=== PATIENT | female | born 1980 | race Caucasian/White ===

== ENCOUNTER 2024-07-22 14:04 | Inpatient (IN) | payer MEDICARE, MEDICAID, SELFPAY ==
[2024-07-22] VITALS (12 sets, daily range): BP systolic 84–108; BP diastolic 39–67; PULSE 48–85; RESP 10–16; TEMP 36.7; O2SAT 98–100; BMI 39.5
--- NOTE | ~2024-07-22 | XR_ITS ---
EXAMINATION: Right knee and right ankle. CLINICAL INDICATION: Fall. COMPARISON: None. Right knee 2 views and right ankle 3 views. FINDINGS: Right knee: There is loss of tricompartment joint space with moderate periarticular spurring superior to patella. There is no loose bodies. There is mild suprapatellar joint effusion. No visible fracture or dislocation. The soft tissues are normal. Right ankle: The ankle mortise and the subtalar joints are normal. There is bimalleolar of soft tissue swelling. No visible acute fracture, dislocation or subluxation seen. A small calcaneal heel enthesophyte is seen. XR/XR ankle RT 2V IMPRESSION: No acute fracture or dislocation right ankle. Bimalleolar soft tissue swelling. Small calcaneal heel spur. Degenerative arthritic changes right knee without acute fracture or dislocation. Moderate osteophytosis superior to patella Electronically signed by: Baldo Espinosa MD 07/25/2024 09:29 PM EST
--- NOTE | ~2024-07-22 | XR_ITS ---
EXAMINATION: Right knee and right ankle. CLINICAL INDICATION: Fall. COMPARISON: None. Right knee 2 views and right ankle 3 views. FINDINGS: Right knee: There is loss of tricompartment joint space with moderate periarticular spurring superior to patella. There is no loose bodies. There is mild suprapatellar joint effusion. No visible fracture or dislocation. The soft tissues are normal. Right ankle: The ankle mortise and the subtalar joints are normal. There is bimalleolar of soft tissue swelling. No visible acute fracture, dislocation or subluxation seen. A small calcaneal heel enthesophyte is seen. XR/XR knee RT 2V IMPRESSION: No acute fracture or dislocation right ankle. Bimalleolar soft tissue swelling. Small calcaneal heel spur. Degenerative arthritic changes right knee without acute fracture or dislocation. Moderate osteophytosis superior to patella Electronically signed by: Baldo Espinosa MD 07/25/2024 09:29 PM EST
--- NOTE | ~2024-07-22 | XR_ITS ---
EXAMINATION: XR ABDOMEN KUB CLINICAL INDICATION: alternating constipation/diarrhea COMPARISON: None available. TECHNIQUE: AP view of the abdomen performed on 3 images. FINDINGS: The bowel gas pattern is normal with no evidence of ileus or obstruction. No unusual soft tissue calcifications are noted. Diffuse vertebral spondylosis seen in the visualized thoracolumbar spine.. XR/XR KUB IMPRESSION: Unremarkable examination. Electronically signed by: Miriam Bauer MD 08/07/2024 07:32 AM [facility]
--- NOTE | 2024-07-22 14:24 | PC.NURSE ---
Pts allergies taken from face sheet from shelter, unknown reactions, pt not answering questions at this time.
--- NOTE | 2024-07-22 14:30 | PC.NURSE ---
Pt presents to ED via EMS from senior living, per EMS senior living called due to pt nodding off and complaining of right flank pain for past 2 days. Per staff pt has UTI and they are worried she may have kidney infection. Pt is alert and oriented initially when arrived, then sleeps, only arousable to pain. SPO2 remains >94% on RA, NSR on mental health tech.
--- NOTE | 2024-07-22 15:11 | ED.ABDPAIN ---
HPI - Abdominal Pain General Chief Complaint: Abdominal Pain Stated Complaint: from long term r flank pain x2days per ems Time Seen by Provider: 07/22/24 15:11 Source: patient and EMS Mode of arrival: EMS Limitations: no limitations History of Present Illness ED Provider: CLAUDIA HUSSEIN PA-C HPI narrative: 43 year old female presents to the ED today via EMS from sober home for evaluation of lethargy. Staff reports patient has been nodding off all morning and is concerned she may have taken an ilicit substance. They also report she was diagnosed with a urinary tract infection a few days ago however they are unsure if she has been taking her prescribed anitbiotic. She has been reporting continued right flank pain. On my initial evaluation, patient is sleeping in exam room. She is arousable to painful stimuli however immediately goes back to sleep. Unable to answer questions. Related Data Home Medications ?Medication ?Instructions ?Recorded ?Confirmed baclofen 20 mg tablet 20 mg PO TID 07/23/24 07/23/24 clonazepam 1 mg tablet 1 mg PO BID Anxiety 07/23/24 07/23/24 clonazepam 2 mg tablet 2 mg PO DAILY PRN Anxiety 07/23/24 07/23/24 clonidine HCl 0.2 mg tablet 0.2 mg PO TID 07/23/24 07/23/24 dicyclomine 20 mg tablet 20 mg PO TID 07/23/24 07/23/24 docusate sodium 100 mg capsule 100 mg PO BID 07/23/24 07/23/24 fluticasone propionate 50 1 spray intranasal DAILY 07/23/24 07/23/24 mcg/actuation nasal spray,suspension gabapentin 100 mg capsule 100 mg PO TID 07/23/24 07/23/24 gabapentin 300 mg capsule 300 mg PO TID 07/23/24 07/23/24 ibuprofen 800 mg tablet 800 mg PO Q6H PRN Moderate Pain 07/23/24 07/23/24 (Scale Score 5-6) loratadine 10 mg tablet 10 mg PO DAILY 07/23/24 07/23/24 methadone 110 mg PO DAILY 07/23/24 07/23/24 oxybutynin chloride 10 mg 10 mg PO DAILY 07/23/24 07/23/24 tablet,extended release 24 hr pregabalin 300 mg capsule 300 mg PO BID 07/23/24 07/23/24 pregabalin 75 mg capsule 75 mg PO TID 07/23/24 07/23/24 sennosides 8.6 mg tablet (senna) 8.6 mg PO BID 07/23/24 07/23/24 topiramate 200 mg tablet 200 mg PO BID 07/23/24 07/23/24 topiramate 50 mg tablet 50 mg PO BID 07/23/24 07/23/24 valacyclovir 1 gram tablet 1,000 mg PO DAILY 07/23/24 07/23/24 Allergies Allergy/AdvReac Type Severity Reaction Status Date / Time benztropine Allergy Unknown Verified 07/22/24 14:23 Bleach (Sodium Hypochlorite) Allergy Unknown Verified 07/22/24 14:23 chlorpromazine Allergy Unknown Verified 07/22/24 14:23 divalproex sodium Allergy Unknown Verified 07/22/24 14:23 egg Allergy Unknown Verified 07/22/24 14:23 olanzapine Allergy Unknown Verified 07/22/24 14:23 quetiapine Allergy Unknown Verified 07/22/24 14:23 Sulfa (Sulfonamide Allergy Unknown Verified 07/22/24 14:23 Antibiotics) [Sulfonamides] ziprasidone Allergy Unknown Verified 07/22/24 14:23 haloperidol [From Haldol] AdvReac Unknown Verified 07/22/24 14:23 lactose AdvReac Unknown Verified 07/22/24 14:23 naloxone AdvReac Unknown Verified 07/22/24 14:23 [facility] Social History Social History Advance Directives: No Advance Directives Information Provided: No Physical Exam ED Vital Signs: Vital Signs - 24 hr 07/22/24 16:14 07/22/24 16:51 07/22/24 17:31 Temperature Pulse Rate 66 66 60 Respiratory Rate 10 L 16 14 Blood Pressure 97/55 L 86/43 L 92/48 L Pulse Oximetry 98 99 Oxygen Delivery Method Room Air Room Air 07/22/24 18:12 07/22/24 18:46 07/22/24 18:53 Temperature Pulse Rate 58 55 57 Respiratory Rate 14 13 12 Blood Pressure 88/50 L 84/39 L 89/48 L Pulse Oximetry 98 99 99 Oxygen Delivery Method Room Air Room Air 07/22/24 19:02 07/22/24 20:23 07/22/24 22:00 Temperature Pulse Rate 54 48 L Respiratory Rate 10 L 10 L Blood Pressure 95/54 L 97/59 L 103/60 Pulse Oximetry 98 99 Oxygen Delivery Method Room Air Room Air 07/23/24 00:48 07/23/24 02:14 Temperature 97.2 F 97.6 F Pulse Rate 66 68 Respiratory Rate 12 12 Blood Pressure 138/82 120/72 Pulse Oximetry 100 99 Oxygen Delivery Method Room Air Room Air BMI result Body Mass Index 39.5 Hypotensive, vitals otherwise wnl General: appears intoxicated, nodding off, intermittently agreeable to answering questions, discheveled, poor hygeine Skin: Warm, dry, intact. no open wounds/ lesions Head: Normocephalic, atraumatic. EENT: Hearing is intact b/l. Conjunctiva clear. pin point pupils. EOM intact. Moist mucous membranes.? Neck: Supple without LAD Cardiac: Chest wall symmetric. RRR Lungs: Normal respiratory effort without accessory muscle use. CTA bilaterally Abdomen: Soft, non-tender, non-distended. No rebound tenderness or guarding. Positive BS x4. no cvat. Back: No midline spinous or paraspinal tenderness. No step off deformity. Ext: Upper and lower extremities atraumatic, without tenderness, deformity, swelling or erythema. Full ROM throughout. Neuro: arousable to painful stimuli. Sensation intact to light touch. Course Course Course Narrative: 1651 -- RN able to obatin labs. patient attempted to provide urine sample however fell asleep while doing so. concern for UTI - straight cath attempted however patient became very aggitated and upset, stating that she would like to leave. while I was talking to patient at bedside, she became hypotensive to 97/55. patient was placed in reverse Trendelenburg and BP recycled to 80's/50s. Dr. banks's at bedside. patient agreeable to IVF for hypotension. afebrile. I have suspicion hypotension is secondary to polysubstance abuse. I do not have concern for sepsis at this time. > CBC without leukocytosis or left shift. Normocytic anemia. No priors to compare to. H&H above transfusion threshold. Chemistry without acute electrolyte abnormality requiring intervention. UA/UDS pending. 1810 -- UDS positive for methadone, amphetemines, and benzos. ethanol undetectable. 2027 -- Patient has been sleeping for a majority of her stay. she is unwilling to answer questions and I cannot get a clear history from her although she denies any drug use. urine shows polysubstance abuse. blood pressure has been improving with IVF, will continue to monitor. plan for re-evaluation when patient is more awake. 2050 -- patient stable at the end of my shift. BP improving. sign out given to Juan WILLIS pending re-evaluation and disposition. Physician observation initiated. Reevaluation(s) Reevaluation #1: Patient received in sign-out at change of shift pending re-evaluation. She is now awake, alert and oriented. She initially told nursing staff that she requested discharge. When I went to evaluate her she states that she does not want to go back to her facility and that she would like to speak to the care team. She is depressed but not suicidal. She reports that she recently got out of a psychiatric hospital. The patient denies any illicit substance abuse or overdose Time: 00:32 Reevaluation #2: Patient is seen by the care team. She will be made a dual bed search for depression and substance abuse. She will be brought to the [place]. Time: 02:06 Reevaluation #3: Physician observation continued. VS stable, no acute events overnight, dual dx bedsearch MELIZA 07/23/24 Additional Reevaluation(s): observation care revealed that the patient does meet psychiatric necessity for hospitalization. final disposition discussed with the patient. The patient completed observation care at 242pm. admitted inpatient Medical Decision Making Medical Decision Making [facility] Narrative: 43 year old female presents to the ED today via EMS from sober home for evaluation of lethargy. Hypotensive, vitals otherwise wnl. Differential diagnosis includes polysubstance abuse, depression, etoh intoxication, anemia, electrolyte abnormality Differential Diagnosis Differential Diagnoses: The differential diagnosis associated with the presentation includes as above. Admission/Observation Not indicated. Lab Data [facility] Lab Attestation statement: I reviewed the patient's lab results. as above. 07/22/24 15:47 07/22/24 15:47 Labs: Lab Results 07/22/24 07/22/24 Range/Units 15:47 17:11 WBC 6.0 (4.8-10.8) X10*3/uL RBC 4.16 L (4.20-5.50) X10*6/uL Hgb 10.6 L (12.0-16.0) g/dl Hct 33.2 L (37.0-47.0) % MCV 79.8 L (80.0-98.0) fL MCH 25.5 L (27.0-33.0) pg MCHC 31.9 (31.0-35.0) g/dl RDW 18.4 H (11.0-16.0) % Plt Count 191 (160-400) X10*3/uL MPV 11.2 (9.4-12.3) fL Immature Gran % (Auto) 0.2 (0.0-0.4) % Neut % (Auto) 46.4 (45-73) % Lymph % (Auto) 42.4 H (20-40) % [place] % (Auto) 9.5 (2-11) % Eos % (Auto) 1.2 (0-4) % Baso % (Auto) 0.3 (0-2) % Lymph # (Auto) 2.6 (1.2-4.9) X10*3/uL [place] # (Auto) 0.6 (0.1-1.2) X10*3/uL Eos # (Auto) 0.1 (0.0-0.4) X10*3/uL Baso # (Auto) 0.0 (0.0-0.2) X10*3/uL Abs Immat Gran (auto) 0.01 (0.00-0.03) X10*3/uL Absolute Neuts (auto) 2.8 (2.0-8.3) x10*3/uL Absolute Nucleated RBC 0.000 (0.0-0.012) X10*3/uL Nucleated RBC % (auto) 0.0 (0.0-0.2) /100WBC Sodium 141 (135-145) mmol/L Potassium 3.3 (3.3-5.1) mmol/L Chloride 110 H (96-108) mmol/L Carbon Dioxide 23 (22-29) mmol/L Anion Gap 11 L (12-20) BUN 26 H (9-16) mg/dL Creatinine 0.99 (0.5-1.4) mg/dL Estim Creat Clear Calc 88.0 Estimated GFR > 60 Random Glucose 94 (60-115) mg/dL Calcium 9.1 (8.4-10.2) mg/dL Magnesium 2.1 (1.6-2.6) mg/dL Total Bilirubin 0.3 (0.0-1.0) mg/dL AST 53 H (5-31) U/L ALT 33 H (0-31) U/L Alkaline Phosphatase 95 (39-117) U/L Total Protein 7.9 (6.5-8.0) g/dL Albumin 3.6 (3.5-5.0) g/dL Lipase 7 L (8-78) U/L Urine Color Dark Yellow Urine Appearance Turbid Urine pH 5.5 (5.0-9.0) Ur Specific [place] 1.025 (1.005-1.025) Urine Protein Trace (Neg-Trace) mg/dL Urine Glucose (UA) Negative (Negative) mg/dL Urine Ketones Negative (Negative) mg/dL Urine Blood Negative (Negative) Urine Nitrite Negative (Negative) Ur Leukocyte Esterase Small (1+) H (Negative) Urine RBC 0-2 (0-2) /HPF Urine WBC 6-10 (0-5) /HPF Ur Squamous Epith Cells 6-10 (0-2) /HPF Other Crystals Present Urine Bacteria 1+ (None Seen) Hyaline Casts 6-10 (0-2) /LPF Urine Test NEGATIVE (NEGATIVE) Urine Opiates Screen Not Detected (Not Detect) Ur Buprenorphine Scrn Not Detected (Not Detect) ng/mL Ur Oxycodone Screen Not Detected (Not Detect) ng/mL Urine Methadone Screen Positive H (Not Detect) ng/mL Urine Fentanyl Screen Not Detected (Not Detect) Ur Barbiturates Screen Not Detected (Not Detect) Ur Phencyclidine Scrn Not Detected (Not Detect) Ur Amphetamines Screen POSITIVE H (Not Detect) U Benzodiazepines Scrn POSITIVE H (Not Detect) Urine Cocaine Screen Not Detected (Not Detect) U Marijuana (THC) Screen Not Detected (Not Detect) Ethyl Alcohol < 10 mg/dL Independent Interpretation I performed an independent interpretation of an: EKG Independent Historian Clinical information obtained from an independent historian. History obtained from or confirmed by: EMS Social Determinants Patient?s care significantly limited by Social Determinants of Health including: Other Social Determinant of Health Medications Administered Generic Name Dose Route Start Last Admin Trade Name Freq PRN Reason Stop Dose Admin Hydroxyzine HCl 25 mg 07/23/24 11:09 07/23/24 14:06 Hydroxyzine Hcl 25 Mg Tablet PO 25 mg Q6H PRN Administration Anxiety Methadone HCl 110 mg 07/23/24 09:30 07/23/24 11:47 Methadone Hcl 20 Mg/2 Ml Oral.Conc PO 110 mg DAILY EFREM Administration Discontinued Medications Generic Name Dose Route Start Last Admin Trade Name Freq PRN Reason Stop Dose Admin Sodium Chloride 1,000 mls @ 999 mls/hr 07/22/24 17:00 07/22/24 18:47 Ns IV 07/22/24 18:00 Infused .Q1H1M EFREM Infusion Sodium Chloride 1,000 mls @ 999 mls/hr 07/22/24 17:00 07/22/24 18:48 Ns IV 07/22/24 18:00 Infused .Q1H1M EFREM Infusion Sodium Chloride 1,000 mls @ 999 mls/hr 07/22/24 18:45 07/22/24 20:04 Ns IV 07/22/24 19:45 Infused .Q1H1M EFREM Infusion Critical Care Time Critical Care Time Critical Care Time: No Discharge Plan Discharge Clinical Impression: Polysubstance abuse, Hypotension, Depression Patient Disposition: Still a Patient
[2024-07-22 15:50] LABS: MANUAL DIFF FLAG NO
[2024-07-22 15:52] LABS: Basophils Percent Auto 0.3 % (0-2); Eosinophils Absolute Auto 0.1 X10*3/uL (0.0-0.4); Eosinophils Percent Auto 1.2 % (0-4); Hematocrit 33.2 % (37.0-47.0); Hemoglobin 10.6 g/dl (12.0-16.0); Imm Gran Abs Auto 0.01 X10*3/uL (0.00-0.03); Imm Gran Pct Auto 0.2 % (0.0-0.4); Lymphocytes Absolute Auto 2.6 X10*3/uL (1.2-4.9); Lymphocytes Percent Auto 42.4 % (20-40); Mean Corpuscular HGB Conc 31.9 g/dl (31.0-35.0); Mean Corpuscular Hemoglobin 25.5 pg (27.0-33.0); Mean Corpuscular Volume 79.8 fL (80.0-98.0); Mean Platelet Volume 11.2 fL (9.4-12.3); Monocytes Absolute Auto 0.6 X10*3/uL (0.1-1.2); Monocytes Percent Auto 9.5 % (2-11); Neutrophils Absolute Auto 2.8 x10*3/uL (2.0-8.3); Neutrophils Percent Auto 46.4 % (45-73); Platelet Count 191 X10*3/uL (160-400); Red Blood Count 4.16 X10*6/uL (4.20-5.50); Red Cell Distribution Width 18.4 % (11.0-16.0)
[2024-07-22 16:18] LABS: Alanine Aminotransferase 33 U/L (0-31); Albumin Level 3.6 g/dL (3.5-5.0); Alkaline Phosphatase 95 U/L (39-117); Anion Gap 11 (12-20); Aspartate Amino Transferase 53 U/L (5-31); Bilirubin Total 0.3 mg/dL (0.0-1.0); Blood Urea Nitrogen 26 mg/dL (9-16); Calcium 9.1 mg/dL (8.4-10.2); Carbon Dioxide 23 mmol/L (22-29); Chloride 110 mmol/L (96-108); Estimated Glomerular Filt Rate > 60; Glucose Random 94 mg/dL (60-115); Lipase 7 U/L (8-78); Magnesium 2.1 mg/dL (1.6-2.6); Potassium 3.3 mmol/L (3.3-5.1); Sodium 141 mmol/L (135-145); Total Protein 7.9 g/dL (6.5-8.0)
--- NOTE | 2024-07-22 16:48 | ECG_ITS ---
Test Reason : hypotensive Blood Pressure : / mmHG Vent. Rate : 058 BPM Atrial Rate : 058 BPM P-R Int : 176 ms QRS Dur : 104 ms QT Int : 512 ms P-R-T Axes : -06 -17 -05 degrees QTc Int : 502 ms Sinus bradycardia Minimal voltage criteria for LVH, may be normal variant ( R in aVL ) Cannot rule out Anterior infarct , age undetermined Prolonged QT Abnormal ECG No previous ECGs available Referred By: Sandy Ayon Electronically Signed By:MERRY MOLINA MD
[2024-07-22] MEDS: 0.9 % Sodium Chloride 1,000 ML 999 ML IV ×3 (16:52→18:51)
[2024-07-22 17:18] LABS: Appearance Urine Turbid; Color Urine Dark Yellow; Glucose Urine UA Negative (Negative); Leukocyte Esterase Urine Small (1+) (Negative); Nitrite Urine Negative (Negative); PH 5.5 (5.0-9.0); Specific Gravity - Urine 1.025 (1.005-1.025); UMIC TRIGGER UACC YES; Urine Blood Negative (Negative); Urine Ketones Negative (Negative); Urine Protein Trace mg/dL (Neg-Trace)
[2024-07-22 17:21] LABS: Ethanol < 10 mg/dL
--- NOTE | 2024-07-22 17:32 | PC.NURSE ---
Pt able to sit on commode with assistance and urinate. Security came and checked pts belongings, placed in closet. Pt now sleeping again, NSR on montior. BP remains soft, fluids infusing,
[2024-07-22 17:42] LABS: UPreg QC Valid YES; Urine Pregnancy NEGATIVE (NEGATIVE)
[2024-07-22 17:48] LABS: Bacteria Urine 1+ (None Seen); Other Crystals Urine Present; UACC Culture Trigger YES
[2024-07-22 17:49] LABS: RBC Urine 0-2 /HPF (0-2)
[2024-07-22 17:51] LABS: Amphetamine Screen Urine POSITIVE (Not Detect); Barbiturates, Urine Not Detected (Not Detect); Benzodiazepines Screen Urine POSITIVE (Not Detect); Buprenorphine Scr Not Detected (Not Detect); Cannabinoid Screen Urine Not Detected (Not Detect); Cocaine Screen Urine Not Detected (Not Detect); Fentanyl, urine Not Detected (Not Detect); Methadone Screen, Urine Positive (Not Detect); Opiate Screen Urine Not Detected (Not Detect); Oxycodone Screen Urine Not Detected (Not Detect); Phencyclidine Screen Urine Not Detected (Not Detect)
--- NOTE | 2024-07-22 17:55 | PC.NURSE ---
Belongings in closet next to room 7, shelf 4 by security
--- NOTE | 2024-07-22 18:47 | PC.NURSE ---
Pt continues to sleep, only aroused to pain. BPs remain low, provider aware and NS infusing.
--- NOTE | 2024-07-22 19:29 | PC.NURSE ---
Pt continues to sleep, only aroused to pain. BPs remain low, provider aware and NS infusing.
--- NOTE | 2024-07-22 20:50 | PC.NURSE ---
Pt remains asleep on stretcher. Arousable to painful stimuli and beginning to respond to some voice.
[2024-07-23] VITALS (7 sets, daily range): BP systolic 118–149; BP diastolic 72–88; PULSE 65–78; RESP 12–18; TEMP 36.2–36.6; O2SAT 99–100
--- NOTE | 2024-07-23 | ECG_ITS ---
Test Reason : MED CLEARANCE Blood Pressure : / mmHG Vent. Rate : 059 BPM Atrial Rate : 059 BPM P-R Int : 162 ms QRS Dur : 096 ms QT Int : 428 ms P-R-T Axes : 019 -10 005 degrees QTc Int : 423 ms Sinus bradycardia with Premature atrial complexes Cannot rule out Anterior infarct (cited on or before 22-JUL-2024) Abnormal ECG When compared with ECG of 22-JUL-2024 17:44, Premature atrial complexes are now Present QT has shortened Referred By: Khadra Lund Electronically Signed By:MERRY MOLINA MD
--- NOTE | 2024-07-23 00:58 | PC.NURSE ---
Pt ambulated to and from restroom with standby assist from RN. Once back on stretcher pt requesting food and drink which was provided. Pt changed into proper hospital attire as pt to be seen by CARE team for respite.
--- NOTE | 2024-07-23 06:38 | HE.PHANOTE ---
RE METHADONE [facility] [phone]. Dosed with 110 mg last dose was 07/22/24 @6948
--- NOTE | 2024-07-23 10:44 | PC.NURSE ---
Pt grants permission for video editing internship [employer] (witnessed by this RN) to remove her medications from her personal belongings for the purpose of med verificaiton.
[2024-07-23] MEDS: methADONE HCl 20 MG/2 ML ORAL.CONC 110 MG PO (11:47)
[2024-07-23] MEDS: hydrOXYzine HCL 25 MG TABLET PO (14:06)
--- NOTE | 2024-07-23 14:08 | PC.NURSE ---
Pt has been resting quietly for most of the morning. Pt meets with Tashi for a short time. Med rec completed via medication bubble packs in Pts belongings. All orders reviewed with Pt for accuracy and entered as such. Pharmacy with heavy involvement to ensure Rx are current prior to verifying the orders. Pt made aware that this process has been on going and that medications will be entered once all verifications are completed. Pt requests medication for anxiety. Pt advised she has a current order for Atarax if she would like. While Pt reports Atarax does not help with her anxiety but proceeds to take it. Pt then asks why no one will give her Ativan. It was explained to Pt she was offered the Atarax since she had an order for it and that no staff are withholding Ativan from her. Pt then states she doesn't understand why she can't go back to the program she came from; Pt advised that Care Team will meet with her to discuss and answer her questions re: her plan of care.
--- NOTE | 2024-07-23 14:33 | PHA.MEDREC ---
Pharmacy Consult ? Medication Reconciliation Pharmacy reviewed med rec done by nursing. Patient has all her medications on hand with her and confirmed medications with that and list provided by [facility] for [facility]. List from [facility] had no directions on the paper and I utilized the Rx bottles and I utilized claims to help confirm medications.
--- NOTE | 2024-07-23 14:35 | PC.NURSE ---
Pts medications continues to be unverified at this time. Colace and Senokot not available in Pod pyxis. Will request from main ED pyxis.
--- NOTE | 2024-07-23 14:41 | PHA.MEDREC ---
Pharmacy Consult ? Medication Reconciliation Pharmacy reviewed med rec done by nursing. Patient has all her medications on hand with her and confirmed medications with that and list provided by [facility] for [facility]. List from [facility] had no directions on the paper and I utilized meds patient has on hand and noticed a lot of medications filled from [facility] not filled since April of this year mostly for 30 day supplies. Calling [facility] they have not filled for this patient since April of this year for 30 day supplies and nothing more then that, patient seems to not be compliant with taking these medications from [facility].
--- NOTE | 2024-07-23 15:06 | PC.NURSE ---
GERARDO Jack from inpatient MH comes to retrieve Pt from ED BH pod. RN to RN given over the phone earlier in shift and brief review of Pts day completed in person. All of Pts belongings from [facility] transported up with Pt. GERARDO Jack given custody of all of Pts medication bubble packs (2 bags) retrieved from Pt belongings. Care of Pt, Pts medications, and Pts belongings relinquished to GERARDO Jack. Pt has left the unit at this time.
[2024-07-23] MEDS: Pregabalin 150 MG CAPSULE 300 MG PO ×2 (16:04→21:47)
[2024-07-23] MEDS: cloNIDine HCL 0.2 MG TABLET PO ×2 (16:05→21:47)
[2024-07-23] MEDS: Dicyclomine HCl 10 MG CAPSULE 20 MG PO (16:05)
[2024-07-23] MEDS: Topiramate 100 MG TABLET 200 MG PO ×2 (16:05→21:48)
[2024-07-23] MEDS: Baclofen 20 MG TABLET PO ×2 (16:05→21:48)
[2024-07-23] MEDS: clonazePAM 1 MG TABLET PO ×3 (16:10→21:48)
[2024-07-23] MEDS: Loratadine 10 MG TABLET PO (16:58)
[2024-07-23] MEDS: oxyBUTYnin chloride ER 5 MG TAB.ER.24 10 MG PO (16:58)
--- NOTE | 2024-07-23 19:10 | PC.ADMIT ---
Arline is a 43 year old female was admitted to from [facility] ED at 15:00. Arline arrived after a short stay at [facility] in which staff called an ambulance due to concerns that she may have taken an illicit substance and lethargy. Skin and safety check was performed with no remarkable findings. Arline does have black hair dye on her arms and around her fingernails which initially may look like bruising or dirt. Arline was cooperative with the admission process though had quite a bit of anxiety over confusion regarding the large amount of medications that she arrived with, some from previous hospital stays. [facility] pharmacy and POD reconciled medications to the best of their agilities and orders were entered. Arline endorses passive SI with no plan while here an is able to contract for safety and request help if needed. She also reports as high depression and anxiety. Arline was brought to the unit with a wheelchair full of belongings and reportedly many belongings left at [facility] in the dryer. She did call from POD to request delivery of her other belongings. Belongings are temporarily in the OT room in a wheelchair marked as not inventoried. Arline signed a CV and was put on 15 minute checks for safety.
--- NOTE | 2024-07-23 20:05 | PC.NURSE ---
Arline has a neuro [facility] provider/prescriber for which she has signed a release; Liz Celis [facility] in [facility] [phone] ext [phone].
[2024-07-23] MEDS: Docusate Sodium 100 MG CAPSULE PO (21:47)
[2024-07-23] MEDS: Gabapentin 400 MG CAPSULE PO (21:47)
[2024-07-23] MEDS: Acetaminophen 325 MG TABLET 650 MG PO (21:52)
[2024-07-24 07:48] VITALS: BP 105/62; PULSE 58; RESP 18; TEMP 36.4; O2SAT 96
[2024-07-24] MEDS: methADONE HCl 20 MG/2 ML ORAL.CONC 110 MG PO (08:11)
[2024-07-24] MEDS: Gabapentin 400 MG CAPSULE PO (08:12)
[2024-07-24] MEDS: Pregabalin 150 MG CAPSULE 300 MG PO ×2 (08:12→21:16)
[2024-07-24] MEDS: clonazePAM 1 MG TABLET 2 MG PO ×2 (08:12→12:24)
[2024-07-24] MEDS: Docusate Sodium 100 MG CAPSULE PO (08:13)
[2024-07-24] MEDS: oxyBUTYnin chloride ER 5 MG TAB.ER.24 10 MG PO (08:13)
[2024-07-24] MEDS: valACYclovir HCL 1,000 MG TABLET 1000 MG PO (08:13)
[2024-07-24] MEDS: Sennosides 8.6 MG TABLET 17.2 MG PO (08:13)
[2024-07-24] MEDS: cloNIDine HCL 0.2 MG TABLET PO ×3 (08:13→21:16)
[2024-07-24] MEDS: Dicyclomine HCl 10 MG CAPSULE 20 MG PO (08:13)
[2024-07-24] MEDS: Amphetamine Mixed Salts 20 MG TABLET 30 MG PO ×2 (08:14→12:26)
[2024-07-24] MEDS: Loratadine 10 MG TABLET PO (08:14)
[2024-07-24] MEDS: Topiramate 100 MG TABLET 200 MG PO ×2 (08:14→21:15)
[2024-07-24] MEDS: Baclofen 20 MG TABLET PO ×3 (08:14→21:16)
[2024-07-24] MEDS: Fluticasone Propionate Nasal 16 GM SPRAY 1 SPRAY NOSTRIL-B (08:31)
--- NOTE | 2024-07-24 11:23 | HO.PSYADMNOT ---
HPI Date of Service: 07/24/24 Chief Complaint: Depression Sources of Information: patient interviewed, chart reviewed and crisis/core team assessment reviewed HPI Subjective Notes: Conditional Voluntary Narrative: 43 yo female originally from [place], [place]. Currently homeless. Patient was brought from [facility] due to appearing under the influence and suspicion she may have OD'd. Patient was in the ED and after CARE team evaluation patient was admitted to inpatient psychiatry. Patient has been in and out of substance use disorder treatment programs for the past 2 years or so since the break up with her boyfriend. She reports multiple inpatient psychiatric hospitalizations. She says she was transferred to [facility] from [facility] as a step down. She says once she got into the [facility], she saw a woman who she has known before and who was saying she was a Lucifarian . That person knew patient's exBF who was Luciferian and accused the patient of the same. She says she was mocked, bullied and people acted negatively towards her and were unprofessional and she doesn't want to return there. She is hoping through her stay here she is able to find another place that would be a better fit. She endorses feeling depressed, anxious, irritable, angry, sad. She is tearful in the interview describing her situation. She reports chronic pain. Patient denies active SI but admits SI prior to admission. Denies AVH. Past Psychiatric History: Multiple psychiatric hospitalizations. 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 Psychiatric treatment in childhood/adolescence. Medical Evaluation Reviewed: Yes [facility] Family History: Reports bipolar and schizophrenia in her grandmother Sister substance use Social History: Originally from [facility]. Raised by grandmother. Substance History: Polysubstance dependence Trauma History: Reported. Details not discussed. Diagnostics Vital Signs (24Hr): Vital Signs - 24 hr 07/23/24 14:24 07/23/24 15:00 07/23/24 16:05 Temperature 97.7 F 97.8 F Pulse Rate 67 78 Respiratory Rate 14 18 Blood Pressure 122/76 149/88 H 149/88 H Pulse Oximetry 100 100 Oxygen Delivery Method Room Air Room Air 07/23/24 20:00 07/23/24 21:47 07/24/24 07:48 Temperature 97.5 F 97.6 F Pulse Rate 65 58 Respiratory Rate 18 Blood Pressure 121/73 118/74 105/62 Pulse Oximetry 99 96 Oxygen Delivery Method Room Air Room Air BMI result Body Mass Index 39.5 Labs 07/22/24 15:47 07/22/24 15:47 Labs: Laboratory Results - last 48 hr 07/22/24 07/22/24 15:47 17:11 WBC 6.0 RBC 4.16 L Hgb 10.6 L Hct 33.2 L MCV 79.8 L MCH 25.5 L MCHC 31.9 RDW 18.4 H Plt Count 191 MPV 11.2 Immature Gran % (Auto) 0.2 Neut % (Auto) 46.4 Lymph % (Auto) 42.4 H [place] % (Auto) 9.5 Eos % (Auto) 1.2 Baso % (Auto) 0.3 Lymph # (Auto) 2.6 [place] # (Auto) 0.6 Eos # (Auto) 0.1 Baso # (Auto) 0.0 Abs Immat Gran (auto) 0.01 Absolute Neuts (auto) 2.8 Absolute Nucleated RBC 0.000 Nucleated RBC % (auto) 0.0 Sodium 141 Potassium 3.3 Chloride 110 H Carbon Dioxide 23 Anion Gap 11 L BUN 26 H Creatinine 0.99 Estim Creat Clear Calc 88.0 Estimated GFR > 60 Random Glucose 94 Calcium 9.1 Magnesium 2.1 Total Bilirubin 0.3 AST 53 H ALT 33 H Alkaline Phosphatase 95 Total Protein 7.9 Albumin 3.6 Lipase 7 L Urine Color Dark Yellow Urine Appearance Turbid Urine pH 5.5 Ur Specific [place] 1.025 Urine Protein Trace Urine Glucose (UA) Negative Urine Ketones Negative Urine Blood Negative Urine Nitrite Negative Ur Leukocyte Esterase Small (1+) H Urine RBC 0-2 Urine WBC 6-10 Ur Squamous Epith Cells 6-10 Other Crystals Present Urine Bacteria 1+ Hyaline Casts 6-10 Urine Test NEGATIVE Urine Opiates Screen Not Detected Ur Buprenorphine Scrn Not Detected Ur Oxycodone Screen Not Detected Urine Methadone Screen Positive H Urine Fentanyl Screen Not Detected Ur Barbiturates Screen Not Detected Ur Phencyclidine Scrn Not Detected Ur Amphetamines Screen POSITIVE H U Benzodiazepines Scrn POSITIVE H Urine Cocaine Screen Not Detected U Marijuana (THC) Screen Not Detected Ethyl Alcohol < 10 Meds/Allergies Meds Home Medications ?Medication ?Instructions ?Recorded ?Confirmed ?Type baclofen 20 mg tablet 20 mg PO TID 07/23/24 07/23/24 History clonazepam 1 mg tablet 1 mg PO BID Anxiety 07/23/24 07/23/24 History clonazepam 2 mg tablet 2 mg PO DAILY PRN Anxiety 07/23/24 07/23/24 History clonidine HCl 0.2 mg tablet 0.2 mg PO TID 07/23/24 07/23/24 History dicyclomine 20 mg tablet 20 mg PO TID 07/23/24 07/23/24 History docusate sodium 100 mg capsule 100 mg PO BID 07/23/24 07/23/24 History fluticasone propionate 50 1 spray intranasal DAILY 07/23/24 07/23/24 History mcg/actuation nasal spray,suspension gabapentin 100 mg capsule 100 mg PO TID 07/23/24 07/23/24 History gabapentin 300 mg capsule 300 mg PO TID 07/23/24 07/23/24 History ibuprofen 800 mg tablet 800 mg PO Q6H PRN Moderate Pain 07/23/24 07/23/24 History (Scale Score 5-6) loratadine 10 mg tablet 10 mg PO DAILY 07/23/24 07/23/24 History methadone 110 mg PO DAILY 07/23/24 07/23/24 History oxybutynin chloride 10 mg 10 mg PO DAILY 07/23/24 07/23/24 History tablet,extended release 24 hr pregabalin 300 mg capsule 300 mg PO BID 07/23/24 07/23/24 History pregabalin 75 mg capsule 75 mg PO TID 07/23/24 07/23/24 History sennosides 8.6 mg tablet (senna) 8.6 mg PO BID 07/23/24 07/23/24 History topiramate 200 mg tablet 200 mg PO BID 07/23/24 07/23/24 History topiramate 50 mg tablet 50 mg PO BID 07/23/24 07/23/24 History valacyclovir 1 gram tablet 1,000 mg PO DAILY 07/23/24 07/23/24 History Allergies Allergies Allergy/AdvReac Type Severity Reaction Status Date / Time benztropine Allergy Unknown Verified 07/22/24 14:23 Bleach (Sodium Hypochlorite) Allergy Unknown Verified 07/22/24 14:23 chlorpromazine Allergy Unknown Verified 07/22/24 14:23 divalproex sodium Allergy Unknown Verified 07/22/24 14:23 olanzapine Allergy Unknown Verified 07/22/24 14:23 quetiapine Allergy Unknown Verified 07/22/24 14:23 Sulfa (Sulfonamide Allergy Unknown Verified 07/22/24 14:23 Antibiotics) [Sulfonamides] ziprasidone Allergy Unknown Verified 07/22/24 14:23 haloperidol [From Haldol] AdvReac Unknown Verified 07/22/24 14:23 naloxone AdvReac Unknown Verified 07/22/24 14:23 Mental Status Exam Mental Status Exam Narrative: General appearance: casually appropriate dress. Overweight. Poor hygiene. Appears somewhat sedated. ? Eye contact: Wandering. ?? Manner/behavior: cooperative. Speech:? slurring Language: No receptive or expressive language impairment? Mood: Depressed. Affect: Tearful. Labile. Thought process/associations: Linear with no flight of ideas or loose associations.?? Thought content:?No delusions or paranoia.?Focused on her program being not a good fit for her.? Hallucinations: No auditory, visual or other hallucinations Suicidality/self-destructive behavior: Denies inpatient ? Homicidally/violence: none.? Reliability: fair.? ? Judgment: poor.? ? Insight: poor Cognition: Alert and oriented to time, place and person. ? Impulse control and emotional regulation: poor. Intelligence estimate: average.? Assessment & Plan Assessment & Plan (1) Depression: Status: Acute Code(s): F32.A - Depression, unspecified (2) Polysubstance abuse: Status: Acute Code(s): F19.10 - Other psychoactive substance abuse, uncomplicated Plan - Admit to inpatient psychiatry - CV - Collateral information from family and providers. - Milieu treatment and group therapy. - Medications: Continue same. - Social work evaluation. - Disposition planning. Patient educated on: medication risk/benefits Reason for continued inpatient stay Substantial Risk for: inability to function and rapid decompensation Statement Statement: I have reviewed the history and physical and performed a pertinent examination on my patient. No changes have occurred unless specified. If the History and Physical was not performed prior to admission, the Hospitalist's service will be consulted for completing the admission physical. Time Spent With Patient Time: Total time managing care of this patient today ____ minutes.
[2024-07-24 15:55] VITALS: BP 141/77
[2024-07-24] MEDS: clonazePAM 1 MG TABLET PO ×2 (16:01→21:19)
[2024-07-24] MEDS: Nicotine Polacrilex 2 MG GUM 4 MG BUCCAL ×2 (16:13→21:23)
--- NOTE | 2024-07-24 19:25 | PC.NURSE ---
Pt had an angry outburst this evening resulting in screaming and yelling at the smelter charger for not allowing her to have additional clothing from her belongings. Pt requested shorts that were very short and inappropriate for the unit. She started to do some head banging but then was able to be redirected and stopped. She had a small red area on her forehead as a result. Pt refused offered prn hydroxyzine and went on to discuss the various losses and painful events in her life. She stated that she would just ask for a bullet to her head. She informed that talking to staff and yelling at them was not appropriate and that she will need to maintain behavioral control while here. She was able to listen and eventually calmed down after talking with TW. Will continue to monitor and redirect as needed.
[2024-07-24 20:00] VITALS: RESP 16
[2024-07-24] MEDS: Ibuprofen 800 MG TABLET PO (21:16)
[2024-07-24] MEDS: hydrOXYzine HCL 25 MG TABLET PO (21:16)
[2024-07-25] MEDS: methADONE HCl 20 MG/2 ML ORAL.CONC 110 MG PO (07:47)
[2024-07-25 08:00] VITALS: BP 134/76; PULSE 60; RESP 18; TEMP 36.2; O2SAT 100
[2024-07-25] MEDS: Amphetamine Mixed Salts 20 MG TABLET 30 MG PO (08:09)
[2024-07-25] MEDS: Sennosides 8.6 MG TABLET 17.2 MG PO (08:09)
[2024-07-25] MEDS: Docusate Sodium 100 MG CAPSULE PO ×2 (08:10→21:42)
[2024-07-25] MEDS: cloNIDine HCL 0.2 MG TABLET PO ×3 (08:10→21:41)
[2024-07-25] MEDS: clonazePAM 1 MG TABLET 2 MG PO ×2 (08:10→15:14)
[2024-07-25] MEDS: Loratadine 10 MG TABLET PO (08:11)
[2024-07-25] MEDS: oxyBUTYnin chloride ER 5 MG TAB.ER.24 10 MG PO (08:11)
[2024-07-25] MEDS: valACYclovir HCL 1,000 MG TABLET 1000 MG PO (08:12)
[2024-07-25] MEDS: Topiramate 100 MG TABLET 200 MG PO ×2 (08:12→21:42)
[2024-07-25] MEDS: Baclofen 20 MG TABLET PO ×2 (08:12→15:00)
[2024-07-25] MEDS: Pregabalin 150 MG CAPSULE 300 MG PO ×2 (08:12→21:42)
[2024-07-25] MEDS: Ibuprofen 800 MG TABLET PO (08:13)
[2024-07-25] MEDS: Nicotine Polacrilex 2 MG GUM 4 MG BUCCAL (08:13)
--- NOTE | 2024-07-25 11:06 | P.PNPSI_ITS ---
Subjective Subjective Date of Service: 07/25/24 Reason For Visit: Depression Interim History: Patient had a fall earlier today. Patient reports she had a fall a month and a half ago and since her ankle and knee have been weak and give way. Today, her ankle twisted and she fell and fell on her knee. She says she hit her head as well. No LOC. She is asking for ultram. Patient has been excessively sedated. She says she has been on the same medications for years and this is new. She says she has been on Klonopin for 20 years (PDMP shows dose of up to 6 mg daily). Lyrica for 3 years. Ditropan was supposed to be taken at night she says. Mental Status Exam Mental Status Exam Narrative: General appearance: casually appropriate dress. Overweight. Poor hygiene. Appears somewhat sedated. ? Eye contact: Wandering. ?? Manner/behavior: cooperative. Speech:? slurring Language: No receptive or expressive language impairment? Mood: Depressed. Affect: Tearful. Labile. Thought process/associations: Linear with no flight of ideas or loose associations.?? Thought content:?No delusions or paranoia.?Focused on her program being not a good fit for her.? Hallucinations: No auditory, visual or other hallucinations Suicidality/self-destructive behavior: Denies inpatient ? Homicidally/violence: none.? Reliability: fair.? ? Judgment: poor.? ? Insight: poor Cognition: Alert and oriented to time, place and person. ? Impulse control and emotional regulation: poor. Intelligence estimate: average.? Diagnostics Vital Signs (24Hr): Vital Signs - 24 hr 07/24/24 15:55 07/24/24 20:00 07/25/24 08:00 Temperature 97.2 F Pulse Rate 60 Respiratory Rate 16 18 Blood Pressure 141/77 H 134/76 Pulse Oximetry 100 Oxygen Delivery Method Room Air BMI result Body Mass Index 39.5 Labs 07/22/24 15:47 07/22/24 15:47 Medications Medications Current Medications Acetaminophen (Acetaminophen 325 Mg Tablet) 650 mg PO Q6H PRN PRN Reason: Headache/Pain Mild Scale (1-3) Last Admin: 07/23/24 21:52 Dose: 650 mg Al Hydroxide/Mg Hydroxide (Magnesium Hydrox/Alum Hydrox 30 Ml Oral.Susp) 30 ml PO Q6H PRN PRN Reason: Heartburn/Nausea Amphetamine/Dextroamphetamine (Amphetamine Mixed Salts 20 Mg Tablet) 30 mg PO 0900,1300 [facility] Last Admin: 07/25/24 08:09 Dose: 30 mg Baclofen (Baclofen 20 Mg Tablet) 20 mg PO TID [facility] Last Admin: 07/25/24 08:12 Dose: 20 mg Clonazepam (Clonazepam 1 Mg Tablet) 2 mg PO 0900,1200 [facility] Last Admin: 07/25/24 08:10 Dose: 2 mg Clonazepam (Clonazepam 1 Mg Tablet) 1 mg PO 1700 [facility] Last Admin: 07/24/24 16:01 Dose: 1 mg Clonazepam (Clonazepam 1 Mg Tablet) 1 mg PO BEDTIME [facility] Last Admin: 07/24/24 21:19 Dose: 1 mg Clonidine HCl (Clonidine Hcl 0.2 Mg Tablet) 0.2 mg PO TID [facility]; Protocol Last Admin: 07/25/24 08:10 Dose: 0.2 mg Dicyclomine HCl (Dicyclomine Hcl 10 Mg Capsule) 20 mg PO TID PRN PRN Reason: abdominal pain Docusate Sodium (Docusate Sodium 100 Mg Capsule) 100 mg PO BID [facility] Last Admin: 07/25/24 08:10 Dose: 100 mg Fluticasone Propionate (Fluticasone Propionate Nasal 16 Gm Hamer) 1 spray NOSTRIL-B DAILY [facility] Last Admin: 07/25/24 09:43 Dose: Not Given Hydroxyzine HCl (Hydroxyzine Hcl 25 Mg Tablet) 25 mg PO Q6H PRN PRN Reason: Anxiety Last Admin: 07/24/24 21:16 Dose: 25 mg Ibuprofen (Ibuprofen 800 Mg Tablet) 800 mg PO Q8H PRN PRN Reason: Pain, Moderate(Pain Scale 4-6) Last Admin: 07/25/24 08:13 Dose: 800 mg Loratadine (Loratadine 10 Mg Tablet) 10 mg PO DAILY [facility] Last Admin: 07/25/24 08:11 Dose: 10 mg Magnesium Hydroxide (Milk Of Magnesia 30 Ml Oral.Susp) 30 ml PO DAILY PRN PRN Reason: Constipation Methadone HCl (Methadone Hcl 20 Mg/2 Ml Oral.Conc) 110 mg PO DAILY [facility] Last Admin: 07/25/24 07:47 Dose: 110 mg Nicotine (Nicotine 21 Mg Patch.Td24) 21 mg TRANSDERMA DAILY PRN PRN Reason: nicotine cravings Nicotine Polacrilex (Nicotine Polacrilex 2 Mg Gum) 4 mg BUCCAL Q2H PRN PRN Reason: Nicotine Cravings Last Admin: 07/25/24 08:13 Dose: 4 mg Oxybutynin Chloride (Oxybutynin Chloride Er 5 Mg Tab.Er.24) 10 mg PO DAILY [facility] Last Admin: 07/25/24 08:11 Dose: 10 mg Pregabalin (Pregabalin 150 Mg Capsule) 300 mg PO BID [facility] Last Admin: 07/25/24 08:12 Dose: 300 mg Senna (Sennosides 8.6 Mg Tablet) 17.2 mg PO DAILY [facility] Last Admin: 07/25/24 08:09 Dose: 17.2 mg Topiramate (Topiramate 100 Mg Tablet) 200 mg PO BID [facility] Last Admin: 07/25/24 08:12 Dose: 200 mg Trazodone HCl (Trazodone Hcl 50 Mg Tablet) 50 mg PO BEDTIME MRX1 PRN PRN Reason: Insomnia Valacyclovir HCl (Valacyclovir Hcl 1,000 Mg Tablet) 1,000 mg PO DAILY [facility] Last Admin: 07/25/24 08:12 Dose: 1,000 mg Allergies Allergies Allergy/AdvReac Type Severity Reaction Status Date / Time benztropine Allergy Unknown Verified 07/22/24 14:23 Bleach (Sodium Hypochlorite) Allergy Unknown Verified 07/22/24 14:23 chlorpromazine Allergy Unknown Verified 07/22/24 14:23 divalproex sodium Allergy Unknown Verified 07/22/24 14:23 olanzapine Allergy Unknown Verified 07/22/24 14:23 quetiapine Allergy Unknown Verified 07/22/24 14:23 Sulfa (Sulfonamide Allergy Unknown Verified 07/22/24 14:23 Antibiotics) [Sulfonamides] ziprasidone Allergy Unknown Verified 07/22/24 14:23 haloperidol [From Haldol] AdvReac Unknown Verified 07/22/24 14:23 naloxone AdvReac Unknown Verified 07/22/24 14:23 Assessment & Plan Assessment & Plan (1) Depression: Status: Acute Code(s): F32.A - Depression, unspecified (2) Polysubstance abuse: Status: Acute Code(s): F19.10 - Other psychoactive substance abuse, uncomplicated Plan - Admit to inpatient psychiatry - CV - Collateral information from family and providers. - Milieu treatment and group therapy. - Medications: Continue same. - Social work evaluation. - Disposition planning. 07/25: Check ankle and knee XR. Switch Ditropan to HS. Reason for continued inpatient stay Substantial Risk for: inability to function and rapid decompensation Time Spent With Patient Time: Total time managing care of this patient today ____ minutes.
--- NOTE | 2024-07-25 12:58 | PC.NURSE ---
Upon TW's return from lunch, was notified by electrical discharge machine operator that pt had an unwitnessed fall in her room. accreditation manager with pt and found her kneeling on right knee with left knee up. She assisted her back to the chair. Per patient report, she was walking to the door to get her lunch tray when her right ankle rolled, gave out . She proceeded to break her fall and landed on her knees and reports hitting the front of her forehead on the front door. Pt reported pain to her right ankle and swelling noted to right ankle and and right knee. Pt able to slightly wriggle toes but reporting pain. She is alert and oriented x3 but has been sedated since this morning. Dr Miller informed of fall and right ankle xray ordered and afternoon dose of clonazepam being held. Pt VSS, no acute mental status changes noted. VS temp 97.8, pulse 81, 138/93, oxygen saturation on RA 95%, rr 16. Pt already a fall risk as she has a hx of seizures. Encouraged pt to avoid wearing her open toes sandals as they are not supportive of feet and more likely to roll ankle again. Pt reports that her body has been through alot, and years of her dancing has impacted her knees and ankles and she deals with chronic pain. Only new orders thus far is right ankle xray, Will continue to monitor.
[2024-07-25 15:00] VITALS: BP 138/93
[2024-07-25 15:29] VITALS: BP 121/90; PULSE 73
[2024-07-25 16:09] LABS: Appearance Urine Clear; Color Urine Yellow; Glucose Urine UA Negative (Negative); Leukocyte Esterase Urine Negative (Negative); Nitrite Urine Negative (Negative); Specific Gravity - Urine 1.015 (1.005-1.025); Urine Blood Negative (Negative); Urine Ketones Negative (Negative); Urine Protein Negative (Neg-Trace)
[2024-07-25 16:14] LABS: Bacteria Urine Trace (None Seen); Hyaline Casts Urine 0-2 /LPF (0-2); RBC Urine 0-2 /HPF (0-2); WBC Urine 0-5 /HPF (0-5)
[2024-07-25 20:00] VITALS: BP 110/86; PULSE 63; RESP 14; TEMP 36.4; O2SAT 98
[2024-07-25] MEDS: clonazePAM 1 MG TABLET PO (21:42)
[2024-07-26] MEDS: Baclofen 20 MG TABLET PO ×4 (00:56→21:52)
[2024-07-26] MEDS: methADONE HCl 20 MG/2 ML ORAL.CONC 110 MG PO (07:59)
[2024-07-26 08:00] VITALS: BP 146/82; PULSE 56; RESP 18; TEMP 36.2; O2SAT 97
[2024-07-26] MEDS: Pregabalin 150 MG CAPSULE 300 MG PO ×2 (09:15→21:43)
[2024-07-26] MEDS: Loratadine 10 MG TABLET PO (09:15)
[2024-07-26] MEDS: Topiramate 100 MG TABLET 200 MG PO ×2 (09:15→21:39)
[2024-07-26 09:16] VITALS: BP 146/82
[2024-07-26] MEDS: clonazePAM 1 MG TABLET 2 MG PO ×2 (09:16→13:19)
[2024-07-26] MEDS: cloNIDine HCL 0.2 MG TABLET PO ×3 (09:16→21:41)
[2024-07-26] MEDS: Amphetamine Mixed Salts 20 MG TABLET 30 MG PO ×2 (09:16→13:21)
[2024-07-26] MEDS: Docusate Sodium 100 MG CAPSULE PO ×2 (09:16→21:43)
[2024-07-26] MEDS: Sennosides 8.6 MG TABLET 17.2 MG PO (09:16)
[2024-07-26] MEDS: Ibuprofen 800 MG TABLET PO (13:18)
--- NOTE | 2024-07-26 16:47 | P.PNPSI_ITS ---
Subjective Subjective Date of Service: 07/26/24 Reason For Visit: Depression Subjective Notes: Conditional Voluntary Healthcare Proxy: No Guardianship: No Medical Problems Affecting Mental Status: No Interim History: Pt discussed her transition from [facility] to [facility]. Several issues with peers, their accusations, and resulting consequences, pt feeling as if she was not wanted there and was being set up on several occasions.Talks of being bullied at the program. Discussed her feelings of low self esteem as well. Several physical concerns identified, pt will need OP referral to PCP upon discharge-OA/RA pain, hoping to begin medication for weight loss, irregular menses, anemia. Reports increase in depressive sx, sadness, anxiety. Review of medications. Team believes pt to be oversedated with falling. Pt denies this, reports pain is the rationale for falls- will continue to monitor. Medication Compliance: Yes Side effects from medications: Yes (?sedation) Attending Groups: Intermittent Review of Systems Medical Review of Systems: unchanged Review of Systems Review of Systems reports RA/OA pain Mental Status Exam Mental Status Exam Patient Appearance: Appropriate Patient Orientation: Person, Place, Time and Situation Level of Consciousness: Alert Patient Behavior: Talkative, Cooperative, Good Eye Contact and Crying Mood Description: Withdrawn, Depressed, Anxious and Apprehensive Affect Description: Flat Patient Cognition Impaired: No Ability to Follow Directions: Good Speech Pattern: Spontaneous Speech Memory Description: Intact Hallucinations: None Perceptual Disturbances: Depersonalization and Derealization Thought Process: Distracted and Rumination Thought Content: positive for Circumstantial Depressive Symptoms: Increased Anxiety, Difficulty Sleeping, Feelings of Worthlessness, Hopelessness, Unhappiness, Increased Fatigue, Loss of Energy and Difficulty Concentrating Judgement: Fair Diagnostics Vital Signs (24Hr): Vital Signs - 24 hr 07/25/24 20:00 07/26/24 08:00 07/26/24 09:16 Temperature 97.6 F 97.1 F Pulse Rate 63 56 Respiratory Rate 14 18 Blood Pressure 110/86 146/82 H 146/82 H Pulse Oximetry 98 97 Oxygen Delivery Method Room Air Room Air BMI result Body Mass Index 39.5 Labs 07/22/24 15:47 07/22/24 15:47 Labs: Laboratory Results - last 48 hr 07/25/24 Unknown Urine Color Yellow Urine Appearance Clear Urine pH 6.0 Ur Specific [place] 1.015 Urine Protein Negative Urine Glucose (UA) Negative Urine Ketones Negative Urine Blood Negative Urine Nitrite Negative Ur Leukocyte Esterase Negative Urine RBC 0-2 Urine WBC 0-5 Ur Squamous Epith Cells 3-5 Urine Bacteria Trace Hyaline Casts 0-2 Imaging Radiology Impressions: ITS Impressions Ankle X-Ray 07/25/24 14:10 IMPRESSION: No acute fracture or dislocation right ankle. Bimalleolar soft tissue swelling. Small calcaneal heel spur. Degenerative arthritic changes right knee without acute fracture or dislocation. Moderate osteophytosis superior to patella Electronically signed by: Baldo Espinosa MD 07/25/2024 09:29 PM EST RP Knee X-Ray 07/25/24 14:10 IMPRESSION: No acute fracture or dislocation right ankle. Bimalleolar soft tissue swelling. Small calcaneal heel spur. Degenerative arthritic changes right knee without acute fracture or dislocation. Moderate osteophytosis superior to patella Electronically signed by: Baldo Espinosa MD 07/25/2024 09:29 PM EST RP Medications Medications Current Medications Acetaminophen (Acetaminophen 325 Mg Tablet) 650 mg PO Q6H PRN PRN Reason: Headache/Pain Mild Scale (1-3) Last Admin: 07/23/24 21:52 Dose: 650 mg Al Hydroxide/Mg Hydroxide (Magnesium Hydrox/Alum Hydrox 30 Ml Oral.Susp) 30 ml PO Q6H PRN PRN Reason: Heartburn/Nausea Amphetamine/Dextroamphetamine (Amphetamine Mixed Salts 20 Mg Tablet) 30 mg PO 0900,1300 [facility] Last Admin: 07/26/24 13:21 Dose: 30 mg Baclofen (Baclofen 20 Mg Tablet) 20 mg PO 0900,1700,2100 [facility] Clonazepam (Clonazepam 1 Mg Tablet) 2 mg PO 0900,1200 [facility] Last Admin: 07/26/24 13:19 Dose: 2 mg Clonazepam (Clonazepam 1 Mg Tablet) 1 mg PO 1700 [facility] Last Admin: 07/25/24 18:00 Dose: Not Given Clonazepam (Clonazepam 1 Mg Tablet) 1 mg PO BEDTIME [facility] Last Admin: 07/25/24 21:42 Dose: 1 mg Clonidine HCl (Clonidine Hcl 0.2 Mg Tablet) 0.2 mg PO TID [facility]; Protocol Last Admin: 07/26/24 09:16 Dose: 0.2 mg Dicyclomine HCl (Dicyclomine Hcl 10 Mg Capsule) 20 mg PO TID PRN PRN Reason: abdominal pain Docusate Sodium (Docusate Sodium 100 Mg Capsule) 100 mg PO BID [facility] Last Admin: 07/26/24 09:16 Dose: 100 mg Ferrous Sulfate (Ferrous Sulfate 324 Mg Tablet.Dr) 324 mg PO DAILY [facility] Fluticasone Propionate (Fluticasone Propionate Nasal 16 Gm [place]) 1 spray NOSTRIL-B DAILY [facility] Last Admin: 07/26/24 09:21 Dose: Not Given Hydroxyzine HCl (Hydroxyzine Hcl 25 Mg Tablet) 25 mg PO Q6H PRN PRN Reason: Anxiety Last Admin: 07/24/24 21:16 Dose: 25 mg Ibuprofen (Ibuprofen 800 Mg Tablet) 800 mg PO Q8H PRN PRN Reason: Pain, Moderate(Pain Scale 4-6) Last Admin: 07/26/24 13:18 Dose: 800 mg Loratadine (Loratadine 10 Mg Tablet) 10 mg PO DAILY [facility] Last Admin: 07/26/24 09:15 Dose: 10 mg Magnesium Hydroxide (Milk Of Magnesia 30 Ml Oral.Susp) 30 ml PO DAILY PRN PRN Reason: Constipation Methadone HCl (Methadone Hcl 20 Mg/2 Ml Oral.Conc) 110 mg PO DAILY [facility] Last Admin: 07/26/24 07:59 Dose: 110 mg Multivitamins/Vitamin C (Multivitamin Tablet) 1 tab PO DAILY [facility] Nicotine (Nicotine 21 Mg Patch.Td24) 21 mg TRANSDERMA DAILY PRN PRN Reason: nicotine cravings Nicotine Polacrilex (Nicotine Polacrilex 2 Mg Gum) 4 mg BUCCAL Q2H PRN PRN Reason: Nicotine Cravings Last Admin: 07/25/24 08:13 Dose: 4 mg Oxybutynin Chloride (Oxybutynin Chloride Er 5 Mg Tab.Er.24) 10 mg PO BEDTIME [facility] Pregabalin (Pregabalin 150 Mg Capsule) 300 mg PO BID [facility] Last Admin: 07/26/24 09:15 Dose: 300 mg Senna (Sennosides 8.6 Mg Tablet) 17.2 mg PO DAILY [facility] Last Admin: 07/26/24 09:16 Dose: 17.2 mg Sumatriptan Succinate (Sumatriptan Succinate 25 Mg Tablet) 25 mg PO DAILY PRN PRN Reason: Migraine Headache Topiramate (Topiramate 100 Mg Tablet) 200 mg PO BID [facility] Last Admin: 07/26/24 09:15 Dose: 200 mg Trazodone HCl (Trazodone Hcl 50 Mg Tablet) 50 mg PO BEDTIME MRX1 PRN PRN Reason: Insomnia Valacyclovir HCl (Valacyclovir Hcl 1,000 Mg Tablet) 1,000 mg PO DAILY [facility] Last Admin: 07/26/24 09:20 Dose: Not Given Allergies Allergies Allergy/AdvReac Type Severity Reaction Status Date / Time benztropine Allergy Unknown Verified 07/22/24 14:23 Bleach (Sodium Hypochlorite) Allergy Unknown Verified 07/22/24 14:23 chlorpromazine Allergy Unknown Verified 07/22/24 14:23 divalproex sodium Allergy Unknown Verified 07/22/24 14:23 olanzapine Allergy Unknown Verified 07/22/24 14:23 quetiapine Allergy Unknown Verified 07/22/24 14:23 Sulfa (Sulfonamide Allergy Unknown Verified 07/22/24 14:23 Antibiotics) [Sulfonamides] ziprasidone Allergy Unknown Verified 07/22/24 14:23 haloperidol [From Haldol] AdvReac Unknown Verified 07/22/24 14:23 naloxone AdvReac Unknown Verified 07/22/24 14:23 Assessment & Plan Assessment & Plan (1) Depression: Status: Acute Code(s): F32.A - Depression, unspecified (2) Polysubstance abuse: Status: Acute Code(s): F19.10 - Other psychoactive substance abuse, uncomplicated Plan - Admit to inpatient psychiatry - CV - Collateral information from family and providers. - Milieu treatment and group therapy. - Medications: Continue same. - Social work evaluation. - Disposition planning. 07/25: Check ankle and knee XR. Switch Ditropan to HS. 07/26: Continue regime, monitor for sedation Discharge planning Reason for continued inpatient stay Substantial Risk for: rapid decompensation and med/psych decompensation Time Spent With Patient Time: Total time managing care of this patient today ____ minutes.
[2024-07-26 16:55] VITALS: BP 138/89; RESP 18
[2024-07-26] MEDS: clonazePAM 1 MG TABLET PO ×2 (17:01→21:42)
[2024-07-26 20:00] VITALS: BP 117/80; PULSE 91; TEMP 36.3; O2SAT 97
[2024-07-26] MEDS: oxyBUTYnin chloride ER 5 MG TAB.ER.24 10 MG PO (21:40)
[2024-07-26 21:41] VITALS: BP 117/80
[2024-07-26] MEDS: hydrOXYzine HCL 25 MG TABLET PO (21:52)
[2024-07-27 08:00] VITALS: BP 140/71; PULSE 61; RESP 16; TEMP 36.3; O2SAT 98
[2024-07-27] MEDS: methADONE HCl 20 MG/2 ML ORAL.CONC 110 MG PO (08:06)
[2024-07-27] MEDS: Pregabalin 150 MG CAPSULE 300 MG PO ×2 (08:24→21:07)
[2024-07-27] MEDS: Amphetamine Mixed Salts 20 MG TABLET 30 MG PO ×2 (08:25→14:25)
[2024-07-27] MEDS: Topiramate 100 MG TABLET 200 MG PO ×2 (08:26→21:06)
[2024-07-27] MEDS: Sennosides 8.6 MG TABLET 17.2 MG PO (08:27)
[2024-07-27 08:28] VITALS: BP 140/71
[2024-07-27] MEDS: cloNIDine HCL 0.2 MG TABLET PO ×3 (08:28→21:07)
[2024-07-27] MEDS: Loratadine 10 MG TABLET PO (08:28)
[2024-07-27] MEDS: Ferrous Sulfate 324 MG TABLET.DR PO (08:28)
[2024-07-27] MEDS: Multivitamin TABLET 1 TAB PO (08:29)
[2024-07-27] MEDS: clonazePAM 1 MG TABLET 2 MG PO ×2 (08:30→14:24)
[2024-07-27] MEDS: Docusate Sodium 100 MG CAPSULE PO ×2 (08:41→21:07)
[2024-07-27] MEDS: Baclofen 20 MG TABLET PO ×3 (09:15→22:46)
[2024-07-27 09:28] LABS: Estimated Average Glucose 105 mg/dL; Hemoglobin A1c % 5.3 % (<6.0); Total Hemoglobin (HGBA1C) 3287.0233 umol/L
[2024-07-27 09:43] LABS: Cholesterol 168 mg/dL (<200); HDL Cholesterol 37 mg/dL (>40); LDL Cholesterol Calculated 105 mg/dL (<100); Magnesium 2.1 mg/dL (1.6-2.6); Triglycerides 134 mg/dL (<150)
[2024-07-27 10:02] LABS: Free T4 (Free Thyroxine) 1.16 ng/dL (0.71-1.85); Thyroid Stimulating Hormone 3.55 uIU/mL (0.32-4.0)
[2024-07-27 10:13] LABS: Folate 10.9 ng/mL (> or = 4.0); Vitamin B12 531 pg/mL (200-900)
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
[2024-07-27 14:26] VITALS: BP 140/61
[2024-07-27] MEDS: Ibuprofen 800 MG TABLET PO (14:33)
[2024-07-27] MEDS: Nicotine Polacrilex 2 MG GUM 4 MG BUCCAL (14:34)
[2024-07-27] MEDS: clonazePAM 1 MG TABLET PO ×2 (18:04→21:07)
[2024-07-27 20:00] VITALS: BP 128/79; PULSE 118; TEMP 36.8; O2SAT 96
[2024-07-27] MEDS: Nystatin Powder 15 GM BOTTLE 1 APPL TOPICAL (21:05)
[2024-07-27] MEDS: oxyBUTYnin chloride ER 5 MG TAB.ER.24 10 MG PO (21:06)
[2024-07-27 21:07] VITALS: BP 128/74
--- NOTE | 2024-07-28 01:10 | PC.NURSE ---
At approximately 2100, this technical proposal writer assessed and medicated this patient. The patient was noted at that time to appear drowsy, with her eyelids closing many times during assessment. Patient stated she had pain in her legs, that is arthritis. When this technical proposal writer enquired about the character of the pain, the patient then stated when I'm walking, it shoots up to my lower back. This technical proposal writer asked is it only when you are walking? the patient said Yes. This technical proposal writer asked is it just when you put weight on that leg or...? The patient then stated her pain was ten out of ten all the time. This technical proposal writer asked at that point How does it shoot up your leg if it's there all the time? Does it ache all the time, but then have shooting pain when you're walking? Does it get more painful when there's weight on it? The patient seemed confused by this question and was not able to elaborate. This technical proposal writer offered PRN medications, but the patient stated No, I'm just going to go to bed.
[2024-07-28 07:45] VITALS: BP 144/90; PULSE 58; TEMP 36.1; O2SAT 97
[2024-07-28] MEDS: methADONE HCl 20 MG/2 ML ORAL.CONC 110 MG PO (07:48)
[2024-07-28] MEDS: Amphetamine Mixed Salts 20 MG TABLET 30 MG PO ×2 (08:08→12:19)
[2024-07-28] MEDS: Ibuprofen 800 MG TABLET PO (08:08)
[2024-07-28] MEDS: Sennosides 8.6 MG TABLET 17.2 MG PO (08:09)
[2024-07-28] MEDS: Pregabalin 150 MG CAPSULE 300 MG PO ×2 (08:09→20:44)
[2024-07-28] MEDS: Topiramate 100 MG TABLET 200 MG PO ×2 (08:09→20:45)
[2024-07-28] MEDS: Docusate Sodium 100 MG CAPSULE PO ×2 (08:09→20:46)
[2024-07-28] MEDS: cloNIDine HCL 0.2 MG TABLET PO ×3 (08:09→20:46)
[2024-07-28] MEDS: Multivitamin TABLET 1 TAB PO (08:09)
[2024-07-28] MEDS: Ferrous Sulfate 324 MG TABLET.DR PO (08:09)
[2024-07-28] MEDS: Loratadine 10 MG TABLET PO (08:10)
[2024-07-28] MEDS: clonazePAM 1 MG TABLET 2 MG PO (08:27)
[2024-07-28] MEDS: Nystatin Powder 15 GM BOTTLE 1 APPL TOPICAL ×2 (10:23→20:47)
[2024-07-28] MEDS: Baclofen 20 MG TABLET PO ×3 (10:23→20:54)
[2024-07-28] MEDS: clonazePAM 1 MG TABLET PO ×3 (11:32→20:46)
[2024-07-28 15:17] VITALS: BP 142/58
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
[2024-07-28 20:00] VITALS: BP 136/91; PULSE 85; TEMP 36.4; O2SAT 99
[2024-07-28 20:46] VITALS: BP 136/91
[2024-07-28] MEDS: oxyBUTYnin chloride ER 5 MG TAB.ER.24 10 MG PO (20:46)
[2024-07-28] MEDS: Mineral Oil/Petrolatum,White 106 GM Tube 1 APPL TOPICAL (20:47)
[2024-07-28] MEDS: Nicotine Polacrilex 2 MG GUM 4 MG BUCCAL (21:01)
[2024-07-29 08:00] VITALS: BP 132/65; PULSE 71; RESP 16; TEMP 36.3; O2SAT 96
[2024-07-29] MEDS: methADONE HCl 20 MG/2 ML ORAL.CONC 110 MG PO (08:04)
[2024-07-29] MEDS: Sennosides 8.6 MG TABLET 17.2 MG PO (10:03)
[2024-07-29] MEDS: Amphetamine Mixed Salts 20 MG TABLET 30 MG PO ×2 (10:03→12:34)
[2024-07-29] MEDS: Ibuprofen 800 MG TABLET PO ×2 (10:04→17:11)
[2024-07-29] MEDS: Topiramate 100 MG TABLET 200 MG PO ×2 (10:04→21:30)
[2024-07-29] MEDS: Docusate Sodium 100 MG CAPSULE PO ×2 (10:05→21:31)
[2024-07-29] MEDS: Ferrous Sulfate 324 MG TABLET.DR PO (10:05)
[2024-07-29] MEDS: Baclofen 20 MG TABLET PO ×3 (10:05→21:31)
[2024-07-29] MEDS: Loratadine 10 MG TABLET PO (10:05)
[2024-07-29] MEDS: clonazePAM 1 MG TABLET 2 MG PO (10:05)
[2024-07-29] MEDS: cloNIDine HCL 0.2 MG TABLET PO ×3 (10:05→21:30)
[2024-07-29] MEDS: Multivitamin TABLET 1 TAB PO (10:06)
[2024-07-29] MEDS: Pregabalin 150 MG CAPSULE 300 MG PO ×2 (10:06→21:29)
[2024-07-29] MEDS: clonazePAM 1 MG TABLET PO ×3 (12:33→21:31)
[2024-07-29] MEDS: Mineral Oil/Petrolatum,White 106 GM Tube 1 APPL TOPICAL (12:35)
[2024-07-29] MEDS: Fluticasone Propionate Nasal 16 GM SPRAY 1 SPRAY NOSTRIL-B (12:35)
[2024-07-29] MEDS: Nystatin Powder 15 GM BOTTLE 1 APPL TOPICAL (12:35)
[2024-07-29 14:29] VITALS: BP 136/61
[2024-07-29] MEDS: Acetaminophen 325 MG TABLET 650 MG PO (14:32)
[2024-07-29] MEDS: Nicotine Polacrilex 2 MG GUM 4 MG BUCCAL ×2 (14:36→17:07)
--- NOTE | 2024-07-29 18:28 | P.PNPSI_ITS ---
Subjective Subjective Date of Service: 07/29/24 Reason For Visit: Depression Subjective Notes: Conditional Voluntary Healthcare Proxy: No Guardianship: No Medical Problems Affecting Mental Status: No Interim History: Met with pt and Rubina Amos LCSW. Discussed discharge planning Pt resistant to hearing options. CSS/TSS are not options as pt has had a period of sobriety which exceeds these programs requirements. [facility] residential search was reviewed. Pt does not want a residential. She has expectations combined with misinformation which education was provided, however was not accepting of this. She exhibited paranoia and this was discussed with her in terms of treatment with medications, discussion of therapeutic interventions which she rejected as well. Discussion of acute medical needs vs ongoing medical needs in terms of criteria to meet admission requirements for medically based programs. She expressed anger, irritability and resistance to any intervention that was not specific to her expectations. Team continues to report sedation. Will assess Klonopin dosing on 07/30 for tapering. Medication Compliance: Yes Side effects from medications: No Attending Groups: Intermittent Review of Systems Acute medical concerns: No Medical Review of Systems: unchanged Review of Systems Review of Systems Reports difficulty walking, then reports no difficulty walking. Ambulating on the unit without falls. Mental Status Exam Mental Status Exam Patient Appearance: Appropriate Patient Orientation: Person, Place, Time and Situation Level of Consciousness: Awake, Drowsy, Sedated and Lethargic Patient Behavior: Talkative, Suspicious, Resistive to Care, Distractible, Confused and Good Eye Contact Mood Description: Depressed, Hostile and Angry Affect Description: Flat Patient Cognition Impaired: No Ability to Follow Directions: Fair Speech Pattern: Spontaneous Speech Memory Description: Intact Hallucinations: None Delusions: Paranoid Ideation and Present Perceptual Disturbances: Depersonalization and Derealization Thought Process: Rumination Thought Content: positive for Circumstantial Depressive Symptoms: Increased Anxiety, Increased Irritability, Feelings of Worthlessness, Hopelessness, Unhappiness, Thoughts of /Suicide and Difficulty Concentrating Abnormal Motor Activity Signs and Symptoms: Agitation Judgement: Fair Diagnostics Vital Signs (24Hr): Vital Signs - 24 hr 07/28/24 20:00 07/28/24 20:46 07/29/24 08:00 Temperature 97.5 F 97.3 F Pulse Rate 85 71 Respiratory Rate 16 Blood Pressure 136/91 H 136/91 H 132/65 Pulse Oximetry 99 96 Oxygen Delivery Method Room Air 07/29/24 14:29 Temperature Pulse Rate Respiratory Rate Blood Pressure 136/61 Pulse Oximetry Oxygen Delivery Method BMI result Body Mass Index 39.5 Labs 07/22/24 15:47 07/22/24 15:47 Imaging Radiology Impressions: ITS Impressions Ankle X-Ray 07/25/24 14:10 IMPRESSION: No acute fracture or dislocation right ankle. Bimalleolar soft tissue swelling. Small calcaneal heel spur. Degenerative arthritic changes right knee without acute fracture or dislocation. Moderate osteophytosis superior to patella Electronically signed by: Baldo Espinosa MD 07/25/2024 09:29 PM EST RP Knee X-Ray 07/25/24 14:10 IMPRESSION: No acute fracture or dislocation right ankle. Bimalleolar soft tissue swelling. Small calcaneal heel spur. Degenerative arthritic changes right knee without acute fracture or dislocation. Moderate osteophytosis superior to patella Electronically signed by: Baldo Espinosa MD 07/25/2024 09:29 PM EST RP Medications Medications Current Medications Acetaminophen (Acetaminophen 325 Mg Tablet) 650 mg PO Q6H PRN PRN Reason: Headache/Pain Mild Scale (1-3) Last Admin: 07/29/24 14:32 Dose: 650 mg Al Hydroxide/Mg Hydroxide (Magnesium Hydrox/Alum Hydrox 30 Ml Oral.Susp) 30 ml PO Q6H PRN PRN Reason: Heartburn/Nausea Amphetamine/Dextroamphetamine (Amphetamine Mixed Salts 20 Mg Tablet) 30 mg PO 0900,1300 [facility] Last Admin: 07/29/24 12:34 Dose: 30 mg Baclofen (Baclofen 20 Mg Tablet) 20 mg PO TID@0900,1700,2100 [facility] Last Admin: 07/29/24 17:02 Dose: 20 mg Clonazepam (Clonazepam 1 Mg Tablet) 1 mg PO 1700 [facility] Last Admin: 07/29/24 17:03 Dose: 1 mg Clonazepam (Clonazepam 1 Mg Tablet) 1 mg PO BEDTIME [facility] Last Admin: 07/28/24 20:46 Dose: 1 mg Clonazepam (Clonazepam 1 Mg Tablet) 2 mg PO 0900 [facility] Last Admin: 07/29/24 10:05 Dose: 2 mg Clonazepam (Clonazepam 1 Mg Tablet) 1 mg PO 1200 [facility] Last Admin: 07/29/24 12:33 Dose: 1 mg Clonidine HCl (Clonidine Hcl 0.2 Mg Tablet) 0.2 mg PO TID [facility]; Protocol Last Admin: 07/29/24 14:29 Dose: 0.2 mg Dicyclomine HCl (Dicyclomine Hcl 10 Mg Capsule) 20 mg PO TID PRN PRN Reason: abdominal pain Docusate Sodium (Docusate Sodium 100 Mg Capsule) 100 mg PO BID [facility] Last Admin: 07/29/24 10:05 Dose: 100 mg Ferrous Sulfate (Ferrous Sulfate 324 Mg Tablet.Dr) 324 mg PO DAILY [facility] Last Admin: 07/29/24 10:05 Dose: 324 mg Fluticasone Propionate (Fluticasone Propionate Nasal 16 Gm [place]) 1 spray NOSTRIL-B DAILY [facility] Last Admin: 07/29/24 12:35 Dose: 1 spray Hydroxyzine HCl (Hydroxyzine Hcl 25 Mg Tablet) 25 mg PO Q6H PRN PRN Reason: Anxiety Last Admin: 07/26/24 21:52 Dose: 25 mg Ibuprofen (Ibuprofen 800 Mg Tablet) 800 mg PO Q8H PRN PRN Reason: Pain, Moderate(Pain Scale 4-6) Last Admin: 07/29/24 17:11 Dose: 800 mg Loratadine (Loratadine 10 Mg Tablet) 10 mg PO DAILY [facility] Last Admin: 07/29/24 10:05 Dose: 10 mg Magnesium Hydroxide (Milk Of Magnesia 30 Ml Oral.Susp) 30 ml PO DAILY PRN PRN Reason: Constipation Methadone HCl (Methadone Hcl 20 Mg/2 Ml Oral.Conc) 110 mg PO DAILY [facility] Last Admin: 07/29/24 08:04 Dose: 110 mg Multi-Ingred Cream/Lotion/Oil/Oint (Mineral Oil/Petrolatum,White 106 Gm Tube) 1 appl TOPICAL BID [facility]; Protocol Last Admin: 07/29/24 12:35 Dose: 1 appl Multivitamins/Vitamin C (Multivitamin Tablet) 1 tab PO DAILY [facility] Last Admin: 07/29/24 10:06 Dose: 1 tab Nicotine (Nicotine 21 Mg Patch.Td24) 21 mg TRANSDERMA DAILY PRN PRN Reason: nicotine cravings Nicotine Polacrilex (Nicotine Polacrilex 2 Mg Gum) 4 mg BUCCAL Q2H PRN PRN Reason: Nicotine Cravings Last Admin: 07/29/24 17:07 Dose: 4 mg Nystatin (Nystatin Powder 15 Gm Bottle) 1 appl TOPICAL BID [facility]; Protocol Last Admin: 07/29/24 12:35 Dose: 1 appl Oxybutynin Chloride (Oxybutynin Chloride Er 5 Mg Tab.Er.24) 10 mg PO BEDTIME [facility] Last Admin: 07/28/24 20:46 Dose: 10 mg Pregabalin (Pregabalin 150 Mg Capsule) 300 mg PO BID [facility] Last Admin: 07/29/24 10:06 Dose: 300 mg Risperidone (Risperidone 1 Mg Tablet) 1 mg PO BID [facility] Senna (Sennosides 8.6 Mg Tablet) 17.2 mg PO DAILY [facility] Last Admin: 07/29/24 10:03 Dose: 17.2 mg Sumatriptan Succinate (Sumatriptan Succinate 25 Mg Tablet) 25 mg PO DAILY PRN PRN Reason: Migraine Headache Topiramate (Topiramate 100 Mg Tablet) 200 mg PO BID [facility] Last Admin: 07/29/24 10:04 Dose: 200 mg Trazodone HCl (Trazodone Hcl 50 Mg Tablet) 50 mg PO BEDTIME MRX1 PRN PRN Reason: Insomnia Valacyclovir HCl (Valacyclovir Hcl 1,000 Mg Tablet) 1,000 mg PO DAILY [facility] Last Admin: 07/29/24 10:08 Dose: Not Given Allergies Allergies Allergy/AdvReac Type Severity Reaction Status Date / Time benztropine Allergy Unknown Verified 07/22/24 14:23 Bleach (Sodium Hypochlorite) Allergy Unknown Verified 07/22/24 14:23 chlorpromazine Allergy Unknown Verified 07/22/24 14:23 divalproex sodium Allergy Unknown Verified 07/22/24 14:23 olanzapine Allergy Unknown Verified 07/22/24 14:23 quetiapine Allergy Unknown Verified 07/22/24 14:23 Sulfa (Sulfonamide Allergy Unknown Verified 07/22/24 14:23 Antibiotics) [Sulfonamides] ziprasidone Allergy Unknown Verified 07/22/24 14:23 haloperidol [From Haldol] AdvReac Unknown Verified 07/22/24 14:23 naloxone AdvReac Unknown Verified 07/22/24 14:23 Assessment & Plan Assessment & Plan (1) Depression: Status: Acute Code(s): F32.A - Depression, unspecified (2) Polysubstance abuse: Status: Acute Code(s): F19.10 - Other psychoactive substance abuse, uncomplicated Plan - Admit to inpatient psychiatry - CV - Collateral information from family and providers. - Milieu treatment and group therapy. - Medications: Continue same. - Social work evaluation. - Disposition planning. 07/25: Check ankle and knee XR. Switch Ditropan to HS. 07/26: Continue regime, monitor for sedation Discharge planning 07/28: Continue current regime. 07/29: Aftercare planning. Education. Risperdal 1 mg bid. Reason for continued inpatient stay Substantial Risk for: rapid decompensation Time Spent With Patient Time: Total time managing care of this patient today ____ minutes.
[2024-07-29 20:00] VITALS: BP 119/74; PULSE 79; O2SAT 96
[2024-07-29] MEDS: oxyBUTYnin chloride ER 5 MG TAB.ER.24 10 MG PO (21:29)
[2024-07-29 21:30] VITALS: BP 119/74
[2024-07-30 08:00] VITALS: BP 132/71; PULSE 60; RESP 16; TEMP 36.4; O2SAT 97
[2024-07-30] MEDS: methADONE HCl 20 MG/2 ML ORAL.CONC 110 MG PO (08:10)
[2024-07-30] MEDS: Fluticasone Propionate Nasal 16 GM SPRAY 1 SPRAY NOSTRIL-B (09:04)
[2024-07-30] MEDS: Pregabalin 150 MG CAPSULE 300 MG PO ×2 (09:04→20:53)
[2024-07-30] MEDS: Amphetamine Mixed Salts 20 MG TABLET 30 MG PO ×2 (09:05→13:18)
[2024-07-30] MEDS: Docusate Sodium 100 MG CAPSULE PO ×2 (09:05→20:53)
[2024-07-30] MEDS: risperiDONE 1 MG TABLET PO (09:05)
[2024-07-30] MEDS: Loratadine 10 MG TABLET PO (09:05)
[2024-07-30] MEDS: Sennosides 8.6 MG TABLET 17.2 MG PO (09:05)
[2024-07-30] MEDS: Baclofen 20 MG TABLET PO ×3 (09:05→20:50)
[2024-07-30 09:06] VITALS: BP 132/71
[2024-07-30] MEDS: cloNIDine HCL 0.2 MG TABLET PO ×3 (09:06→20:50)
[2024-07-30] MEDS: Topiramate 100 MG TABLET 200 MG PO ×2 (09:06→20:52)
[2024-07-30] MEDS: clonazePAM 1 MG TABLET 2 MG PO (09:06)
[2024-07-30] MEDS: Multivitamin TABLET 1 TAB PO (09:06)
[2024-07-30] MEDS: Ferrous Sulfate 324 MG TABLET.DR PO (09:06)
--- NOTE | 2024-07-30 09:48 | P.PNPSI_ITS ---
Subjective Subjective Date of Service: 07/30/24 Reason For Visit: Depression Subjective Notes: Conditional Voluntary Healthcare Proxy: No Guardianship: No Medical Problems Affecting Mental Status: No Interim History: Met with pt, Rubina Amos LCSW, Regla Sullivan RN to review aftercare planning, medications. Pt asking for applications to [facility]. [facility] options and [facility] options were discussed. Pt believes she is eligible for CSS,TSS because she is on scheduled Methadone. These programs tell us no as she has not used in 60days they are not an options. Pt is opposed to a group home. During our meeting there is some evidence of sedation. Team report in team meeting pt is too sedate. Paranoia is still evident. Pt refused treatment of this sx and denies it as a sx. Valtrex discontinued per pt request. Risperdal discontinued per pt request. Team reports she did take one dose of this this a.m. but states she did not know she was taking it. Klonopin decreased by 1 mg. Medication Compliance: Yes Side effects from medications: Yes (sedation) Attending Groups: Intermittent Review of Systems Reports difficulty with ambulation Medical Review of Systems: unchanged Review of Systems Review of Systems difficulty ambulating, pain Mental Status Exam Mental Status Exam Patient Appearance: Fatigued and Appropriate Patient Orientation: Person, Place, Time and Situation Level of Consciousness: Awake, Drowsy, Sedated and Lethargic Patient Behavior: Talkative, Suspicious, Resistive to Care, Distractible, Confused and Good Eye Contact Mood Description: Depressed, Hostile and Angry Affect Description: Flat Patient Cognition Impaired: No Ability to Follow Directions: Fair Speech Pattern: Spontaneous Speech Memory Description: Intact Hallucinations: None Delusions: Paranoid Ideation and Present Perceptual Disturbances: Depersonalization and Derealization Thought Process: Rumination Thought Content: positive for Circumstantial Depressive Symptoms: Increased Anxiety, Increased Irritability, Feelings of Worthlessness, Hopelessness, Unhappiness, Thoughts of /Suicide and Difficulty Concentrating Abnormal Motor Activity Signs and Symptoms: Agitation Judgement: Fair Diagnostics Vital Signs (24Hr): Vital Signs - 24 hr 07/29/24 14:29 07/29/24 20:00 07/29/24 21:30 Temperature Pulse Rate 79 Respiratory Rate Blood Pressure 136/61 119/74 119/74 Pulse Oximetry 96 Oxygen Delivery Method Room Air 07/30/24 08:00 07/30/24 09:06 Temperature 97.6 F Pulse Rate 60 Respiratory Rate 16 Blood Pressure 132/71 132/71 Pulse Oximetry 97 Oxygen Delivery Method Room Air BMI result Body Mass Index 39.5 Labs 07/22/24 15:47 07/22/24 15:47 Imaging Radiology Impressions: ITS Impressions Ankle X-Ray 07/25/24 14:10 IMPRESSION: No acute fracture or dislocation right ankle. Bimalleolar soft tissue swelling. Small calcaneal heel spur. Degenerative arthritic changes right knee without acute fracture or dislocation. Moderate osteophytosis superior to patella Electronically signed by: Baldo Espinosa MD 07/25/2024 09:29 PM EST RP Knee X-Ray 07/25/24 14:10 IMPRESSION: No acute fracture or dislocation right ankle. Bimalleolar soft tissue swelling. Small calcaneal heel spur. Degenerative arthritic changes right knee without acute fracture or dislocation. Moderate osteophytosis superior to patella Electronically signed by: Baldo Espinosa MD 07/25/2024 09:29 PM EST RP Medications Medications Current Medications Acetaminophen (Acetaminophen 325 Mg Tablet) 650 mg PO Q6H PRN PRN Reason: Headache/Pain Mild Scale (1-3) Last Admin: 07/29/24 14:32 Dose: 650 mg Al Hydroxide/Mg Hydroxide (Magnesium Hydrox/Alum Hydrox 30 Ml Oral.Susp) 30 ml PO Q6H PRN PRN Reason: Heartburn/Nausea Amphetamine/Dextroamphetamine (Amphetamine Mixed Salts 20 Mg Tablet) 30 mg PO 0900,1300 [facility] Last Admin: 07/30/24 09:05 Dose: 30 mg Baclofen (Baclofen 20 Mg Tablet) 20 mg PO TID@0900,1700,2100 [facility] Last Admin: 07/30/24 09:05 Dose: 20 mg Clonazepam (Clonazepam 1 Mg Tablet) 1 mg PO 1700 [facility] Last Admin: 07/29/24 17:03 Dose: 1 mg Clonazepam (Clonazepam 1 Mg Tablet) 1 mg PO BEDTIME [facility] Last Admin: 07/29/24 21:31 Dose: 1 mg Clonazepam (Clonazepam 1 Mg Tablet) 2 mg PO 0900 [facility] Last Admin: 07/30/24 09:06 Dose: 2 mg Clonidine HCl (Clonidine Hcl 0.2 Mg Tablet) 0.2 mg PO TID [facility]; Protocol Last Admin: 07/30/24 09:06 Dose: 0.2 mg Dicyclomine HCl (Dicyclomine Hcl 10 Mg Capsule) 20 mg PO TID PRN PRN Reason: abdominal pain Docusate Sodium (Docusate Sodium 100 Mg Capsule) 100 mg PO BID [facility] Last Admin: 07/30/24 09:05 Dose: 100 mg Ferrous Sulfate (Ferrous Sulfate 324 Mg Tablet.Dr) 324 mg PO DAILY [facility] Last Admin: 07/30/24 09:06 Dose: 324 mg Fluticasone Propionate (Fluticasone Propionate Nasal 16 Gm [place]) 1 spray NOSTRIL-B DAILY [facility] Last Admin: 07/30/24 09:04 Dose: 1 spray Hydroxyzine HCl (Hydroxyzine Hcl 25 Mg Tablet) 25 mg PO Q6H PRN PRN Reason: Anxiety Last Admin: 07/26/24 21:52 Dose: 25 mg Ibuprofen (Ibuprofen 800 Mg Tablet) 800 mg PO Q8H PRN PRN Reason: Pain, Moderate(Pain Scale 4-6) Last Admin: 07/29/24 17:11 Dose: 800 mg Loratadine (Loratadine 10 Mg Tablet) 10 mg PO DAILY [facility] Last Admin: 07/30/24 09:05 Dose: 10 mg Magnesium Hydroxide (Milk Of Magnesia 30 Ml Oral.Susp) 30 ml PO DAILY PRN PRN Reason: Constipation Methadone HCl (Methadone Hcl 20 Mg/2 Ml Oral.Conc) 110 mg PO DAILY [facility] Last Admin: 07/30/24 08:10 Dose: 110 mg Multi-Ingred Cream/Lotion/Oil/Oint (Mineral Oil/Petrolatum,White 106 Gm Tube) 1 appl TOPICAL BID [facility]; Protocol Last Admin: 07/29/24 21:33 Dose: Not Given Multivitamins/Vitamin C (Multivitamin Tablet) 1 tab PO DAILY [facility] Last Admin: 07/30/24 09:06 Dose: 1 tab Nicotine (Nicotine 21 Mg Patch.Td24) 21 mg TRANSDERMA DAILY PRN PRN Reason: nicotine cravings Nicotine Polacrilex (Nicotine Polacrilex 2 Mg Gum) 4 mg BUCCAL Q2H PRN PRN Reason: Nicotine Cravings Last Admin: 07/29/24 17:07 Dose: 4 mg Nystatin (Nystatin Powder 15 Gm Bottle) 1 appl TOPICAL BID [facility]; Protocol Last Admin: 07/29/24 21:33 Dose: Not Given Oxybutynin Chloride (Oxybutynin Chloride Er 5 Mg Tab.Er.24) 10 mg PO BEDTIME [facility] Last Admin: 07/29/24 21:29 Dose: 10 mg Pregabalin (Pregabalin 150 Mg Capsule) 300 mg PO BID [facility] Last Admin: 07/30/24 09:04 Dose: 300 mg Senna (Sennosides 8.6 Mg Tablet) 17.2 mg PO DAILY [facility] Last Admin: 07/30/24 09:05 Dose: 17.2 mg Sumatriptan Succinate (Sumatriptan Succinate 25 Mg Tablet) 25 mg PO DAILY PRN PRN Reason: Migraine Headache Topiramate (Topiramate 100 Mg Tablet) 200 mg PO BID [facility] Last Admin: 07/30/24 09:06 Dose: 200 mg Trazodone HCl (Trazodone Hcl 50 Mg Tablet) 50 mg PO BEDTIME MRX1 PRN PRN Reason: Insomnia Allergies Allergies Allergy/AdvReac Type Severity Reaction Status Date / Time benztropine Allergy Unknown Verified 07/22/24 14:23 Bleach (Sodium Hypochlorite) Allergy Unknown Verified 07/22/24 14:23 chlorpromazine Allergy Unknown Verified 07/22/24 14:23 divalproex sodium Allergy Unknown Verified 07/22/24 14:23 olanzapine Allergy Unknown Verified 07/22/24 14:23 quetiapine Allergy Unknown Verified 07/22/24 14:23 Sulfa (Sulfonamide Allergy Unknown Verified 07/22/24 14:23 Antibiotics) [Sulfonamides] ziprasidone Allergy Unknown Verified 07/22/24 14:23 haloperidol [From Haldol] AdvReac Unknown Verified 07/22/24 14:23 naloxone AdvReac Unknown Verified 07/22/24 14:23 Assessment & Plan Assessment & Plan (1) Depression: Status: Acute Code(s): F32.A - Depression, unspecified (2) Polysubstance abuse: Status: Acute Code(s): F19.10 - Other psychoactive substance abuse, uncomplicated Plan - Admit to inpatient psychiatry - CV - Collateral information from family and providers. - Milieu treatment and group therapy. - Medications: Continue same. - Social work evaluation. - Disposition planning. 07/25: Check ankle and knee XR. Switch Ditropan to HS. 07/26: Continue regime, monitor for sedation Discharge planning 07/28: Continue current regime. 07/30: Decrease Klonopin by 1mg due to sedation Discontinue Risperdal, pt refusing this medication Discontinue Valtrex, pt request Hospitalist consult, hip pain, ambulation difficulties. Reason for continued inpatient stay Substantial Risk for: rapid decompensation Time Spent With Patient Time: Total time managing care of this patient today ____ minutes.
--- NOTE | 2024-07-30 14:16 | P.EN_ITS ---
Event Note Date of Service: 07/30/24 Event Note: Patient is a 43-year-old female on adult Psychiatry consulted for hip pain and difficulty with ambulation. When patient was seen she reports bilateral knee pain that is radiating up the hamstrings to her hips. This has been chronic in nature and going on for at ast 5 years, worsening over the past 2 months. She describes a recent fall about 1 month ago where she fell down the stairs face forward and had imaging done at [facility] which she reports was normal. She has had imaging with us as well of the right knee and right ankle both of which showed osteoarthritis but no acute fracture. She has difficulty with ambulation especially with planting and turning due to her hip pain. She reports a long history of exotic dancing. PE: const: A+Ox3, NAD, antalgic gait extremities: valgus stance, crepitus bilateral knees, small bruise on L knee, strength 4/5 bilaterally A/P: bilateral knee pain secondary to weight and osteoarthritis - reviewed imaging from here and [facility], no further imaging needed at this time - PT eval done and they did not recommend inpt PT at this time, but suggested 2 wheel walker and outpt PT - recommend rest, ice, ibuprofen 800mg Q8H PRN for pain and walker as above if pt is ammenable - no further w/u needed at this time for her lower extremity pain. if pain persists consider re-evaluation with PT Thank you for allowing me to participate in the pt's care. Signing off for now. Please contact the medical team if any questions or concerns. Time Spent With Patient Time: Total time managing care of this patient today 25 minutes.
[2024-07-30 14:17] VITALS: BP 132/74
[2024-07-30] MEDS: clonazePAM 1 MG TABLET PO ×2 (14:17→17:20)
[2024-07-30 20:00] VITALS: BP 118/57; PULSE 90; RESP 16; TEMP 36.4; O2SAT 100
[2024-07-30 20:50] VITALS: BP 118/57
[2024-07-30] MEDS: Nicotine Polacrilex 2 MG GUM 4 MG BUCCAL (20:53)
[2024-07-30] MEDS: oxyBUTYnin chloride ER 5 MG TAB.ER.24 10 MG PO (21:08)
[2024-07-30] MEDS: hydrOXYzine HCL 25 MG TABLET PO (21:09)
[2024-07-31] MEDS: methADONE HCl 20 MG/2 ML ORAL.CONC 110 MG PO (07:37)
--- NOTE | 2024-07-31 09:04 | P.PNPSI_ITS ---
Subjective Subjective Date of Service: 07/31/24 Reason For Visit: Depression Subjective Notes: Conditional Voluntary Healthcare Proxy: No Guardianship: No Medical Problems Affecting Mental Status: No Interim History: Patient was seen and discussed in rounds today. Records and plans were reviewed. She continues to be depressed and somewhat anxious with periods of irritability. There Klonopin is being decreased and she is having some trouble sleeping. She is still on 3 mg she is a decrease from 5 mg. No SI. No changes were made today Review of Systems Review of Systems Sleep Yes all other systems are reviewed and are negative Mental Status Exam Mental Status Exam Narrative: In today's visit she is alert, oriented pleasant. Normal speech. Moderate eye contact. Affect is appropriate and constricted. Thought processes are intact. No SI. Some paranoid ideations reported. Judgment is intact. Diagnostics Vital Signs (24Hr): Vital Signs - 24 hr 07/30/24 09:06 07/30/24 14:17 07/30/24 20:00 Temperature 97.6 F Pulse Rate 90 Respiratory Rate 16 Blood Pressure 132/71 132/74 118/57 L Pulse Oximetry 100 Oxygen Delivery Method Room Air 07/30/24 20:50 Temperature Pulse Rate Respiratory Rate Blood Pressure 118/57 L Pulse Oximetry Oxygen Delivery Method BMI result Body Mass Index 39.5 Labs 07/22/24 15:47 07/22/24 15:47 Imaging Radiology Impressions: ITS Impressions Ankle X-Ray 07/25/24 14:10 IMPRESSION: No acute fracture or dislocation right ankle. Bimalleolar soft tissue swelling. Small calcaneal heel spur. Degenerative arthritic changes right knee without acute fracture or dislocation. Moderate osteophytosis superior to patella Electronically signed by: Baldo Espinosa MD 07/25/2024 09:29 PM EST RP Knee X-Ray 07/25/24 14:10 IMPRESSION: No acute fracture or dislocation right ankle. Bimalleolar soft tissue swelling. Small calcaneal heel spur. Degenerative arthritic changes right knee without acute fracture or dislocation. Moderate osteophytosis superior to patella Electronically signed by: Baldo Espinosa MD 07/25/2024 09:29 PM EST RP Medications Medications Current Medications Acetaminophen (Acetaminophen 325 Mg Tablet) 650 mg PO Q6H PRN PRN Reason: Headache/Pain Mild Scale (1-3) Last Admin: 07/29/24 14:32 Dose: 650 mg Al Hydroxide/Mg Hydroxide (Magnesium Hydrox/Alum Hydrox 30 Ml Oral.Susp) 30 ml PO Q6H PRN PRN Reason: Heartburn/Nausea Amphetamine/Dextroamphetamine (Amphetamine Mixed Salts 20 Mg Tablet) 30 mg PO 0900,1300 [facility] Last Admin: 07/30/24 13:18 Dose: 30 mg Baclofen (Baclofen 20 Mg Tablet) 20 mg PO TID@0900,1700,2100 [facility] Last Admin: 07/30/24 20:50 Dose: 20 mg Clonazepam (Clonazepam 1 Mg Tablet) 2 mg PO 0900 [facility] Last Admin: 07/30/24 09:06 Dose: 2 mg Clonazepam (Clonazepam 1 Mg Tablet) 1 mg PO 1200,1700 [facility] Last Admin: 07/30/24 17:20 Dose: 1 mg Clonidine HCl (Clonidine Hcl 0.2 Mg Tablet) 0.2 mg PO TID [facility]; Protocol Last Admin: 07/30/24 20:50 Dose: 0.2 mg Dicyclomine HCl (Dicyclomine Hcl 10 Mg Capsule) 20 mg PO TID PRN PRN Reason: abdominal pain Docusate Sodium (Docusate Sodium 100 Mg Capsule) 100 mg PO BID [facility] Last Admin: 07/30/24 20:53 Dose: 100 mg Ferrous Sulfate (Ferrous Sulfate 324 Mg Tablet.Dr) 324 mg PO DAILY [facility] Last Admin: 07/30/24 09:06 Dose: 324 mg Fluticasone Propionate (Fluticasone Propionate Nasal 16 Gm [place]) 1 spray NOSTRIL-B DAILY [facility] Last Admin: 07/30/24 09:04 Dose: 1 spray Hydroxyzine HCl (Hydroxyzine Hcl 25 Mg Tablet) 25 mg PO Q6H PRN PRN Reason: Anxiety Last Admin: 07/30/24 21:09 Dose: 25 mg Ibuprofen (Ibuprofen 800 Mg Tablet) 800 mg PO Q8H PRN PRN Reason: Pain, Moderate(Pain Scale 4-6) Last Admin: 07/29/24 17:11 Dose: 800 mg Loratadine (Loratadine 10 Mg Tablet) 10 mg PO DAILY [facility] Last Admin: 07/30/24 09:05 Dose: 10 mg Magnesium Hydroxide (Milk Of Magnesia 30 Ml Oral.Susp) 30 ml PO DAILY PRN PRN Reason: Constipation Methadone HCl (Methadone Hcl 20 Mg/2 Ml Oral.Conc) 110 mg PO DAILY [facility] Last Admin: 07/31/24 07:37 Dose: 110 mg Multi-Ingred Cream/Lotion/Oil/Oint (Mineral Oil/Petrolatum,White 106 Gm Tube) 1 appl TOPICAL BID [facility]; Protocol Last Admin: 07/30/24 23:00 Dose: Not Given Multivitamins/Vitamin C (Multivitamin Tablet) 1 tab PO DAILY [facility] Last Admin: 07/30/24 09:06 Dose: 1 tab Nicotine (Nicotine 21 Mg Patch.Td24) 21 mg TRANSDERMA DAILY PRN PRN Reason: nicotine cravings Nicotine Polacrilex (Nicotine Polacrilex 2 Mg Gum) 4 mg BUCCAL Q2H PRN PRN Reason: Nicotine Cravings Last Admin: 07/30/24 20:53 Dose: 4 mg Nystatin (Nystatin Powder 15 Gm Bottle) 1 appl TOPICAL BID [facility]; Protocol Last Admin: 07/30/24 23:00 Dose: Not Given Oxybutynin Chloride (Oxybutynin Chloride Er 5 Mg Tab.Er.24) 10 mg PO BEDTIME [facility] Last Admin: 07/30/24 21:08 Dose: 10 mg Pregabalin (Pregabalin 150 Mg Capsule) 300 mg PO BID [facility] Last Admin: 07/30/24 20:53 Dose: 300 mg Senna (Sennosides 8.6 Mg Tablet) 17.2 mg PO DAILY [facility] Last Admin: 07/30/24 09:05 Dose: 17.2 mg Sumatriptan Succinate (Sumatriptan Succinate 25 Mg Tablet) 25 mg PO DAILY PRN PRN Reason: Migraine Headache Topiramate (Topiramate 100 Mg Tablet) 200 mg PO BID [facility] Last Admin: 07/30/24 20:52 Dose: 200 mg Trazodone HCl (Trazodone Hcl 50 Mg Tablet) 50 mg PO BEDTIME MRX1 PRN PRN Reason: Insomnia Allergies Allergies Allergy/AdvReac Type Severity Reaction Status Date / Time benztropine Allergy Unknown Verified 07/22/24 14:23 Bleach (Sodium Hypochlorite) Allergy Unknown Verified 07/22/24 14:23 chlorpromazine Allergy Unknown Verified 07/22/24 14:23 divalproex sodium Allergy Unknown Verified 07/22/24 14:23 olanzapine Allergy Unknown Verified 07/22/24 14:23 quetiapine Allergy Unknown Verified 07/22/24 14:23 Sulfa (Sulfonamide Allergy Unknown Verified 07/22/24 14:23 Antibiotics) [Sulfonamides] ziprasidone Allergy Unknown Verified 07/22/24 14:23 haloperidol [From Haldol] AdvReac Unknown Verified 07/22/24 14:23 naloxone AdvReac Unknown Verified 07/22/24 14:23 Assessment & Plan Assessment & Plan (1) Depression: Status: Acute Code(s): F32.A - Depression, unspecified (2) Polysubstance abuse: Status: Acute Code(s): F19.10 - Other psychoactive substance abuse, uncomplicated Plan - Admit to inpatient psychiatry - CV - Collateral information from family and providers. - Milieu treatment and group therapy. - Medications: Continue same. - Social work evaluation. - Disposition planning. 07/25: Check ankle and knee XR. Switch Ditropan to HS. 07/26: Continue regime, monitor for sedation Discharge planning 07/28: Continue current regime. 07/30: Decrease Klonopin by 1mg due to sedation Discontinue Risperdal, pt refusing this medication Discontinue Valtrex, pt request Hospitalist consult, hip pain, ambulation difficulties. 07/31: Continue current regimen and plans. Continue plans for stabilization and decrease of Klonopin maybe even discontinuation. Patient educated on: medication risk/benefits Reason for continued inpatient stay Substantial Risk for: med/psych decompensation Time Spent With Patient Time: Total time managing care of this patient today ____ minutes.
[2024-07-31] MEDS: Amphetamine Mixed Salts 20 MG TABLET 30 MG PO ×2 (09:18→13:01)
[2024-07-31] MEDS: Ibuprofen 800 MG TABLET PO ×2 (09:19→21:01)
[2024-07-31] MEDS: Docusate Sodium 100 MG CAPSULE PO ×2 (09:19→21:01)
[2024-07-31] MEDS: Loratadine 10 MG TABLET PO (09:19)
[2024-07-31] MEDS: Pregabalin 150 MG CAPSULE 300 MG PO ×2 (09:19→20:56)
[2024-07-31] MEDS: Topiramate 100 MG TABLET 200 MG PO ×2 (09:19→21:01)
[2024-07-31] MEDS: Dicyclomine HCl 10 MG CAPSULE 20 MG PO (09:19)
[2024-07-31] MEDS: Sennosides 8.6 MG TABLET 17.2 MG PO (09:19)
[2024-07-31] MEDS: Ferrous Sulfate 324 MG TABLET.DR PO (09:20)
[2024-07-31] MEDS: Baclofen 20 MG TABLET PO ×3 (09:20→21:02)
[2024-07-31] MEDS: Multivitamin TABLET 1 TAB PO (09:20)
[2024-07-31] MEDS: clonazePAM 1 MG TABLET 2 MG PO (09:29)
[2024-07-31 09:30] VITALS: BP 128/81; PULSE 88; TEMP 36.8; O2SAT 96
[2024-07-31] MEDS: Acetaminophen 325 MG TABLET 650 MG PO (09:30)
[2024-07-31] MEDS: cloNIDine HCL 0.2 MG TABLET PO ×2 (09:30→20:57)
[2024-07-31] MEDS: clonazePAM 1 MG TABLET PO ×2 (13:02→16:16)
[2024-07-31 20:00] VITALS: BP 120/84; PULSE 86; RESP 16; TEMP 36.4; O2SAT 95
[2024-07-31 20:57] VITALS: BP 138/94
[2024-07-31] MEDS: oxyBUTYnin chloride ER 5 MG TAB.ER.24 10 MG PO (20:57)
[2024-07-31] MEDS: Nicotine Polacrilex 2 MG GUM 4 MG BUCCAL (21:02)
[2024-08-01] MEDS: methADONE HCl 20 MG/2 ML ORAL.CONC 110 MG PO (07:34)
[2024-08-01 08:08] VITALS: BP 110/68; PULSE 82; TEMP 36.8
[2024-08-01] MEDS: cloNIDine HCL 0.2 MG TABLET PO ×3 (08:44→21:24)
[2024-08-01] MEDS: clonazePAM 1 MG TABLET 2 MG PO (08:45)
[2024-08-01] MEDS: Amphetamine Mixed Salts 20 MG TABLET 30 MG PO ×2 (08:45→12:35)
[2024-08-01] MEDS: Multivitamin TABLET 1 TAB PO (08:45)
[2024-08-01] MEDS: Topiramate 100 MG TABLET 200 MG PO ×2 (08:45→21:25)
[2024-08-01] MEDS: Ferrous Sulfate 324 MG TABLET.DR PO (08:45)
[2024-08-01] MEDS: Docusate Sodium 100 MG CAPSULE PO (08:46)
[2024-08-01] MEDS: Sennosides 8.6 MG TABLET 17.2 MG PO (08:46)
[2024-08-01] MEDS: Baclofen 20 MG TABLET PO ×3 (08:46→21:26)
[2024-08-01] MEDS: Ibuprofen 800 MG TABLET PO ×2 (08:46→21:56)
[2024-08-01] MEDS: Loratadine 10 MG TABLET PO (08:46)
[2024-08-01] MEDS: Pregabalin 150 MG CAPSULE 300 MG PO ×2 (08:46→21:24)
[2024-08-01] MEDS: Nystatin Powder 15 GM BOTTLE 1 APPL TOPICAL (09:11)
[2024-08-01] MEDS: Fluticasone Propionate Nasal 16 GM SPRAY 1 SPRAY NOSTRIL-B (09:11)
--- NOTE | 2024-08-01 09:24 | P.PNPSI_ITS ---
Subjective Subjective Date of Service: 08/01/24 Reason For Visit: Depression Subjective Notes: Conditional Voluntary Healthcare Proxy: No Guardianship: No Medical Problems Affecting Mental Status: No Interim History: Patient was seen and discussed in rounds today. Records and plans were reviewed. She has been stable and had some questions about her Klonopin which we discussed and is going to discuss further with her provider tomorrow. She has been pleasant and appropriate. Endorses depression and anxiety. She has some passive SI mostly at nights. She has been having some diarrhea for which I will prescribe some loperamide. Sleeping adequately. No other changes were made today Review of Systems Review of Systems Diarrhea Yes all other systems are reviewed and are negative Mental Status Exam Mental Status Exam Narrative: In today's visit she is alert, oriented pleasant. Normal speech. Moderate eye contact. Affect is appropriate and constricted. Thought processes are intact. No SI. She is able to move all limbs. No abnormalities of gait Some paranoid ideations reported. Judgment is intact. Diagnostics Vital Signs (24Hr): Vital Signs - 24 hr 07/31/24 09:30 07/31/24 09:30 07/31/24 20:00 Temperature 98.2 F 97.5 F Pulse Rate 88 86 Respiratory Rate 16 Blood Pressure 128/81 128/81 120/84 Pulse Oximetry 96 95 Oxygen Delivery Method Room Air Room Air 07/31/24 20:57 08/01/24 08:08 Temperature 98.2 F Pulse Rate 82 Respiratory Rate Blood Pressure 138/94 H 110/68 Pulse Oximetry Oxygen Delivery Method Room Air BMI result Body Mass Index 39.5 Labs 07/22/24 15:47 07/22/24 15:47 Imaging Radiology Impressions: ITS Impressions Ankle X-Ray 07/25/24 14:10 IMPRESSION: No acute fracture or dislocation right ankle. Bimalleolar soft tissue swelling. Small calcaneal heel spur. Degenerative arthritic changes right knee without acute fracture or dislocation. Moderate osteophytosis superior to patella Electronically signed by: Baldo Espinosa MD 07/25/2024 09:29 PM EST Knee X-Ray 07/25/24 14:10 IMPRESSION: No acute fracture or dislocation right ankle. Bimalleolar soft tissue swelling. Small calcaneal heel spur. Degenerative arthritic changes right knee without acute fracture or dislocation. Moderate osteophytosis superior to patella Electronically signed by: Baldo Espinosa MD 07/25/2024 09:29 PM [facility] Medications Medications Current Medications Acetaminophen (Acetaminophen 325 Mg Tablet) 650 mg PO Q6H PRN PRN Reason: Headache/Pain Mild Scale (1-3) Last Admin: 07/31/24 09:30 Dose: 650 mg Al Hydroxide/Mg Hydroxide (Magnesium Hydrox/Alum Hydrox 30 Ml Oral.Susp) 30 ml PO Q6H PRN PRN Reason: Heartburn/Nausea Amphetamine/Dextroamphetamine (Amphetamine Mixed Salts 20 Mg Tablet) 30 mg PO 0900,1300 [facility] Last Admin: 08/01/24 08:45 Dose: 30 mg Baclofen (Baclofen 20 Mg Tablet) 20 mg PO TID@0900,1700,2100 [facility] Last Admin: 08/01/24 08:46 Dose: 20 mg Clonazepam (Clonazepam 1 Mg Tablet) 2 mg PO 0900 [facility] Last Admin: 08/01/24 08:45 Dose: 2 mg Clonazepam (Clonazepam 1 Mg Tablet) 1 mg PO 1200,1700 [facility] Last Admin: 07/31/24 16:16 Dose: 1 mg Clonidine HCl (Clonidine Hcl 0.2 Mg Tablet) 0.2 mg PO TID [facility]; Protocol Last Admin: 08/01/24 08:44 Dose: 0.2 mg Dicyclomine HCl (Dicyclomine Hcl 10 Mg Capsule) 20 mg PO TID PRN PRN Reason: abdominal pain Last Admin: 07/31/24 09:19 Dose: 20 mg Docusate Sodium (Docusate Sodium 100 Mg Capsule) 100 mg PO BID [facility] Last Admin: 08/01/24 08:46 Dose: 100 mg Ferrous Sulfate (Ferrous Sulfate 324 Mg Tablet.Dr) 324 mg PO DAILY [facility] Last Admin: 08/01/24 08:45 Dose: 324 mg Fluticasone Propionate (Fluticasone Propionate Nasal 16 Gm [place]) 1 spray NOSTRIL-B DAILY [facility] Last Admin: 08/01/24 09:11 Dose: 1 spray Hydroxyzine HCl (Hydroxyzine Hcl 25 Mg Tablet) 25 mg PO Q6H PRN PRN Reason: Anxiety Last Admin: 07/30/24 21:09 Dose: 25 mg Ibuprofen (Ibuprofen 800 Mg Tablet) 800 mg PO Q8H PRN PRN Reason: Pain, Moderate(Pain Scale 4-6) Last Admin: 08/01/24 08:46 Dose: 800 mg Loratadine (Loratadine 10 Mg Tablet) 10 mg PO DAILY [facility] Last Admin: 08/01/24 08:46 Dose: 10 mg Magnesium Hydroxide (Milk Of Magnesia 30 Ml Oral.Susp) 30 ml PO DAILY PRN PRN Reason: Constipation Methadone HCl (Methadone Hcl 20 Mg/2 Ml Oral.Conc) 110 mg PO DAILY [facility] Last Admin: 08/01/24 07:34 Dose: 110 mg Multi-Ingred Cream/Lotion/Oil/Oint (Mineral Oil/Petrolatum,White 106 Gm Tube) 1 appl TOPICAL BID [facility]; Protocol Last Admin: 08/01/24 08:46 Dose: Not Given Multivitamins/Vitamin C (Multivitamin Tablet) 1 tab PO DAILY [facility] Last Admin: 08/01/24 08:45 Dose: 1 tab Nicotine (Nicotine 21 Mg Patch.Td24) 21 mg TRANSDERMA DAILY PRN PRN Reason: nicotine cravings Nicotine Polacrilex (Nicotine Polacrilex 2 Mg Gum) 4 mg BUCCAL Q2H PRN PRN Reason: Nicotine Cravings Last Admin: 07/31/24 21:02 Dose: 4 mg Nystatin (Nystatin Powder 15 Gm Bottle) 1 appl TOPICAL BID [facility]; Protocol Last Admin: 08/01/24 09:11 Dose: 1 appl Oxybutynin Chloride (Oxybutynin Chloride Er 5 Mg Tab.Er.24) 10 mg PO BEDTIME [facility] Last Admin: 07/31/24 20:57 Dose: 10 mg Pregabalin (Pregabalin 150 Mg Capsule) 300 mg PO BID [facility] Last Admin: 08/01/24 08:46 Dose: 300 mg Senna (Sennosides 8.6 Mg Tablet) 17.2 mg PO DAILY [facility] Last Admin: 08/01/24 08:46 Dose: 17.2 mg Sumatriptan Succinate (Sumatriptan Succinate 25 Mg Tablet) 25 mg PO DAILY PRN PRN Reason: Migraine Headache Topiramate (Topiramate 100 Mg Tablet) 200 mg PO BID [facility] Last Admin: 08/01/24 08:45 Dose: 200 mg Trazodone HCl (Trazodone Hcl 50 Mg Tablet) 50 mg PO BEDTIME MRX1 PRN PRN Reason: Insomnia Allergies Allergies Allergy/AdvReac Type Severity Reaction Status Date / Time benztropine Allergy Unknown Verified 07/22/24 14:23 Bleach (Sodium Hypochlorite) Allergy Unknown Verified 07/22/24 14:23 chlorpromazine Allergy Unknown Verified 07/22/24 14:23 divalproex sodium Allergy Unknown Verified 07/22/24 14:23 olanzapine Allergy Unknown Verified 07/22/24 14:23 quetiapine Allergy Unknown Verified 07/22/24 14:23 Sulfa (Sulfonamide Allergy Unknown Verified 07/22/24 14:23 Antibiotics) [Sulfonamides] ziprasidone Allergy Unknown Verified 07/22/24 14:23 haloperidol [From Haldol] AdvReac Unknown Verified 07/22/24 14:23 naloxone AdvReac Unknown Verified 07/22/24 14:23 Assessment & Plan Assessment & Plan (1) Depression: Status: Acute Code(s): F32.A - Depression, unspecified (2) Polysubstance abuse: Status: Acute Code(s): F19.10 - Other psychoactive substance abuse, uncomplicated Plan - Admit to inpatient psychiatry - CV - Collateral information from family and providers. - Milieu treatment and group therapy. - Medications: Continue same. - Social work evaluation. - Disposition planning. 07/25: Check ankle and knee XR. Switch Ditropan to HS. 07/26: Continue regime, monitor for sedation Discharge planning 07/28: Continue current regime. 07/30: Decrease Klonopin by 1mg due to sedation Discontinue Risperdal, pt refusing this medication Discontinue Valtrex, pt request Hospitalist consult, hip pain, ambulation difficulties. 07/31: Continue current regimen and plans. Continue plans for stabilization and decrease of Klonopin maybe even discontinuation. 08/01: Continue current regimen and plans for stabilization and medication management. Added loperamide Patient educated on: medication risk/benefits Reason for continued inpatient stay Substantial Risk for: med/psych decompensation Time Spent With Patient Time: Total time managing care of this patient today ____ minutes.
[2024-08-01] MEDS: clonazePAM 1 MG TABLET PO ×2 (12:07→17:29)
[2024-08-01] MEDS: Dicyclomine HCl 10 MG CAPSULE 20 MG PO (12:07)
[2024-08-01 15:04] VITALS: BP 138/65
[2024-08-01 20:00] VITALS: BP 139/104; PULSE 97; TEMP 36.4; O2SAT 99
[2024-08-01 21:24] VITALS: BP 139/104
[2024-08-01] MEDS: oxyBUTYnin chloride ER 5 MG TAB.ER.24 10 MG PO (21:25)
[2024-08-01] MEDS: hydrOXYzine HCL 25 MG TABLET PO (21:57)
--- NOTE | 2024-08-02 03:16 | PC.NURSE ---
Patient states she is having stomach cramps in tandem with diarrhea. This racebook writer offered PRN Immodium, but patient appeared to be asleep when this racebook writer returned, and did not respond to her name being spoken.
[2024-08-02 08:00] VITALS: BP 130/77; PULSE 70; RESP 18; TEMP 36.4; O2SAT 97
[2024-08-02] MEDS: methADONE HCl 20 MG/2 ML ORAL.CONC 110 MG PO (08:02)
[2024-08-02] MEDS: Topiramate 100 MG TABLET 200 MG PO ×2 (08:36→21:24)
[2024-08-02] MEDS: cloNIDine HCL 0.2 MG TABLET PO ×3 (08:36→21:24)
[2024-08-02] MEDS: Multivitamin TABLET 1 TAB PO (08:37)
[2024-08-02] MEDS: Ferrous Sulfate 324 MG TABLET.DR PO (08:37)
[2024-08-02] MEDS: Dicyclomine HCl 10 MG CAPSULE 20 MG PO (08:37)
[2024-08-02] MEDS: Loperamide HCl 2 MG CAPSULE PO ×2 (08:37→17:17)
[2024-08-02] MEDS: Baclofen 20 MG TABLET PO ×3 (08:38→21:24)
[2024-08-02] MEDS: Amphetamine Mixed Salts 20 MG TABLET 30 MG PO ×2 (08:38→12:43)
[2024-08-02] MEDS: Pregabalin 150 MG CAPSULE 300 MG PO ×2 (08:38→21:24)
[2024-08-02] MEDS: Ibuprofen 800 MG TABLET PO ×2 (08:38→17:17)
[2024-08-02] MEDS: Loratadine 10 MG TABLET PO (08:38)
[2024-08-02] MEDS: clonazePAM 1 MG TABLET 2 MG PO (08:47)
[2024-08-02] MEDS: Fluticasone Propionate Nasal 16 GM SPRAY 1 SPRAY NOSTRIL-B (09:27)
[2024-08-02] MEDS: Acetaminophen 325 MG TABLET 650 MG PO ×2 (12:42→21:30)
[2024-08-02] MEDS: clonazePAM 1 MG TABLET PO ×2 (12:43→17:17)
[2024-08-02 14:52] VITALS: BP 127/96
--- NOTE | 2024-08-02 16:11 | P.PNPSI_ITS ---
Subjective Subjective Date of Service: 08/02/24 Reason For Visit: Depression Subjective Notes: Conditional Voluntary Healthcare Proxy: No Guardianship: No Medical Problems Affecting Mental Status: No Interim History: Pt reports feeling ill with diarrhea, URI sx, sore throat. She reports this is from Klonopin being tapered from 6 mg daily to 4 mg daily. Discussed testing-negative COVID/RSV/Flu. Throat culture negative. Chem Panel and CBC completed. Pt agreed to applications for programs to be filed. Continues to present with sedation, however, decreased. Concerned about not having a place to live. Facilities she has asked that we apply to have indicated she is not an appropriate candidate for their programs. Team continues with applications. Medication Compliance: Yes Side effects from medications: No Attending Groups: Intermittent Review of Systems Acute medical concerns: No Review of Systems Review of Systems GI/URI sx Mental Status Exam Mental Status Exam Patient Appearance: Fatigued and Appropriate Patient Orientation: Person, Place, Time and Situation Level of Consciousness: Awake and Sedated Patient Behavior: Talkative, Suspicious, Distractible and Good Eye Contact Mood Description: Depressed and Angry Affect Description: Flat Patient Cognition Impaired: No Ability to Follow Directions: Fair Speech Pattern: Spontaneous Speech Memory Description: Intact and Episodic Impaired Hallucinations: None Delusions: Paranoid Ideation Perceptual Disturbances: Depersonalization and Derealization Thought Process: Rumination Thought Content: positive for Circumstantial Depressive Symptoms: Increased Anxiety, Increased Irritability, Feelings of Worthlessness, Hopelessness, Unhappiness and Difficulty Concentrating Judgement: Good Diagnostics Vital Signs (24Hr): Vital Signs - 24 hr 08/01/24 20:00 08/01/24 21:24 08/02/24 08:00 Temperature 97.6 F 97.6 F Pulse Rate 97 70 Respiratory Rate 18 Blood Pressure 139/104 H 139/104 H 130/77 Pulse Oximetry 99 97 Oxygen Delivery Method Room Air Room Air 08/02/24 14:52 Temperature Pulse Rate Respiratory Rate Blood Pressure 127/96 H Pulse Oximetry Oxygen Delivery Method BMI result Body Mass Index 39.5 Labs 08/02/24 16:27 08/02/24 16:27 Imaging Radiology Impressions: ITS Impressions Ankle X-Ray 07/25/24 14:10 IMPRESSION: No acute fracture or dislocation right ankle. Bimalleolar soft tissue swelling. Small calcaneal heel spur. Degenerative arthritic changes right knee without acute fracture or dislocation. Moderate osteophytosis superior to patella Electronically signed by: Baldo Espinosa MD 07/25/2024 09:29 PM EST RP Knee X-Ray 07/25/24 14:10 IMPRESSION: No acute fracture or dislocation right ankle. Bimalleolar soft tissue swelling. Small calcaneal heel spur. Degenerative arthritic changes right knee without acute fracture or dislocation. Moderate osteophytosis superior to patella Electronically signed by: Baldo Espinosa MD 07/25/2024 09:29 PM EST RP Medications Medications Current Medications Acetaminophen (Acetaminophen 325 Mg Tablet) 650 mg PO Q6H PRN PRN Reason: Headache/Pain Mild Scale (1-3) Last Admin: 08/02/24 12:42 Dose: 650 mg Al Hydroxide/Mg Hydroxide (Magnesium Hydrox/Alum Hydrox 30 Ml Oral.Susp) 30 ml PO Q6H PRN PRN Reason: Heartburn/Nausea Amphetamine/Dextroamphetamine (Amphetamine Mixed Salts 20 Mg Tablet) 30 mg PO 0900,1300 [facility] Last Admin: 08/02/24 12:43 Dose: 30 mg Baclofen (Baclofen 20 Mg Tablet) 20 mg PO TID@0900,1700,2100 [facility] Last Admin: 08/02/24 08:38 Dose: 20 mg Clonazepam (Clonazepam 1 Mg Tablet) 1 mg PO 1200,1700 [facility] Last Admin: 08/02/24 12:43 Dose: 1 mg Clonazepam (Clonazepam 1 Mg Tablet) 2 mg PO 0900 [facility] Clonidine HCl (Clonidine Hcl 0.2 Mg Tablet) 0.2 mg PO TID [facility]; Protocol Last Admin: 08/02/24 14:52 Dose: 0.2 mg Dicyclomine HCl (Dicyclomine Hcl 10 Mg Capsule) 20 mg PO TID PRN PRN Reason: abdominal pain Last Admin: 08/02/24 08:37 Dose: 20 mg Docusate Sodium (Docusate Sodium 100 Mg Capsule) 100 mg PO BID [facility] Last Admin: 08/02/24 08:49 Dose: Not Given Ferrous Sulfate (Ferrous Sulfate 324 Mg Tablet.Dr) 324 mg PO DAILY [facility] Last Admin: 08/02/24 08:37 Dose: 324 mg Fluticasone Propionate (Fluticasone Propionate Nasal 16 Gm [place]) 1 spray NOSTRIL-B DAILY [facility] Last Admin: 08/02/24 09:27 Dose: 1 spray Hydroxyzine HCl (Hydroxyzine Hcl 25 Mg Tablet) 25 mg PO Q6H PRN PRN Reason: Anxiety Last Admin: 08/01/24 21:57 Dose: 25 mg Ibuprofen (Ibuprofen 800 Mg Tablet) 800 mg PO Q8H PRN PRN Reason: Pain, Moderate(Pain Scale 4-6) Last Admin: 08/02/24 08:38 Dose: 800 mg Loperamide HCl (Loperamide Hcl 2 Mg Capsule) 2 mg PO Q4H PRN PRN Reason: Diarrhea Last Admin: 08/02/24 08:37 Dose: 2 mg Loratadine (Loratadine 10 Mg Tablet) 10 mg PO DAILY [facility] Last Admin: 08/02/24 08:38 Dose: 10 mg Magnesium Hydroxide (Milk Of Magnesia 30 Ml Oral.Susp) 30 ml PO DAILY PRN PRN Reason: Constipation Methadone HCl (Methadone Hcl 20 Mg/2 Ml Oral.Conc) 110 mg PO DAILY [facility] Last Admin: 08/02/24 08:02 Dose: 110 mg Multi-Ingred Cream/Lotion/Oil/Oint (Mineral Oil/Petrolatum,White 106 Gm Tube) 1 appl TOPICAL BID [facility]; Protocol Last Admin: 08/02/24 08:49 Dose: Not Given Multivitamins/Vitamin C (Multivitamin Tablet) 1 tab PO DAILY [facility] Last Admin: 08/02/24 08:37 Dose: 1 tab Nicotine (Nicotine 21 Mg Patch.Td24) 21 mg TRANSDERMA DAILY PRN PRN Reason: nicotine cravings Nicotine Polacrilex (Nicotine Polacrilex 2 Mg Gum) 4 mg BUCCAL Q2H PRN PRN Reason: Nicotine Cravings Last Admin: 07/31/24 21:02 Dose: 4 mg Nystatin (Nystatin Powder 15 Gm Bottle) 1 appl TOPICAL BID [facility]; Protocol Last Admin: 08/02/24 08:49 Dose: Not Given Oxybutynin Chloride (Oxybutynin Chloride Er 5 Mg Tab.Er.24) 10 mg PO BEDTIME [facility] Last Admin: 08/01/24 21:25 Dose: 10 mg Pregabalin (Pregabalin 150 Mg Capsule) 300 mg PO BID [facility] Last Admin: 08/02/24 08:38 Dose: 300 mg Senna (Sennosides 8.6 Mg Tablet) 17.2 mg PO DAILY [facility] Last Admin: 08/02/24 08:49 Dose: Not Given Sumatriptan Succinate (Sumatriptan Succinate 25 Mg Tablet) 25 mg PO DAILY PRN PRN Reason: Migraine Headache Topiramate (Topiramate 100 Mg Tablet) 200 mg PO BID [facility] Last Admin: 08/02/24 08:36 Dose: 200 mg Trazodone HCl (Trazodone Hcl 50 Mg Tablet) 50 mg PO BEDTIME MRX1 PRN PRN Reason: Insomnia Allergies Allergies Allergy/AdvReac Type Severity Reaction Status Date / Time benztropine Allergy Unknown Verified 07/22/24 14:23 Bleach (Sodium Hypochlorite) Allergy Unknown Verified 07/22/24 14:23 chlorpromazine Allergy Unknown Verified 07/22/24 14:23 divalproex sodium Allergy Unknown Verified 07/22/24 14:23 olanzapine Allergy Unknown Verified 07/22/24 14:23 quetiapine Allergy Unknown Verified 07/22/24 14:23 Sulfa (Sulfonamide Allergy Unknown Verified 07/22/24 14:23 Antibiotics) [Sulfonamides] ziprasidone Allergy Unknown Verified 07/22/24 14:23 haloperidol [From Haldol] AdvReac Unknown Verified 07/22/24 14:23 naloxone AdvReac Unknown Verified 07/22/24 14:23 Assessment & Plan Assessment & Plan (1) Depression: Status: Acute Code(s): F32.A - Depression, unspecified (2) Polysubstance abuse: Status: Acute Code(s): F19.10 - Other psychoactive substance abuse, uncomplicated Plan - Admit to inpatient psychiatry - CV - Collateral information from family and providers. - Milieu treatment and group therapy. - Medications: Continue same. - Social work evaluation. - Disposition planning. 07/25: Check ankle and knee XR. Switch Ditropan to HS. 07/26: Continue regime, monitor for sedation Discharge planning 07/28: Continue current regime. 07/30: Decrease Klonopin by 1mg due to sedation Discontinue Risperdal, pt refusing this medication Discontinue Valtrex, pt request Hospitalist consult, hip pain, ambulation difficulties. 07/31: Continue current regimen and plans. Continue plans for stabilization and decrease of Klonopin maybe even discontinuation. 08/01: Continue current regimen and plans for stabilization and medication management. Added loperamide 08/02: Continue current plan of care. Patient educated on: therapeutic strategies and medical condition Reason for continued inpatient stay Substantial Risk for: rapid decompensation Time Spent With Patient Time: Total time managing care of this patient today ____ minutes.
[2024-08-02 16:37] LABS: MANUAL DIFF FLAG NO
[2024-08-02 16:39] LABS: Hemoglobin 12.6 g/dl (12.0-16.0); Imm Gran Abs Auto 0.01 X10*3/uL (0.00-0.03); Imm Gran Pct Auto 0.2 % (0.0-0.4); SCAN SMEAR FLAG 1
[2024-08-02 16:41] LABS: Basophils Percent Auto 0.2 % (0-2); Eosinophils Absolute Auto 0.1 X10*3/uL (0.0-0.4); Eosinophils Percent Auto 1.8 % (0-4); Hematocrit 38.8 % (37.0-47.0); Lymphocytes Absolute Auto 1.7 X10*3/uL (1.2-4.9); Lymphocytes Percent Auto 30.4 % (20-40); Mean Corpuscular HGB Conc 32.5 g/dl (31.0-35.0); Mean Corpuscular Hemoglobin 26.4 pg (27.0-33.0); Mean Corpuscular Volume 81.3 fL (80.0-98.0); Mean Platelet Volume 10.1 fL (9.4-12.3); Monocytes Absolute Auto 0.4 X10*3/uL (0.1-1.2); Neutrophils Absolute Auto 3.3 x10*3/uL (2.0-8.3); Neutrophils Percent Auto 60.4 % (45-73); Platelet Count 157 X10*3/uL (160-400); Red Blood Count 4.77 X10*6/uL (4.20-5.50); Red Cell Distribution Width 18.1 % (11.0-16.0); White Blood Count 5.4 X10*3/uL (4.8-10.8)
[2024-08-02 16:49] LABS: PLT ABN DIST 1
[2024-08-02 16:54] LABS: Alanine Aminotransferase 38 U/L (0-31); Albumin Level 3.9 g/dL (3.5-5.0); Alkaline Phosphatase 132 U/L (39-117); Anion Gap 11 (12-20); Aspartate Amino Transferase 39 U/L (5-31); Bilirubin Total 0.1 mg/dL (0.0-1.0); Blood Urea Nitrogen 14 mg/dL (9-16); Calcium 9.2 mg/dL (8.4-10.2); Carbon Dioxide 21 mmol/L (22-29); Chloride 113 mmol/L (96-108); Creatinine Clr Calc Pharmacy 86.2; Estimated Glomerular Filt Rate > 60; Glucose Random 104 mg/dL (60-115); Potassium 3.8 mmol/L (3.3-5.1); Sodium 141 mmol/L (135-145); Total Protein 8.4 g/dL (6.5-8.0)
[2024-08-02 18:56] LABS: Influenza A PCR NEGATIVE (Negative); Influenza B PCR NEGATIVE (Negative); Resp Syncy Virus RNA Qual PCR NEGATIVE (Negative); SARS COV2 PCR INHOUSE NEGATIVE (Negative)
[2024-08-02 20:15] VITALS: BP 127/81; PULSE 101; RESP 14; TEMP 36.3; O2SAT 97
[2024-08-02] MEDS: oxyBUTYnin chloride ER 5 MG TAB.ER.24 10 MG PO (21:21)
[2024-08-02] MEDS: Docusate Sodium 100 MG CAPSULE PO (21:24)
[2024-08-02] MEDS: hydrOXYzine HCL 25 MG TABLET PO (21:30)
[2024-08-03 08:00] VITALS: BP 122/79; PULSE 75; RESP 16; TEMP 36.4; O2SAT 96
[2024-08-03] MEDS: methADONE HCl 20 MG/2 ML ORAL.CONC 110 MG PO (08:00)
--- NOTE | 2024-08-03 08:49 | P.PNPSI_ITS ---
Subjective Subjective Date of Service: 08/03/24 Reason For Visit: Depression Subjective Notes: Conditional Voluntary Healthcare Proxy: No Guardianship: No Medical Problems Affecting Mental Status: No Interim History: Received a message from team at 10:27am. that pt was not feeling well and would not be meeting with team today. We attempted to check in, however, pt reported she was using the bathroom and was not available. Discharge planning continues. Applications are in place for housing post discharge with no word yet of acceptance. Tells team she believes that a return to her home area in the [facility] is too far. She plans to remain in this area. Medication Compliance: Yes Side effects from medications: Yes (reports klonopin withdrawal) Attending Groups: No Review of Systems Reports GI and URI sx. Diagnostics are negative at this time. Review of Systems Review of Systems GI/URI sx. Mental Status Exam Mental Status Exam Patient Appearance: Fatigued and Appropriate Patient Orientation: Person, Place, Time and Situation Level of Consciousness: Awake and Sedated Patient Behavior: Talkative, Suspicious, Distractible and Good Eye Contact Mood Description: Depressed and Angry Affect Description: Flat Patient Cognition Impaired: No Ability to Follow Directions: Fair Speech Pattern: Spontaneous Speech Memory Description: Intact and Episodic Impaired Hallucinations: None Delusions: Paranoid Ideation Perceptual Disturbances: Depersonalization and Derealization Thought Process: Rumination Thought Content: positive for Circumstantial Depressive Symptoms: Increased Anxiety, Increased Irritability, Feelings of Worthlessness, Hopelessness, Unhappiness and Difficulty Concentrating Judgement: Good Diagnostics Vital Signs (24Hr): Vital Signs - 24 hr 08/02/24 14:52 08/02/24 20:15 Temperature 97.3 F Pulse Rate 101 H Respiratory Rate 14 Blood Pressure 127/96 H 127/81 Pulse Oximetry 97 Oxygen Delivery Method Room Air BMI result Body Mass Index 39.5 Labs 08/02/24 16:27 08/02/24 16:27 Labs: Laboratory Results - last 48 hr 08/02/24 08/02/24 16:27 17:30 WBC 5.4 RBC 4.77 Hgb 12.6 Hct 38.8 MCV 81.3 MCH 26.4 L MCHC 32.5 RDW 18.1 H Plt Count 157 L MPV 10.1 Immature Gran % (Auto) 0.2 Neut % (Auto) 60.4 Lymph % (Auto) 30.4 [place] % (Auto) 7.0 Eos % (Auto) 1.8 Baso % (Auto) 0.2 Lymph # (Auto) 1.7 [place] # (Auto) 0.4 Eos # (Auto) 0.1 Baso # (Auto) 0.0 Abs Immat Gran (auto) 0.01 Absolute Neuts (auto) 3.3 Absolute Nucleated RBC 0.000 Nucleated RBC % (auto) 0.0 Sodium 141 Potassium 3.8 Chloride 113 H Carbon Dioxide 21 L Anion Gap 11 L BUN 14 Creatinine 1.01 Estim Creat Clear Calc 86.2 Estimated GFR > 60 Random Glucose 104 Calcium 9.2 Total Bilirubin 0.1 AST 39 H ALT 38 H Alkaline Phosphatase 132 H Total Protein 8.4 H Albumin 3.9 Influenza Type A (PCR) NEGATIVE Influenza Type B (PCR) NEGATIVE RSV RNA Qual (PCR) NEGATIVE SARS-CoV-2 RNA (RT-PCR) NEGATIVE Imaging Radiology Impressions: ITS Impressions Ankle X-Ray 07/25/24 14:10 IMPRESSION: No acute fracture or dislocation right ankle. Bimalleolar soft tissue swelling. Small calcaneal heel spur. Degenerative arthritic changes right knee without acute fracture or dislocation. Moderate osteophytosis superior to patella Electronically signed by: Baldo Espinosa MD 07/25/2024 09:29 PM EST RP Knee X-Ray 07/25/24 14:10 IMPRESSION: No acute fracture or dislocation right ankle. Bimalleolar soft tissue swelling. Small calcaneal heel spur. Degenerative arthritic changes right knee without acute fracture or dislocation. Moderate osteophytosis superior to patella Electronically signed by: Baldo Espinosa MD 07/25/2024 09:29 PM EST RP Medications Medications Current Medications Acetaminophen (Acetaminophen 325 Mg Tablet) 650 mg PO Q6H PRN PRN Reason: Headache/Pain Mild Scale (1-3) Last Admin: 08/02/24 21:30 Dose: 650 mg Al Hydroxide/Mg Hydroxide (Magnesium Hydrox/Alum Hydrox 30 Ml Oral.Susp) 30 ml PO Q6H PRN PRN Reason: Heartburn/Nausea Amphetamine/Dextroamphetamine (Amphetamine Mixed Salts 20 Mg Tablet) 30 mg PO 0900,1300 [facility] Last Admin: 08/02/24 12:43 Dose: 30 mg Baclofen (Baclofen 20 Mg Tablet) 20 mg PO TID@0900,1700,2100 [facility] Last Admin: 08/02/24 21:24 Dose: 20 mg Clonazepam (Clonazepam 1 Mg Tablet) 1 mg PO 1200,1700 [facility] Last Admin: 08/02/24 17:17 Dose: 1 mg Clonazepam (Clonazepam 1 Mg Tablet) 2 mg PO 0900 [facility] Clonidine HCl (Clonidine Hcl 0.2 Mg Tablet) 0.2 mg PO TID [facility]; Protocol Last Admin: 08/02/24 21:24 Dose: 0.2 mg Dicyclomine HCl (Dicyclomine Hcl 10 Mg Capsule) 20 mg PO TID PRN PRN Reason: abdominal pain Last Admin: 08/02/24 08:37 Dose: 20 mg Docusate Sodium (Docusate Sodium 100 Mg Capsule) 100 mg PO BID [facility] Last Admin: 08/02/24 21:24 Dose: 100 mg Ferrous Sulfate (Ferrous Sulfate 324 Mg Tablet.Dr) 324 mg PO DAILY [facility] Last Admin: 08/02/24 08:37 Dose: 324 mg Fluticasone Propionate (Fluticasone Propionate Nasal 16 Gm [place]) 1 spray NOSTRIL-B DAILY [facility] Last Admin: 08/02/24 09:27 Dose: 1 spray Hydroxyzine HCl (Hydroxyzine Hcl 25 Mg Tablet) 25 mg PO Q6H PRN PRN Reason: Anxiety Last Admin: 08/02/24 21:30 Dose: 25 mg Ibuprofen (Ibuprofen 800 Mg Tablet) 800 mg PO Q8H PRN PRN Reason: Pain, Moderate(Pain Scale 4-6) Last Admin: 08/02/24 17:17 Dose: 800 mg Loperamide HCl (Loperamide Hcl 2 Mg Capsule) 2 mg PO Q4H PRN PRN Reason: Diarrhea Last Admin: 08/02/24 17:17 Dose: 2 mg Loratadine (Loratadine 10 Mg Tablet) 10 mg PO DAILY [facility] Last Admin: 08/02/24 08:38 Dose: 10 mg Magnesium Hydroxide (Milk Of Magnesia 30 Ml Oral.Susp) 30 ml PO DAILY PRN PRN Reason: Constipation Methadone HCl (Methadone Hcl 20 Mg/2 Ml Oral.Conc) 110 mg PO DAILY [facility] Last Admin: 08/03/24 08:00 Dose: 110 mg Multi-Ingred Cream/Lotion/Oil/Oint (Mineral Oil/Petrolatum,White 106 Gm Tube) 1 appl TOPICAL BID [facility]; Protocol Last Admin: 08/02/24 22:10 Dose: Not Given Multivitamins/Vitamin C (Multivitamin Tablet) 1 tab PO DAILY [facility] Last Admin: 08/02/24 08:37 Dose: 1 tab Nicotine (Nicotine 21 Mg Patch.Td24) 21 mg TRANSDERMA DAILY PRN PRN Reason: nicotine cravings Nicotine Polacrilex (Nicotine Polacrilex 2 Mg Gum) 4 mg BUCCAL Q2H PRN PRN Reason: Nicotine Cravings Last Admin: 07/31/24 21:02 Dose: 4 mg Nystatin (Nystatin Powder 15 Gm Bottle) 1 appl TOPICAL BID [facility]; Protocol Last Admin: 08/02/24 22:10 Dose: Not Given Oxybutynin Chloride (Oxybutynin Chloride Er 5 Mg Tab.Er.24) 10 mg PO BEDTIME [facility] Last Admin: 08/02/24 21:21 Dose: 10 mg Pregabalin (Pregabalin 150 Mg Capsule) 300 mg PO BID [facility] Last Admin: 08/02/24 21:24 Dose: 300 mg Senna (Sennosides 8.6 Mg Tablet) 17.2 mg PO DAILY [facility] Last Admin: 08/02/24 08:49 Dose: Not Given Sumatriptan Succinate (Sumatriptan Succinate 25 Mg Tablet) 25 mg PO DAILY PRN PRN Reason: Migraine Headache Topiramate (Topiramate 100 Mg Tablet) 200 mg PO BID [facility] Last Admin: 08/02/24 21:24 Dose: 200 mg Trazodone HCl (Trazodone Hcl 50 Mg Tablet) 50 mg PO BEDTIME MRX1 PRN PRN Reason: Insomnia Allergies Allergies Allergy/AdvReac Type Severity Reaction Status Date / Time benztropine Allergy Unknown Verified 07/22/24 14:23 Bleach (Sodium Hypochlorite) Allergy Unknown Verified 07/22/24 14:23 chlorpromazine Allergy Unknown Verified 07/22/24 14:23 divalproex sodium Allergy Unknown Verified 07/22/24 14:23 olanzapine Allergy Unknown Verified 07/22/24 14:23 quetiapine Allergy Unknown Verified 07/22/24 14:23 Sulfa (Sulfonamide Allergy Unknown Verified 07/22/24 14:23 Antibiotics) [Sulfonamides] ziprasidone Allergy Unknown Verified 07/22/24 14:23 haloperidol [From Haldol] AdvReac Unknown Verified 07/22/24 14:23 naloxone AdvReac Unknown Verified 07/22/24 14:23 Assessment & Plan Assessment & Plan (1) Depression: Status: Acute Code(s): F32.A - Depression, unspecified (2) Polysubstance abuse: Status: Acute Code(s): F19.10 - Other psychoactive substance abuse, uncomplicated Plan - Admit to inpatient psychiatry - CV - Collateral information from family and providers. - Milieu treatment and group therapy. - Medications: Continue same. - Social work evaluation. - Disposition planning. 07/25: Check ankle and knee XR. Switch Ditropan to HS. 07/26: Continue regime, monitor for sedation Discharge planning 07/28: Continue current regime. 07/30: Decrease Klonopin by 1mg due to sedation Discontinue Risperdal, pt refusing this medication Discontinue Valtrex, pt request Hospitalist consult, hip pain, ambulation difficulties. 07/31: Continue current regimen and plans. Continue plans for stabilization and decrease of Klonopin maybe even discontinuation. 08/01: Continue current regimen and plans for stabilization and medication management. Added loperamide 08/03: Continue current regime, discharge planning. Reason for continued inpatient stay Substantial Risk for: rapid decompensation Time Spent With Patient Time: Total time managing care of this patient today ____ minutes.
[2024-08-03] MEDS: Docusate Sodium 100 MG CAPSULE PO (10:12)
[2024-08-03] MEDS: Ferrous Sulfate 324 MG TABLET.DR PO (10:12)
[2024-08-03] MEDS: Sennosides 8.6 MG TABLET 17.2 MG PO (10:12)
[2024-08-03] MEDS: clonazePAM 1 MG TABLET 2 MG PO (10:12)
[2024-08-03 10:13] VITALS: BP 122/69
[2024-08-03] MEDS: Amphetamine Mixed Salts 20 MG TABLET 30 MG PO ×2 (10:13→12:31)
[2024-08-03] MEDS: Loratadine 10 MG TABLET PO (10:13)
[2024-08-03] MEDS: Pregabalin 150 MG CAPSULE 300 MG PO ×2 (10:13→20:32)
[2024-08-03] MEDS: cloNIDine HCL 0.2 MG TABLET PO ×3 (10:13→20:31)
[2024-08-03] MEDS: Baclofen 20 MG TABLET PO ×3 (10:14→20:31)
[2024-08-03] MEDS: Topiramate 100 MG TABLET 200 MG PO ×2 (10:14→20:32)
[2024-08-03] MEDS: Multivitamin TABLET 1 TAB PO (10:14)
[2024-08-03] MEDS: Fluticasone Propionate Nasal 16 GM SPRAY 1 SPRAY NOSTRIL-B (10:15)
[2024-08-03] MEDS: Dicyclomine HCl 10 MG CAPSULE 20 MG PO ×2 (10:19→15:27)
[2024-08-03] MEDS: Ibuprofen 800 MG TABLET PO ×2 (10:23→20:30)
[2024-08-03] MEDS: Nicotine Polacrilex 2 MG GUM 4 MG BUCCAL ×3 (10:24→20:35)
[2024-08-03] MEDS: Acetaminophen 325 MG TABLET 650 MG PO (12:32)
[2024-08-03] MEDS: clonazePAM 1 MG TABLET PO ×2 (12:32→16:07)
[2024-08-03] MEDS: hydrOXYzine HCL 25 MG TABLET PO ×2 (12:32→21:05)
[2024-08-03 15:27] VITALS: BP 132/84
[2024-08-03 20:00] VITALS: RESP 14
[2024-08-03] MEDS: oxyBUTYnin chloride ER 5 MG TAB.ER.24 10 MG PO (20:31)
[2024-08-04] MEDS: methADONE HCl 20 MG/2 ML ORAL.CONC 110 MG PO (07:48)
[2024-08-04 08:00] VITALS: BP 106/69; PULSE 94; RESP 16; TEMP 36.2; O2SAT 97
[2024-08-04] MEDS: Fluticasone Propionate Nasal 16 GM SPRAY 1 SPRAY NOSTRIL-B (08:54)
[2024-08-04] MEDS: Nicotine Polacrilex 2 MG GUM 4 MG BUCCAL (08:56)
[2024-08-04] MEDS: clonazePAM 1 MG TABLET 2 MG PO (08:56)
[2024-08-04] MEDS: Topiramate 100 MG TABLET 200 MG PO ×2 (08:56→20:26)
[2024-08-04] MEDS: Amphetamine Mixed Salts 20 MG TABLET 30 MG PO ×2 (08:56→13:00)
[2024-08-04 08:57] VITALS: BP 106/69
[2024-08-04] MEDS: cloNIDine HCL 0.2 MG TABLET PO ×3 (08:57→20:26)
[2024-08-04] MEDS: Pregabalin 150 MG CAPSULE 300 MG PO ×2 (08:57→20:25)
[2024-08-04] MEDS: hydrOXYzine HCL 25 MG TABLET PO ×3 (08:57→20:25)
[2024-08-04] MEDS: Loperamide HCl 2 MG CAPSULE PO ×2 (08:57→12:59)
[2024-08-04] MEDS: Dicyclomine HCl 10 MG CAPSULE 20 MG PO ×2 (08:57→14:43)
[2024-08-04] MEDS: Ibuprofen 800 MG TABLET PO ×2 (08:58→16:15)
[2024-08-04] MEDS: Ferrous Sulfate 324 MG TABLET.DR PO (08:58)
[2024-08-04] MEDS: Loratadine 10 MG TABLET PO (08:58)
[2024-08-04] MEDS: Multivitamin TABLET 1 TAB PO (08:58)
[2024-08-04] MEDS: Baclofen 20 MG TABLET PO ×3 (08:58→20:26)
--- NOTE | 2024-08-04 09:44 | P.PNPSI_ITS ---
Subjective Subjective Date of Service: 08/04/24 Reason For Visit: Depression Subjective Notes: Conditional Voluntary Healthcare Proxy: No Guardianship: No Medical Problems Affecting Mental Status: No Interim History: Pt reports ongoing medical issues, loose stools, URI sx. She tells staff she is angry with team for not finding her a program she wants and will discharge, drink, do drugs and suicide if we do not place her in the facility of her choice. Several reviews of programs and criteria for admission have been completed with her however she will not accept their admission criteria, just what she wants. She will not discuss her behaviors as barriers to moving forward with success. She is not open to any feedback at this time. Medication Compliance: Yes Side effects from medications: No Attending Groups: No Review of Systems Acute medical concerns: No Mental Status Exam Mental Status Exam Patient Appearance: Fatigued Patient Orientation: Person, Place, Time and Situation Level of Consciousness: Awake Patient Behavior: Talkative, Suspicious, Distractible and Good Eye Contact Mood Description: Depressed and Angry Affect Description: Angry and Flat Patient Cognition Impaired: No Ability to Follow Directions: Fair Speech Pattern: Spontaneous Speech Memory Description: Intact and Episodic Impaired Hallucinations: None Perceptual Disturbances: Depersonalization and Derealization Thought Process: Rumination Thought Content: positive for Circumstantial Depressive Symptoms: Increased Anxiety, Increased Irritability, Hopelessness, Unhappiness and Thoughts of /Suicide (threats if she is not given what she wants) Judgement: Good Diagnostics Vital Signs (24Hr): Vital Signs - 24 hr 08/03/24 10:13 08/03/24 15:27 08/03/24 20:00 Respiratory Rate 14 Blood Pressure 122/69 132/84 08/04/24 08:57 Respiratory Rate Blood Pressure 106/69 BMI result Body Mass Index 39.5 Labs 08/02/24 16:27 08/02/24 16:27 Labs: Laboratory Results - last 48 hr 08/02/24 08/02/24 16:27 17:30 WBC 5.4 RBC 4.77 Hgb 12.6 Hct 38.8 MCV 81.3 MCH 26.4 L MCHC 32.5 RDW 18.1 H Plt Count 157 L MPV 10.1 Immature Gran % (Auto) 0.2 Neut % (Auto) 60.4 Lymph % (Auto) 30.4 [place] % (Auto) 7.0 Eos % (Auto) 1.8 Baso % (Auto) 0.2 Lymph # (Auto) 1.7 [place] # (Auto) 0.4 Eos # (Auto) 0.1 Baso # (Auto) 0.0 Abs Immat Gran (auto) 0.01 Absolute Neuts (auto) 3.3 Absolute Nucleated RBC 0.000 Nucleated RBC % (auto) 0.0 Sodium 141 Potassium 3.8 Chloride 113 H Carbon Dioxide 21 L Anion Gap 11 L BUN 14 Creatinine 1.01 Estim Creat Clear Calc 86.2 Estimated GFR > 60 Random Glucose 104 Calcium 9.2 Total Bilirubin 0.1 AST 39 H ALT 38 H Alkaline Phosphatase 132 H Total Protein 8.4 H Albumin 3.9 Influenza Type A (PCR) NEGATIVE Influenza Type B (PCR) NEGATIVE RSV RNA Qual (PCR) NEGATIVE SARS-CoV-2 RNA (RT-PCR) NEGATIVE Imaging Radiology Impressions: ITS Impressions Ankle X-Ray 07/25/24 14:10 IMPRESSION: No acute fracture or dislocation right ankle. Bimalleolar soft tissue swelling. Small calcaneal heel spur. Degenerative arthritic changes right knee without acute fracture or dislocation. Moderate osteophytosis superior to patella Electronically signed by: Baldo Espinosa MD 07/25/2024 09:29 PM EST RP Knee X-Ray 07/25/24 14:10 IMPRESSION: No acute fracture or dislocation right ankle. Bimalleolar soft tissue swelling. Small calcaneal heel spur. Degenerative arthritic changes right knee without acute fracture or dislocation. Moderate osteophytosis superior to patella Electronically signed by: Baldo Espinosa MD 07/25/2024 09:29 PM EST RP Medications Medications Current Medications Acetaminophen (Acetaminophen 325 Mg Tablet) 650 mg PO Q6H PRN PRN Reason: Headache/Pain Mild Scale (1-3) Last Admin: 08/03/24 12:32 Dose: 650 mg Al Hydroxide/Mg Hydroxide (Magnesium Hydrox/Alum Hydrox 30 Ml Oral.Susp) 30 ml PO Q6H PRN PRN Reason: Heartburn/Nausea Amphetamine/Dextroamphetamine (Amphetamine Mixed Salts 20 Mg Tablet) 30 mg PO 0900,1300 [facility] Last Admin: 08/04/24 08:56 Dose: 30 mg Baclofen (Baclofen 20 Mg Tablet) 20 mg PO TID@0900,1700,2100 [facility] Last Admin: 08/04/24 08:58 Dose: 20 mg Clonazepam (Clonazepam 1 Mg Tablet) 1 mg PO 1200,1700 [facility] Last Admin: 08/03/24 16:07 Dose: 1 mg Clonazepam (Clonazepam 1 Mg Tablet) 2 mg PO 0900 [facility] Last Admin: 08/04/24 08:56 Dose: 2 mg Clonidine HCl (Clonidine Hcl 0.2 Mg Tablet) 0.2 mg PO TID [facility]; Protocol Last Admin: 08/04/24 08:57 Dose: 0.2 mg Dicyclomine HCl (Dicyclomine Hcl 10 Mg Capsule) 20 mg PO TID PRN PRN Reason: abdominal pain Last Admin: 08/04/24 08:57 Dose: 20 mg Docusate Sodium (Docusate Sodium 100 Mg Capsule) 100 mg PO BID [facility] Last Admin: 08/04/24 01:37 Dose: Not Given Ferrous Sulfate (Ferrous Sulfate 324 Mg Tablet.Dr) 324 mg PO DAILY [facility] Last Admin: 08/04/24 08:58 Dose: 324 mg Fluticasone Propionate (Fluticasone Propionate Nasal 16 Gm [place]) 1 spray NOSTRIL-B DAILY [facility] Last Admin: 08/04/24 08:54 Dose: 1 spray Hydroxyzine HCl (Hydroxyzine Hcl 25 Mg Tablet) 25 mg PO Q6H PRN PRN Reason: Anxiety Last Admin: 08/04/24 08:57 Dose: 25 mg Ibuprofen (Ibuprofen 800 Mg Tablet) 800 mg PO Q8H PRN PRN Reason: Pain, Moderate(Pain Scale 4-6) Last Admin: 08/04/24 08:58 Dose: 800 mg Loperamide HCl (Loperamide Hcl 2 Mg Capsule) 2 mg PO Q4H PRN PRN Reason: Diarrhea Last Admin: 08/04/24 08:57 Dose: 2 mg Loratadine (Loratadine 10 Mg Tablet) 10 mg PO DAILY [facility] Last Admin: 08/04/24 08:58 Dose: 10 mg Magnesium Hydroxide (Milk Of Magnesia 30 Ml Oral.Susp) 30 ml PO DAILY PRN PRN Reason: Constipation Methadone HCl (Methadone Hcl 20 Mg/2 Ml Oral.Conc) 110 mg PO DAILY [facility] Last Admin: 08/04/24 07:48 Dose: 110 mg Multi-Ingred Cream/Lotion/Oil/Oint (Mineral Oil/Petrolatum,White 106 Gm Tube) 1 appl TOPICAL BID [facility]; Protocol Last Admin: 08/04/24 01:35 Dose: Not Given Multivitamins/Vitamin C (Multivitamin Tablet) 1 tab PO DAILY [facility] Last Admin: 08/04/24 08:58 Dose: 1 tab Nicotine (Nicotine 21 Mg Patch.Td24) 21 mg TRANSDERMA DAILY PRN PRN Reason: nicotine cravings Nicotine Polacrilex (Nicotine Polacrilex 2 Mg Gum) 4 mg BUCCAL Q2H PRN PRN Reason: Nicotine Cravings Last Admin: 08/04/24 08:56 Dose: 4 mg Nystatin (Nystatin Powder 15 Gm Bottle) 1 appl TOPICAL BID [facility]; Protocol Last Admin: 08/04/24 01:35 Dose: Not Given Oxybutynin Chloride (Oxybutynin Chloride Er 5 Mg Tab.Er.24) 10 mg PO BEDTIME [facility] Last Admin: 08/03/24 20:31 Dose: 10 mg Pregabalin (Pregabalin 150 Mg Capsule) 300 mg PO BID [facility] Last Admin: 08/04/24 08:57 Dose: 300 mg Senna (Sennosides 8.6 Mg Tablet) 17.2 mg PO DAILY [facility] Last Admin: 08/03/24 10:12 Dose: 17.2 mg Sumatriptan Succinate (Sumatriptan Succinate 25 Mg Tablet) 25 mg PO DAILY PRN PRN Reason: Migraine Headache Topiramate (Topiramate 100 Mg Tablet) 200 mg PO BID [facility] Last Admin: 08/04/24 08:56 Dose: 200 mg Trazodone HCl (Trazodone Hcl 50 Mg Tablet) 50 mg PO BEDTIME MRX1 PRN PRN Reason: Insomnia Allergies Allergies Allergy/AdvReac Type Severity Reaction Status Date / Time benztropine Allergy Unknown Verified 07/22/24 14:23 Bleach (Sodium Hypochlorite) Allergy Unknown Verified 07/22/24 14:23 chlorpromazine Allergy Unknown Verified 07/22/24 14:23 divalproex sodium Allergy Unknown Verified 07/22/24 14:23 olanzapine Allergy Unknown Verified 07/22/24 14:23 quetiapine Allergy Unknown Verified 07/22/24 14:23 Sulfa (Sulfonamide Allergy Unknown Verified 07/22/24 14:23 Antibiotics) [Sulfonamides] ziprasidone Allergy Unknown Verified 07/22/24 14:23 haloperidol [From Haldol] AdvReac Unknown Verified 07/22/24 14:23 naloxone AdvReac Unknown Verified 07/22/24 14:23 Assessment & Plan Assessment & Plan (1) Depression: Status: Acute Code(s): F32.A - Depression, unspecified (2) Polysubstance abuse: Status: Acute Code(s): F19.10 - Other psychoactive substance abuse, uncomplicated Plan - Admit to inpatient psychiatry - CV - Collateral information from family and providers. - Milieu treatment and group therapy. - Medications: Continue same. - Social work evaluation. - Disposition planning. 07/25: Check ankle and knee XR. Switch Ditropan to HS. 07/26: Continue regime, monitor for sedation Discharge planning 07/28: Continue current regime. 07/30: Decrease Klonopin by 1mg due to sedation Discontinue Risperdal, pt refusing this medication Discontinue Valtrex, pt request Hospitalist consult, hip pain, ambulation difficulties. 07/31: Continue current regimen and plans. Continue plans for stabilization and decrease of Klonopin maybe even discontinuation. 08/01: Continue current regimen and plans for stabilization and medication management. Added loperamide 08/03: Continue current regime, discharge planning. 08/04: Stool culture Reason for continued inpatient stay Substantial Risk for: med/psych decompensation Time Spent With Patient Time: Total time managing care of this patient today ____ minutes.
[2024-08-04] MEDS: Acetaminophen 325 MG TABLET 650 MG PO ×2 (12:59→20:25)
[2024-08-04] MEDS: clonazePAM 1 MG TABLET PO ×2 (12:59→16:15)
[2024-08-04 14:43] VITALS: BP 126/80
[2024-08-04 20:00] VITALS: BP 120/67; PULSE 77; TEMP 36.3; O2SAT 100
[2024-08-04] MEDS: oxyBUTYnin chloride ER 5 MG TAB.ER.24 10 MG PO (20:24)
[2024-08-04] MEDS: Docusate Sodium 100 MG CAPSULE PO (20:25)
[2024-08-04 20:26] VITALS: BP 120/67
[2024-08-04] MEDS: Nystatin Powder 15 GM BOTTLE 1 APPL TOPICAL (20:26)
[2024-08-04] MEDS: Mineral Oil/Petrolatum,White 106 GM Tube 1 APPL TOPICAL (20:26)
[2024-08-05] MEDS: methADONE HCl 20 MG/2 ML ORAL.CONC 110 MG PO (07:40)
[2024-08-05 10:27] VITALS: BP 121/71; PULSE 71; RESP 16; TEMP 36.7; O2SAT 98
[2024-08-05 10:38] VITALS: BP 121/71
[2024-08-05] MEDS: Multivitamin TABLET 1 TAB PO (10:38)
[2024-08-05] MEDS: Baclofen 20 MG TABLET PO ×3 (10:38→20:51)
[2024-08-05] MEDS: cloNIDine HCL 0.2 MG TABLET PO ×3 (10:38→20:52)
[2024-08-05] MEDS: Pregabalin 150 MG CAPSULE 300 MG PO ×2 (10:38→20:49)
[2024-08-05] MEDS: Amphetamine Mixed Salts 20 MG TABLET 30 MG PO ×2 (10:39→14:02)
[2024-08-05] MEDS: Loratadine 10 MG TABLET PO (10:39)
[2024-08-05] MEDS: Topiramate 100 MG TABLET 200 MG PO ×2 (10:39→20:54)
[2024-08-05] MEDS: Docusate Sodium 100 MG CAPSULE PO ×2 (10:39→20:54)
[2024-08-05] MEDS: Ferrous Sulfate 324 MG TABLET.DR PO (10:39)
[2024-08-05] MEDS: Sennosides 8.6 MG TABLET 17.2 MG PO (10:39)
--- NOTE | 2024-08-05 10:49 | HO.PSYCHPN ---
Subjective Subjective Date of Service: 08/05/24 Reason For Visit: Depression Subjective Notes: Conditional Voluntary Healthcare Proxy: No Guardianship: No Medical Problems Affecting Mental Status: No Interim History: Stool culture negative URI sx- cough, wet, non productive Diarrhea, sore throat Reports lip swelling 2 mornings ago Continues to report SI as she is not being given housing, or programs of her choice, staff splitting. Medication Compliance: Yes Side effects from medications: No Attending Groups: No Review of Systems Acute medical concerns: No Medical Review of Systems: unchanged Review of Systems Review of Systems diarrhea, URI sx. Mental Status Exam Mental Status Exam Patient Appearance: Fatigued Patient Orientation: Person, Place, Time and Situation Level of Consciousness: Awake Patient Behavior: Talkative, Suspicious, Distractible and Good Eye Contact Mood Description: Depressed and Angry Affect Description: Angry and Flat Patient Cognition Impaired: No Ability to Follow Directions: Fair Speech Pattern: Spontaneous Speech Memory Description: Intact and Episodic Impaired Hallucinations: None Perceptual Disturbances: Depersonalization and Derealization Thought Process: Rumination Thought Content: positive for Circumstantial Depressive Symptoms: Increased Anxiety, Increased Irritability, Hopelessness, Unhappiness and Thoughts of /Suicide (threats if she is not given what she wants) Judgement: Good Diagnostics Vital Signs (24Hr): Vital Signs - 24 hr 08/04/24 14:43 08/04/24 20:00 08/04/24 20:26 Temperature 97.4 F Pulse Rate 77 Blood Pressure 126/80 120/67 120/67 Pulse Oximetry 100 Oxygen Delivery Method Room Air 08/05/24 10:38 Temperature Pulse Rate Blood Pressure 121/71 Pulse Oximetry Oxygen Delivery Method BMI result Body Mass Index 39.5 Labs 08/02/24 16:27 08/02/24 16:27 Imaging Radiology Impressions: ITS Impressions Ankle X-Ray 07/25/24 14:10 IMPRESSION: No acute fracture or dislocation right ankle. Bimalleolar soft tissue swelling. Small calcaneal heel spur. Degenerative arthritic changes right knee without acute fracture or dislocation. Moderate osteophytosis superior to patella Electronically signed by: Baldo Espinosa MD 07/25/2024 09:29 PM [facility] Knee X-Ray 07/25/24 14:10 IMPRESSION: No acute fracture or dislocation right ankle. Bimalleolar soft tissue swelling. Small calcaneal heel spur. Degenerative arthritic changes right knee without acute fracture or dislocation. Moderate osteophytosis superior to patella Electronically signed by: Baldo Espinosa MD 07/25/2024 09:29 PM [facility] Medications Medications Current Medications Acetaminophen (Acetaminophen 325 Mg Tablet) 650 mg PO Q6H PRN PRN Reason: Headache/Pain Mild Scale (1-3) Last Admin: 08/04/24 20:25 Dose: 650 mg Al Hydroxide/Mg Hydroxide (Magnesium Hydrox/Alum Hydrox 30 Ml Oral.Susp) 30 ml PO Q6H PRN PRN Reason: Heartburn/Nausea Amphetamine/Dextroamphetamine (Amphetamine Mixed Salts 20 Mg Tablet) 30 mg PO 0900,1300 [facility] Last Admin: 08/05/24 10:39 Dose: 30 mg Baclofen (Baclofen 20 Mg Tablet) 20 mg PO TID@0900,1700,2100 [facility] Last Admin: 08/05/24 10:38 Dose: 20 mg Clonazepam (Clonazepam 1 Mg Tablet) 1 mg PO 1200,1700 [facility] Last Admin: 08/04/24 16:15 Dose: 1 mg Clonazepam (Clonazepam 1 Mg Tablet) 2 mg PO 0900 [facility] Last Admin: 08/04/24 08:56 Dose: 2 mg Clonidine HCl (Clonidine Hcl 0.2 Mg Tablet) 0.2 mg PO TID [facility]; Protocol Last Admin: 08/05/24 10:38 Dose: 0.2 mg Dicyclomine HCl (Dicyclomine Hcl 10 Mg Capsule) 20 mg PO TID PRN PRN Reason: abdominal pain Last Admin: 08/04/24 14:43 Dose: 20 mg Docusate Sodium (Docusate Sodium 100 Mg Capsule) 100 mg PO BID [facility] Last Admin: 08/05/24 10:39 Dose: 100 mg Ferrous Sulfate (Ferrous Sulfate 324 Mg Tablet.Dr) 324 mg PO DAILY [facility] Last Admin: 08/05/24 10:39 Dose: 324 mg Fluticasone Propionate (Fluticasone Propionate Nasal 16 Gm [place]) 1 spray NOSTRIL-B DAILY [facility] Last Admin: 08/04/24 08:54 Dose: 1 spray Hydroxyzine HCl (Hydroxyzine Hcl 25 Mg Tablet) 25 mg PO Q6H PRN PRN Reason: Anxiety Last Admin: 08/04/24 20:25 Dose: 25 mg Ibuprofen (Ibuprofen 800 Mg Tablet) 800 mg PO Q8H PRN PRN Reason: Pain, Moderate(Pain Scale 4-6) Last Admin: 08/04/24 16:15 Dose: 800 mg Loperamide HCl (Loperamide Hcl 2 Mg Capsule) 2 mg PO Q4H PRN PRN Reason: Diarrhea Last Admin: 08/04/24 12:59 Dose: 2 mg Loratadine (Loratadine 10 Mg Tablet) 10 mg PO DAILY [facility] Last Admin: 08/05/24 10:39 Dose: 10 mg Magnesium Hydroxide (Milk Of Magnesia 30 Ml Oral.Susp) 30 ml PO DAILY PRN PRN Reason: Constipation Methadone HCl (Methadone Hcl 20 Mg/2 Ml Oral.Conc) 110 mg PO DAILY [facility] Last Admin: 08/05/24 07:40 Dose: 110 mg Multi-Ingred Cream/Lotion/Oil/Oint (Mineral Oil/Petrolatum,White 106 Gm Tube) 1 appl TOPICAL BID [facility]; Protocol Last Admin: 08/05/24 10:40 Dose: Not Given Multivitamins/Vitamin C (Multivitamin Tablet) 1 tab PO DAILY [facility] Last Admin: 08/05/24 10:38 Dose: 1 tab Nicotine (Nicotine 21 Mg Patch.Td24) 21 mg TRANSDERMA DAILY PRN PRN Reason: nicotine cravings Nicotine Polacrilex (Nicotine Polacrilex 2 Mg Gum) 4 mg BUCCAL Q2H PRN PRN Reason: Nicotine Cravings Last Admin: 08/04/24 08:56 Dose: 4 mg Nystatin (Nystatin Powder 15 Gm Bottle) 1 appl TOPICAL BID [facility]; Protocol Last Admin: 08/05/24 10:40 Dose: Not Given Oxybutynin Chloride (Oxybutynin Chloride Er 5 Mg Tab.Er.24) 10 mg PO BEDTIME [facility] Last Admin: 08/04/24 20:24 Dose: 10 mg Pregabalin (Pregabalin 150 Mg Capsule) 300 mg PO BID [facility] Last Admin: 08/05/24 10:38 Dose: 300 mg Senna (Sennosides 8.6 Mg Tablet) 17.2 mg PO DAILY [facility] Last Admin: 08/05/24 10:39 Dose: 17.2 mg Sumatriptan Succinate (Sumatriptan Succinate 25 Mg Tablet) 25 mg PO DAILY PRN PRN Reason: Migraine Headache Topiramate (Topiramate 100 Mg Tablet) 200 mg PO BID [facility] Last Admin: 08/05/24 10:39 Dose: 200 mg Trazodone HCl (Trazodone Hcl 50 Mg Tablet) 50 mg PO BEDTIME MRX1 PRN PRN Reason: Insomnia Allergies Allergies Allergy/AdvReac Type Severity Reaction Status Date / Time benztropine Allergy Unknown Verified 07/22/24 14:23 Bleach (Sodium Hypochlorite) Allergy Unknown Verified 07/22/24 14:23 chlorpromazine Allergy Unknown Verified 07/22/24 14:23 divalproex sodium Allergy Unknown Verified 07/22/24 14:23 olanzapine Allergy Unknown Verified 07/22/24 14:23 quetiapine Allergy Unknown Verified 07/22/24 14:23 Sulfa (Sulfonamide Allergy Unknown Verified 07/22/24 14:23 Antibiotics) [Sulfonamides] ziprasidone Allergy Unknown Verified 07/22/24 14:23 haloperidol [From Haldol] AdvReac Unknown Verified 07/22/24 14:23 naloxone AdvReac Unknown Verified 07/22/24 14:23 Assessment & Plan Assessment & Plan (1) Depression: Status: Acute Code(s): F32.A - Depression, unspecified (2) Polysubstance abuse: Status: Acute Code(s): F19.10 - Other psychoactive substance abuse, uncomplicated Plan - Admit to inpatient psychiatry - CV - Collateral information from family and providers. - Milieu treatment and group therapy. - Medications: Continue same. - Social work evaluation. - Disposition planning. 07/25: Check ankle and knee XR. Switch Ditropan to HS. 07/26: Continue regime, monitor for sedation Discharge planning 07/28: Continue current regime. 07/30: Decrease Klonopin by 1mg due to sedation Discontinue Risperdal, pt refusing this medication Discontinue Valtrex, pt request Hospitalist consult, hip pain, ambulation difficulties. 07/31: Continue current regimen and plans. Continue plans for stabilization and decrease of Klonopin maybe even discontinuation. 08/01: Continue current regimen and plans for stabilization and medication management. Added loperamide 08/03: Continue current regime, discharge planning. 08/05: Throat jules and cough medicine ordered. Diagnostics are negative at this time. Continue to monitor Reason for continued inpatient stay Substantial Risk for: med/psych decompensation Time Spent With Patient Time: Total time managing care of this patient today ____ minutes.
[2024-08-05] MEDS: clonazePAM 1 MG TABLET 2 MG PO (11:09)
[2024-08-05] MEDS: Fluticasone Propionate Nasal 16 GM SPRAY 1 SPRAY NOSTRIL-B (11:10)
[2024-08-05 12:45] LABS: Adenovirus F 40/41 Not Detected (Not Detect.); Astrovirus Not Detected (Not Detect.); Campylobacter Not Detected (Not Detect.); Cryptosporidium Not Detected (Not Detect.); Cyclospora cayetanensis Not Detected (Not Detect.); E. coli EAEC Not Detected (Not Detect.); E. coli EPEC Not Detected (Not Detect.); E. coli ETEC Not Detected (Not Detect.); E. coli STEC Not Detected (Not Detect.); Entamoeba histolytica Not Detected (Not Detect.); Giardia lamblia Not Detected (Not Detect.); Norovirus GI/GII Not Detected (Not Detect.); Plesiomonas shigelloides Not Detected (Not Detect.); Rotavirus A Not Detected (Not Detect.); Salmonella Not Detected (Not Detect.); Sapovirus Not Detected (Not Detect.); Shigella sp./EIEC Not Detected (Not Detect.); Vibrio Not Detected (Not Detect.); Vibrio Cholerae Not Detected (Not Detect.); Yersinia enterocolitica Not Detected (Not Detect.)
[2024-08-05] MEDS: clonazePAM 1 MG TABLET PO ×2 (14:02→18:26)
[2024-08-05] MEDS: Throat Lozenge, Medicated LOZENGE 1 LOZENGE MUCOUS MEM (14:02)
[2024-08-05] MEDS: guaiFENesin 100 MG/5 ML 5 ML LIQUID PO (14:02)
[2024-08-05 15:04] VITALS: BP 127/72
[2024-08-05 20:00] VITALS: BP 137/80; PULSE 106; TEMP 36.7; O2SAT 95
[2024-08-05 20:52] VITALS: BP 137/80
[2024-08-05] MEDS: oxyBUTYnin chloride ER 5 MG TAB.ER.24 10 MG PO (21:11)
[2024-08-05] MEDS: Nicotine Polacrilex 2 MG GUM 4 MG BUCCAL (21:13)
[2024-08-05] MEDS: Ibuprofen 800 MG TABLET PO (21:13)
[2024-08-05] MEDS: hydrOXYzine HCL 25 MG TABLET PO (21:24)
[2024-08-06] MEDS: methADONE HCl 20 MG/2 ML ORAL.CONC 110 MG PO (07:49)
[2024-08-06 08:00] VITALS: BP 164/97; PULSE 76; RESP 18; TEMP 36.2; O2SAT 98
[2024-08-06] MEDS: Loperamide HCl 2 MG CAPSULE PO (08:51)
[2024-08-06] MEDS: Ferrous Sulfate 324 MG TABLET.DR PO (08:51)
[2024-08-06] MEDS: Pregabalin 150 MG CAPSULE 300 MG PO ×2 (08:51→20:21)
[2024-08-06] MEDS: Topiramate 100 MG TABLET 200 MG PO ×2 (08:51→20:21)
[2024-08-06] MEDS: Loratadine 10 MG TABLET PO (08:51)
[2024-08-06] MEDS: Ibuprofen 800 MG TABLET PO ×2 (08:51→20:27)
[2024-08-06] MEDS: Baclofen 20 MG TABLET PO ×3 (08:51→20:22)
[2024-08-06] MEDS: cloNIDine HCL 0.2 MG TABLET PO ×3 (08:52→20:22)
[2024-08-06] MEDS: Multivitamin TABLET 1 TAB PO (08:52)
[2024-08-06] MEDS: Dicyclomine HCl 10 MG CAPSULE 20 MG PO (08:52)
[2024-08-06] MEDS: Amphetamine Mixed Salts 20 MG TABLET 30 MG PO (08:52)
[2024-08-06] MEDS: guaiFENesin 100 MG/5 ML 5 ML LIQUID PO (09:02)
[2024-08-06] MEDS: Fluticasone Propionate Nasal 16 GM SPRAY 1 SPRAY NOSTRIL-B (09:03)
[2024-08-06] MEDS: clonazePAM 1 MG TABLET 2 MG PO (09:25)
--- NOTE | 2024-08-06 12:48 | P.PNPSI_ITS ---
Subjective Subjective Date of Service: 08/06/24 Reason For Visit: Depression Subjective Notes: Conditional Voluntary Healthcare Proxy: No Guardianship: No Medical Problems Affecting Mental Status: No Interim History: If you send me to a prison I will use and kill myself. Pt remains stuck in misunderstanding of what programs she will qualify for upon discharge. She refuses to participate in a plan of care, refuses medicine changes, refuses milieu groups and engages in splitting symptoms with team and peers. Klonopin has been decreased from 6 mg daily to 4 mg daily. Pt declines further tapering. She is improved with this decrease She reports several physical symptoms which are at times contradictive of each other. Thus far, diagnostics are negative. Stool cultures are negative. She reports diarrhea and constipation. KUB was completed this afternoon, results are pending. GI consult may be required. She expresses anger that the hospital will not schedule THR, colonoscopy, dental and podiatry while she is admitted. When explanations are given, she is dismissive of rationale stating this is not true. She believes that she is CSS eligible although programs indicate not as she has been sober for >30D. She had asked for [place] referrals, then refused, asked for local referrals, and refuses. She states she cannot be sent to a prison, be expected to go to [facility] daily, manage her belongings and do all of this without assistance. We have discussed discharge for 08/10. She has been given the number of [facility] to call and discuss potential admission to their womens program. Team continues to work on applications for [facility](respite) locally. Capsaicin cream was ordered for reports of knee/leg pain this afternoon. Medication Compliance: Yes Side effects from medications: No Attending Groups: No Review of Systems Acute medical concerns: No Medical Review of Systems: unchanged Review of Systems Review of Systems URI sx Alternating constipation/diarrhea- KUB pending chronic musculoskeletal pain Mental Status Exam Mental Status Exam Patient Appearance: Fatigued Patient Orientation: Person, Place, Time and Situation Level of Consciousness: Awake Patient Behavior: Talkative, Suspicious, Distractible and Good Eye Contact Mood Description: Depressed and Angry Affect Description: Angry and Flat Patient Cognition Impaired: No Ability to Follow Directions: Fair Speech Pattern: Spontaneous Speech Memory Description: Intact and Episodic Impaired Hallucinations: None Perceptual Disturbances: Depersonalization and Derealization Thought Process: Rumination Thought Content: positive for Circumstantial and positive for Suicidal Ideation (if discharged to a program she does not agree with) Depressive Symptoms: Increased Anxiety, Increased Irritability, Hopelessness, Unhappiness and Thoughts of /Suicide (if discharged to a program she does not agree with) Judgement: Good Diagnostics Vital Signs (24Hr): Vital Signs - 24 hr 08/05/24 15:04 08/05/24 20:00 08/05/24 20:52 Temperature 98.0 F Pulse Rate 106 H Respiratory Rate Blood Pressure 127/72 137/80 137/80 Pulse Oximetry 95 Oxygen Delivery Method Room Air 08/06/24 08:00 Temperature 97.2 F Pulse Rate 76 Respiratory Rate 18 Blood Pressure 164/97 H Pulse Oximetry 98 Oxygen Delivery Method Room Air BMI result Body Mass Index 39.5 Labs 08/02/24 16:27 08/02/24 16:27 Labs: Laboratory Results - last 48 hr 08/04/24 20:15 Stl C. cayetanensis PCR Not Detected Stool Rotavirus A PCR Not Detected Stl Adenov F 40/41 PCR Not Detected Stool Astrovirus (PCR) Not Detected Stool Campylobacter PCR Not Detected Stool Cryptosporidium PCR Not Detected Stl Sh Tox Pr E STEC PCR Not Detected Stool E coli O157 PCR Not applicable Stl Enterotoxigenic E PCR Not Detected Stool EPEC (PCR) Not Detected Stool EAEC (PCR) Not Detected Stl E. histolytica PCR Not Detected Stool Giardia Lamblia PCR Not Detected Stl P. shigelloides PCR Not Detected Stool Salmonella PCR Not Detected Stool Sapovirus (PCR) Not Detected Stl Shigella/EIEC PCR Not Detected St Y.enterocolitica PCR Not Detected Stool Vibrio (PCR) Not Detected Stl Vibrio cholerae PCR Not Detected Stl Norovirus GI/GII PCR Not Detected Imaging Radiology Impressions: ITS Impressions Ankle X-Ray 07/25/24 14:10 IMPRESSION: No acute fracture or dislocation right ankle. Bimalleolar soft tissue swelling. Small calcaneal heel spur. Degenerative arthritic changes right knee without acute fracture or dislocation. Moderate osteophytosis superior to patella Electronically signed by: Baldo Espinosa MD 07/25/2024 09:29 PM [facility] Knee X-Ray 07/25/24 14:10 IMPRESSION: No acute fracture or dislocation right ankle. Bimalleolar soft tissue swelling. Small calcaneal heel spur. Degenerative arthritic changes right knee without acute fracture or dislocation. Moderate osteophytosis superior to patella Electronically signed by: Baldo Espinosa MD 07/25/2024 09:29 PM [facility] Medications Medications Current Medications Acetaminophen (Acetaminophen 325 Mg Tablet) 650 mg PO Q6H PRN PRN Reason: Headache/Pain Mild Scale (1-3) Last Admin: 08/04/24 20:25 Dose: 650 mg Al Hydroxide/Mg Hydroxide (Magnesium Hydrox/Alum Hydrox 30 Ml Oral.Susp) 30 ml PO Q6H PRN PRN Reason: Heartburn/Nausea Amphetamine/Dextroamphetamine (Amphetamine Mixed Salts 20 Mg Tablet) 30 mg PO 0900,1300 [facility] Last Admin: 08/06/24 08:52 Dose: 30 mg Baclofen (Baclofen 20 Mg Tablet) 20 mg PO TID@0900,1700,2100 [facility] Last Admin: 08/06/24 08:51 Dose: 20 mg Benzocaine (Throat Lozenge, Medicated Lozenge) 1 lozenge MUCOUS MEM Q2H PRN PRN Reason: Sore Throat Last Admin: 08/05/24 14:02 Dose: 1 lozenge Clonazepam (Clonazepam 1 Mg Tablet) 1 mg PO 1200,1700 [facility] Last Admin: 08/05/24 18:26 Dose: 1 mg Clonazepam (Clonazepam 1 Mg Tablet) 2 mg PO 0900 [facility] Last Admin: 08/06/24 09:25 Dose: 2 mg Clonidine HCl (Clonidine Hcl 0.2 Mg Tablet) 0.2 mg PO TID [facility]; Protocol Last Admin: 08/06/24 08:52 Dose: 0.2 mg Dicyclomine HCl (Dicyclomine Hcl 10 Mg Capsule) 20 mg PO TID PRN PRN Reason: abdominal pain Last Admin: 08/06/24 08:52 Dose: 20 mg Docusate Sodium (Docusate Sodium 100 Mg Capsule) 100 mg PO BID [facility] Last Admin: 08/06/24 09:45 Dose: Not Given Ferrous Sulfate (Ferrous Sulfate 324 Mg Tablet.) 324 mg PO DAILY [facility] Last Admin: 08/06/24 08:51 Dose: 324 mg Fluticasone Propionate (Fluticasone Propionate Nasal 16 Gm [place]) 1 spray NOSTRIL-B DAILY [facility] Last Admin: 08/06/24 09:03 Dose: 1 spray Guaifenesin (Guaifenesin 100 Mg/5 Ml 5 Ml Liquid) 5 ml PO Q6H PRN PRN Reason: Cough Last Admin: 08/06/24 09:02 Dose: 5 ml Hydroxyzine HCl (Hydroxyzine Hcl 25 Mg Tablet) 25 mg PO Q6H PRN PRN Reason: Anxiety Last Admin: 08/05/24 21:24 Dose: 25 mg Ibuprofen (Ibuprofen 800 Mg Tablet) 800 mg PO Q8H PRN PRN Reason: Pain, Moderate(Pain Scale 4-6) Last Admin: 08/06/24 08:51 Dose: 800 mg Loperamide HCl (Loperamide Hcl 2 Mg Capsule) 2 mg PO Q4H PRN PRN Reason: Diarrhea Last Admin: 08/06/24 08:51 Dose: 2 mg Loratadine (Loratadine 10 Mg Tablet) 10 mg PO DAILY [facility] Last Admin: 08/06/24 08:51 Dose: 10 mg Magnesium Hydroxide (Milk Of Magnesia 30 Ml Oral.Susp) 30 ml PO DAILY PRN PRN Reason: Constipation Methadone HCl (Methadone Hcl 20 Mg/2 Ml Oral.Conc) 110 mg PO DAILY [facility] Last Admin: 08/06/24 07:49 Dose: 110 mg Multi-Ingred Cream/Lotion/Oil/Oint (Mineral Oil/Petrolatum,White 106 Gm Tube) 1 appl TOPICAL BID [facility]; Protocol Last Admin: 08/06/24 08:52 Dose: Not Given Multivitamins/Vitamin C (Multivitamin Tablet) 1 tab PO DAILY [facility] Last Admin: 08/06/24 08:52 Dose: 1 tab Nicotine (Nicotine 21 Mg Patch.Td24) 21 mg TRANSDERMA DAILY PRN PRN Reason: nicotine cravings Nicotine Polacrilex (Nicotine Polacrilex 2 Mg Gum) 4 mg BUCCAL Q2H PRN PRN Reason: Nicotine Cravings Last Admin: 08/05/24 21:13 Dose: 4 mg Nystatin (Nystatin Powder 15 Gm Bottle) 1 appl TOPICAL BID [facility]; Protocol Last Admin: 08/06/24 09:45 Dose: Not Given Oxybutynin Chloride (Oxybutynin Chloride Er 5 Mg Tab.Er.24) 10 mg PO BEDTIME [facility] Last Admin: 08/05/24 21:11 Dose: 10 mg Pregabalin (Pregabalin 150 Mg Capsule) 300 mg PO BID [facility] Last Admin: 08/06/24 08:51 Dose: 300 mg Sumatriptan Succinate (Sumatriptan Succinate 25 Mg Tablet) 25 mg PO DAILY PRN PRN Reason: Migraine Headache Topiramate (Topiramate 100 Mg Tablet) 200 mg PO BID [facility] Last Admin: 08/06/24 08:51 Dose: 200 mg Trazodone HCl (Trazodone Hcl 50 Mg Tablet) 50 mg PO BEDTIME MRX1 PRN PRN Reason: Insomnia Allergies Allergies Allergy/AdvReac Type Severity Reaction Status Date / Time benztropine Allergy Unknown Verified 07/22/24 14:23 Bleach (Sodium Hypochlorite) Allergy Unknown Verified 07/22/24 14:23 chlorpromazine Allergy Unknown Verified 07/22/24 14:23 divalproex sodium Allergy Unknown Verified 07/22/24 14:23 olanzapine Allergy Unknown Verified 07/22/24 14:23 quetiapine Allergy Unknown Verified 07/22/24 14:23 Sulfa (Sulfonamide Allergy Unknown Verified 07/22/24 14:23 Antibiotics) [Sulfonamides] ziprasidone Allergy Unknown Verified 07/22/24 14:23 haloperidol [From Haldol] AdvReac Unknown Verified 07/22/24 14:23 naloxone AdvReac Unknown Verified 07/22/24 14:23 Assessment & Plan Assessment & Plan (1) Depression: Status: Acute Code(s): F32.A - Depression, unspecified (2) Polysubstance abuse: Status: Acute Code(s): F19.10 - Other psychoactive substance abuse, uncomplicated Plan - Admit to inpatient psychiatry - CV - Collateral information from family and providers. - Milieu treatment and group therapy. - Medications: Continue same. - Social work evaluation. - Disposition planning. 07/25: Check ankle and knee XR. Switch Ditropan to HS. 07/26: Continue regime, monitor for sedation Discharge planning 07/28: Continue current regime. 07/30: Decrease Klonopin by 1mg due to sedation Discontinue Risperdal, pt refusing this medication Discontinue Valtrex, pt request Hospitalist consult, hip pain, ambulation difficulties. 07/31: Continue current regimen and plans. Continue plans for stabilization and decrease of Klonopin maybe even discontinuation. 08/01: Continue current regimen and plans for stabilization and medication management. Added loperamide 08/03: Continue current regime, discharge planning. 08/05: Throat jules and cough medicine ordered. Diagnostics are negative at this time. Continue to monitor 08/06: KUB pending Capsaicin prn Pt encouraged to call [facility] to discuss a potential bed. Active SI if sent to a program she does not agree with or a prison. Reason for continued inpatient stay Substantial Risk for: harm to self and rapid decompensation Time Spent With Patient Time: Total time managing care of this patient today ____ minutes.
[2024-08-06] MEDS: clonazePAM 1 MG TABLET PO ×2 (13:54→17:21)
[2024-08-06 14:00] VITALS: BP 131/82
[2024-08-06 20:00] VITALS: BP 126/76; PULSE 79; RESP 15; TEMP 36.6; O2SAT 95
[2024-08-06 20:22] VITALS: BP 126/76
[2024-08-06] MEDS: oxyBUTYnin chloride ER 5 MG TAB.ER.24 10 MG PO (20:22)
[2024-08-06] MEDS: Docusate Sodium 100 MG CAPSULE PO (20:22)
[2024-08-06] MEDS: hydrOXYzine HCL 25 MG TABLET PO (20:27)
[2024-08-06] MEDS: Nicotine Polacrilex 2 MG GUM 4 MG BUCCAL (20:29)
[2024-08-07] MEDS: methADONE HCl 20 MG/2 ML ORAL.CONC 110 MG PO (07:57)
[2024-08-07 08:56] VITALS: BP 125/66; PULSE 68; RESP 16; TEMP 36.4; O2SAT 94
[2024-08-07] MEDS: Ferrous Sulfate 324 MG TABLET.DR PO (09:56)
[2024-08-07] MEDS: Pregabalin 150 MG CAPSULE 300 MG PO ×2 (09:56→21:54)
[2024-08-07] MEDS: Baclofen 20 MG TABLET PO ×3 (09:56→21:53)
[2024-08-07] MEDS: Docusate Sodium 100 MG CAPSULE PO ×2 (09:56→21:48)
[2024-08-07] MEDS: Loratadine 10 MG TABLET PO (09:56)
[2024-08-07] MEDS: Amphetamine Mixed Salts 20 MG TABLET 30 MG PO ×2 (09:56→13:31)
[2024-08-07 09:57] VITALS: BP 122/68
[2024-08-07] MEDS: Topiramate 100 MG TABLET 200 MG PO ×2 (09:57→21:49)
[2024-08-07] MEDS: Multivitamin TABLET 1 TAB PO (09:57)
[2024-08-07] MEDS: cloNIDine HCL 0.2 MG TABLET PO ×3 (09:57→21:53)
[2024-08-07] MEDS: clonazePAM 1 MG TABLET 2 MG PO (09:59)
--- NOTE | 2024-08-07 10:38 | HO.PSYCHPN ---
Subjective Subjective Date of Service: 08/07/24 Reason For Visit: Depression Subjective Notes: Conditional Voluntary Healthcare Proxy: No Guardianship: No Medical Problems Affecting Mental Status: No Interim History: 43 yo female who keeps nodding off seems somewhat slurred- wanting more pain medication- on lyrica 300mg bid- feels it is unfair she will be dced despite si- though this appears chronic and not changing with inpatient and medications- patient takes no accountability responsibility for managing sys- and does not appear interested saying she was done with interview when I pointed her in that direction not feeling well this past week with what sounds like gastritis that has been worked up =- pt unhappy about ongoing diarrhea- first she is up this week she says Medication Compliance: Yes Side effects from medications: Yes (too much benzodiazepines in this providers opinion pt appears over medicate) Attending Groups: Intermittent Review of Systems Acute medical concerns: Yes she co ongoing chronic pain I suspect it is much like si and not something medication alone can help Medical Review of Systems: unchanged Mental Status Exam Mental Status Exam Patient Appearance: Well Grooomed and Bizarre (lots of make up and wearing tshirt that says suicideboys on it- not appropriate for psychiatric unit ) Patient Orientation: Person, Place, Time and Situation Level of Consciousness: Awake and Drowsy Patient Behavior: Dependent, Anxious and Poor Eye Contact Mood Description: Apprehensive Affect Description: Blunted Patient Cognition Impaired: No Ability to Follow Directions: Fair Speech Pattern: Slurred (mildly) Thought Process: Intact, Goal Oriented and Slowed Thinking Thought Content: positive for Preoccupation (on si and pain) Depressive Symptoms: Increased Anxiety, Thoughts of /Suicide and Difficulty Concentrating Judgement: Fair Diagnostics Vital Signs (24Hr): Vital Signs - 24 hr 08/06/24 14:00 08/06/24 20:00 08/06/24 20:22 Temperature 97.8 F Pulse Rate 79 Respiratory Rate 15 Blood Pressure 131/82 126/76 126/76 Pulse Oximetry 95 Oxygen Delivery Method 08/07/24 08:56 08/07/24 09:57 Temperature 97.5 F Pulse Rate 68 Respiratory Rate 16 Blood Pressure 125/66 122/68 Pulse Oximetry 94 Oxygen Delivery Method Room Air BMI result Body Mass Index 39.5 Labs 08/02/24 16:27 08/02/24 16:27 Labs: Laboratory Results - last 48 hr 08/04/24 20:15 Stl C. cayetanensis PCR Not Detected Stool Rotavirus A PCR Not Detected Stl Adenov F 40/41 PCR Not Detected Stool Astrovirus (PCR) Not Detected Stool Campylobacter PCR Not Detected Stool Cryptosporidium PCR Not Detected Stl Sh Tox Pr E STEC PCR Not Detected Stool E coli O157 PCR Not applicable Stl Enterotoxigenic E PCR Not Detected Stool EPEC (PCR) Not Detected Stool EAEC (PCR) Not Detected Stl E. histolytica PCR Not Detected Stool Giardia Lamblia PCR Not Detected Stl P. shigelloides PCR Not Detected Stool Salmonella PCR Not Detected Stool Sapovirus (PCR) Not Detected Stl Shigella/EIEC PCR Not Detected St Y.enterocolitica PCR Not Detected Stool Vibrio (PCR) Not Detected Stl Vibrio cholerae PCR Not Detected Stl Norovirus GI/GII PCR Not Detected Imaging Radiology Impressions: ITS Impressions Ankle X-Ray 07/25/24 14:10 IMPRESSION: No acute fracture or dislocation right ankle. Bimalleolar soft tissue swelling. Small calcaneal heel spur. Degenerative arthritic changes right knee without acute fracture or dislocation. Moderate osteophytosis superior to patella Electronically signed by: Baldo Espinosa MD 07/25/2024 09:29 PM EST RP Knee X-Ray 07/25/24 14:10 IMPRESSION: No acute fracture or dislocation right ankle. Bimalleolar soft tissue swelling. Small calcaneal heel spur. Degenerative arthritic changes right knee without acute fracture or dislocation. Moderate osteophytosis superior to patella Electronically signed by: Baldo Espinosa MD 07/25/2024 09:29 PM EST RP KUB X-Ray 08/06/24 14:45 IMPRESSION: Unremarkable examination. Electronically signed by: Miriam Bauer MD 08/07/2024 07:32 AM EST RP Medications Medications Current Medications Acetaminophen (Acetaminophen 325 Mg Tablet) 650 mg PO Q6H PRN PRN Reason: Headache/Pain Mild Scale (1-3) Last Admin: 08/04/24 20:25 Dose: 650 mg Al Hydroxide/Mg Hydroxide (Magnesium Hydrox/Alum Hydrox 30 Ml Oral.Susp) 30 ml PO Q6H PRN PRN Reason: Heartburn/Nausea Amphetamine/Dextroamphetamine (Amphetamine Mixed Salts 20 Mg Tablet) 30 mg PO 0900,1300 [facility] Last Admin: 08/07/24 09:56 Dose: 30 mg Baclofen (Baclofen 20 Mg Tablet) 20 mg PO TID@0900,1700,2100 [facility] Last Admin: 08/07/24 09:56 Dose: 20 mg Benzocaine (Throat Lozenge, Medicated Lozenge) 1 lozenge MUCOUS MEM Q2H PRN PRN Reason: Sore Throat Last Admin: 08/05/24 14:02 Dose: 1 lozenge Capsaicin (Capsaicin 0.025% Cream 60 Gm Tube) 1 appl TOPICAL QID PRN; Protocol PRN Reason: muscle pain Clonazepam (Clonazepam 1 Mg Tablet) 1 mg PO 1200,1700 [facility] Last Admin: 08/06/24 17:21 Dose: 1 mg Clonazepam (Clonazepam 1 Mg Tablet) 2 mg PO 0900 [facility] Last Admin: 08/07/24 09:59 Dose: 2 mg Clonidine HCl (Clonidine Hcl 0.2 Mg Tablet) 0.2 mg PO TID [facility]; Protocol Last Admin: 08/07/24 09:57 Dose: 0.2 mg Dicyclomine HCl (Dicyclomine Hcl 10 Mg Capsule) 20 mg PO TID PRN PRN Reason: abdominal pain Last Admin: 08/06/24 08:52 Dose: 20 mg Docusate Sodium (Docusate Sodium 100 Mg Capsule) 100 mg PO BID [facility] Last Admin: 08/07/24 09:56 Dose: 100 mg Ferrous Sulfate (Ferrous Sulfate 324 Mg Tablet.Dr) 324 mg PO DAILY [facility] Last Admin: 08/07/24 09:56 Dose: 324 mg Fluticasone Propionate (Fluticasone Propionate Nasal 16 Gm [place]) 1 spray NOSTRIL-B DAILY [facility] Last Admin: 08/07/24 10:03 Dose: Not Given Guaifenesin (Guaifenesin 100 Mg/5 Ml 5 Ml Liquid) 5 ml PO Q6H PRN PRN Reason: Cough Last Admin: 08/06/24 09:02 Dose: 5 ml Hydroxyzine HCl (Hydroxyzine Hcl 25 Mg Tablet) 25 mg PO Q6H PRN PRN Reason: Anxiety Last Admin: 08/06/24 20:27 Dose: 25 mg Ibuprofen (Ibuprofen 800 Mg Tablet) 800 mg PO Q8H PRN PRN Reason: Pain, Moderate(Pain Scale 4-6) Last Admin: 08/06/24 20:27 Dose: 800 mg Loperamide HCl (Loperamide Hcl 2 Mg Capsule) 2 mg PO Q4H PRN PRN Reason: Diarrhea Last Admin: 08/06/24 08:51 Dose: 2 mg Loratadine (Loratadine 10 Mg Tablet) 10 mg PO DAILY [facility] Last Admin: 08/07/24 09:56 Dose: 10 mg Magnesium Hydroxide (Milk Of Magnesia 30 Ml Oral.Susp) 30 ml PO DAILY PRN PRN Reason: Constipation Methadone HCl (Methadone Hcl 20 Mg/2 Ml Oral.Conc) 110 mg PO DAILY [facility] Last Admin: 08/07/24 07:57 Dose: 110 mg Multi-Ingred Cream/Lotion/Oil/Oint (Mineral Oil/Petrolatum,White 106 Gm Tube) 1 appl TOPICAL BID [facility]; Protocol Last Admin: 08/07/24 10:03 Dose: Not Given Multivitamins/Vitamin C (Multivitamin Tablet) 1 tab PO DAILY [facility] Last Admin: 08/07/24 09:57 Dose: 1 tab Nicotine (Nicotine 21 Mg Patch.Td24) 21 mg TRANSDERMA DAILY PRN PRN Reason: nicotine cravings Nicotine Polacrilex (Nicotine Polacrilex 2 Mg Gum) 4 mg BUCCAL Q2H PRN PRN Reason: Nicotine Cravings Last Admin: 08/06/24 20:29 Dose: 4 mg Nystatin (Nystatin Powder 15 Gm Bottle) 1 appl TOPICAL BID [facility]; Protocol Last Admin: 08/07/24 10:03 Dose: Not Given Oxybutynin Chloride (Oxybutynin Chloride Er 5 Mg Tab.Er.24) 10 mg PO BEDTIME [facility] Last Admin: 08/06/24 20:22 Dose: 10 mg Pregabalin (Pregabalin 150 Mg Capsule) 300 mg PO BID [facility] Last Admin: 08/07/24 09:56 Dose: 300 mg Sumatriptan Succinate (Sumatriptan Succinate 25 Mg Tablet) 25 mg PO DAILY PRN PRN Reason: Migraine Headache Topiramate (Topiramate 100 Mg Tablet) 200 mg PO BID [facility] Last Admin: 08/07/24 09:57 Dose: 200 mg Trazodone HCl (Trazodone Hcl 50 Mg Tablet) 50 mg PO BEDTIME MRX1 PRN PRN Reason: Insomnia Allergies Allergies Allergy/AdvReac Type Severity Reaction Status Date / Time benztropine Allergy Unknown Verified 07/22/24 14:23 Bleach (Sodium Hypochlorite) Allergy Unknown Verified 07/22/24 14:23 chlorpromazine Allergy Unknown Verified 07/22/24 14:23 divalproex sodium Allergy Unknown Verified 07/22/24 14:23 olanzapine Allergy Unknown Verified 07/22/24 14:23 quetiapine Allergy Unknown Verified 07/22/24 14:23 Sulfa (Sulfonamide Allergy Unknown Verified 07/22/24 14:23 Antibiotics) [Sulfonamides] ziprasidone Allergy Unknown Verified 07/22/24 14:23 haloperidol [From Haldol] AdvReac Unknown Verified 07/22/24 14:23 naloxone AdvReac Unknown Verified 07/22/24 14:23 Assessment & Plan Assessment & Plan (1) Depression: Status: Acute Code(s): F32.A - Depression, unspecified (2) Polysubstance abuse: Status: Acute Code(s): F19.10 - Other psychoactive substance abuse, uncomplicated Plan - Admit to inpatient psychiatry - CV - Collateral information from family and providers. - Milieu treatment and group therapy. - Medications: Continue same. - Social work evaluation. - Disposition planning. 07/25: Check ankle and knee XR. Switch Ditropan to HS. 07/26: Continue regime, monitor for sedation Discharge planning 07/28: Continue current regime. 07/30: Decrease Klonopin by 1mg due to sedation Discontinue Risperdal, pt refusing this medication Discontinue Valtrex, pt request Hospitalist consult, hip pain, ambulation difficulties. 07/31: Continue current regimen and plans. Continue plans for stabilization and decrease of Klonopin maybe even discontinuation. 08/01: Continue current regimen and plans for stabilization and medication management. Added loperamide 08/03: Continue current regime, discharge planning. 08/05: Throat jules and cough medicine ordered. Diagnostics are negative at this time. Continue to monitor 08/06: KUB pending Capsaicin prn Pt encouraged to call [facility] to discuss a potential bed. Active SI if sent to a program she does not agree with or a skilled nursing. 08/07- continues preoccupied with diarrhea, pain and si- the latter being chronic - not willing to engage in any self soothing/care strategies expecting medication to change things for her- despite multiple trials- Patient educated on: therapeutic strategies and medical condition Informed Consent: does not understand Reason for continued inpatient stay Substantial Risk for: harm to self and rapid decompensation Time Spent With Patient Time: Total time managing care of this patient today ____ minutes.
[2024-08-07] MEDS: clonazePAM 1 MG TABLET PO ×2 (13:31→16:39)
[2024-08-07] MEDS: guaiFENesin 100 MG/5 ML 5 ML LIQUID PO (13:40)
[2024-08-07] MEDS: Capsaicin 0.025% Cream 60 GM TUBE 1 APPL TOPICAL (13:42)
[2024-08-07] MEDS: Nicotine Polacrilex 2 MG GUM 4 MG BUCCAL (13:43)
[2024-08-07 14:49] VITALS: BP 135/72
[2024-08-07] MEDS: Diclofenac Sodium Delayed Rel 50 MG TABLET.DR PO (16:34)
[2024-08-07] MEDS: hydrOXYzine HCL 25 MG TABLET PO ×2 (16:35→22:31)
[2024-08-07 21:35] VITALS: BP 140/88; PULSE 61; TEMP 16.1
[2024-08-07 21:53] VITALS: BP 140/88
[2024-08-08] MEDS: methADONE HCl 20 MG/2 ML ORAL.CONC 110 MG PO (07:49)
[2024-08-08] MEDS: Pregabalin 150 MG CAPSULE 300 MG PO ×2 (07:55→20:18)
[2024-08-08] MEDS: Docusate Sodium 100 MG CAPSULE PO ×2 (07:55→20:17)
[2024-08-08] MEDS: Nicotine Polacrilex 2 MG GUM 4 MG BUCCAL ×3 (07:55→15:06)
[2024-08-08] MEDS: Amphetamine Mixed Salts 20 MG TABLET 30 MG PO ×2 (07:55→12:37)
[2024-08-08 07:56] VITALS: BP 136/68; PULSE 97; TEMP 36.3; O2SAT 98
[2024-08-08] MEDS: Topiramate 100 MG TABLET 200 MG PO ×2 (07:56→20:16)
[2024-08-08] MEDS: Ferrous Sulfate 324 MG TABLET.DR PO (07:56)
[2024-08-08] MEDS: Loratadine 10 MG TABLET PO (07:56)
[2024-08-08] MEDS: Baclofen 20 MG TABLET PO ×3 (07:56→20:18)
[2024-08-08] MEDS: Multivitamin TABLET 1 TAB PO (07:56)
[2024-08-08 07:57] VITALS: BP 136/68
[2024-08-08] MEDS: cloNIDine HCL 0.2 MG TABLET PO ×3 (07:57→20:17)
[2024-08-08] MEDS: Diclofenac Sodium Delayed Rel 50 MG TABLET.DR PO ×2 (08:04→17:10)
[2024-08-08] MEDS: Fluticasone Propionate Nasal 16 GM SPRAY 1 SPRAY NOSTRIL-B (08:40)
[2024-08-08] MEDS: guaiFENesin 100 MG/5 ML 5 ML LIQUID PO ×2 (08:40→17:09)
[2024-08-08] MEDS: clonazePAM 1 MG TABLET 2 MG PO (08:41)
[2024-08-08] MEDS: clonazePAM 1 MG TABLET PO ×2 (12:37→17:10)
--- NOTE | 2024-08-08 12:47 | P.PNPSI_ITS ---
Subjective Subjective Date of Service: 08/08/24 Reason For Visit: Depression Subjective Notes: Conditional Voluntary Healthcare Proxy: No Guardianship: No Medical Problems Affecting Mental Status: No Interim History: 43 yo with continued somatic focus asking for ultram, and tylenol 3- told patient I had put her on diclofenac and that I was not prescribing stronger medication for chronic pain . Pt continues to be angry re care and looking for answers in medication- without using other strategies. She continues with chronic si- no plan - says she is not being discharged home as she has no home- came out here for program rehab that sent her here for si- Pt avoiding mileu on unit because if she is chewing gum- people think she is slurring her speech and over medicated, and if tired falling asleep - same. Medication Compliance: Yes Side effects from medications: Yes (pt says not - but was over sedated and slurring speech) Attending Groups: No Review of Systems Acute medical concerns: Yes diarrhea/gi- but pt has ibs , work up so far not revealing- Medical Review of Systems: unchanged Review of Systems: ongoing intermittent diarrhea- a bit better in last 2 days ongoing body pain- back pain Mental Status Exam Mental Status Exam Patient Appearance: Well Grooomed and Appropriate Patient Orientation: Person, Place, Time and Situation Level of Consciousness: Awake Patient Behavior: Guarded, Resistive to Care and Good Eye Contact Behavior Comments: not falling asleep today, is chewing gum- but speech doesn't sound slurred Mood Description: Angry Affect Description: Appropriate Patient Cognition Impaired: No Ability to Follow Directions: Fair Speech Pattern: Clear Hallucinations: None Delusions: Not Present Thought Process: Intact and Goal Oriented Thought Content: positive for Preoccupation (with pain and gi issues,chronic si ) and positive for Suicidal Ideation (no plan) Depressive Symptoms: Back Pain Judgement: Fair Diagnostics Vital Signs (24Hr): Vital Signs - 24 hr 08/07/24 14:49 08/07/24 21:35 08/07/24 21:53 Temperature 61 F L Pulse Rate 61 Blood Pressure 135/72 140/88 H 140/88 H Pulse Oximetry Oxygen Delivery Method 08/08/24 07:56 08/08/24 07:57 Temperature 97.3 F Pulse Rate 97 Blood Pressure 136/68 136/68 Pulse Oximetry 98 Oxygen Delivery Method Room Air BMI result Body Mass Index 39.5 Labs 08/02/24 16:27 08/02/24 16:27 Imaging Radiology Impressions: ITS Impressions Ankle X-Ray 07/25/24 14:10 IMPRESSION: No acute fracture or dislocation right ankle. Bimalleolar soft tissue swelling. Small calcaneal heel spur. Degenerative arthritic changes right knee without acute fracture or dislocation. Moderate osteophytosis superior to patella Electronically signed by: Baldo Espinosa MD 07/25/2024 09:29 PM EST RP Knee X-Ray 07/25/24 14:10 IMPRESSION: No acute fracture or dislocation right ankle. Bimalleolar soft tissue swelling. Small calcaneal heel spur. Degenerative arthritic changes right knee without acute fracture or dislocation. Moderate osteophytosis superior to patella Electronically signed by: Baldo Espinosa MD 07/25/2024 09:29 PM EST RP KUB X-Ray 08/06/24 14:45 IMPRESSION: Unremarkable examination. Electronically signed by: Miriam Bauer MD 08/07/2024 07:32 AM EST RP Medications Medications Current Medications Acetaminophen (Acetaminophen 325 Mg Tablet) 1,000 mg PO Q8H PRN PRN Reason: moderate pain Al Hydroxide/Mg Hydroxide (Magnesium Hydrox/Alum Hydrox 30 Ml Oral.Susp) 30 ml PO Q6H PRN PRN Reason: Heartburn/Nausea Amphetamine/Dextroamphetamine (Amphetamine Mixed Salts 20 Mg Tablet) 30 mg PO 0900,1300 [facility] Last Admin: 08/08/24 12:37 Dose: 30 mg Baclofen (Baclofen 20 Mg Tablet) 20 mg PO TID@0900,1700,2100 [facility] Last Admin: 08/08/24 07:56 Dose: 20 mg Benzocaine (Throat Lozenge, Medicated Lozenge) 1 lozenge MUCOUS MEM Q2H PRN PRN Reason: Sore Throat Last Admin: 08/05/24 14:02 Dose: 1 lozenge Capsaicin (Capsaicin 0.025% Cream 60 Gm Tube) 1 appl TOPICAL QID PRN; Protocol PRN Reason: muscle pain Last Admin: 08/07/24 13:42 Dose: 1 appl Clonazepam (Clonazepam 1 Mg Tablet) 1 mg PO 1200,1700 [facility] Last Admin: 08/08/24 12:37 Dose: 1 mg Clonazepam (Clonazepam 1 Mg Tablet) 2 mg PO 0900 [facility] Last Admin: 08/08/24 08:41 Dose: 2 mg Clonidine HCl (Clonidine Hcl 0.2 Mg Tablet) 0.2 mg PO TID [facility]; Protocol Last Admin: 08/08/24 07:57 Dose: 0.2 mg Diclofenac Sodium (Diclofenac Sodium Delayed Rel 50 Mg Tablet.) 50 mg PO BIDWM [facility] Last Admin: 08/08/24 08:04 Dose: 50 mg Dicyclomine HCl (Dicyclomine Hcl 10 Mg Capsule) 20 mg PO TID PRN PRN Reason: abdominal pain Last Admin: 08/06/24 08:52 Dose: 20 mg Docusate Sodium (Docusate Sodium 100 Mg Capsule) 100 mg PO BID [facility] Last Admin: 08/08/24 07:55 Dose: 100 mg Ferrous Sulfate (Ferrous Sulfate 324 Mg Tablet.) 324 mg PO DAILY [facility] Last Admin: 08/08/24 07:56 Dose: 324 mg Fluticasone Propionate (Fluticasone Propionate Nasal 16 Gm [place]) 1 spray NOSTRIL-B DAILY [facility] Last Admin: 08/08/24 08:40 Dose: 1 spray Guaifenesin (Guaifenesin 100 Mg/5 Ml 5 Ml Liquid) 5 ml PO Q6H PRN PRN Reason: Cough Last Admin: 08/08/24 08:40 Dose: 5 ml Hydroxyzine HCl (Hydroxyzine Hcl 25 Mg Tablet) 25 mg PO Q6H PRN PRN Reason: Anxiety Last Admin: 08/07/24 22:31 Dose: 25 mg Loperamide HCl (Loperamide Hcl 2 Mg Capsule) 2 mg PO Q4H PRN PRN Reason: Diarrhea Last Admin: 08/06/24 08:51 Dose: 2 mg Loratadine (Loratadine 10 Mg Tablet) 10 mg PO DAILY [facility] Last Admin: 08/08/24 07:56 Dose: 10 mg Magnesium Hydroxide (Milk Of Magnesia 30 Ml Oral.Susp) 30 ml PO DAILY PRN PRN Reason: Constipation Methadone HCl (Methadone Hcl 20 Mg/2 Ml Oral.Conc) 110 mg PO DAILY [facility] Last Admin: 08/08/24 07:49 Dose: 110 mg Multi-Ingred Cream/Lotion/Oil/Oint (Mineral Oil/Petrolatum,White 106 Gm Tube) 1 appl TOPICAL BID [facility]; Protocol Last Admin: 08/08/24 10:40 Dose: Not Given Multivitamins/Vitamin C (Multivitamin Tablet) 1 tab PO DAILY [facility] Last Admin: 08/08/24 07:56 Dose: 1 tab Nicotine (Nicotine 21 Mg Patch.Td24) 21 mg TRANSDERMA DAILY PRN PRN Reason: nicotine cravings Nicotine Polacrilex (Nicotine Polacrilex 2 Mg Gum) 4 mg BUCCAL Q2H PRN PRN Reason: Nicotine Cravings Last Admin: 08/08/24 09:56 Dose: 4 mg Nystatin (Nystatin Powder 15 Gm Bottle) 1 appl TOPICAL BID [facility]; Protocol Last Admin: 08/08/24 10:41 Dose: Not Given Oxybutynin Chloride (Oxybutynin Chloride Er 5 Mg Tab.Er.24) 10 mg PO BEDTIME [facility] Last Admin: 08/07/24 21:53 Dose: Not Given Pregabalin (Pregabalin 150 Mg Capsule) 300 mg PO BID [facility] Last Admin: 08/08/24 07:55 Dose: 300 mg Sumatriptan Succinate (Sumatriptan Succinate 25 Mg Tablet) 25 mg PO DAILY PRN PRN Reason: Migraine Headache Topiramate (Topiramate 100 Mg Tablet) 200 mg PO BID [facility] Last Admin: 08/08/24 07:56 Dose: 200 mg Trazodone HCl (Trazodone Hcl 50 Mg Tablet) 50 mg PO BEDTIME MRX1 PRN PRN Reason: Insomnia Allergies Allergies Allergy/AdvReac Type Severity Reaction Status Date / Time benztropine Allergy Unknown Verified 07/22/24 14:23 Bleach (Sodium Hypochlorite) Allergy Unknown Verified 07/22/24 14:23 chlorpromazine Allergy Unknown Verified 07/22/24 14:23 divalproex sodium Allergy Unknown Verified 07/22/24 14:23 olanzapine Allergy Unknown Verified 07/22/24 14:23 quetiapine Allergy Unknown Verified 07/22/24 14:23 Sulfa (Sulfonamide Allergy Unknown Verified 07/22/24 14:23 Antibiotics) [Sulfonamides] ziprasidone Allergy Unknown Verified 07/22/24 14:23 haloperidol [From Haldol] AdvReac Unknown Verified 07/22/24 14:23 naloxone AdvReac Unknown Verified 07/22/24 14:23 Assessment & Plan Assessment & Plan (1) Depression: Status: Acute Code(s): F32.A - Depression, unspecified (2) Polysubstance abuse: Status: Acute Code(s): F19.10 - Other psychoactive substance abuse, uncomplicated Plan - Admit to inpatient psychiatry - CV - Collateral information from family and providers. - Milieu treatment and group therapy. - Medications: Continue same. - Social work evaluation. - Disposition planning. 07/25: Check ankle and knee XR. Switch Ditropan to HS. 07/26: Continue regime, monitor for sedation Discharge planning 07/28: Continue current regime. 07/30: Decrease Klonopin by 1mg due to sedation Discontinue Risperdal, pt refusing this medication Discontinue Valtrex, pt request Hospitalist consult, hip pain, ambulation difficulties. 07/31: Continue current regimen and plans. Continue plans for stabilization and decrease of Klonopin maybe even discontinuation. 08/01: Continue current regimen and plans for stabilization and medication management. Added loperamide 08/03: Continue current regime, discharge planning. 08/05: Throat jules and cough medicine ordered. Diagnostics are negative at this time. Continue to monitor 08/06: KUB pending Capsaicin prn Pt encouraged to call [facility] to discuss a potential bed. Active SI if sent to a program she does not agree with or a assisted. 08/07- continues preoccupied with diarrhea, pain and si- the latter being chronic - not willing to engage in any self soothing/care strategies expecting medication to change things for her- despite multiple trials- Reason for continued inpatient stay Substantial Risk for: rapid decompensation Time Spent With Patient Time: Total time managing care of this patient today ____ minutes.
[2024-08-08 15:00] VITALS: BP 137/66
[2024-08-08] MEDS: hydrOXYzine HCL 25 MG TABLET PO ×2 (15:01→20:18)
[2024-08-08 19:56] VITALS: BP 126/72; PULSE 70; RESP 15; TEMP 36.7; O2SAT 96
[2024-08-08] MEDS: SUMAtriptan succinate 25 MG TABLET PO (20:17)
[2024-08-08] MEDS: oxyBUTYnin chloride ER 5 MG TAB.ER.24 10 MG PO (20:17)
[2024-08-09] MEDS: Amphetamine Mixed Salts 20 MG TABLET 30 MG PO ×2 (07:46→13:43)
[2024-08-09] MEDS: methADONE HCl 20 MG/2 ML ORAL.CONC 110 MG PO (07:46)
[2024-08-09 08:00] VITALS: BP 106/55; PULSE 67; TEMP 36.6; O2SAT 96
[2024-08-09] MEDS: clonazePAM 1 MG TABLET 2 MG PO (08:03)
[2024-08-09] MEDS: Diclofenac Sodium Delayed Rel 50 MG TABLET.DR PO ×2 (08:04→16:08)
[2024-08-09] MEDS: Ferrous Sulfate 324 MG TABLET.DR PO (08:05)
[2024-08-09] MEDS: Multivitamin TABLET 1 TAB PO (08:05)
[2024-08-09] MEDS: Pregabalin 150 MG CAPSULE 300 MG PO ×2 (08:05→20:23)
[2024-08-09 08:06] VITALS: BP 106/55
[2024-08-09] MEDS: Docusate Sodium 100 MG CAPSULE PO ×2 (08:06→20:27)
[2024-08-09] MEDS: Baclofen 20 MG TABLET PO ×3 (08:06→20:26)
[2024-08-09] MEDS: Topiramate 100 MG TABLET 200 MG PO ×2 (08:06→20:26)
[2024-08-09] MEDS: cloNIDine HCL 0.2 MG TABLET PO ×3 (08:06→20:28)
[2024-08-09] MEDS: Loratadine 10 MG TABLET PO (08:06)
[2024-08-09] MEDS: Fluticasone Propionate Nasal 16 GM SPRAY 1 SPRAY NOSTRIL-B (08:07)
[2024-08-09] MEDS: Dicyclomine HCl 10 MG CAPSULE 20 MG PO (08:30)
[2024-08-09] MEDS: clonazePAM 1 MG TABLET PO ×2 (13:43→16:08)
[2024-08-09 13:56] VITALS: BP 121/64
[2024-08-09] MEDS: Nicotine Polacrilex 2 MG GUM 4 MG BUCCAL ×2 (14:01→17:47)
--- NOTE | 2024-08-09 15:43 | HO.PSYCHPN ---
Subjective Subjective Date of Service: 08/09/24 Reason For Visit: Depression Subjective Notes: Conditional Voluntary Healthcare Proxy: No Guardianship: No Medical Problems Affecting Mental Status: No Interim History: Continues to report to team sx 06/24. Housing is an issue. Pt is clearer and participatory today. Asks for increase in Klonopin, declined, discussed making dose changes. Asks for 1.75 mg a.m, 1 mg 12 pm 0.25mg 5pm, 1 mg HS which was changed. Pt has been making calls to connections for housing-[facility] [place] and [facility]. Team is working hard on [facility] referrals with [facility], [facility]. [place] is a 4-6 week waiting period. Pt continues to tell team she will kill herself if not dischaged to a program. Discussed with pt-we are working with this Medication Compliance: Yes Side effects from medications: Yes (less sedative effect) Attending Groups: Yes Review of Systems Acute medical concerns: No Medical Review of Systems: unchanged Review of Systems Review of Systems reports some retention of fluid which we will monitor. Mental Status Exam Mental Status Exam Narrative: Alert, oriented. Speech is clear. No sedation noted. Affect and mood are constricted. No sx of psychosis. Denies SI,HI,AH, VH. Clarifies that she is not suicidal and wanting to work with team to find placement. Diagnostics Vital Signs (24Hr): Vital Signs - 24 hr 08/08/24 19:56 08/09/24 08:00 08/09/24 08:06 Temperature 98.1 F 98 F Pulse Rate 70 67 Respiratory Rate 15 Blood Pressure 126/72 106/55 L 106/55 L Pulse Oximetry 96 96 Oxygen Delivery Method Room Air 08/09/24 13:56 Temperature Pulse Rate Respiratory Rate Blood Pressure 121/64 Pulse Oximetry Oxygen Delivery Method BMI result Body Mass Index 39.5 Labs 08/02/24 16:27 08/02/24 16:27 Imaging Radiology Impressions: ITS Impressions Ankle X-Ray 07/25/24 14:10 IMPRESSION: No acute fracture or dislocation right ankle. Bimalleolar soft tissue swelling. Small calcaneal heel spur. Degenerative arthritic changes right knee without acute fracture or dislocation. Moderate osteophytosis superior to patella Electronically signed by: Baldo Espinosa MD 07/25/2024 09:29 PM EST RP Knee X-Ray 07/25/24 14:10 IMPRESSION: No acute fracture or dislocation right ankle. Bimalleolar soft tissue swelling. Small calcaneal heel spur. Degenerative arthritic changes right knee without acute fracture or dislocation. Moderate osteophytosis superior to patella Electronically signed by: Baldo Espinosa MD 07/25/2024 09:29 PM EST RP KUB X-Ray 08/06/24 14:45 IMPRESSION: Unremarkable examination. Electronically signed by: Miriam Bauer MD 08/07/2024 07:32 AM EST RP Medications Medications Current Medications Acetaminophen (Acetaminophen 325 Mg Tablet) 1,000 mg PO Q8H PRN PRN Reason: moderate pain Al Hydroxide/Mg Hydroxide (Magnesium Hydrox/Alum Hydrox 30 Ml Oral.Susp) 30 ml PO Q6H PRN PRN Reason: Heartburn/Nausea Amphetamine/Dextroamphetamine (Amphetamine Mixed Salts 20 Mg Tablet) 30 mg PO 0900,1300 [facility] Last Admin: 08/09/24 13:43 Dose: 30 mg Baclofen (Baclofen 20 Mg Tablet) 20 mg PO TID@0900,1700,2100 [facility] Last Admin: 08/09/24 08:06 Dose: 20 mg Benzocaine (Throat Lozenge, Medicated Lozenge) 1 lozenge MUCOUS MEM Q2H PRN PRN Reason: Sore Throat Last Admin: 08/05/24 14:02 Dose: 1 lozenge Capsaicin (Capsaicin 0.025% Cream 60 Gm Tube) 1 appl TOPICAL QID PRN; Protocol PRN Reason: muscle pain Last Admin: 08/07/24 13:42 Dose: 1 appl Clonazepam (Clonazepam 1 Mg Tablet) 1 mg PO 1200,1700 [facility] Last Admin: 08/09/24 13:43 Dose: 1 mg Clonazepam (Clonazepam 1 Mg Tablet) 1.75 mg PO 0900 [facility] Clonazepam (Clonazepam 0.5 Mg Tablet) 0.25 mg PO 1700 [facility] Clonidine HCl (Clonidine Hcl 0.2 Mg Tablet) 0.2 mg PO TID [facility]; Protocol Last Admin: 08/09/24 13:56 Dose: 0.2 mg Diclofenac Sodium (Diclofenac Sodium Delayed Rel 50 Mg Tablet.Dr) 50 mg PO BIDWM [facility] Last Admin: 08/09/24 08:04 Dose: 50 mg Dicyclomine HCl (Dicyclomine Hcl 10 Mg Capsule) 20 mg PO TID PRN PRN Reason: abdominal pain Last Admin: 08/09/24 08:30 Dose: 20 mg Docusate Sodium (Docusate Sodium 100 Mg Capsule) 100 mg PO BID [facility] Last Admin: 08/09/24 08:06 Dose: 100 mg Ferrous Sulfate (Ferrous Sulfate 324 Mg Tablet.) 324 mg PO DAILY [facility] Last Admin: 08/09/24 08:05 Dose: 324 mg Fluticasone Propionate (Fluticasone Propionate Nasal 16 Gm [place]) 1 spray NOSTRIL-B DAILY [facility] Last Admin: 08/09/24 08:07 Dose: 1 spray Guaifenesin (Guaifenesin 100 Mg/5 Ml 5 Ml Liquid) 5 ml PO Q6H PRN PRN Reason: Cough Last Admin: 08/08/24 17:09 Dose: 5 ml Hydroxyzine HCl (Hydroxyzine Hcl 25 Mg Tablet) 25 mg PO Q6H PRN PRN Reason: Anxiety Last Admin: 08/08/24 20:18 Dose: 25 mg Loperamide HCl (Loperamide Hcl 2 Mg Capsule) 2 mg PO Q4H PRN PRN Reason: Diarrhea Last Admin: 08/06/24 08:51 Dose: 2 mg Loratadine (Loratadine 10 Mg Tablet) 10 mg PO DAILY [facility] Last Admin: 08/09/24 08:06 Dose: 10 mg Magnesium Hydroxide (Milk Of Magnesia 30 Ml Oral.Susp) 30 ml PO DAILY PRN PRN Reason: Constipation Methadone HCl (Methadone Hcl 20 Mg/2 Ml Oral.Conc) 110 mg PO DAILY [facility] Last Admin: 08/09/24 07:46 Dose: 110 mg Multi-Ingred Cream/Lotion/Oil/Oint (Mineral Oil/Petrolatum,White 106 Gm Tube) 1 appl TOPICAL BID [facility]; Protocol Last Admin: 08/09/24 08:08 Dose: Not Given Multivitamins/Vitamin C (Multivitamin Tablet) 1 tab PO DAILY [facility] Last Admin: 08/09/24 08:05 Dose: 1 tab Nicotine (Nicotine 21 Mg Patch.Td24) 21 mg TRANSDERMA DAILY PRN PRN Reason: nicotine cravings Nicotine Polacrilex (Nicotine Polacrilex 2 Mg Gum) 4 mg BUCCAL Q2H PRN PRN Reason: Nicotine Cravings Last Admin: 08/09/24 14:01 Dose: 4 mg Nystatin (Nystatin Powder 15 Gm Bottle) 1 appl TOPICAL BID [facility]; Protocol Last Admin: 08/09/24 08:08 Dose: Not Given Oxybutynin Chloride (Oxybutynin Chloride Er 5 Mg Tab.Er.24) 10 mg PO BEDTIME [facility] Last Admin: 08/08/24 20:17 Dose: 10 mg Pregabalin (Pregabalin 150 Mg Capsule) 300 mg PO BID [facility] Last Admin: 08/09/24 08:05 Dose: 300 mg Sumatriptan Succinate (Sumatriptan Succinate 25 Mg Tablet) 25 mg PO DAILY PRN PRN Reason: Migraine Headache Last Admin: 08/08/24 20:17 Dose: 25 mg Topiramate (Topiramate 100 Mg Tablet) 200 mg PO BID [facility] Last Admin: 08/09/24 08:06 Dose: 200 mg Trazodone HCl (Trazodone Hcl 50 Mg Tablet) 50 mg PO BEDTIME MRX1 PRN PRN Reason: Insomnia Allergies Allergies Allergy/AdvReac Type Severity Reaction Status Date / Time benztropine Allergy Unknown Verified 07/22/24 14:23 Bleach (Sodium Hypochlorite) Allergy Unknown Verified 07/22/24 14:23 chlorpromazine Allergy Unknown Verified 07/22/24 14:23 divalproex sodium Allergy Unknown Verified 07/22/24 14:23 olanzapine Allergy Unknown Verified 07/22/24 14:23 quetiapine Allergy Unknown Verified 07/22/24 14:23 Sulfa (Sulfonamide Allergy Unknown Verified 07/22/24 14:23 Antibiotics) [Sulfonamides] ziprasidone Allergy Unknown Verified 07/22/24 14:23 haloperidol [From Haldol] AdvReac Unknown Verified 07/22/24 14:23 naloxone AdvReac Unknown Verified 07/22/24 14:23 Assessment & Plan Assessment & Plan (1) Depression: Status: Acute Code(s): F32.A - Depression, unspecified (2) Polysubstance abuse: Status: Acute Code(s): F19.10 - Other psychoactive substance abuse, uncomplicated Plan - Admit to inpatient psychiatry - CV - Collateral information from family and providers. - Milieu treatment and group therapy. - Medications: Continue same. - Social work evaluation. - Disposition planning. 07/25: Check ankle and knee XR. Switch Ditropan to HS. 07/26: Continue regime, monitor for sedation Discharge planning 07/28: Continue current regime. 07/30: Decrease Klonopin by 1mg due to sedation Discontinue Risperdal, pt refusing this medication Discontinue Valtrex, pt request Hospitalist consult, hip pain, ambulation difficulties. 07/31: Continue current regimen and plans. Continue plans for stabilization and decrease of Klonopin maybe even discontinuation. 08/01: Continue current regimen and plans for stabilization and medication management. Added loperamide 08/03: Continue current regime, discharge planning. 08/05: Throat jules and cough medicine ordered. Diagnostics are negative at this time. Continue to monitor 08/06: KUB pending Capsaicin prn Pt encouraged to call [facility] [place] to discuss a potential bed. Active SI if sent to a program she does not agree with or a fpc. 08/07- continues preoccupied with diarrhea, pain and si- the latter being chronic - not willing to engage in any self soothing/care strategies expecting medication to change things for her- despite multiple trials- 08/09- Continue discharge planning. Pt is participating more today in her plan of care. Reason for continued inpatient stay Substantial Risk for: rapid decompensation and med/psych decompensation Time Spent With Patient Time: Total time managing care of this patient today ____ minutes.
[2024-08-09 20:00] VITALS: BP 179/105; PULSE 102; TEMP 36.7; O2SAT 96
[2024-08-09] MEDS: hydrOXYzine HCL 25 MG TABLET PO (20:24)
[2024-08-09] MEDS: clonazePAM 0.5 MG TABLET 0.25 MG PO (20:24)
[2024-08-09 20:28] VITALS: BP 179/105
[2024-08-09] MEDS: Mineral Oil/Petrolatum,White 106 GM Tube 1 APPL TOPICAL (20:35)
[2024-08-09 20:55] VITALS: BP 130/75; PULSE 81; TEMP 36.3
[2024-08-10 08:00] VITALS: BP 115/63; PULSE 68; RESP 15; TEMP 36.5; O2SAT 99
[2024-08-10] MEDS: methADONE HCl 20 MG/2 ML ORAL.CONC 110 MG PO (08:05)
[2024-08-10] MEDS: Fluticasone Propionate Nasal 16 GM SPRAY 1 SPRAY NOSTRIL-B (09:03)
[2024-08-10] MEDS: Diclofenac Sodium Delayed Rel 50 MG TABLET.DR PO (09:03)
[2024-08-10 09:04] VITALS: BP 115/63
[2024-08-10] MEDS: Loratadine 10 MG TABLET PO (09:04)
[2024-08-10] MEDS: Amphetamine Mixed Salts 20 MG TABLET 30 MG PO ×2 (09:04→12:43)
[2024-08-10] MEDS: cloNIDine HCL 0.2 MG TABLET PO ×2 (09:04→20:36)
[2024-08-10] MEDS: Multivitamin TABLET 1 TAB PO (09:04)
[2024-08-10] MEDS: Pregabalin 150 MG CAPSULE 300 MG PO ×2 (09:04→20:37)
[2024-08-10] MEDS: Topiramate 100 MG TABLET 200 MG PO ×2 (09:04→20:36)
[2024-08-10] MEDS: Ferrous Sulfate 324 MG TABLET.DR PO (09:04)
[2024-08-10] MEDS: Docusate Sodium 100 MG CAPSULE PO ×2 (09:05→20:36)
[2024-08-10] MEDS: Baclofen 20 MG TABLET PO ×3 (09:15→20:44)
[2024-08-10] MEDS: Dicyclomine HCl 10 MG CAPSULE 20 MG PO (09:15)
[2024-08-10] MEDS: Magnesium Hydrox/Alum Hydrox 30 ML ORAL.SUSP PO (09:30)
[2024-08-10] MEDS: Acetaminophen 325 MG TABLET 1000 MG PO (09:30)
[2024-08-10] MEDS: Nicotine Polacrilex 2 MG GUM 4 MG BUCCAL ×3 (09:30→20:44)
[2024-08-10] MEDS: clonazePAM 0.5 MG TABLET 1.75 MG PO (09:31)
[2024-08-10] MEDS: clonazePAM 1 MG TABLET PO ×2 (12:43→20:36)
[2024-08-10] MEDS: hydrOXYzine HCL 25 MG TABLET PO ×2 (12:48→20:41)
--- NOTE | 2024-08-10 18:23 | P.PNPSI_ITS ---
Subjective Subjective Date of Service: 08/10/24 Reason For Visit: Depression Subjective Notes: Conditional Voluntary Healthcare Proxy: No Guardianship: No Medical Problems Affecting Mental Status: No Interim History: Pt requests to change Klonopin back to original dosing, 2mg a.m. 1 mg noon and h.s. which was completed. Pt reports she has been accepted for a room with [facility]. She believes for Friday or Friday. We discussed having to pay for a months rent for 2 days so she is thinking Friday for the beginning of the new month. She reports attending groups, participating. She is interacting with team and peers and preparing for discharge. Medication Compliance: Yes Side effects from medications: No Attending Groups: Yes Review of Systems Acute medical concerns: No Medical Review of Systems: unchanged Review of Systems Review of Systems Yes all other systems are reviewed and are negative Mental Status Exam Mental Status Exam Narrative: Alert, oriented. Speech is clear, articulate Affect and mood are euthymic Thought process and content are intact with goal oriented, forward thinking Denies SI/HI/AH/VH High risk fo relapse should we not have a specific plan of care for pt for her discharge. Diagnostics Vital Signs (24Hr): Vital Signs - 24 hr 08/09/24 20:00 08/09/24 20:28 08/09/24 20:55 Temperature 98.0 F 97.3 F Pulse Rate 102 H 81 Respiratory Rate Blood Pressure 179/105 H 179/105 H 130/75 Pulse Oximetry 96 Oxygen Delivery Method Room Air 08/10/24 08:00 08/10/24 09:04 Temperature 97.7 F Pulse Rate 68 Respiratory Rate 15 Blood Pressure 115/63 115/63 Pulse Oximetry 99 Oxygen Delivery Method Room Air BMI result Body Mass Index 39.5 Labs 08/02/24 16:27 08/02/24 16:27 Imaging Radiology Impressions: ITS Impressions Ankle X-Ray 07/25/24 14:10 IMPRESSION: No acute fracture or dislocation right ankle. Bimalleolar soft tissue swelling. Small calcaneal heel spur. Degenerative arthritic changes right knee without acute fracture or dislocation. Moderate osteophytosis superior to patella Electronically signed by: Baldo Espinosa MD 07/25/2024 09:29 PM [facility] Knee X-Ray 07/25/24 14:10 IMPRESSION: No acute fracture or dislocation right ankle. Bimalleolar soft tissue swelling. Small calcaneal heel spur. Degenerative arthritic changes right knee without acute fracture or dislocation. Moderate osteophytosis superior to patella Electronically signed by: Baldo Espinosa MD 07/25/2024 09:29 PM EST RP KUB X-Ray 08/06/24 14:45 IMPRESSION: Unremarkable examination. Electronically signed by: Miriam Bauer MD 08/07/2024 07:32 AM EST RP Medications Medications Current Medications Acetaminophen (Acetaminophen 325 Mg Tablet) 1,000 mg PO Q8H PRN PRN Reason: moderate pain Last Admin: 08/10/24 09:30 Dose: 1,000 mg Al Hydroxide/Mg Hydroxide (Magnesium Hydrox/Alum Hydrox 30 Ml Oral.Susp) 30 ml PO Q6H PRN PRN Reason: Heartburn/Nausea Last Admin: 08/10/24 09:30 Dose: 30 ml Amphetamine/Dextroamphetamine (Amphetamine Mixed Salts 20 Mg Tablet) 30 mg PO 0900,1300 [facility] Last Admin: 08/10/24 12:43 Dose: 30 mg Baclofen (Baclofen 20 Mg Tablet) 20 mg PO TID@0900,1700,2100 [facility] Last Admin: 08/10/24 09:15 Dose: 20 mg Benzocaine (Throat Lozenge, Medicated Lozenge) 1 lozenge MUCOUS MEM Q2H PRN PRN Reason: Sore Throat Last Admin: 08/05/24 14:02 Dose: 1 lozenge Capsaicin (Capsaicin 0.025% Cream 60 Gm Tube) 1 appl TOPICAL QID PRN; Protocol PRN Reason: muscle pain Last Admin: 08/07/24 13:42 Dose: 1 appl Clonazepam (Clonazepam 1 Mg Tablet) 1 mg PO BID@1200,2100 [facility] Last Admin: 08/10/24 12:43 Dose: 1 mg Clonazepam (Clonazepam 1 Mg Tablet) 2 mg PO 0900 [facility] Clonidine HCl (Clonidine Hcl 0.2 Mg Tablet) 0.2 mg PO TID [facility]; Protocol Last Admin: 08/10/24 09:04 Dose: 0.2 mg Diclofenac Sodium (Diclofenac Sodium Delayed Rel 50 Mg Tablet.) 50 mg PO BIDWM [facility] Last Admin: 08/10/24 09:03 Dose: 50 mg Dicyclomine HCl (Dicyclomine Hcl 10 Mg Capsule) 20 mg PO TID PRN PRN Reason: abdominal pain Last Admin: 08/10/24 09:15 Dose: 20 mg Docusate Sodium (Docusate Sodium 100 Mg Capsule) 100 mg PO BID [facility] Last Admin: 08/10/24 09:05 Dose: 100 mg Ferrous Sulfate (Ferrous Sulfate 324 Mg Tablet.Dr) 324 mg PO DAILY [facility] Last Admin: 08/10/24 09:04 Dose: 324 mg Fluticasone Propionate (Fluticasone Propionate Nasal 16 Gm [place]) 1 spray NOSTRIL-B DAILY [facility] Last Admin: 08/10/24 09:03 Dose: 1 spray Guaifenesin (Guaifenesin 100 Mg/5 Ml 5 Ml Liquid) 5 ml PO Q6H PRN PRN Reason: Cough Last Admin: 08/08/24 17:09 Dose: 5 ml Hydroxyzine HCl (Hydroxyzine Hcl 25 Mg Tablet) 25 mg PO Q6H PRN PRN Reason: Anxiety Last Admin: 08/10/24 12:48 Dose: 25 mg Loperamide HCl (Loperamide Hcl 2 Mg Capsule) 2 mg PO Q4H PRN PRN Reason: Diarrhea Last Admin: 08/06/24 08:51 Dose: 2 mg Loratadine (Loratadine 10 Mg Tablet) 10 mg PO DAILY [facility] Last Admin: 08/10/24 09:04 Dose: 10 mg Magnesium Hydroxide (Milk Of Magnesia 30 Ml Oral.Susp) 30 ml PO DAILY PRN PRN Reason: Constipation Methadone HCl (Methadone Hcl 20 Mg/2 Ml Oral.Conc) 110 mg PO DAILY [facility] Last Admin: 08/10/24 08:05 Dose: 110 mg Multi-Ingred Cream/Lotion/Oil/Oint (Mineral Oil/Petrolatum,White 106 Gm Tube) 1 appl TOPICAL BID [facility]; Protocol Last Admin: 08/10/24 09:06 Dose: Not Given Multivitamins/Vitamin C (Multivitamin Tablet) 1 tab PO DAILY [facility] Last Admin: 08/10/24 09:04 Dose: 1 tab Nicotine (Nicotine 21 Mg Patch.Td24) 21 mg TRANSDERMA DAILY PRN PRN Reason: nicotine cravings Nicotine Polacrilex (Nicotine Polacrilex 2 Mg Gum) 4 mg BUCCAL Q2H PRN PRN Reason: Nicotine Cravings Last Admin: 08/10/24 12:48 Dose: 4 mg Nystatin (Nystatin Powder 15 Gm Bottle) 1 appl TOPICAL BID [facility]; Protocol Last Admin: 08/10/24 09:05 Dose: Not Given Oxybutynin Chloride (Oxybutynin Chloride Er 5 Mg Tab.Er.24) 10 mg PO BEDTIME [facility] Last Admin: 08/09/24 22:43 Dose: Not Given Pregabalin (Pregabalin 150 Mg Capsule) 300 mg PO BID [facility] Last Admin: 08/10/24 09:04 Dose: 300 mg Sumatriptan Succinate (Sumatriptan Succinate 25 Mg Tablet) 25 mg PO DAILY PRN PRN Reason: Migraine Headache Last Admin: 08/08/24 20:17 Dose: 25 mg Topiramate (Topiramate 100 Mg Tablet) 200 mg PO BID [facility] Last Admin: 08/10/24 09:04 Dose: 200 mg Trazodone HCl (Trazodone Hcl 50 Mg Tablet) 50 mg PO BEDTIME MRX1 PRN PRN Reason: Insomnia Allergies Allergies Allergy/AdvReac Type Severity Reaction Status Date / Time benztropine Allergy Unknown Verified 07/22/24 14:23 Bleach (Sodium Hypochlorite) Allergy Unknown Verified 07/22/24 14:23 chlorpromazine Allergy Unknown Verified 07/22/24 14:23 divalproex sodium Allergy Unknown Verified 07/22/24 14:23 olanzapine Allergy Unknown Verified 07/22/24 14:23 quetiapine Allergy Unknown Verified 07/22/24 14:23 Sulfa (Sulfonamide Allergy Unknown Verified 07/22/24 14:23 Antibiotics) [Sulfonamides] ziprasidone Allergy Unknown Verified 07/22/24 14:23 haloperidol [From Haldol] AdvReac Unknown Verified 07/22/24 14:23 naloxone AdvReac Unknown Verified 07/22/24 14:23 Assessment & Plan Assessment & Plan (1) Depression: Status: Acute Code(s): F32.A - Depression, unspecified (2) Polysubstance abuse: Status: Acute Code(s): F19.10 - Other psychoactive substance abuse, uncomplicated Plan - Admit to inpatient psychiatry - CV - Collateral information from family and providers. - Milieu treatment and group therapy. - Medications: Continue same. - Social work evaluation. - Disposition planning. 07/25: Check ankle and knee XR. Switch Ditropan to HS. 07/26: Continue regime, monitor for sedation Discharge planning 07/28: Continue current regime. 07/30: Decrease Klonopin by 1mg due to sedation Discontinue Risperdal, pt refusing this medication Discontinue Valtrex, pt request Hospitalist consult, hip pain, ambulation difficulties. 07/31: Continue current regimen and plans. Continue plans for stabilization and decrease of Klonopin maybe even discontinuation. 08/01: Continue current regimen and plans for stabilization and medication management. Added loperamide 08/03: Continue current regime, discharge planning. 08/05: Throat jules and cough medicine ordered. Diagnostics are negative at this time. Continue to monitor 08/06: KUB pending Capsaicin prn Pt encouraged to call [facility] to discuss a potential bed. Active SI if sent to a program she does not agree with or a intermediate. 08/07- continues preoccupied with diarrhea, pain and si- the latter being chronic - not willing to engage in any self soothing/care strategies expecting medication to change things for her- despite multiple trials- 08/10- Probable discharge 08/13 or 08/16 to sober home Return klonopin to 2 mg a.m. 1mg 12pm and HS. Reason for continued inpatient stay Substantial Risk for: rapid decompensation Time Spent With Patient Time: Total time managing care of this patient today ____ minutes.
[2024-08-10 20:00] VITALS: BP 127/80; PULSE 83; TEMP 36.3; O2SAT 99
[2024-08-10 20:36] VITALS: BP 127/80
[2024-08-10] MEDS: oxyBUTYnin chloride ER 5 MG TAB.ER.24 10 MG PO (20:37)
[2024-08-11] MEDS: Acetaminophen 325 MG TABLET 1000 MG PO (01:24)
[2024-08-11 08:00] VITALS: RESP 18
[2024-08-11] MEDS: methADONE HCl 20 MG/2 ML ORAL.CONC 110 MG PO (08:09)
[2024-08-11] MEDS: Baclofen 20 MG TABLET PO ×3 (09:04→20:34)
[2024-08-11] MEDS: Amphetamine Mixed Salts 20 MG TABLET 30 MG PO ×2 (09:04→12:51)
[2024-08-11] MEDS: Diclofenac Sodium Delayed Rel 50 MG TABLET.DR PO ×2 (09:05→17:10)
[2024-08-11] MEDS: Nicotine Polacrilex 2 MG GUM 4 MG BUCCAL ×2 (09:05→20:38)
[2024-08-11] MEDS: Topiramate 100 MG TABLET 200 MG PO ×2 (09:05→20:34)
[2024-08-11] MEDS: clonazePAM 1 MG TABLET 2 MG PO (09:06)
[2024-08-11] MEDS: Pregabalin 150 MG CAPSULE 300 MG PO ×2 (09:06→20:35)
[2024-08-11] MEDS: guaiFENesin 100 MG/5 ML 5 ML LIQUID PO (09:07)
[2024-08-11] MEDS: Docusate Sodium 100 MG CAPSULE PO ×2 (09:07→20:34)
[2024-08-11] MEDS: Fluticasone Propionate Nasal 16 GM SPRAY 1 SPRAY NOSTRIL-B (12:45)
[2024-08-11] MEDS: clonazePAM 1 MG TABLET PO ×2 (12:50→20:34)
[2024-08-11 14:48] VITALS: BP 132/94
[2024-08-11] MEDS: cloNIDine HCL 0.2 MG TABLET PO ×2 (14:48→20:35)
--- NOTE | 2024-08-11 18:14 | P.PNPSI_ITS ---
Subjective Subjective Date of Service: 08/11/24 Reason For Visit: Depression Subjective Notes: Conditional Voluntary Healthcare Proxy: No Guardianship: No Medical Problems Affecting Mental Status: No Interim History: Pt organizing her discharge for 08/13 to [facility] with Moody and Autumn Govea. Reports fluid retention. Pt requests temporary diuretic. Engaged in milieu with peers. Denies SI/HI/AH/VH. Pleased with discharge planning thus far. Medication Compliance: Yes Side effects from medications: No Attending Groups: Intermittent Review of Systems Acute medical concerns: No Mental Status Exam Mental Status Exam Narrative: Alert, oriented. Speech is clear, articulate Affect and mood are euthymic Thought process and content are intact with goal oriented, forward thinking Denies SI/HI/AH/VH High risk to relapse should we not have a specific plan of care for pt for her discharge. Diagnostics Vital Signs (24Hr): Vital Signs - 24 hr 08/10/24 20:00 08/10/24 20:36 08/11/24 08:00 Temperature 97.3 F Pulse Rate 83 Respiratory Rate 18 Blood Pressure 127/80 127/80 Pulse Oximetry 99 Oxygen Delivery Method Room Air 08/11/24 14:48 Temperature Pulse Rate Respiratory Rate Blood Pressure 132/94 H Pulse Oximetry Oxygen Delivery Method BMI result Body Mass Index 39.5 Labs 08/02/24 16:27 08/02/24 16:27 Imaging Radiology Impressions: ITS Impressions Ankle X-Ray 07/25/24 14:10 IMPRESSION: No acute fracture or dislocation right ankle. Bimalleolar soft tissue swelling. Small calcaneal heel spur. Degenerative arthritic changes right knee without acute fracture or dislocation. Moderate osteophytosis superior to patella Electronically signed by: Baldo Espinosa MD 07/25/2024 09:29 PM EST RP Knee X-Ray 07/25/24 14:10 IMPRESSION: No acute fracture or dislocation right ankle. Bimalleolar soft tissue swelling. Small calcaneal heel spur. Degenerative arthritic changes right knee without acute fracture or dislocation. Moderate osteophytosis superior to patella Electronically signed by: Baldo Espinosa MD 07/25/2024 09:29 PM EST RP KUB X-Ray 08/06/24 14:45 IMPRESSION: Unremarkable examination. Electronically signed by: Miriam Bauer MD 08/07/2024 07:32 AM [facility] Medications Medications Current Medications Acetaminophen (Acetaminophen 325 Mg Tablet) 975 mg PO Q8H PRN PRN Reason: moderate pain Al Hydroxide/Mg Hydroxide (Magnesium Hydrox/Alum Hydrox 30 Ml Oral.Susp) 30 ml PO Q6H PRN PRN Reason: Heartburn/Nausea Last Admin: 08/10/24 09:30 Dose: 30 ml Amphetamine/Dextroamphetamine (Amphetamine Mixed Salts 20 Mg Tablet) 30 mg PO 0900,1300 [facility] Last Admin: 08/11/24 12:51 Dose: 30 mg Baclofen (Baclofen 20 Mg Tablet) 20 mg PO TID@0900,1700,2100 [facility] Last Admin: 08/11/24 17:11 Dose: 20 mg Benzocaine (Throat Lozenge, Medicated Lozenge) 1 lozenge MUCOUS MEM Q2H PRN PRN Reason: Sore Throat Last Admin: 08/05/24 14:02 Dose: 1 lozenge Capsaicin (Capsaicin 0.025% Cream 60 Gm Tube) 1 appl TOPICAL QID PRN; Protocol PRN Reason: muscle pain Last Admin: 08/07/24 13:42 Dose: 1 appl Clonazepam (Clonazepam 1 Mg Tablet) 1 mg PO BID@1200,2100 [facility] Last Admin: 08/11/24 12:50 Dose: 1 mg Clonazepam (Clonazepam 1 Mg Tablet) 2 mg PO 0900 [facility] Last Admin: 08/11/24 09:06 Dose: 2 mg Clonidine HCl (Clonidine Hcl 0.2 Mg Tablet) 0.2 mg PO TID [facility]; Protocol Last Admin: 08/11/24 14:48 Dose: 0.2 mg Diclofenac Sodium (Diclofenac Sodium Delayed Rel 50 Mg Tablet.) 50 mg PO BIDWM [facility] Last Admin: 08/11/24 17:10 Dose: 50 mg Dicyclomine HCl (Dicyclomine Hcl 10 Mg Capsule) 20 mg PO TID PRN PRN Reason: abdominal pain Last Admin: 08/10/24 09:15 Dose: 20 mg Docusate Sodium (Docusate Sodium 100 Mg Capsule) 100 mg PO BID [facility] Last Admin: 08/11/24 09:07 Dose: 100 mg Ferrous Sulfate (Ferrous Sulfate 324 Mg Tablet.) 324 mg PO DAILY [facility] Last Admin: 08/11/24 11:28 Dose: Not Given Fluticasone Propionate (Fluticasone Propionate Nasal 16 Gm [place]) 1 spray NOSTRIL-B DAILY [facility] Last Admin: 08/11/24 12:45 Dose: 1 spray Guaifenesin (Guaifenesin 100 Mg/5 Ml 5 Ml Liquid) 5 ml PO Q6H PRN PRN Reason: Cough Last Admin: 08/11/24 09:07 Dose: 5 ml Hydroxyzine HCl (Hydroxyzine Hcl 25 Mg Tablet) 25 mg PO Q6H PRN PRN Reason: Anxiety Last Admin: 08/10/24 20:41 Dose: 25 mg Loperamide HCl (Loperamide Hcl 2 Mg Capsule) 2 mg PO Q4H PRN PRN Reason: Diarrhea Last Admin: 08/06/24 08:51 Dose: 2 mg Loratadine (Loratadine 10 Mg Tablet) 10 mg PO DAILY [facility] Last Admin: 08/11/24 11:28 Dose: Not Given Magnesium Hydroxide (Milk Of Magnesia 30 Ml Oral.Susp) 30 ml PO DAILY PRN PRN Reason: Constipation Methadone HCl (Methadone Hcl 20 Mg/2 Ml Oral.Conc) 110 mg PO DAILY [facility] Last Admin: 08/11/24 08:09 Dose: 110 mg Multi-Ingred Cream/Lotion/Oil/Oint (Mineral Oil/Petrolatum,White 106 Gm Tube) 1 appl TOPICAL BID [facility]; Protocol Last Admin: 08/11/24 11:28 Dose: Not Given Multivitamins/Vitamin C (Multivitamin Tablet) 1 tab PO DAILY [facility] Last Admin: 08/11/24 11:28 Dose: Not Given Nicotine (Nicotine 21 Mg Patch.Td24) 21 mg TRANSDERMA DAILY PRN PRN Reason: nicotine cravings Nicotine Polacrilex (Nicotine Polacrilex 2 Mg Gum) 4 mg BUCCAL Q2H PRN PRN Reason: Nicotine Cravings Last Admin: 08/11/24 09:05 Dose: 4 mg Nystatin (Nystatin Powder 15 Gm Bottle) 1 appl TOPICAL BID [facility]; Protocol Last Admin: 08/11/24 11:29 Dose: Not Given Oxybutynin Chloride (Oxybutynin Chloride Er 5 Mg Tab.Er.24) 10 mg PO BEDTIME [facility] Last Admin: 08/10/24 20:37 Dose: 10 mg Pregabalin (Pregabalin 150 Mg Capsule) 300 mg PO BID [facility] Last Admin: 08/11/24 09:06 Dose: 300 mg Sumatriptan Succinate (Sumatriptan Succinate 25 Mg Tablet) 25 mg PO DAILY PRN PRN Reason: Migraine Headache Last Admin: 08/08/24 20:17 Dose: 25 mg Topiramate (Topiramate 100 Mg Tablet) 200 mg PO BID [facility] Last Admin: 08/11/24 09:05 Dose: 200 mg Trazodone HCl (Trazodone Hcl 50 Mg Tablet) 50 mg PO BEDTIME MRX1 PRN PRN Reason: Insomnia Allergies Allergies Allergy/AdvReac Type Severity Reaction Status Date / Time benztropine Allergy Unknown Verified 07/22/24 14:23 Bleach (Sodium Hypochlorite) Allergy Unknown Verified 07/22/24 14:23 chlorpromazine Allergy Unknown Verified 07/22/24 14:23 divalproex sodium Allergy Unknown Verified 07/22/24 14:23 olanzapine Allergy Unknown Verified 07/22/24 14:23 quetiapine Allergy Unknown Verified 07/22/24 14:23 Sulfa (Sulfonamide Allergy Unknown Verified 07/22/24 14:23 Antibiotics) [Sulfonamides] ziprasidone Allergy Unknown Verified 07/22/24 14:23 haloperidol [From Haldol] AdvReac Unknown Verified 07/22/24 14:23 naloxone AdvReac Unknown Verified 07/22/24 14:23 Assessment & Plan Assessment & Plan (1) Depression: Status: Acute Code(s): F32.A - Depression, unspecified (2) Polysubstance abuse: Status: Acute Code(s): F19.10 - Other psychoactive substance abuse, uncomplicated Plan - Admit to inpatient psychiatry - CV - Collateral information from family and providers. - Milieu treatment and group therapy. - Medications: Continue same. - Social work evaluation. - Disposition planning. 07/25: Check ankle and knee XR. Switch Ditropan to HS. 07/26: Continue regime, monitor for sedation Discharge planning 07/28: Continue current regime. 07/30: Decrease Klonopin by 1mg due to sedation Discontinue Risperdal, pt refusing this medication Discontinue Valtrex, pt request Hospitalist consult, hip pain, ambulation difficulties. 07/31: Continue current regimen and plans. Continue plans for stabilization and decrease of Klonopin maybe even discontinuation. 08/01: Continue current regimen and plans for stabilization and medication management. Added loperamide 08/03: Continue current regime, discharge planning. 08/05: Throat jules and cough medicine ordered. Diagnostics are negative at this time. Continue to monitor 08/06: KUB pending Capsaicin prn Pt encouraged to call [facility] to discuss a potential bed. Active SI if sent to a program she does not agree with or a group home. 08/07- continues preoccupied with diarrhea, pain and si- the latter being chronic - not willing to engage in any self soothing/care strategies expecting medication to change things for her- despite multiple trials- 08/10- Probable discharge 08/13 or 08/16 to sober home Return klonopin to 2 mg a.m. 1mg 12pm and HS. 08/11: CMP, CBC Lasix 20 mg q am Reason for continued inpatient stay Substantial Risk for: rapid decompensation Time Spent With Patient Time: Total time managing care of this patient today ____ minutes.
[2024-08-11 20:00] VITALS: BP 123/87; PULSE 122; RESP 18; TEMP 36.9; O2SAT 98
[2024-08-11 20:33] VITALS: BP 116/69
[2024-08-11] MEDS: oxyBUTYnin chloride ER 5 MG TAB.ER.24 10 MG PO (20:34)
[2024-08-11] MEDS: hydrOXYzine HCL 25 MG TABLET PO (20:38)
[2024-08-11] MEDS: Acetaminophen 325 MG TABLET 975 MG PO (20:38)
[2024-08-12] MEDS: methADONE HCl 20 MG/2 ML ORAL.CONC 110 MG PO (07:45)
[2024-08-12] MEDS: Fluticasone Propionate Nasal 16 GM SPRAY 1 SPRAY NOSTRIL-B (08:49)
[2024-08-12 08:50] VITALS: BP 140/75; PULSE 69; TEMP 36.3; O2SAT 97
[2024-08-12] MEDS: Loratadine 10 MG TABLET PO (08:51)
[2024-08-12] MEDS: Docusate Sodium 100 MG CAPSULE PO ×2 (08:51→20:42)
[2024-08-12] MEDS: Pregabalin 150 MG CAPSULE 300 MG PO ×2 (08:52→20:41)
[2024-08-12] MEDS: Amphetamine Mixed Salts 20 MG TABLET 30 MG PO ×2 (08:52→13:20)
[2024-08-12] MEDS: Diclofenac Sodium Delayed Rel 50 MG TABLET.DR PO ×2 (08:52→17:01)
[2024-08-12] MEDS: clonazePAM 1 MG TABLET 2 MG PO (08:52)
[2024-08-12 08:53] VITALS: BP 140/75
[2024-08-12] MEDS: Baclofen 20 MG TABLET PO ×3 (08:53→20:41)
[2024-08-12] MEDS: Furosemide 20 MG TABLET PO (08:53)
[2024-08-12 08:54] VITALS: BP 140/75
[2024-08-12] MEDS: cloNIDine HCL 0.2 MG TABLET PO ×3 (08:54→20:42)
[2024-08-12] MEDS: Multivitamin TABLET 1 TAB PO (08:54)
[2024-08-12] MEDS: Mineral Oil/Petrolatum,White 106 GM Tube 1 APPL TOPICAL (08:54)
[2024-08-12] MEDS: Topiramate 100 MG TABLET 200 MG PO ×2 (08:54→20:41)
[2024-08-12] MEDS: Ferrous Sulfate 324 MG TABLET.DR PO (08:54)
[2024-08-12] MEDS: Acetaminophen 325 MG TABLET 975 MG PO ×2 (09:06→20:41)
[2024-08-12] MEDS: Nicotine Polacrilex 2 MG GUM 4 MG BUCCAL ×3 (09:07→20:41)
--- NOTE | 2024-08-12 09:54 | P.PNPSI_ITS ---
Subjective Subjective Date of Service: 08/12/24 Reason For Visit: Depression Interim History: Pt remains good behavioral control. Hopeful about her DC plan. She reports her face is breaking out due to using a make up brush that may have caused this. She is going to be DCd to a sober home. Engaged in milieu with peers. Denies SI/HI/AH/VH. Pleased with discharge planning thus far. Review of Systems Review of Systems reports some retention of fluid which we will monitor. Yes all other systems are reviewed and are negative Mental Status Exam Mental Status Exam Narrative: Alert, oriented. Speech is clear, articulate Affect and mood are euthymic Thought process and content are intact with goal oriented, forward thinking Denies SI/HI/AH/VH High risk to relapse should we not have a specific plan of care for pt for her discharge. Patient Appearance: Well Grooomed and Appropriate Patient Orientation: Person, Place, Time and Situation Level of Consciousness: Awake Patient Behavior: Guarded, Resistive to Care and Good Eye Contact Behavior Comments: not falling asleep today, is chewing gum- but speech doesn't sound slurred Mood Description: Angry Affect Description: Appropriate Patient Cognition Impaired: No Ability to Follow Directions: Fair Speech Pattern: Clear Memory Description: Intact and Episodic Impaired Diagnostics Vital Signs (24Hr): Vital Signs - 24 hr 08/11/24 14:48 08/11/24 20:00 08/11/24 20:33 Temperature 98.5 F Pulse Rate 122 H Respiratory Rate 18 Blood Pressure 132/94 H 123/87 116/69 Pulse Oximetry 98 Oxygen Delivery Method Room Air 08/12/24 08:53 08/12/24 08:54 Temperature Pulse Rate Respiratory Rate Blood Pressure 140/75 H 140/75 H Pulse Oximetry Oxygen Delivery Method BMI result Body Mass Index 39.5 Labs 08/02/24 16:27 08/02/24 16:27 Imaging Radiology Impressions: ITS Impressions Ankle X-Ray 07/25/24 14:10 IMPRESSION: No acute fracture or dislocation right ankle. Bimalleolar soft tissue swelling. Small calcaneal heel spur. Degenerative arthritic changes right knee without acute fracture or dislocation. Moderate osteophytosis superior to patella Electronically signed by: Baldo Espinosa MD 07/25/2024 09:29 PM EST Knee X-Ray 07/25/24 14:10 IMPRESSION: No acute fracture or dislocation right ankle. Bimalleolar soft tissue swelling. Small calcaneal heel spur. Degenerative arthritic changes right knee without acute fracture or dislocation. Moderate osteophytosis superior to patella Electronically signed by: Baldo Espinosa MD 07/25/2024 09:29 PM EST RP KUB X-Ray 08/06/24 14:45 IMPRESSION: Unremarkable examination. Electronically signed by: Miriam Bauer MD 08/07/2024 07:32 AM EST RP Medications Medications Current Medications Acetaminophen (Acetaminophen 325 Mg Tablet) 975 mg PO Q8H PRN PRN Reason: moderate pain Last Admin: 08/12/24 09:06 Dose: 975 mg Al Hydroxide/Mg Hydroxide (Magnesium Hydrox/Alum Hydrox 30 Ml Oral.Susp) 30 ml PO Q6H PRN PRN Reason: Heartburn/Nausea Last Admin: 08/10/24 09:30 Dose: 30 ml Amphetamine/Dextroamphetamine (Amphetamine Mixed Salts 20 Mg Tablet) 30 mg PO 0900,1300 [facility] Last Admin: 08/12/24 08:52 Dose: 30 mg Baclofen (Baclofen 20 Mg Tablet) 20 mg PO TID@0900,1700,2100 [facility] Last Admin: 08/12/24 08:53 Dose: 20 mg Benzocaine (Throat Lozenge, Medicated Lozenge) 1 lozenge MUCOUS MEM Q2H PRN PRN Reason: Sore Throat Last Admin: 08/05/24 14:02 Dose: 1 lozenge Capsaicin (Capsaicin 0.025% Cream 60 Gm Tube) 1 appl TOPICAL QID PRN; Protocol PRN Reason: muscle pain Last Admin: 08/07/24 13:42 Dose: 1 appl Clonazepam (Clonazepam 1 Mg Tablet) 1 mg PO BID@1200,2100 [facility] Last Admin: 08/11/24 20:34 Dose: 1 mg Clonazepam (Clonazepam 1 Mg Tablet) 2 mg PO 0900 [facility] Last Admin: 08/12/24 08:52 Dose: 2 mg Clonidine HCl (Clonidine Hcl 0.2 Mg Tablet) 0.2 mg PO TID [facility]; Protocol Last Admin: 08/12/24 08:54 Dose: 0.2 mg Diclofenac Sodium (Diclofenac Sodium Delayed Rel 50 Mg Tablet.Dr) 50 mg PO BIDWM [facility] Last Admin: 08/12/24 08:52 Dose: 50 mg Dicyclomine HCl (Dicyclomine Hcl 10 Mg Capsule) 20 mg PO TID PRN PRN Reason: abdominal pain Last Admin: 08/10/24 09:15 Dose: 20 mg Docusate Sodium (Docusate Sodium 100 Mg Capsule) 100 mg PO BID [facility] Last Admin: 08/12/24 08:51 Dose: 100 mg Ferrous Sulfate (Ferrous Sulfate 324 Mg Tablet.) 324 mg PO DAILY [facility] Last Admin: 08/12/24 08:54 Dose: 324 mg Fluticasone Propionate (Fluticasone Propionate Nasal 16 Gm [place]) 1 spray NOSTRIL-B DAILY [facility] Last Admin: 08/12/24 08:49 Dose: 1 spray Furosemide (Furosemide 20 Mg Tablet) 20 mg PO DAILY [facility]; Protocol Last Admin: 08/12/24 08:53 Dose: 20 mg Guaifenesin (Guaifenesin 100 Mg/5 Ml 5 Ml Liquid) 5 ml PO Q6H PRN PRN Reason: Cough Last Admin: 08/11/24 09:07 Dose: 5 ml Hydroxyzine HCl (Hydroxyzine Hcl 25 Mg Tablet) 25 mg PO Q6H PRN PRN Reason: Anxiety Last Admin: 08/11/24 20:38 Dose: 25 mg Loperamide HCl (Loperamide Hcl 2 Mg Capsule) 2 mg PO Q4H PRN PRN Reason: Diarrhea Last Admin: 08/06/24 08:51 Dose: 2 mg Loratadine (Loratadine 10 Mg Tablet) 10 mg PO DAILY [facility] Last Admin: 08/12/24 08:51 Dose: 10 mg Magnesium Hydroxide (Milk Of Magnesia 30 Ml Oral.Susp) 30 ml PO DAILY PRN PRN Reason: Constipation Methadone HCl (Methadone Hcl 20 Mg/2 Ml Oral.Conc) 110 mg PO DAILY [facility] Last Admin: 08/12/24 07:45 Dose: 110 mg Multi-Ingred Cream/Lotion/Oil/Oint (Mineral Oil/Petrolatum,White 106 Gm Tube) 1 appl TOPICAL BID [facility]; Protocol Last Admin: 08/12/24 08:54 Dose: 1 appl Multivitamins/Vitamin C (Multivitamin Tablet) 1 tab PO DAILY [facility] Last Admin: 08/12/24 08:54 Dose: 1 tab Nicotine (Nicotine 21 Mg Patch.Td24) 21 mg TRANSDERMA DAILY PRN PRN Reason: nicotine cravings Nicotine Polacrilex (Nicotine Polacrilex 2 Mg Gum) 4 mg BUCCAL Q2H PRN PRN Reason: Nicotine Cravings Last Admin: 08/12/24 09:07 Dose: 4 mg Nystatin (Nystatin Powder 15 Gm Bottle) 1 appl TOPICAL BID [facility]; Protocol Last Admin: 08/12/24 08:54 Dose: Not Given Oxybutynin Chloride (Oxybutynin Chloride Er 5 Mg Tab.Er.24) 10 mg PO BEDTIME [facility] Last Admin: 08/11/24 20:34 Dose: 10 mg Pregabalin (Pregabalin 150 Mg Capsule) 300 mg PO BID [facility] Last Admin: 08/12/24 08:52 Dose: 300 mg Sumatriptan Succinate (Sumatriptan Succinate 25 Mg Tablet) 25 mg PO DAILY PRN PRN Reason: Migraine Headache Last Admin: 08/08/24 20:17 Dose: 25 mg Topiramate (Topiramate 100 Mg Tablet) 200 mg PO BID [facility] Last Admin: 08/12/24 08:54 Dose: 200 mg Trazodone HCl (Trazodone Hcl 50 Mg Tablet) 50 mg PO BEDTIME MRX1 PRN PRN Reason: Insomnia Allergies Allergies Allergy/AdvReac Type Severity Reaction Status Date / Time benztropine Allergy Unknown Verified 07/22/24 14:23 Bleach (Sodium Hypochlorite) Allergy Unknown Verified 07/22/24 14:23 chlorpromazine Allergy Unknown Verified 07/22/24 14:23 divalproex sodium Allergy Unknown Verified 07/22/24 14:23 olanzapine Allergy Unknown Verified 07/22/24 14:23 quetiapine Allergy Unknown Verified 07/22/24 14:23 Sulfa (Sulfonamide Allergy Unknown Verified 07/22/24 14:23 Antibiotics) [Sulfonamides] ziprasidone Allergy Unknown Verified 07/22/24 14:23 haloperidol [From Haldol] AdvReac Unknown Verified 07/22/24 14:23 naloxone AdvReac Unknown Verified 07/22/24 14:23 Assessment & Plan Assessment & Plan (1) Depression: Status: Acute Code(s): F32.A - Depression, unspecified (2) Polysubstance abuse: Status: Acute Code(s): F19.10 - Other psychoactive substance abuse, uncomplicated Plan - Admit to inpatient psychiatry - CV - Collateral information from family and providers. - Milieu treatment and group therapy. - Medications: Continue same. - Social work evaluation. - Disposition planning. 07/25: Check ankle and knee XR. Switch Ditropan to HS. 07/26: Continue regime, monitor for sedation Discharge planning 07/28: Continue current regime. 07/30: Decrease Klonopin by 1mg due to sedation Discontinue Risperdal, pt refusing this medication Discontinue Valtrex, pt request Hospitalist consult, hip pain, ambulation difficulties. 07/31: Continue current regimen and plans. Continue plans for stabilization and decrease of Klonopin maybe even discontinuation. 08/01: Continue current regimen and plans for stabilization and medication management. Added loperamide 08/03: Continue current regime, discharge planning. 08/05: Throat jules and cough medicine ordered. Diagnostics are negative at this time. Continue to monitor 08/06: KUB pending Capsaicin prn Pt encouraged to call [facility] to discuss a potential bed. Active SI if sent to a program she does not agree with or a nursing home. 08/07- continues preoccupied with diarrhea, pain and si- the latter being chronic - not willing to engage in any self soothing/care strategies expecting medication to change things for her- despite multiple trials- 08/10- Probable discharge 08/13 or 08/16 to sober home Return klonopin to 2 mg a.m. 1mg 12pm and HS. 08/11: CMP, CBC Lasix 20 mg q am 08/12: No labs resulted. Will reorder for tomorrow. Continue current management and treatment plan. Reason for continued inpatient stay Substantial Risk for: harm to self, inability to function and rapid decompensation Time Spent With Patient Time: Total time managing care of this patient today ____ minutes.
[2024-08-12] MEDS: clonazePAM 1 MG TABLET PO ×2 (11:48→17:08)
--- NOTE | 2024-08-12 12:22 | PC.NURSE ---
This sba underwriter approached pt with her scheduled 1PM Adderall (1.5 tabs), along with another scheduled med, at approx 12:15. Patient took only half an Adderall tablet, handed the other Adderall tablet back to TW and said Here, for you. Linh Ansari. Unsure if patient was joking. TW told patient that I need to either waste the med or administer it to her, as staff cannot take medications from patients. She stated I just want to relax for a while. We agreed that she will take this med closer to 1PM.
[2024-08-12 15:10] VITALS: BP 168/88
[2024-08-12 20:00] VITALS: BP 141/82; PULSE 100; O2SAT 94
[2024-08-12] MEDS: oxyBUTYnin chloride ER 5 MG TAB.ER.24 10 MG PO (20:41)
[2024-08-12 20:42] VITALS: BP 141/82
[2024-08-12] MEDS: hydrOXYzine HCL 25 MG TABLET PO (20:42)
[2024-08-13] MEDS: methADONE HCl 20 MG/2 ML ORAL.CONC 110 MG PO (07:57)
[2024-08-13] MEDS: Pregabalin 150 MG CAPSULE 300 MG PO (08:34)
[2024-08-13 08:35] VITALS: BP 133/83
[2024-08-13] MEDS: clonazePAM 1 MG TABLET 2 MG PO (08:35)
[2024-08-13] MEDS: Furosemide 20 MG TABLET PO (08:35)
[2024-08-13] MEDS: Amphetamine Mixed Salts 20 MG TABLET 30 MG PO ×2 (08:35→12:35)
[2024-08-13] MEDS: Docusate Sodium 100 MG CAPSULE PO (08:35)
[2024-08-13 08:36] VITALS: BP 133/83
[2024-08-13] MEDS: Loratadine 10 MG TABLET PO (08:36)
[2024-08-13] MEDS: cloNIDine HCL 0.2 MG TABLET PO (08:36)
[2024-08-13] MEDS: Topiramate 100 MG TABLET 200 MG PO (08:36)
[2024-08-13] MEDS: Baclofen 20 MG TABLET PO (08:37)
[2024-08-13] MEDS: Diclofenac Sodium Delayed Rel 50 MG TABLET.DR PO (08:37)
[2024-08-13] MEDS: clonazePAM 1 MG TABLET PO (12:35)
--- NOTE | 2024-08-13 15:01 | P.DS_ITS ---
DS: Providers Provider Date of Service: 08/13/24 Date of admission: 07/23/24 11:07 Date of discharge: 08/13/24 Primary care physician: Unknown Physician Admitting clinician: Bolivar Obrien Attending physician on admission: Bolivar Obrien Consults: 07/30/24 13:00 Consult to Hospitalist Routine Comment: Cleared by PT, pt requesting further eval Consulting Provider: [facility] [place] Hospitalists Reason For Exam: Hip pain, difficulty in ambulation Attending physician on discharge: Leon Polk Discharging clinician: Khadra Lund DS: Diagnosis Discharge Diagnosis (1) Depression: Status: Acute (2) Polysubstance abuse: Status: Acute DS: Medications Discharge Medications Home Medications: Home Medications ?Medication ?Instructions ?Recorded ?Confirmed baclofen 20 mg tablet 20 mg PO TID 07/23/24 07/23/24 clonidine HCl 0.2 mg tablet 0.2 mg PO TID 07/23/24 07/23/24 dicyclomine 20 mg tablet 20 mg PO TID 07/23/24 07/23/24 docusate sodium 100 mg capsule 100 mg PO BID 07/23/24 07/23/24 fluticasone propionate 50 1 spray intranasal DAILY 07/23/24 07/23/24 mcg/actuation nasal spray,suspension gabapentin 100 mg capsule 100 mg PO TID 07/23/24 07/23/24 gabapentin 300 mg capsule 300 mg PO TID 07/23/24 07/23/24 loratadine 10 mg tablet 10 mg PO DAILY 07/23/24 07/23/24 methadone 110 mg PO DAILY 07/23/24 07/23/24 oxybutynin chloride 10 mg 10 mg PO DAILY 07/23/24 07/23/24 tablet,extended release 24 hr pregabalin 300 mg capsule 300 mg PO BID 07/23/24 07/23/24 pregabalin 75 mg capsule 75 mg PO TID 07/23/24 07/23/24 sennosides 8.6 mg tablet (senna) 8.6 mg PO BID 07/23/24 07/23/24 topiramate 200 mg tablet 200 mg PO BID 07/23/24 07/23/24 topiramate 50 mg tablet 50 mg PO BID 07/23/24 07/23/24 valacyclovir 1 gram tablet 1,000 mg PO DAILY 07/23/24 07/23/24 Previous Rx's ?Medication ?Instructions ?Recorded acetaminophen 325 mg tablet 975 mg (3 x 325 mg) PO Q8H PRN 08/13/24 moderate pain #60 tabs clonazepam 1 mg tablet 1 mg PO BID@1200,2100 #0 tabs 08/13/24 clonazepam 1 mg tablet 2 mg (2 x 1 mg) PO 0900 #0 tabs 08/13/24 dextroamphetamine-amphetamine 30 30 mg PO BID #60 tabs 08/13/24 mg tablet (Adderall) ferrous sulfate 324 mg (65 mg 324 mg PO DAILY #30 tabs 08/13/24 iron) tablet,delayed release ibuprofen 800 mg tablet 800 mg PO Q6H PRN Moderate Pain 08/13/24 (Scale Score 5-6) #60 tabs multivitamin (Daily-Mamadou tablet) 1 tab PO DAILY #30 tabs 08/13/24 Mental Status Exam Mental Status Exam Narrative: Alert, oriented. Speech is clear, articulate Affect and mood are euthymic Thought process and content are intact with goal oriented, forward thinking Denies SI/HI/AH/VH High risk to relapse should we not have a specific plan of care for pt for her discharge. Patient Appearance: Well Grooomed and Appropriate Patient Orientation: Person, Place, Time and Situation Level of Consciousness: Awake Patient Behavior: Guarded, Resistive to Care and Good Eye Contact Behavior Comments: not falling asleep today, is chewing gum- but speech doesn't sound slurred Mood Description: Angry Affect Description: Appropriate Patient Cognition Impaired: No Ability to Follow Directions: Fair Speech Pattern: Clear Memory Description: Intact and Episodic Impaired Data Data Completed and Pending Completed studies during hospitalization [Text1]: 08/02/24 17:55 Throat Throat Culture - Final No Group A Beta-hemolytic Streptococci isolated. 07/22/24 Unknown Urine clean catch - Clean Catch Midstream Urine Culture - Final Imaging Diagnostic Imaging Impressions Ankle X-Ray 07/25/24 14:10 IMPRESSION: No acute fracture or dislocation right ankle. Bimalleolar soft tissue swelling. Small calcaneal heel spur. Degenerative arthritic changes right knee without acute fracture or dislocation. Moderate osteophytosis superior to patella Electronically signed by: Baldo Espinosa MD 07/25/2024 09:29 PM EST RP Knee X-Ray 07/25/24 14:10 IMPRESSION: No acute fracture or dislocation right ankle. Bimalleolar soft tissue swelling. Small calcaneal heel spur. Degenerative arthritic changes right knee without acute fracture or dislocation. Moderate osteophytosis superior to patella Electronically signed by: Baldo Espinosa MD 07/25/2024 09:29 PM EST RP KUB X-Ray 08/06/24 14:45 IMPRESSION: Unremarkable examination. Electronically signed by: Miriam Bauer MD 08/07/2024 07:32 AM EST RP DS: Summary Hospital Course Hospital Course: Admission to adult psychiatry for exacerbation of PTSD, recurrent major depression, borderline personality disorder. Pt has a diagnosis of opioid use disorder, is on skilled nursing methadone maintenance. She was transferrred from [facility] to [facility] after a long admission and reports being mocked and bullied at the program, so she was sent for admission to [facility] [facility]. Pt reported chronic pain. She presented as overmedicated so some of her doses were decreased, namely Klonopin. She refused treatment for paranoia, mood lability. During her admission, she was noted to be resistant to treatment and had some interpersonal difficulties with team and peers. When discharge planning occurred, she was clear that if sent to a group home she would relapse and suicide, not accept any options except what she wanted for placement. Extensive effort was given by team to help pt with placement. She was encouraged to make calls to her contacts to assess their availability to assist her. She was successful with a sober home she had lived in with good results by history and will discharge to this home and return to her OP prescriber. She asked for minimal prescriptions as she did not want to continue the decreases made in the hospital, although with these decreases she was clearer in her thought process, more functional overall and her mood seemed to improve. Status at Discharge Functional status at discharge: independent ambulation Overall status at discharge: patient is progressing back to baseline Time Spent with Patient Time attestation: Total time managing care of this patient today ____ minutes. Time spent: Less than 30 minutes Discharge Plan Discharge Anticipated Discharge Date/Time: 08/13/24 12:00 Patient Disposition: Xfer Other Discharge Diagnosis: Opiate Use Disorder-Methadone Maintenance Polysubstance Use Disorder Recurrent Major Depression, Severe PTSD Borderline Personality Disorder Referrals: Nitish Sanabria [Other] - 1 Day (They are expecting you for Friday and they do have an ID for you on file. Ask them to set you up with a new PT1. ) Karyna Celis NP [Other] - 1 Week (Pt reported she will follow up on her own regarding securing an appointment. ) Physician,Unknown J [Primary Care Provider] - 1 Week Discharge Medications: New acetaminophen 325 mg Tablet 975 mg PO Q8H PRN (Reason: moderate pain) Qty: 60 1RF clonazepam 1 mg Tablet 2 mg PO 0900 Qty: 0 0RF clonazepam 1 mg Tablet 1 mg PO BID@1200,2100 Qty: 0 0RF ferrous sulfate 324 mg (65 mg iron) Tablet,Delayed Release (Dr/Ec) 324 mg PO DAILY Qty: 30 0RF multivitamin [Daily-Mamadou] Tablet 1 tab PO DAILY Qty: 30 0RF dextroamphetamine-amphetamine [Adderall] 30 mg tablet 30 mg PO BID Qty: 60 0RF Rx Instructions: administer doses at least 4-6 hours apart; Partial Fill upon patient request. Continued methadone 110 mg PO DAILY sennosides [senna] 8.6 mg tablet 8.6 mg PO BID oxybutynin chloride 10 mg tablet extended release 24hr 10 mg PO DAILY Rx Instructions: QHS baclofen 20 mg tablet 20 mg PO TID clonidine HCl 0.2 mg tablet 0.2 mg PO TID dicyclomine 20 mg tablet 20 mg PO TID docusate sodium 100 mg capsule 100 mg PO BID topiramate 200 mg tablet 200 mg PO BID loratadine 10 mg tablet 10 mg PO DAILY pregabalin 300 mg capsule 300 mg PO BID valacyclovir 1 gram tablet 1,000 mg PO DAILY gabapentin 300 mg capsule 300 mg PO TID gabapentin 100 mg capsule 100 mg PO TID fluticasone propionate 50 mcg/actuation spray,suspension 1 spray intranasal DAILY topiramate 50 mg tablet 50 mg PO BID pregabalin 75 mg capsule 75 mg PO TID ibuprofen 800 mg tablet 800 mg PO Q6H PRN (Reason: Moderate Pain (Scale Score 5-6)) Qty: 60 1RF Discontinued clonazepam 2 mg tablet 2 mg PO DAILY PRN (Reason: Anxiety) clonazepam 1 mg tablet 1 mg PO BID Discharge Orders: Discharge Order (Routine); Ordered 08/13/24 Ordered By: Khadra Lund Diet: Advance to usual diet Activity on Discharge: As tolerated Stand Alone Forms: Patient Portal Discharge page, Community Support Print Language: Burkinan Care Plan Goals: Maintain Sobriety Mood and Behavioral Stabilization Health Concerns: Maintain Sobriety Mood and Behavioral Stabilization Plan of Treatment: Attend scheduled appointments Take medications as directed Assessment: Discharge to sober home, [facility]. Pt has lived there before, knows them well as they know her. No SI/HI/AH/VH No sx of acute kwasi or psychosis Discharge Date/Time: 08/13/24 12:45
== END 2024-08-13 12:45 | disposition other institution (70) | DRG 885 ==
LOC: HO.ED 07-23 03:29 → HO.PM5 07-23 14:10
PROVIDERS: Physician Assistant Medical; Psychiatry & Neurology Psychiatry; Admitting Provider Clinical Nurse Specialist Psychiatric/Mental Health, Adult; Emergency Provider Emergency Medicine; Visit Provider Clinical Nurse Specialist Psychiatric/Mental Health, Adult
DX: F33.2 Major depressive disorder, recurrent severe without psychotic features (principal); R45.851 Suicidal ideations; F11.20 Opioid dependence, uncomplicated; Z59.02 Unsheltered homelessness; F17.210 Nicotine dependence, cigarettes, uncomplicated; R19.7 Diarrhea, unspecified; I95.0 Idiopathic hypotension; F19.10 Other psychoactive substance abuse, uncomplicated; F43.10 Post-traumatic stress disorder, unspecified; F60.3 Borderline personality disorder; Z20.822 Contact with and (suspected) exposure to COVID-19; Z79.51 Long term (current) use of inhaled steroids; Z79.899 Other long term (current) drug therapy
CPT/HCPCS: 0241U; 36415; 73560; 73600; 74018; 80053; 80061; 80307; 81001; 81025; 82607; 82746; 83036; 83690; 83735; 84439; 84443; 85025; 87070; 87086; 87507; 93005; 97161; 99285; S9485

== ENCOUNTER → 2024-07-22 16:48 | Outpatient (BNV) | payer MEDICARE, MEDICAID, SELFPAY | PROVIDERS: Emergency Provider Emergency Medicine; Visit Provider Internal Medicine Cardiovascular Disease | DX: R94.31 Abnormal electrocardiogram [ECG] [EKG] (principal) | CPT/HCPCS: 93010 ==

== ENCOUNTER 2024-07-23 11:07 | Outpatient (BNV) | payer MEDICARE, MEDICAID, SELFPAY | END 2024-07-23 11:23 | PROVIDERS: Admitting Provider Clinical Nurse Specialist Psychiatric/Mental Health, Adult; Emergency Provider Emergency Medicine; Visit Provider Internal Medicine Cardiovascular Disease | DX: R94.31 Abnormal electrocardiogram [ECG] [EKG] (principal) | CPT/HCPCS: 93010 ==

== ENCOUNTER → 2024-07-23 11:07 | Outpatient (BNV) | payer MEDICARE, MEDICAID, SELFPAY | PROVIDERS: Admitting Provider Clinical Nurse Specialist Psychiatric/Mental Health, Adult; Emergency Provider Emergency Medicine; Visit Provider Psychiatry & Neurology Psychiatry | DX: F32.2 Major depressive disorder, single episode, severe without psychotic features (principal); F19.10 Other psychoactive substance abuse, uncomplicated | CPT/HCPCS: 90792; 99231; 99232; 99238 ==

== ENCOUNTER 2025-03-31 09:42 | Inpatient (IN) | payer MEDICARE, SELFPAY ==
[2025-03-31] VITALS (32 sets, daily range): BP systolic 98–142; BP diastolic 44–94; PULSE 64–89; RESP 4–34; TEMP 34.8–36.6; O2SAT 86–100; BMI 40.0
--- NOTE | ~2025-03-31 | XR_ITS ---
EXAMINATION: XR KNEE, RIGHT CLINICAL INFORMATION: pain, injury COMPARISON: None available. TECHNIQUE: AP and lateral views of the right knee. FINDINGS: Large tricompartmental marginal osteophytes are present, most pronounced in the superior and lateral patellofemoral joint. Joint spaces are relatively preserved. Small amount joint fluid is present. XR/XR knee RT 2V IMPRESSION: Osteoarthritis with large marginal osteophytes and minimal evidence of joint space narrowing. Borderline joint effusion. Electronically signed by: Ulices Feliz MD 03/31/2025 11:12 AM EDT
--- NOTE | ~2025-03-31 | XR_ITS ---
EXAMINATION: XR ELBOW, LEFT CLINICAL INFORMATION: pain, injury COMPARISON: None available. TECHNIQUE: AP, lateral, and oblique views of the left elbow. FINDINGS: No fracture, dislocation, or suspicious bone lesion. Normal bone mineralization. Normal alignment. Joint spaces are preserved. No significant arthropathy. No evidence of joint effusion. Soft tissues appear normal. XR/XR elbow LT min 3V IMPRESSION: Normal left elbow. Electronically signed by: Aashish Pond MD 03/31/2025 11:06 AM EDT
--- NOTE | ~2025-03-31 | CT_ITS ---
EXAMINATION: CT HEAD WITHOUT CONTRAST CLINICAL INFORMATION: Altered mental status, fall with head strike. COMPARISON: None available. TECHNIQUE: Contiguous axial imaging was performed from the skull base to vertex without intravenous administration of contrast. This CT examination was performed using dose optimization techniques as appropriate, variously including the following: *Automated exposure control *Adjustment of mA and/or kV according to patient size (this includes techniques or standardized protocols for targeted exams where dose is matched to indication/reason for exam; i.e. extremities or head) *Use of iterative reconstruction technique FINDINGS: There is no evidence of intracranial hemorrhage or extra-axial fluid collection. There is no mass effect, or edema. No CT evidence of acute territorial infarct. Ventricles, sulci, and cisterns are normal in size and configuration for patient age. No hydrocephalus. No midline shift. Negative hyperdense MCA sign. Negative insular ribbon sign. No significant white matter abnormalities. Normal pituitary. Globes and orbital contents image normally. No extracranial soft tissue abnormalities. The paranasal sinuses, mastoid air cells, and tympanic cavities are normally aerated. No suspicious bony abnormalities. There are no acute fractures evident. CT/CT head/brain wo IV con IMPRESSION: No acute intracranial abnormality. No fracture evident. Electronically signed by: Aashish Pond MD 03/31/2025 11:40 AM EDT
--- NOTE | ~2025-03-31 | XR_ITS ---
EXAMINATION: XR SHOULDER, LEFT CLINICAL INFORMATION: pain, injury COMPARISON: None available. TECHNIQUE: AP external rotation, Grashey, scapular Y, and axillary views of the left shoulder. FINDINGS: Normal bone mineralization. No fracture, dislocation, or suspicious bone lesion. Normal alignment. The glenohumeral joint is normal. There is a tiny amorphous calcification abutting the superior glenoid approximately 1:00 axis. It is of uncertain significance or etiology. It may represent a labral calcification. The AC joint is normal. There is a type II acromion. No undersurface spurring. The subacromial space is preserved. Remainder of the soft tissue and bony structures appear normal. XR/XR shoulder LT min 2V IMPRESSION: 1. No acute findings of the left shoulder. 2. Tiny amorphous calcification abutting the superior glenoid is likely related to labral calcification. This is of uncertain but doubtful clinical significance. Electronically signed by: Aashish Pond MD 03/31/2025 11:09 AM EDT
--- NOTE | ~2025-03-31 | US_ITS ---
CLINICAL HISTORY: spleonmegaly Exam: 1. US abdomen complete 2. Duplex ultrasound of the main portal vein. Comparison: None provided Findings: Liver measures 16 cm in long axis. Heterogeneous echotexture throughout the liver without discrete mass lesion. Mild dilation of the intrahepatic biliary tree. Common bile duct is dilated to 9 mm. No discrete intraluminal filling defects seen within the common bile duct. Gallbladder is unremarkable without gallbladder wall thickening, pericholecystic fluid, or cholelithiasis. Negative sonographic Holguin's sign. No pancreatic ductal dilatation is seen. Generalized increased echotexture throughout the pancreas without discrete mass lesion. Spleen is unremarkable. Kidneys are of normal echotexture without focal lesion, nephrolithiasis, or hydronephrosis. Aorta and inferior vena cava are patent. No ascites. Duplex evaluation of the main portal vein was performed. This included real-time grayscale, color spectral Doppler analysis, and color Doppler flow imaging. Main portal vein is patent with hepatopetal flow. IMPRESSION: 1. Dilation of both the intrahepatic and extrahepatic biliary tree. Although no discrete intraluminal filling defect is seen within the common bile duct, choledocholithiasis is not excluded. Correlation with the patient's bilirubin level suggested. MRCP suggested for further evaluation. This document has been electronically signed by: Prateek Rutherford MD on 04/02/2025 09:08:30
--- NOTE | ~2025-03-31 | CT_ITS ---
EXAMINATION: CT CHEST WITHOUT IV CONTRAST INDICATION: SOB COMPARISON: There are no prior studies available for comparison. TECHNIQUE: Helical CT scan of the chest was performed without intravenous contrast. Coronal and sagittal reformatted images were generated and reviewed. This CT exam was performed with one or more of the following dose reduction techniques: automated exposure control, adjustment of the mA and/or kV according to patient size, use of iterative reconstruction technique. DLP: 368 mGy-cm CHEST: The examination is limited by patient motion. THYROID: The thyroid is unremarkable. LUNGS: There are nodular groundglass and airspace opacities throughout the left lung and in the right upper lobe which may be infectious in nature. MEDIASTINUM: There is no mediastinal lymphadenopathy. JAN: Evaluation of the hilar regions is limited by lack of intravenous contrast material. CARDIOVASCULATURE: The heart is normal in size. There is no pericardial effusion. The thoracic aorta is normal in caliber. DEGREE OF CORONARY CALCIFICATION: none PLEURA: There is no pleural effusion. No pneumothorax. MAIN AIRWAYS: There is marked wall thickening of the trachea and mainstem bronchi with near obliteration of the airway lumen. AXILLA: There is no axillary lymphadenopathy. BONES AND SOFT TISSUES: There is degenerative disc disease of the spine. No prior x-rays fracture is seen although evaluation is limited by motion artifact. UPPER ABDOMEN: The visualized portions of the liver and adrenal glands have an unremarkable unenhanced appearance. There is splenomegaly. CT/CT chest wo IV con IMPRESSION: 1. Nodular groundglass and airspace opacities throughout the left lung and in the right upper lobe which may be infectious or inflammatory in nature. 2. Marked wall thickening of the trachea and mainstem bronchi with near obliteration of the tracheal and bronchial lumens. Differential diagnostic considerations include infection, Rohit's granulomatosis, amyloidosis and polychondritis. Further evaluation with bronchoscopy should be considered. 3. Splenomegaly. Electronically signed by: Nicholas Birch MD 03/31/2025 11:54 AM EDT
--- NOTE | ~2025-03-31 | XR_ITS ---
EXAMINATION: XR HAND, LEFT CLINICAL INFORMATION: pain, injury COMPARISON: None available. TECHNIQUE: PA, lateral, and oblique views of the left hand. FINDINGS: Osteophytes and joint space irregularity is noted of the first carpal metacarpal joint. Marginal osteophytes and minimal joint space narrowing is noted at the second DIP joint. No other degenerative changes are present. No erosions are present. No fractures are evident. XR/XR hand LT min 3V IMPRESSION: Mild osteoarthritis is present at the second DIP joint and moderate at the first CMC joint. Electronically signed by: Ulices Feliz MD 03/31/2025 11:10 AM EDT
--- NOTE | ~2025-03-31 | US_ITS ---
CLINICAL HISTORY: LLE swollen r o dvt VENOUS DUPLEX ULTRASOUND LEFT LOWER EXTREMITY Comparison: None provided Findings: The visualized deep veins are fully compressible with normal Doppler color flow and spectral tracings. The peroneal vein is not well seen. No popliteal cyst. IMPRESSION: 1. Negative for left lower extremity deep vein thrombosis. This document has been electronically signed by: Nicole Knight DO on 04/02/2025 14:23:20
--- NOTE | ~2025-03-31 | CT_ITS ---
EXAMINATION: CT CERVICAL SPINE WITHOUT CONTRAST CLINICAL INFORMATION: Head trauma, fall, altered mental status COMPARISON: None available. TECHNIQUE: Axial imaging was performed from the base of the skull through T2 without IV contrast. Coronal and sagittal reformatted images were generated from the original axial data set. ALARA: The examination used one or more of the following radiation dose reduction techniques: Automated exposure control, iterative reconstruction, and/or adjustment of mA and/or KV. DLP: 478 mGY*cm FINDINGS: Patchy groundglass and airspace opacities are visible in the left lung apex. There is mild reversal of the normal cervical lordosis. No fractures are identified. There is no prevertebral soft tissue swelling. Multilevel disc space narrowing with endplate changes osteophytes are noted. There are also vertebral facet osteophytes. Degenerative changes are most advanced at C5-6 and C6-7. CT/CT cervical spine wo IV con IMPRESSION: There is mild reversal of cervical lordosis. This can be related to degenerative changes, positioning, muscle spasm, or posterior soft tissue injury. No acute fracture. Suspected left upper lobe pneumonia. Electronically signed by: Ulices Feliz MD 03/31/2025 11:46 AM EDT
--- NOTE | ~2025-03-31 | MR_ITS ---
CLINICAL HISTORY: biliary ductal dilation on us MRCP WITHOUT GADOLINIUM Comparison: US/SR - US ABDOMEN COMPLETE - 04/02/25 08:17 EDT Findings: There is motion artifact. The common bile duct measures 1.1 cm. There is abrupt cutoff distally. No normal distal tapering. The intrahepatic biliary radicles are mildly prominent. The pancreatic duct is normal in course and caliber. The gallbladder is smooth in outline with no intraluminal filling defect. Normal size liver with probable fatty changes. Mild splenomegaly; 14.2 cm. Pancreas, adrenal glands, kidneys and abdominal aorta are unremarkable. No ascites. No bowel obstruction. Osseous structures unremarkable. IMPRESSION: 1. Motion affected study. 2. Dilated common bile duct with abrupt cutoff distally suggesting a small stone or lesion. 3. No evidence for cholelithiasis. This document has been electronically signed by: Nicole Knight DO on 04/03/2025 18:41:06
--- NOTE | 2025-03-31 09:46 | ED_ITS ---
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 TECHNIQUE: AP, lateral, and oblique views of the left elbow. FINDINGS: No fracture, dislocation, or suspicious bone lesion. Normal bone mineralization. Normal alignment. Joint spaces are preserved. No significant arthropathy. No evidence of joint effusion. Soft tissues appear normal. XR/XR elbow LT min 3V IMPRESSION: Normal left elbow. Electronically signed by: Aashish Pond MD 03/31/2025 11:06 AM [employer] Dictated By: Aashish Pond MD Signed By: Electronically signed by Aashish Pond MD 03/31/25 1106 EXAMINATION: XR HAND, LEFT CLINICAL INFORMATION: pain, injury COMPARISON: None available. TECHNIQUE: PA, lateral, and oblique views of the left hand. FINDINGS: Osteophytes and joint space irregularity is noted of the first carpal metacarpal joint. Marginal osteophytes and minimal joint space narrowing is noted at the second DIP joint. No other degenerative changes are present. No erosions are present. No fractures are evident. XR/XR hand LT min 3V IMPRESSION: Mild osteoarthritis is present at the second DIP joint and moderate at the first CMC joint. Electronically signed by: Ulices Feliz MD 03/31/2025 11:10 AM EDT RP Dictated By: Ulices Feliz MD Signed By: Electronically signed by Ulices Feliz MD 03/31/25 1110 Report Number: [id number]: Total DLP = 367.00 mGy-cm EXAMINATION: CT CHEST WITHOUT IV CONTRAST INDICATION: SOB COMPARISON: There are no prior studies available for comparison. TECHNIQUE: Helical CT scan of the chest was performed without intravenous contrast. Coronal and sagittal reformatted images were generated and reviewed. This CT exam was performed with one or more of the following dose reduction techniques: automated exposure control, adjustment of the mA and/or kV according to patient size, use of iterative reconstruction technique. DLP: 368 mGy-cm CHEST: The examination is limited by patient motion. THYROID: The thyroid is unremarkable. LUNGS: There are nodular groundglass and airspace opacities throughout the left lung and in the right upper lobe which may be infectious in nature. MEDIASTINUM: There is no mediastinal lymphadenopathy. JAN: Evaluation of the hilar regions is limited by lack of intravenous contrast material. CARDIOVASCULATURE: The heart is normal in size. There is no pericardial effusion. The thoracic aorta is normal in caliber. DEGREE OF CORONARY CALCIFICATION: none PLEURA: There is no pleural effusion. No pneumothorax. MAIN AIRWAYS: There is marked wall thickening of the trachea and mainstem bronchi with near obliteration of the airway lumen. AXILLA: There is no axillary lymphadenopathy. BONES AND SOFT TISSUES: There is degenerative disc disease of the spine. No prior x-rays fracture is seen although evaluation is limited by motion artifact. UPPER ABDOMEN: The visualized portions of the liver and adrenal glands have an unremarkable unenhanced appearance. There is splenomegaly. CT/CT chest wo IV con IMPRESSION: 1. Nodular groundglass and airspace opacities throughout the left lung and in the right upper lobe which may be infectious or inflammatory in nature. 2. Marked wall thickening of the trachea and mainstem bronchi with near obliteration of the tracheal and bronchial lumens. Differential diagnostic considerations include infection, Rohit's granulomatosis, amyloidosis and polychondritis. Further evaluation with bronchoscopy should be considered. 3. Splenomegaly. Electronically signed by: Nicholas Birch MD 03/31/2025 11:54 AM EDT RP Dictated By: Nicholas Birch MD Signed By: Electronically signed by Nicholas Birch MD 03/31/25 1154 Report Number: [id number]: Total DLP = 976.00 mGy-cm EXAMINATION: CT HEAD WITHOUT CONTRAST CLINICAL INFORMATION: Altered mental status, fall with head strike. COMPARISON: None available. TECHNIQUE: Contiguous axial imaging was performed from the skull base to vertex without intravenous administration of contrast. This CT examination was performed using dose optimization techniques as appropriate, variously including the following: *Automated exposure control *Adjustment of mA and/or kV according to patient size (this includes techniques or standardized protocols for targeted exams where dose is matched to indication/reason for exam; i.e. extremities or head) *Use of iterative reconstruction technique FINDINGS: There is no evidence of intracranial hemorrhage or extra-axial fluid collection. There is no mass effect, or edema. No CT evidence of acute territorial infarct. Ventricles, sulci, and cisterns are normal in size and configuration for patient age. No hydrocephalus. No midline shift. Negative hyperdense MCA sign. Negative insular ribbon sign. No significant white matter abnormalities. Normal pituitary. Globes and orbital contents image normally. No extracranial soft tissue abnormalities. The paranasal sinuses, mastoid air cells, and tympanic cavities are normally aerated. No suspicious bony abnormalities. There are no acute fractures evident. CT/CT head/brain wo IV con IMPRESSION: No acute intracranial abnormality. No fracture evident. Electronically signed by: Aashish Pond MD 03/31/2025 11:40 AM EDT RP Dictated By: Aashish Pond MD Signed By: Electronically signed by Aashish Pond MD 03/31/25 1140 Report Number: [id number]: Total DLP = 478.00 mGy-cm EXAMINATION: CT CERVICAL SPINE WITHOUT CONTRAST CLINICAL INFORMATION: Head trauma, fall, altered mental status COMPARISON: None available. TECHNIQUE: Axial imaging was performed from the base of the skull through T2 without IV contrast. Coronal and sagittal reformatted images were generated from the original axial data set. ALARA: The examination used one or more of the following radiation dose reduction techniques: Automated exposure control, iterative reconstruction, and/or adjustment of mA and/or KV. DLP: 478 mGY*cm FINDINGS: Patchy groundglass and airspace opacities are visible in the left lung apex. There is mild reversal of the normal cervical lordosis. No fractures are identified. There is no prevertebral soft tissue swelling. Multilevel disc space narrowing with endplate changes osteophytes are noted. There are also vertebral facet osteophytes. Degenerative changes are most advanced at C5-6 and C6-7. CT/CT cervical spine wo IV con IMPRESSION: There is mild reversal of cervical lordosis. This can be related to degenerative changes, positioning, muscle spasm, or posterior soft tissue injury. No acute fracture. Suspected left upper lobe pneumonia. Electronically signed by: Ulices Feliz MD 03/31/2025 11:46 AM EDT RP Dictated By: Ulices Feliz MD Signed By: Electronically signed by Ulices Feliz MD 03/31/2025 I independently interpreted this EKG and am in agreement with the below findings: Vent. Rate: 79 BPM Atrial Rate: 79 BPM P-R Int: 212 ms QRS Dur: 98 ms QT Int: 424 ms P-R-T Axes: 27 31 53 degrees QTcB Int: 486 ms Sinus rhythm with 1st degree A-V block Incomplete right bundle branch block Nonspecific T wave abnormality When compared with ECG of 23-Jul-2024 11:23, Premature atrial complexes are no longer Present NH interval has increased Incomplete right bundle branch block is now Present TD/TT: 03/31/25 1221 Radiology Impression Discussion of test interpretation with radiology: I have reviewed the radiologist's reading. Independent Historian Clinical information obtained from an independent historian. History obtained from or confirmed by: EMS (EMS provided additional history and confirmed the history provided by the patient.) External Record Review External record reviewed: Inpatient record ([facility] records) Critical Care Time Critical Care Time Critical Care Time: Yes Total Critical Care Time: 90 Attestation: I spent 56 minutes of Critical Care Time with this patient. This does not include time spent on separately reported billable procedures. outside review of records, repeat labs, NIPPV, repeat ABG, medical consult to ICU, rapid intervention of hypoxic/hypercapnic respiratory failure Discharge Plan Discharge Clinical Impression: Acute respiratory acidosis Hypothermia Qualifiers: Encounter type: initial encounter Qualified Code(s): T68.XXXA - Hypothermia, initial encounter Sepsis Qualifiers: Sepsis type: sepsis due to unspecified organism Sepsis acute organ dysfunction status: unspecified Qualified Code(s): A41.9 - Sepsis, unspecified organism Pneumonia Qualifiers: Pneumonia type: due to unspecified organism Laterality: bilateral Lung location: unspecified part of lung Qualified Code(s): J18.9 - Pneumonia, unspecified organism Patient Disposition: Admitted As Inpatient Interventions: Admission Worksheet (ED) Last Done: 03/31/25 17:18 Discharge Date/Time: 03/31/25 17:20
--- NOTE | 2025-03-31 10:03 | ECG_ITS ---
Test Reason : FALL Blood Pressure : */* mmHG Vent. Rate : 79 BPM Atrial Rate : 79 BPM P-R Int : 212 ms QRS Dur : 98 ms QT Int : 424 ms P-R-T Axes : 27 31 53 degrees QTcB Int : 486 ms Sinus rhythm with 1st degree A-V block Incomplete right bundle branch block Nonspecific T wave abnormality Abnormal ECG When compared with ECG of 23-Jul-2024 11:23, Premature atrial complexes are no longer Present Incomplete right bundle branch block is now Present Referred By: Chacha Pond Electronically Signed By: CHEMO RAMOS
--- OUTSIDE RECORDS SUMMARY | 2025-03-31 10:40 | XMS_ITS | Patient Health Record ---
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
--- OUTSIDE RECORDS SUMMARY | 2025-03-31 10:40 | XMS_ITS | Encounter Summary ---
Author Organization [facility] Address [address] [place] [address] Care Team Providers Care Tar Heat Exchanger Cleaner Name Role Phone Madai Calixto PA-C Primary Care Provider [phone] Reason for Visit * Reason Onset Date Comments Referral 03/17/2023 PT-1 03/17/2023 Encounter Details Date Type Department Care Team (Late st Contact Info) Description 03/17/2023 Telephone [facility] [address] [place] [address] Madai Calixto PA-C [address] [place] [address] Referral; PT-1 Social History Tobacco Use Types Packs/Day Years Used Date Smoking Tobacco: Every Day Cigarettes Smokeless Tobacco: Never Comments Unknown Sex and Gender Information Value Date Recorded Sex Assigned at Female 07/12/2022 3:40 PM EDT Legal Sex Female 3:40 PM EDT Gender Identity Female 07/12/2022 3:40 PM EDT Sexual Orientation Straight 07/12/2022 3: 40 PM EDT documented as of this encounter Miscellaneous Notes * Telephone Encounter - Gali Henriquez - 03/24/2023 8:49 AM EDT Pt called highly upset. Pt called explaining that they were unable to get a ride to their Methadoneappointment due to the PT-1 form being filled out incorrectly. Please call pt back. documented in this encounter Plan of Treatment Not on file documented as of this encounter Visit Diagnoses Not on filedocumented in this encounter Care Teams Tar Heat Exchanger Cleaner Relationship Specialty Start Date End Date Madai Calixto PA-C [address] [place] [address] PCP - General Family Medicine 03/14/23 documented as of this encounter
--- OUTSIDE RECORDS SUMMARY | 2025-03-31 10:40 | XMS_ITS | Patient Health Record ---
Author Organization [facility] Address [address] [address] Care Team Providers Care Cartography Supervisor Name Role Phone Karlie Blanchard Primary Care Provider Unavailabl e Westley Blanchard Unavailable [phone] Migration, Provider Unavailable Unavailable Allergies Allergen (clinical drug ingredient) Drug/Non Drug Allergy documented on EMR Reaction Allergy Type Onset Date Status Sulfamethoxazole Unknown Drug Allergy Active Reason For Referral No Information Medications Medication SIG (Take, Route, Fr equency, Duration) Notes Start Date End Date Status Ibuprofen 600 MG 1 tablet Orally Thre e times a day; Duration: 30 days Active Colace 100 MG 1 capsule as needed Orally Once a day; Duration: 30 day(s) Active clonazePAM 0.5 MG 1 tablet Orally bid prn anxiety; Duration: 30 days Active Problems Problem Type SNOMED Code ICD Code Onset Dates Problem Status W/U Status Risk Notes Problem Information temporarily unavailable Anxiety,Anxiety state, unspecified (300.00) Active confirmed Problem Information temporarily unavailable General Medical Examination/Routin e Physical (V70.0) Active confirmed Problem Information temporarily unavailable Anxiety (F41.9) Active confirmed Problem Information temporarily unavailable Hep C w/o coma, chronic (B18.2) Active confirmed Problem Information temporarily unavailable Constipation, unspecified constipation type (K59.00) Active confirmed Problem Information temporarily unavailable Homeless (Z59.0) Active confirmed Problem Information temporarily unavailable Primary osteoarthritis of both knees (M17.0) Active confirmed Problem Information temporarily unavailable Polysubstance dependence (F19.20) Active confirmed Encounters Encounter Location Date Provider Diagnosis [facility] [address] [place] [phone] 09/11/2024 Provider Migration [facility] [address] [address] 09/12/2024 Provider Migration Plan Of Treatment Pending Test Test Name Order Date BASIC METABOLIC PANEL W/EGFR 06/15/2013 HEPATIC FUNCTION PANEL 06/15/2013 LIPID PANEL WITH REFLEX TO DIRECT LDL CBC (H/H, RBC, INDICES, WBC, PLT) 2012 HEMOGLOBIN A1c 06/15/2013 URINALYSIS, COMPLETE 06/15/2013 MICROALBUMIN, RANDOM URINE (W/CREATININE ) 06/15/2013 Insurance Providers Payer Name Payer Address Payer Phone Subscriber Number Group Number Insured Name Patient Relationship to Insured Coverage Start Date Coverage End Date Medicare - [employer] [address] [place] [phone] [id number] Arline Shetty Self - patient is the insured Medicaid [address] [place] [phone] [id number] Arline Shetty Self - patient is the insured Medical (General) History Medical History History ICD Code Anxiety disorder migraine headaches Knees OA Hep c Polysubstances dependence Surgical History Surgery Date(Month/Year) tubal ligation
--- NOTE | 2025-03-31 11:48 | PC.NURSE ---
pt returned from CT scan with the sitter, pt was noted to be less responsive, cardiac cath technologist applied, pinpoint pupils and intermittent apnea with rr of 4, provider was notified pt was sternal rubbed with some response to painful stimulus, this nurse attempted IV access without success x3 pt difficult stick, provider at bedside- US 18G IV lt upper arm inserted, labs drawn, nasal swab obtained, pt changed from NC to oxymask on 3L as patient is mouth breathing, small dose of narcan given, pt RR has increased to 7 and O2 sat is now 97% on oxymask, however patients BP is currently 85/48 provider notified.
[2025-03-31 11:50] LABS: Hematocrit 34.1 % (37.0-47.0); Hemoglobin 11.0 g/dl (12.0-16.0); Mean Corpuscular HGB Conc 32.3 g/dl (31.0-35.0); Mean Corpuscular Hemoglobin 26.9 pg (27.0-33.0); Mean Corpuscular Volume 83.4 fL (80.0-98.0); NRBC Abs Auto 0.000 X10*3/uL (0.0-0.012); NRBC Pct Auto 0.0 /100WBC (0.0-0.2); Red Blood Count 4.09 X10*6/uL (4.20-5.50); White Blood Count 5.4 X10*3/uL (4.8-10.8)
[2025-03-31 12:05] LABS: Alanine Aminotransferase 41 U/L (0-31); Albumin Level 3.7 g/dL (3.5-5.0); Alkaline Phosphatase 108 U/L (39-117); Anion Gap 10 (12-20); Aspartate Amino Transferase 50 U/L (5-31); Blood Urea Nitrogen 27 mg/dL (9-16); Calcium 9.3 mg/dL (8.4-10.2); Carbon Dioxide 36 mmol/L (22-29); Chloride 106 mmol/L (96-108); Creatinine Clr Calc Pharmacy 87.6; Estimated Glomerular Filt Rate > 60; Potassium 3.6 mmol/L (3.3-5.1); Sodium 148 mmol/L (135-145); Total Protein 7.2 g/dL (6.5-8.0)
[2025-03-31 12:13] LABS: Troponin-I High Sensitivity < 2.7 ng/L (<3.5-17.0)
--- NOTE | 2025-03-31 12:15 | PC.NURSE ---
patient continues to be only responsive to painful stimulus, blood cultures/lactic were added after initial labs, pt has very poor access, additional attempts to draw cultures- 1st set obtained from pt foot- provider is aware, second set obtained from forearm.
[2025-03-31 12:26] LABS: Band Neutrophils Percent 8 % (3-5); Lymphocytes Absolute Manual 0.4 X10*3/uL (1.2-4.9); Lymphocytes Percent Manual 7 % (20-40); Monocytes Absolute Manual 0.3 X10*3/uL (0.1-1.2); Monocytes Percent Manual 5 % (2-11); Neutrophils Absolute Manual 4.8 X10*3/uL (2.0-8.3); Neutrophils Percent Manual 80 % (45-73)
[2025-03-31 12:27] LABS: RBC Morphology NOTED
[2025-03-31 12:28] LABS: Basophilic Stippling 1+ (0-2) /OIF; Polychromasia 1+ (0-2) /OIF; Toxic Granulation PRESENT; Toxic Vacuolation PRESENT
[2025-03-31 12:28] LABS: Resp Syncy Virus RNA Qual PCR NEGATIVE (Negative); SARS COV2 PCR INHOUSE NEGATIVE (Negative)
[2025-03-31 12:30] LABS: Platelet Count 76 X10*3/uL (160-400)
--- NOTE | 2025-03-31 12:32 | PC.NURSE ---
provider notified of pt rectal temp, evelyn carolina
[2025-03-31 13:05] LABS: Venous Blood Gas Refer to POC result
[2025-03-31 13:05] LABS: VBG HCO3 36 mmol/L (22-26); VBG O2 % Saturation 61.0 %
[2025-03-31 13:34] LABS: B Type Natriuretic Peptide 63 pg/mL (<100)
[2025-03-31 13:57] LABS: Appearance Urine Clear; Glucose Urine UA Negative (Negative); PH 6.5 (5.0-9.0); Specific Gravity - Urine 1.010 (1.005-1.025)
[2025-03-31 14:53] LABS: Venous Blood Gas Refer to POC result
[2025-03-31 14:59] LABS: VBG HCO3 33 mmol/L (22-26); VBG O2 % Saturation 98.0 %
--- NOTE | 2025-03-31 15:27 | PM.CCHP ---
History of Present Illness Date of Service: 03/31/25 Chief Complaint: Multiple falls, alteration of mental status, acute hypercapnic 44-year-old lady with underlying history of PTSD, major depression, personality disorder currently hospitalized at [facility] noted to have several falls in the facility including hitting her forehead transferred to evaluation at [facility] Emergency room for recurrent falls and lethargy. On ER evaluation patient with no acute findings on CT head, but further workup noted for acute hypercapnia with likely CO2 narcosis requiring BiPAP support. Patient admitted to the intensive care unit. Her CT chest demonstrated concentric tracheal thickening. Review of Systems Review of Systems: Yes Unobtainable due to mental condition and Unobtainable due to mental status PMFSH Past Medical History Medical History (Updated 03/31/25 @ 15:40 by Luis Antonio Casas MD) Hypotension Social History Social History Household Members: Other Housing: Homeless Do you presently have visiting nurse or other home services: No Patient Tobacco Use Status: Current everyday Tobacco user Cigarette Packs Per Day: 0.5 Cigarettes Per Day: 10.0 Years Smoked: 25 e-Cigarette/Vaping Use: Currently Using Second Hand Smoke Exposure: No Substance Use Type: Crack/Cocaine, Former Substance User, Heroin, IV Drugs, Marijuana and Caffiene Advance Directives: No Advance Directives Information Provided: Yes Do you have a plan to hurt others: No Plan service: No Sexual orientation: Straight/Heterosexual Meds Allergies Allergy/AdvReac Type Severity Reaction Status Date / Time benztropine Allergy Unknown Verified 03/31/25 09:59 Bleach (Sodium Hypochlorite) Allergy Unknown Verified 03/31/25 09:59 chlorpromazine Allergy Unknown Verified 03/31/25 09:59 divalproex sodium Allergy Unknown Verified 03/31/25 09:59 olanzapine Allergy Unknown Verified 03/31/25 09:59 quetiapine Allergy Unknown Verified 03/31/25 09:59 Sulfa (Sulfonamide Allergy Unknown Verified 03/31/25 09:59 Antibiotics) (Sulfonamides) ziprasidone Allergy Unknown Verified 03/31/25 09:59 haloperidol (From Haldol) AdvReac Unknown Verified 03/31/25 09:59 naloxone AdvReac Unknown Verified 03/31/25 09:59 Active Medications: Current Medications Heparin Sodium (Porcine) (Heparin Sodium,Porcine 5,000 Unit/Ml Vial) 5,000 unit SUBCUT Q8H [facility] Methylprednisolone Sodium Succinate (Methylprednisolone Sod Succ 125 Mg/2 Ml Vial) 60 mg IVPUSH Q6H [facility] Home Medications ?Medication ?Instructions ?Recorded ?Confirmed ?Last Taken ?Type baclofen 20 mg tablet 20 mg PO TID 07/23/24 07/23/24 07/22/24 History clonidine HCl 0.2 mg tablet 0.2 mg PO TID 07/23/24 07/23/24 07/22/24 History dicyclomine 20 mg tablet 20 mg PO TID 07/23/24 07/23/24 07/22/24 History docusate sodium 100 mg capsule 100 mg PO BID 07/23/24 07/23/24 07/22/24 History fluticasone propionate 50 1 spray intranasal DAILY 07/23/24 07/23/24 Unknown History mcg/actuation nasal spray,suspension gabapentin 100 mg capsule 100 mg PO TID 07/23/24 07/23/24 Unknown History gabapentin 300 mg capsule 300 mg PO TID 07/23/24 07/23/24 Unknown History loratadine 10 mg tablet 10 mg PO DAILY 07/23/24 07/23/24 07/22/24 History methadone 110 mg PO DAILY 07/23/24 07/23/24 07/22/24 09:15 History oxybutynin chloride 10 mg 10 mg PO DAILY 07/23/24 07/23/24 07/21/24 History tablet,extended release 24 hr pregabalin 300 mg capsule 300 mg PO BID 07/23/24 07/23/24 07/22/24 History pregabalin 75 mg capsule 75 mg PO TID 07/23/24 07/23/24 Unknown History sennosides 8.6 mg tablet (senna) 8.6 mg PO BID 07/23/24 07/23/24 07/22/24 History topiramate 200 mg tablet 200 mg PO BID 07/23/24 07/23/24 07/22/24 History topiramate 50 mg tablet 50 mg PO BID 07/23/24 07/23/24 Unknown History valacyclovir 1 gram tablet 1,000 mg PO DAILY 07/23/24 07/23/24 Unknown History Physical Exam Vital Signs: Vital Signs: Last Vital Signs Temp 96.3 F L 03/31/25 15:19 Pulse 80 03/31/25 15:19 Resp 26 H 03/31/25 15:19 BP 113/66 03/31/25 15:19 Pulse Ox 94 03/31/25 15:19 O2 Del Method BiPAP 03/31/25 15:19 O2 Flow Rate 32 03/31/25 14:20 FiO2 32 03/31/25 14:05 BMI result Body Mass Index 40.0 Const: General: no acute distress and lethargic (Arousable, but falls asleep again) Nutritional Appearance: obese Orientation/consciousness: lethargic (Arousable, but falls asleep again) Eyes: Sclerae: sclerae normal EOM: EOMs intact bilaterally Neck: Neck: Yes no lymphadenopathy, Yes trachea midline and Yes supple Resp: Effort & Inspection: normal respiratory effort and no respiratory distress Auscultation: clear to auscultation bilaterally Cardio: Rate: regular rate Rhythm: regular rhythm Heart sounds: no gallops, no murmurs and no rubs GI: Palpation (GI): Soft to palpation and Other GI palpation findings present ( Nontender) Auscultation: normal bowel sounds Extrem: General: Yes no pedal edema, No clubbing and No cyanosis Results Labs 03/31/25 11:42 03/31/25 11:42 Labs: Laboratory Results - last 24 hr 03/31/25 03/31/25 03/31/25 11:17 11:42 11:48 MCV 83.4 MCH 26.9 L MCHC 32.3 RDW 15.9 Plt Count 76 L D MPV 12.0 Immature Gran % (Auto) Cancelled Neut % (Auto) Cancelled Lymph % (Auto) Cancelled Becker % (Auto) Cancelled Eos % (Auto) Cancelled Baso % (Auto) Cancelled Lymph # (Auto) Cancelled Becker # (Auto) Cancelled Eos # (Auto) Cancelled Baso # (Auto) Cancelled Abs Immat Gran (auto) Cancelled Absolute Neuts (auto) Cancelled Absolute Nucleated RBC 0.000 Nucleated RBC % (auto) 0.0 Neutrophils % (Manual) 80 H Band Neutrophils % 8 H Lymphocytes % (Manual) 7 L Monocytes % (Manual) 5 Abs Neuts (Manual) 4.8 Lymphocytes # (Manual) 0.4 L Monocytes # (Manual) 0.3 Nucleated RBCs 2 H Toxic Granulation PRESENT Toxic Vacuolation PRESENT Platelet Estimate DECREASED Plt Morphology Comment NORMAL RBC Morphology NOTED Polychromasia 1+ (0-2) Basophilic Stippling 1+ (0-2) VBG pH 7.27 L VBG pCO2 78 VBG pO2 43 VBG HCO3 36 H VBG O2 Saturation 61.0 VBG Base Excess 7.0 Anion Gap 10 L Estim Creat Clear Calc 87.6 Estimated GFR > 60 Random Glucose 100 Lactic Acid Calcium 9.3 Total Bilirubin 0.3 AST 50 H ALT 41 H Alkaline Phosphatase 108 B-Natriuretic Peptide 63 Total Protein 7.2 Albumin 3.7 TSH 3.44 Urine Color Urine Appearance Urine pH Ur Specific [place] Urine Protein Urine Glucose (UA) Urine Ketones Urine Blood Urine Nitrite Ur Leukocyte Esterase Influenza Type A (PCR) NEGATIVE Influenza Type B (PCR) NEGATIVE RSV RNA Qual (PCR) NEGATIVE SARS-CoV-2 RNA (RT-PCR) NEGATIVE 03/31/25 03/31/25 03/31/25 12:10 13:48 14:52 MCV MCH MCHC RDW Plt Count MPV Immature Gran % (Auto) Neut % (Auto) Lymph % (Auto) Becker % (Auto) Eos % (Auto) Baso % (Auto) Lymph # (Auto) Becker # (Auto) Eos # (Auto) Baso # (Auto) Abs Immat Gran (auto) Absolute Neuts (auto) Absolute Nucleated RBC Nucleated RBC % (auto) Neutrophils % (Manual) Band Neutrophils % Lymphocytes % (Manual) Monocytes % (Manual) Abs Neuts (Manual) Lymphocytes # (Manual) Monocytes # (Manual) Nucleated RBCs Toxic Granulation Toxic Vacuolation Platelet Estimate Plt Morphology Comment RBC Morphology Polychromasia Basophilic Stippling VBG pH 7.27 L VBG pCO2 71 VBG pO2 105 VBG HCO3 33 H VBG O2 Saturation 98.0 VBG Base Excess 4.9 Anion Gap Estim Creat Clear Calc Estimated GFR Random Glucose Lactic Acid 0.9 Calcium Total Bilirubin AST ALT Alkaline Phosphatase B-Natriuretic Peptide Total Protein Albumin TSH Urine Color Yellow Urine Appearance Clear Urine pH 6.5 Ur Specific [place] 1.010 Urine Protein Negative Urine Glucose (UA) Negative Urine Ketones Negative Urine Blood Negative Urine Nitrite Negative Ur Leukocyte Esterase Negative Influenza Type A (PCR) Influenza Type B (PCR) RSV RNA Qual (PCR) SARS-CoV-2 RNA (RT-PCR) Imaging Radiologist's Impressions: Impressions Knee X-Ray 03/31/25 09:37 IMPRESSION: Osteoarthritis with large marginal osteophytes and minimal evidence of joint space narrowing. Borderline joint effusion. Electronically signed by: Ulices Feliz MD 03/31/2025 11:12 AM EDT RP Shoulder X-Ray 03/31/25 09:42 IMPRESSION: 1. No acute findings of the left shoulder. 2. Tiny amorphous calcification abutting the superior glenoid is likely related to labral calcification. This is of uncertain but doubtful clinical significance. Electronically signed by: Aashish Pond MD 03/31/2025 11:09 AM EDT RP Elbow X-Ray 03/31/25 09:49 IMPRESSION: Normal left elbow. Electronically signed by: Aashish Pond MD 03/31/2025 11:06 AM EDT RP Hand X-Ray 03/31/25 09:58 IMPRESSION: Mild osteoarthritis is present at the second DIP joint and moderate at the first CMC joint. Electronically signed by: Ulices Feliz MD 03/31/2025 11:10 AM EDT RP Chest CT 03/31/25 10:02 IMPRESSION: 1. Nodular groundglass and airspace opacities throughout the left lung and in the right upper lobe which may be infectious or inflammatory in nature. 2. Marked wall thickening of the trachea and mainstem bronchi with near obliteration of the tracheal and bronchial lumens. Differential diagnostic considerations include infection, Rohit's granulomatosis, amyloidosis and polychondritis. Further evaluation with bronchoscopy should be considered. 3. Splenomegaly. Electronically signed by: Nicholas Birch MD 03/31/2025 11:54 AM EDT RP Head CT 03/31/25 10:02 IMPRESSION: No acute intracranial abnormality. No fracture evident. Electronically signed by: Aashish Pond MD 03/31/2025 11:40 AM EDT RP Cervical Spine CT 03/31/25 11:02 IMPRESSION: There is mild reversal of cervical lordosis. This can be related to degenerative changes, positioning, muscle spasm, or posterior soft tissue injury. No acute fracture. Suspected left upper lobe pneumonia. Electronically signed by: Ulices Feliz MD 03/31/2025 11:46 AM EDT RP Assessment and Plan (1) Acute hypercapnic respiratory failure: Status: Acute (2) Toxic encephalopathy: Status: Acute (3) Obesity: Status: Acute Plan Assessment: 44-year-old lady admitted from psychiatric facility with mechanical falls and CO2 narcosis Plan: Neuro: Toxic encephalopathy with possible CO2 narcosis component. Cardiac: No acute issues. Pulmonary: Acute hypercapnic respiratory failure likely secondary to over-sedation now requiring BiPAP support, continue to titrate off as tolerated. Concentric tracheal hypertrophy, vasculitis studies sent. Start on empiric systemic glucocorticoids. Renal: No acute issues. Endo: No acute issues. GI: No acute issues. ID: No acute issues Heme/Onc: No acute issues. Psych: No acute issues. Miscellaneous: No acute issues. Prophylaxis: Heparin Diet: NPO Critical care time spent: 45 minutes
[2025-03-31 15:29] LABS: Cannabinoid Screen Urine Not Detected (Not Detect)
--- NOTE | 2025-03-31 15:55 | PC.NURSE ---
RT changed bipap settings and had the patient on 01/02 on room air patient desat to 87% with bipap on, RT was called, provider was notified. RT came to adjust the vent and added the O2 back at 32%.
--- NOTE | 2025-03-31 16:18 | PHA.MEDREC ---
Addendum entered by Lise Matta RPh 03/31/25 18:14: Reviewed by [facility]. Original Note: Pharmacy Consult ? Medication Reconciliation Pharmacy has completed the medication reconciliation. Utilized list from [facility] to confirm med list.
--- NOTE | 2025-03-31 16:30 | PC.NURSE ---
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
--- NOTE | 2025-03-31 19:11 | PC.NURSE ---
The patient arrived at the ICU approx.? @ 1725 from ED for rescue Bipap Neuro:? Drowsy, follows simple commands, restless, agitated, requiring frequent redirection Respiratory/Cardiac: Currently on BiPAP, SpO2 low 90s, clear lung sounds, Sinus rhythm? GI/: NPO; Hdz in place patent/draining,.? Lines: Peripheral IVs
[2025-03-31] MEDS: Ampicillin Sodium/Sulbactam Na 1.5 GM in 0.9 % Sodium Chloride 100 ML IV (20:04)
[2025-04-01] VITALS (20 sets, daily range): BP systolic 97–142; BP diastolic 51–70; PULSE 73–93; RESP 11–26; TEMP 36.2–37.1; O2SAT 90–97
[2025-04-01] MEDS: Ampicillin Sodium/Sulbactam Na 1.5 GM in 0.9 % Sodium Chloride 100 ML IV ×2 (02:03→08:33)
[2025-04-01 05:14] LABS: VBG HCO3 31 mmol/L (22-26); VBG O2 % Saturation 90.0 %
[2025-04-01 05:17] LABS: Hematocrit 32.7 % (37.0-47.0); Hemoglobin 10.4 g/dl (12.0-16.0); Mean Corpuscular HGB Conc 31.8 g/dl (31.0-35.0); Mean Corpuscular Hemoglobin 26.9 pg (27.0-33.0); Mean Corpuscular Volume 84.7 fL (80.0-98.0); NRBC Abs Auto 0.000 X10*3/uL (0.0-0.012); NRBC Pct Auto 0.0 /100WBC (0.0-0.2); Red Blood Count 3.86 X10*6/uL (4.20-5.50); White Blood Count 11.3 X10*3/uL (4.8-10.8)
[2025-04-01 05:18] LABS: Venous Blood Gas Refer to POC result
[2025-04-01 06:03] LABS: Band Neutrophils Percent 12 % (3-5); Lymphocytes Absolute Manual 0.7 X10*3/uL (1.2-4.9); Lymphocytes Percent Manual 6 % (20-40); Neutrophils Absolute Manual 10.6 X10*3/uL (2.0-8.3); Neutrophils Percent Manual 82 % (45-73)
[2025-04-01 06:05] LABS: RBC Morphology NORMAL
[2025-04-01 06:07] LABS: Large Platelet PRESENT
[2025-04-01 06:08] LABS: Stomatocytes 1+ (5-14) /OIF; Toxic Granulation PRESENT
[2025-04-01 06:10] LABS: Platelet Count 69 X10*3/uL (160-400)
[2025-04-01 06:49] LABS: Alanine Aminotransferase 32 U/L (0-31); Albumin Level 3.3 g/dL (3.5-5.0); Alkaline Phosphatase 95 U/L (39-117); Anion Gap 12 (12-20); Aspartate Amino Transferase 41 U/L (5-31); Blood Urea Nitrogen 22 mg/dL (9-16); Calcium 9.0 mg/dL (8.4-10.2); Carbon Dioxide 25 mmol/L (22-29); Chloride 110 mmol/L (96-108); Creatinine Clr Calc Pharmacy 98.3; Estimated Glomerular Filt Rate > 60; Magnesium 1.9 mg/dL (1.6-2.6); Potassium 3.9 mmol/L (3.3-5.1); Sodium 143 mmol/L (135-145); Total Protein 7.1 g/dL (6.5-8.0)
--- NOTE | 2025-04-01 07:14 | PC.NURSE ---
Critical Care Nursing Note? Assumed care of the patient at 1900. At start of shift, the patient was arousable and oriented, anxious at times, patient easily redirected. The patient remained on Bipap overnight, with a one hour break at [id number].? Bipap was removed after the morning VBG results and the patient was placed on 3L NC. Patient awake and oriented, communicating clearly.? Report given to oncoming shift.
--- NOTE | 2025-04-01 10:17 | P.PNCC_ITS ---
Subjective Subjective Date of Service: 04/01/25 Interval History: 44-year-old lady with underlying history of PTSD, major depression, personality disorder currently hospitalized at [facility] noted to have several falls in the facility including hitting her forehead transferred to evaluation at [facility] Emergency room for recurrent falls and lethargy. On ER evaluation patient with no acute findings on CT head, but further workup noted for acute hypercapnia with likely CO2 narcosis requiring BiPAP support. Patient admitted to the intensive care unit. Her CT chest demonstrated concentric tracheal thickening. Events overnight. Woke up and titrated off BiPAP support. Critical Care Time (minutes): 0 Physical Exam 2 Vital Signs: Vital Signs: Last Vital Signs Temp 98.6 F 04/01/25 07:57 Pulse 91 04/01/25 09:51 Resp 12 04/01/25 09:51 BP 100/52 L 04/01/25 09:51 Pulse Ox 97 04/01/25 09:51 O2 Del Method Nasal Cannula 04/01/25 09:51 O2 Flow Rate 3 04/01/25 09:51 FiO2 35 04/01/25 04:58 BMI result Body Mass Index 40.0 Const: General: no acute distress, alert and awake Eyes: Sclerae: sclerae normal EOM: EOMs intact bilaterally Neck: Neck: Yes no lymphadenopathy, Yes trachea midline and Yes supple Resp: Effort & Inspection: normal respiratory effort and no respiratory distress Auscultation: clear to auscultation bilaterally Cardio: Rate: regular rate Rhythm: regular rhythm Heart sounds: no gallops, no murmurs and no rubs GI: Palpation (GI): Soft to palpation and Other GI palpation findings present ( Nontender) Auscultation: normal bowel sounds Extrem: General: Yes no pedal edema, No clubbing and No cyanosis Objective Data Labs 04/01/25 05:09 04/01/25 06:29 Labs: Laboratory Results - last 24 hr 03/31/25 03/31/25 03/31/25 11:17 11:42 11:48 WBC 5.4 RBC 4.09 L Hgb 11.0 L Hct 34.1 L MCV 83.4 MCH 26.9 L MCHC 32.3 RDW 15.9 Plt Count 76 L D MPV 12.0 Immature Gran % (Auto) Cancelled Neut % (Auto) Cancelled Lymph % (Auto) Cancelled [place] % (Auto) Cancelled Eos % (Auto) Cancelled Baso % (Auto) Cancelled Lymph # (Auto) Cancelled [place] # (Auto) Cancelled Eos # (Auto) Cancelled Baso # (Auto) Cancelled Abs Immat Gran (auto) Cancelled Absolute Neuts (auto) Cancelled Absolute Nucleated RBC 0.000 Nucleated RBC % (auto) 0.0 Neutrophils % (Manual) 80 H Band Neutrophils % 8 H Lymphocytes % (Manual) 7 L Monocytes % (Manual) 5 Abs Neuts (Manual) 4.8 Lymphocytes # (Manual) 0.4 L Monocytes # (Manual) 0.3 Nucleated RBCs 2 H Toxic Granulation PRESENT Toxic Vacuolation PRESENT Platelet Estimate DECREASED Large Platelets Plt Morphology Comment NORMAL RBC Morphology NOTED Polychromasia 1+ (0-2) Basophilic Stippling 1+ (0-2) Stomatocytes Smear Path Review ESR VBG pH 7.27 L VBG pCO2 78 VBG pO2 43 VBG HCO3 36 H VBG O2 Saturation 61.0 VBG Base Excess 7.0 Sodium 148 H Potassium 3.6 Chloride 106 Carbon Dioxide 36 H Anion Gap 10 L BUN 27 H Creatinine 0.92 Estim Creat Clear Calc 87.6 Estimated GFR > 60 Random Glucose 100 Lactic Acid Calcium 9.3 Phosphorus Magnesium Total Bilirubin 0.3 AST 50 H ALT 41 H Alkaline Phosphatase 108 Troponin I High Sens < 2.7 B-Natriuretic Peptide 63 Total Protein 7.2 Albumin 3.7 TSH 3.44 Urine Color Urine Appearance Urine pH Ur Specific [place] Urine Protein Urine Glucose (UA) Urine Ketones Urine Blood Urine Nitrite Ur Leukocyte Esterase Urine Opiates Screen Ur Buprenorphine Scrn Ur Oxycodone Screen Urine Methadone Screen Urine Fentanyl Screen Ur Barbiturates Screen Ur Phencyclidine Scrn Ur Amphetamines Screen U Benzodiazepines Scrn Urine Cocaine Screen U Marijuana (THC) Screen Influenza Type A (PCR) NEGATIVE Influenza Type B (PCR) NEGATIVE RSV RNA Qual (PCR) NEGATIVE SARS-CoV-2 RNA (RT-PCR) NEGATIVE 03/31/25 03/31/25 03/31/25 12:10 13:48 14:52 WBC RBC Hgb Hct MCV MCH MCHC RDW Plt Count MPV Immature Gran % (Auto) Neut % (Auto) Lymph % (Auto) [place] % (Auto) Eos % (Auto) Baso % (Auto) Lymph # (Auto) [place] # (Auto) Eos # (Auto) Baso # (Auto) Abs Immat Gran (auto) Absolute Neuts (auto) Absolute Nucleated RBC Nucleated RBC % (auto) Neutrophils % (Manual) Band Neutrophils % Lymphocytes % (Manual) Monocytes % (Manual) Abs Neuts (Manual) Lymphocytes # (Manual) Monocytes # (Manual) Nucleated RBCs Toxic Granulation Toxic Vacuolation Platelet Estimate Large Platelets Plt Morphology Comment RBC Morphology Polychromasia Basophilic Stippling Stomatocytes Smear Path Review ESR VBG pH 7.27 L VBG pCO2 71 VBG pO2 105 VBG HCO3 33 H VBG O2 Saturation 98.0 VBG Base Excess 4.9 Sodium Potassium Chloride Carbon Dioxide Anion Gap BUN Creatinine Estim Creat Clear Calc Estimated GFR Random Glucose Lactic Acid 0.9 Calcium Phosphorus Magnesium Total Bilirubin AST ALT Alkaline Phosphatase Troponin I High Sens B-Natriuretic Peptide Total Protein Albumin TSH Urine Color Yellow Urine Appearance Clear Urine pH 6.5 Ur Specific [place] 1.010 Urine Protein Negative Urine Glucose (UA) Negative Urine Ketones Negative Urine Blood Negative Urine Nitrite Negative Ur Leukocyte Esterase Negative Urine Opiates Screen Not Detected Ur Buprenorphine Scrn Not Detected Ur Oxycodone Screen Not Detected Urine Methadone Screen Positive H Urine Fentanyl Screen Not Detected Ur Barbiturates Screen Not Detected Ur Phencyclidine Scrn Not Detected Ur Amphetamines Screen POSITIVE H U Benzodiazepines Scrn Not Detected Urine Cocaine Screen Not Detected U Marijuana (THC) Screen Not Detected Influenza Type A (PCR) Influenza Type B (PCR) RSV RNA Qual (PCR) SARS-CoV-2 RNA (RT-PCR) 03/31/25 04/01/25 04/01/25 16:25 05:09 05:11 WBC 11.3 H RBC 3.86 L Hgb 10.4 L Hct 32.7 L MCV 84.7 MCH 26.9 L MCHC 31.8 RDW 16.1 H Plt Count 69 L MPV 12.7 H Immature Gran % (Auto) Cancelled Neut % (Auto) Cancelled Lymph % (Auto) Cancelled [place] % (Auto) Cancelled Eos % (Auto) Cancelled Baso % (Auto) Cancelled Lymph # (Auto) Cancelled [place] # (Auto) Cancelled Eos # (Auto) Cancelled Baso # (Auto) Cancelled Abs Immat Gran (auto) Cancelled Absolute Neuts (auto) Cancelled Absolute Nucleated RBC 0.000 Nucleated RBC % (auto) 0.0 Neutrophils % (Manual) 82 H Band Neutrophils % 12 H Lymphocytes % (Manual) 6 L Monocytes % (Manual) Abs Neuts (Manual) 10.6 H Lymphocytes # (Manual) 0.7 L Monocytes # (Manual) Nucleated RBCs 1 H Toxic Granulation PRESENT Toxic Vacuolation Platelet Estimate DECREASED Large Platelets PRESENT Plt Morphology Comment NOTED RBC Morphology NORMAL Polychromasia Basophilic Stippling Stomatocytes 1+ (5-14) Smear Path Review SEE NOTE ESR 33 H VBG pH 7.39 VBG pCO2 51 VBG pO2 68 VBG HCO3 31 H VBG O2 Saturation 90.0 VBG Base Excess 5.5 Sodium Potassium Chloride Carbon Dioxide Anion Gap BUN Creatinine Estim Creat Clear Calc Estimated GFR Random Glucose Lactic Acid Calcium Phosphorus Magnesium Total Bilirubin AST ALT Alkaline Phosphatase Troponin I High Sens B-Natriuretic Peptide Total Protein Albumin TSH Urine Color Urine Appearance Urine pH Ur Specific [place] Urine Protein Urine Glucose (UA) Urine Ketones Urine Blood Urine Nitrite Ur Leukocyte Esterase Urine Opiates Screen Ur Buprenorphine Scrn Ur Oxycodone Screen Urine Methadone Screen Urine Fentanyl Screen Ur Barbiturates Screen Ur Phencyclidine Scrn Ur Amphetamines Screen U Benzodiazepines Scrn Urine Cocaine Screen U Marijuana (THC) Screen Influenza Type A (PCR) Influenza Type B (PCR) RSV RNA Qual (PCR) SARS-CoV-2 RNA (RT-PCR) 04/01/25 06:29 WBC RBC Hgb Hct MCV MCH MCHC RDW Plt Count MPV Immature Gran % (Auto) Neut % (Auto) Lymph % (Auto) [place] % (Auto) Eos % (Auto) Baso % (Auto) Lymph # (Auto) [place] # (Auto) Eos # (Auto) Baso # (Auto) Abs Immat Gran (auto) Absolute Neuts (auto) Absolute Nucleated RBC Nucleated RBC % (auto) Neutrophils % (Manual) Band Neutrophils % Lymphocytes % (Manual) Monocytes % (Manual) Abs Neuts (Manual) Lymphocytes # (Manual) Monocytes # (Manual) Nucleated RBCs Toxic Granulation Toxic Vacuolation Platelet Estimate Large Platelets Plt Morphology Comment RBC Morphology Polychromasia Basophilic Stippling Stomatocytes Smear Path Review ESR VBG pH VBG pCO2 VBG pO2 VBG HCO3 VBG O2 Saturation VBG Base Excess Sodium 143 Potassium 3.9 Chloride 110 H Carbon Dioxide 25 Anion Gap 12 BUN 22 H Creatinine 0.82 Estim Creat Clear Calc 98.3 Estimated GFR > 60 Random Glucose 171 H Lactic Acid Calcium 9.0 Phosphorus 4.0 Magnesium 1.9 Total Bilirubin 0.3 AST 41 H ALT 32 H Alkaline Phosphatase 95 Troponin I High Sens B-Natriuretic Peptide Total Protein 7.1 Albumin 3.3 L TSH Urine Color Urine Appearance Urine pH Ur Specific [place] Urine Protein Urine Glucose (UA) Urine Ketones Urine Blood Urine Nitrite Ur Leukocyte Esterase Urine Opiates Screen Ur Buprenorphine Scrn Ur Oxycodone Screen Urine Methadone Screen Urine Fentanyl Screen Ur Barbiturates Screen Ur Phencyclidine Scrn Ur Amphetamines Screen U Benzodiazepines Scrn Urine Cocaine Screen U Marijuana (THC) Screen Influenza Type A (PCR) Influenza Type B (PCR) RSV RNA Qual (PCR) SARS-CoV-2 RNA (RT-PCR) Progress Note: A&P Assessment and plan (1) Acute hypercapnic respiratory failure: Status: Acute (2) Toxic encephalopathy: Status: Acute Plan Assessment: 44-year-old lady admitted from psychiatric facility with mechanical falls and CO2 narcosis Plan: Neuro: Toxic encephalopathy with CO2 narcosis component, resolved. Cardiac: No acute issues. Pulmonary: Acute hypercapnic respiratory failure likely secondary to over- sedation initially now requiring BiPAP support, resolved. Concentric tracheal hypertrophy, vasculitis studies sent, though unlikely as ESR is only minimally elevated. Will discontinue empiric steroids. Renal: No acute issues. Endo: No acute issues. GI: No acute issues. ID: No acute issues Heme/Onc: No acute issues. Psych: No acute issues. Miscellaneous: No acute issues. Prophylaxis: Heparin Diet: Regular Quality Stroke Does the patient have a stroke diagnosis?: No VTE Prior VTE?: No VTE Risk Level:: Medical - moderate - high VTE Device Contraindication: Treatment Not Indicated VTE Drug Contraindication: N/A - Med Ordered
--- NOTE | 2025-04-01 10:30 | HE.PHANOTE ---
RE: METHADONE DOSING Last dose of methadone 120 mg was given at [facility] [phone] on 03/31/25 per Desiree (utilities and maintenance supervisor).
[2025-04-01] MEDS: methADONE HCl 20 MG/2 ML ORAL.CONC 120 MG PO (11:42)
--- NOTE | 2025-04-01 12:51 | PC.NURSE ---
Assume care @ 0700 Neuro: Alert & oriented, intermittent anxiety, Requiring frequent redirection. Respiratory/Cardiac: off BiPAP since approx 5am now on 2L NC, SpO2 low 90s, clear lung sounds, Sinus rhythm on tele. GI/:? Hdz removed to day @ 7am,? Pt due to void by 1300, On a regular diet.?Lines: Peripheral IVs
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
[2025-04-01] MEDS: Diclofenac Sodium Delayed Rel 50 MG TABLET.DR PO (17:31)
[2025-04-02] VITALS (8 sets, daily range): BP systolic 112–131; BP diastolic 58–81; PULSE 70–77; RESP 12–20; TEMP 36.1–36.6; O2SAT 91–98; BMI 40.4
[2025-04-02 06:24] LABS: MANUAL DIFF FLAG NO
[2025-04-02 06:27] LABS: Hematocrit 31.2 % (37.0-47.0); Hemoglobin 9.7 g/dl (12.0-16.0); Imm Gran Abs Auto 0.07 X10*3/uL (0.00-0.03); Imm Gran Pct Auto 1.0 % (0.0-0.4); Lymphocytes Absolute Auto 1.9 X10*3/uL (1.2-4.9); Mean Corpuscular HGB Conc 31.1 g/dl (31.0-35.0); Mean Corpuscular Hemoglobin 26.9 pg (27.0-33.0); Mean Corpuscular Volume 86.7 fL (80.0-98.0); NRBC Abs Auto 0.000 X10*3/uL (0.0-0.012); NRBC Pct Auto 0.0 /100WBC (0.0-0.2); Red Blood Count 3.60 X10*6/uL (4.20-5.50); White Blood Count 7.0 X10*3/uL (4.8-10.8)
--- NOTE | 2025-04-02 06:31 | PC.NURSE ---
Patient requesting for all 4 side rails to be put up on bed, and well as the bed raised up higher than the lowest setting. Education provided on safety protocols of hospital. Patient insisted to keep all 4 side rails up. She is also refusing bed alarm. 1:1 sitter continues at bedside. Call malone in reach.
[2025-04-02 06:33] LABS: Platelet Count 58 X10*3/uL (160-400)
[2025-04-02 06:43] LABS: Anion Gap 10 (12-20); Blood Urea Nitrogen 25 mg/dL (9-16); Calcium 8.9 mg/dL (8.4-10.2); Carbon Dioxide 30 mmol/L (22-29); Chloride 108 mmol/L (96-108); Creatinine Clr Calc Pharmacy 87.2; Estimated Glomerular Filt Rate > 60; Magnesium 2.0 mg/dL (1.6-2.6); Potassium 3.5 mmol/L (3.3-5.1); Sodium 144 mmol/L (135-145)
[2025-04-02] MEDS: methADONE HCl 20 MG/2 ML ORAL.CONC 120 MG PO (08:57)
[2025-04-02] MEDS: Diclofenac Sodium Delayed Rel 50 MG TABLET.DR PO (08:59)
[2025-04-02] MEDS: Amphetamine Mixed Salts 10 MG TABLET 30 MG PO ×2 (09:00→16:05)
[2025-04-02 09:13] LABS: Reticulocytes Absolute 0.058 X10*6/uL (0.026-0.095)
[2025-04-02 09:28] LABS: Iron 95 mcg/dL (30-160); Percent Iron Saturation 35 % (15-50); Total Iron Binding Capacity 269 mcg/dL (228-428); Unsaturated Iron Binding 174 ug/dL
[2025-04-02 09:43] LABS: Ferritin 96 ng/mL (10-250); Procalcitonin 0.30 ng/mL
--- NOTE | 2025-04-02 10:17 | HO.PM.IMPN ---
Subjective Subjective Date of Service: 04/02/25 Interval History: coughing, denies shortness of breath, no lethargy has hx of untreated HCV, unknown if cirrhosis c/o LLE > RLE swelling no known history of intubation though pt admits she might not remember Review of Systems Review of Systems: Yes all other systems are reviewed and are negative Physical Exam Vital Signs: Vital Signs: Last Vital Signs Temp 97.2 F 04/02/25 07:38 Pulse 75 04/02/25 07:38 Resp 20 04/02/25 07:38 BP 114/58 L 04/02/25 07:38 Pulse Ox 96 04/02/25 07:38 O2 Del Method Room Air 04/02/25 07:38 O2 Flow Rate 2 04/01/25 19:15 FiO2 35 04/01/25 04:58 BMI result Body Mass Index 40.4 Gen: in no acute distress HEENT: sclera anicteric, moist mucus membranes Neck: supple Lungs: diminished Heart: regular rate and rhythm, no murmurs Abd: soft, non-tender, non-distended, obese Ext: LLE>RLE swelling Skin: warm/well-perfused Neuro: alert and oriented x3, no focal findings Psych: anxious Objective Data Active Medications Amoxicillin/Clavulanate Potassium (Amoxicillin/Potassium Clav 875 Mg Tablet) 875 mg PO Q12H ON LICENSE OF [facility] Last Admin: 04/02/25 09:05 Dose: 875 mg Documented By: WILMER Amphetamine/Dextroamphetamine (Amphetamine Mixed Salts 10 Mg Tablet) 10 mg PO DAILY ON LICENSE OF [facility] Last Admin: 04/02/25 09:07 Dose: Not Given Documented By: WILMER Non-Admin Reason: pt does not take Amphetamine/Dextroamphetamine (Amphetamine Mixed Salts 10 Mg Tablet) 30 mg PO BID ON LICENSE OF [facility] Last Admin: 04/02/25 09:00 Dose: 30 mg Documented By: WILMER Baclofen (Baclofen 20 Mg Tablet) 20 mg PO BID ON LICENSE OF [facility] Last Admin: 04/02/25 09:00 Dose: 20 mg Documented By: WILMER Clonazepam (Clonazepam 1 Mg Tablet) 2 mg PO TID ON LICENSE OF [facility] Last Admin: 04/02/25 09:01 Dose: 2 mg Documented By: WILMER Clonidine HCl (Clonidine Hcl 0.2 Mg Tablet) 0.2 mg PO TID ON LICENSE OF [facility]; Protocol Last Admin: 04/02/25 08:59 Dose: 0.2 mg Documented By: WILMER Diclofenac Sodium (Diclofenac Sodium Delayed Rel 50 Mg Tablet.Dr) 50 mg PO DAILY ON LICENSE OF [facility] Last Admin: 04/02/25 08:59 Dose: 50 mg Documented By: WILMER Docusate Sodium (Docusate Sodium 100 Mg Capsule) 100 mg PO BID PRN PRN Reason: CONSTIPATION, 1ST LINE (HOLD FOR LOOSE STOOL) Last Admin: 04/02/25 09:17 Dose: 100 mg Documented By: WILMER Furosemide (Furosemide 20 Mg Tablet) 20 mg PO DAILY ON LICENSE OF [facility]; Protocol Last Admin: 04/02/25 09:00 Dose: 20 mg Documented By: WILMER Guaifenesin (Guaifenesin La 600 Mg Tab.Er.12h) 1,200 mg PO Q12H PRN PRN Reason: Cough Heparin Sodium (Porcine) (Heparin Sodium,Porcine 5,000 Unit/Ml Vial) 5,000 unit SUBCUT Q8H ON LICENSE OF [facility] Last Admin: 04/02/25 08:59 Dose: 5,000 unit Documented By: WILMER Hydroxyzine HCl (Hydroxyzine Hcl 25 Mg Tablet) 25 mg PO TID ON LICENSE OF [facility] Last Admin: 04/02/25 09:00 Dose: 25 mg Documented By: WILMER Loratadine (Loratadine 10 Mg Tablet) 10 mg PO DAILY ON LICENSE OF [facility] Last Admin: 04/02/25 08:59 Dose: 10 mg Documented By: WILMER Methadone HCl (Methadone Hcl 20 Mg/2 Ml Oral.Conc) 120 mg PO DAILY@0800 ON LICENSE OF [facility] Last Admin: 04/02/25 08:57 Dose: 120 mg Documented By: WILMER Co-signed By: KB Nicotine (Nicotine 21 Mg Patch.Td24) 21 mg TRANSDERMA DAILY PRN PRN Reason: Nicotine Cravings Nicotine Polacrilex (Nicotine Polacrilex 2 Mg Gum) 2 mg BUCCAL Q2H PRN PRN Reason: Nicotine Cravings Last Admin: 04/02/25 09:10 Dose: 2 mg Documented By: WILMER Pregabalin (Pregabalin 150 Mg Capsule) 150 mg PO BID ON LICENSE OF [facility] Last Admin: 04/02/25 09:01 Dose: 150 mg Documented By: WILMER Senna (Sennosides 8.6 Mg Tablet) 17.2 mg PO DAILY PRN PRN Reason: Constipation Last Admin: 04/02/25 09:17 Dose: 17.2 mg Documented By: WILMER Topiramate (Topiramate 100 Mg Tablet) 200 mg PO BID EFREM Last Admin: 04/02/25 08:59 Dose: 200 mg Documented By: WILMER Labs 04/02/25 06:02 04/02/25 06:02 Labs: Laboratory Results - last 24 hr 04/02/25 06:02 MCV 86.7 MCH 26.9 L MCHC 31.1 RDW 16.2 H Plt Count 58 L MPV 12.3 Immature Gran % (Auto) 1.0 H Neut % (Auto) 62.1 Lymph % (Auto) 27.5 [place] % (Auto) 7.4 Eos % (Auto) 1.4 Baso % (Auto) 0.6 Lymph # (Auto) 1.9 [place] # (Auto) 0.5 Eos # (Auto) 0.1 Baso # (Auto) 0.0 Abs Immat Gran (auto) 0.07 H Absolute Neuts (auto) 4.4 Absolute Nucleated RBC 0.000 Nucleated RBC % (auto) 0.0 Absolute Retic 0.058 Percent Retic 1.6 Immature Retic Fraction 31.3 H Retic Hgb Equivalent 30.6 Anion Gap 10 L Estim Creat Clear Calc 87.2 Estimated GFR > 60 Random Glucose 82 Calcium 8.9 Phosphorus 2.8 Magnesium 2.0 Iron 95 TIBC 269 % Saturation 35 Unsat Iron Binding 174 Ferritin 96 Lactate Dehydrogenase 171 Procalcitonin 0.30 Microbiology Microbiology Results: Microbiology 03/31/25 12:16 Blood Culture - Preliminary Blood - Venous No growth after 24 hours. 03/31/25 12:10 Blood Culture - Preliminary Blood - Venous No growth after 24 hours. Assessment and Plan (1) Polysubstance abuse: Status: Acute Plan d3 for 44yo F with PTSD, depression, personality disorder, morbid obesity, HCV hospitalized at [facility] where she had multiple falls and lethargy found to have acute hypercapnea requiring BiPAP support in ICU, weaned off and transferred to telemetry 04/01 CT chest demonstrated concentric tracheal thickening, PNA, and splenomegaly acute metabolic encephalopathy due to acute hypercarbic resp failure - resolved, suspect due to polypharmacy causing oversedation, Psychiatry consult pending regarding medication adjustments, repeat VBG in AM PNA - change levofloxacin to amoxicillin-clavulanate concentric tracheal hypertrophy - steroids discontinued, ANCA pending, outpt Pulm eval to consider bronchoscopy LLE>RLE swelling - venous Duplex to r/o DVT normocytic anemia - suspect anemia of chronic disease but check B12+FA; recheck CBC tomorrow splenomegaly thrombocytopenia HCV ?chronic - check abd US for cirrhosis; also check HBV + HIV + HCV RNA; recheck CBC tomorrow polysubstance abuse - continue methadone PTSD depression - continue clonazepam, topiramate, clonidine, hydroxyzine ADD - continue Adderall neuropathy - continue baclofen + pregabalin [though at lower dose given oversedation] tobacco abuse - NRT VTE ppx - enoxaparin dispo - eventual return to [facility] In my clinical judgment, the patient requires continued inpatient hospitalization for the following reasons: thrombocyopenia/splenomegaly workup, hypercapnea Total time managing care of this patient today: 45 minutes. Quality Stroke Does the patient have a stroke diagnosis?: No VTE Prior VTE?: No VTE Risk Level:: Medical - moderate - high VTE Device Contraindication: Treatment Not Indicated VTE Drug Contraindication: N/A - Med Ordered
[2025-04-02 10:47] LABS: Alanine Aminotransferase 30 U/L (0-31); Albumin Level 3.5 g/dL (3.5-5.0); Alkaline Phosphatase 112 U/L (39-117); Aspartate Amino Transferase 34 U/L (5-31); Total Protein 7.1 g/dL (6.5-8.0)
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
--- NOTE | 2025-04-02 16:27 | PC.NURSE ---
Patients belongings brought from [facility] by staff. Patients home medications put in locked patient specfic bin.
[2025-04-03 04:00] VITALS: BP 123/77; PULSE 71; RESP 18; TEMP 36; O2SAT 95
[2025-04-03] MEDS: guaiFENesin LA 600 MG TAB.ER.12H 1200 MG PO (05:12)
[2025-04-03 06:00] VITALS: BMI 42.8
[2025-04-03 07:28] VITALS: BP 117/70; PULSE 65; RESP 16; TEMP 35.7; O2SAT 96
[2025-04-03] MEDS: methADONE HCl 20 MG/2 ML ORAL.CONC 120 MG PO (08:31)
[2025-04-03 08:37] LABS: Hematocrit 29.7 % (37.0-47.0); Hemoglobin 9.4 g/dl (12.0-16.0); Mean Corpuscular HGB Conc 31.6 g/dl (31.0-35.0); Mean Corpuscular Hemoglobin 27.1 pg (27.0-33.0); Mean Corpuscular Volume 85.6 fL (80.0-98.0); NRBC Abs Auto 0.000 X10*3/uL (0.0-0.012); NRBC Pct Auto 0.0 /100WBC (0.0-0.2); Red Blood Count 3.47 X10*6/uL (4.20-5.50); White Blood Count 5.4 X10*3/uL (4.8-10.8)
[2025-04-03 08:37] LABS: Venous Blood Gas Refer to POC result
[2025-04-03 08:39] LABS: Platelet Count 56 X10*3/uL (160-400)
[2025-04-03 08:39] LABS: VBG HCO3 36 mmol/L (22-26); VBG O2 % Saturation 92.0 %
[2025-04-03 08:45] LABS: INTERNATIONAL NORM RATIO 1.0 (0.9-1.1); Prothrombin Time 11.3 SEC (10.9-12.4)
[2025-04-03 08:51] LABS: Alanine Aminotransferase 27 U/L (0-31); Albumin Level 3.3 g/dL (3.5-5.0); Alkaline Phosphatase 97 U/L (39-117); Anion Gap 9 (12-20); Aspartate Amino Transferase 28 U/L (5-31); Blood Urea Nitrogen 18 mg/dL (9-16); Calcium 8.9 mg/dL (8.4-10.2); Carbon Dioxide 31 mmol/L (22-29); Chloride 107 mmol/L (96-108); Creatinine Clr Calc Pharmacy 102.3; Estimated Glomerular Filt Rate > 60; Potassium 3.4 mmol/L (3.3-5.1); Sodium 144 mmol/L (135-145); Total Protein 7.0 g/dL (6.5-8.0)
[2025-04-03 09:27] LABS: Folate 6.1 ng/mL (> or = 4.0); Vitamin B12 748 pg/mL (200-900)
--- NOTE | 2025-04-03 09:54 | HO.PM.IMPN ---
Subjective Subjective Date of Service: 04/03/25 Interval History: cough improving no dyspnea reports she has been discharged from [facility] endorses depression, denies SI Review of Systems Review of Systems: Yes all other systems are reviewed and are negative Physical Exam Vital Signs: Vital Signs: Last Vital Signs Temp 96.3 F L 04/03/25 07:28 Pulse 65 04/03/25 07:28 Resp 16 04/03/25 07:28 BP 117/70 04/03/25 07:28 Pulse Ox 96 04/03/25 07:28 O2 Del Method Nasal Cannula 04/03/25 07:28 O2 Flow Rate 0.5 04/03/25 07:28 FiO2 35 04/01/25 04:58 BMI result Body Mass Index 42.8 Gen: in no acute distress HEENT: sclera anicteric, moist mucus membranes Neck: supple Lungs: diminished Heart: regular rate and rhythm, no murmurs Abd: soft, non-tender, non-distended, obese Ext: LLE>RLE swelling Skin: warm/well-perfused Neuro: alert and oriented x3, no focal findings Psych: anxious Objective Data Active Medications Amoxicillin/Clavulanate Potassium (Amoxicillin/Potassium Clav 875 Mg Tablet) 875 mg PO Q12H [facility] Last Admin: 04/02/25 22:10 Dose: 875 mg Documented By: JAMES Amphetamine/Dextroamphetamine (Amphetamine Mixed Salts 10 Mg Tablet) 30 mg PO BID@0900,1400 [facility] Last Admin: 04/02/25 16:05 Dose: 30 mg Documented By: WILMER Baclofen (Baclofen 20 Mg Tablet) 20 mg PO BID [facility] Last Admin: 04/02/25 22:13 Dose: 20 mg Documented By: JAMES Clonazepam (Clonazepam 1 Mg Tablet) 1 mg PO TID [facility] Last Admin: 04/02/25 22:13 Dose: 1 mg Documented By: JAMES Clonidine HCl (Clonidine Hcl 0.2 Mg Tablet) 0.2 mg PO TID [facility]; Protocol Last Admin: 04/02/25 22:10 Dose: 0.2 mg Documented By: JAMES Diclofenac Sodium (Diclofenac Sodium Delayed Rel 50 Mg Tablet.) 50 mg PO DAILY [facility] Last Admin: 04/02/25 08:59 Dose: 50 mg Documented By: WILMER Docusate Sodium (Docusate Sodium 100 Mg Capsule) 100 mg PO BID PRN PRN Reason: CONSTIPATION, 1ST LINE (HOLD FOR LOOSE STOOL) Last Admin: 04/02/25 09:17 Dose: 100 mg Documented By: WILMER Enoxaparin Sodium (Enoxaparin Sodium 40 Mg/0.4 Ml Syringe) 40 mg SUBCUT Q24H [facility] Last Admin: 04/02/25 12:12 Dose: 40 mg Documented By: WILMER Furosemide (Furosemide 20 Mg Tablet) 20 mg PO DAILY [facility]; Protocol Last Admin: 04/02/25 09:00 Dose: 20 mg Documented By: WILMER Guaifenesin (Guaifenesin La 600 Mg Tab.Er.12h) 1,200 mg PO Q12H PRN PRN Reason: Cough Last Admin: 04/03/25 05:12 Dose: 1,200 mg Documented By: JAMES Loratadine (Loratadine 10 Mg Tablet) 10 mg PO DAILY [facility] Last Admin: 04/02/25 08:59 Dose: 10 mg Documented By: WILMER Methadone HCl (Methadone Hcl 20 Mg/2 Ml Oral.Conc) 120 mg PO DAILY@0800 [facility] Last Admin: 04/03/25 08:31 Dose: 120 mg Documented By: WILMER Co-signed By: KB Nicotine (Nicotine 21 Mg Patch.Td24) 21 mg TRANSDERMA DAILY PRN PRN Reason: Nicotine Cravings Nicotine Polacrilex (Nicotine Polacrilex 2 Mg Gum) 2 mg BUCCAL Q2H PRN PRN Reason: Nicotine Cravings Last Admin: 04/03/25 08:33 Dose: 2 mg Documented By: WILMER Pregabalin (Pregabalin 150 Mg Capsule) 150 mg PO BID [facility] Last Admin: 04/02/25 22:13 Dose: 150 mg Documented By: JAMES Senna (Sennosides 8.6 Mg Tablet) 17.2 mg PO DAILY PRN PRN Reason: Constipation Last Admin: 04/02/25 09:17 Dose: 17.2 mg Documented By: WILMER Topiramate (Topiramate 100 Mg Tablet) 200 mg PO BID [facility] Last Admin: 04/02/25 22:13 Dose: 200 mg Documented By: JAMES Labs 04/03/25 08:29 04/03/25 08:29 Labs: Laboratory Results - last 24 hr 04/02/25 04/03/25 04/03/25 06:02 08:29 08:34 MCV 85.6 MCH 27.1 MCHC 31.6 RDW 16.2 H Plt Count 56 L MPV 11.7 Absolute Nucleated RBC 0.000 Nucleated RBC % (auto) 0.0 PT 11.3 INR 1.0 VBG pH 7.39 VBG pCO2 60 VBG pO2 68 VBG HCO3 36 H VBG O2 Saturation 92.0 VBG Base Excess 10.1 Anion Gap 9 L Estim Creat Clear Calc 102.3 Estimated GFR > 60 Random Glucose 93 Calcium 8.9 Total Bilirubin 0.2 0.3 Direct Bilirubin < 0.2 0.1 AST 34 H 28 ALT 30 27 Alkaline Phosphatase 112 97 Total Protein 7.1 7.0 Albumin 3.5 3.3 L Vitamin B12 748 Folate 6.1 Microbiology Microbiology Results: Microbiology 03/31/25 12:16 Blood Culture - Preliminary Blood - Venous No growth after 48 hours. 03/31/25 12:10 Blood Culture - Preliminary Blood - Venous No growth after 48 hours. Assessment and Plan (1) Polysubstance abuse: Status: Acute Plan d4 for 44yo F with PTSD, depression, personality disorder, morbid obesity, HCV hospitalized at [facility] where she had multiple falls and lethargy found to have acute hypercapnea requiring BiPAP support in ICU, weaned off and transferred to telemetry 04/01 CT chest demonstrated concentric tracheal thickening, PNA, and splenomegaly acute metabolic encephalopathy due to acute hypercarbic resp failure - resolved, suspect due to polypharmacy causing oversedation, Psychiatry consulted pending regarding medication adjustments and halved doses of clonazepam and pregabalin PNA - amoxicillin-clavulanate 04/02-04/09 concentric tracheal hypertrophy - steroids discontinued, ANCA pending, outpt Pulm eval to consider bronchoscopy LLE>RLE swelling - venous Duplex to r/o DVT negative; elevate legs normocytic anemia - suspect anemia of chronic disease splenomegaly thrombocytopenia HCV ?chronic - abd US without cirrhosis; HBV + HIV + HCV RNA pending; recheck CBC tomorrow; d/c enoxaparin incidental dilation of both the intrahepatic and extrahepatic biliary tree noted on US - MRCP polysubstance abuse - continue methadone PTSD depression - continue clonazepam [lowered dose], topiramate, clonidine, hydroxyzine ADD - continue Adderall neuropathy - continue baclofen + pregabalin [though at lower dose given oversedation] tobacco abuse - NRT VTE ppx - enoxaparin on hold, give SCDs dispo - CARE Team consultation In my clinical judgment, the patient requires continued inpatient hospitalization for the following reasons: thrombocyopenia/splenomegaly workup, hypercapnea, psychiatric evaluation Total time managing care of this patient today: 40 minutes. Quality Stroke Does the patient have a stroke diagnosis?: No VTE Prior VTE?: No VTE Risk Level:: Medical - moderate - high VTE Device Contraindication: Treatment Not Indicated VTE Drug Contraindication: N/A - Med Ordered
[2025-04-03 11:25] VITALS: BP 116/79; PULSE 71; RESP 12; TEMP 36.2; O2SAT 95
--- NOTE | 2025-04-03 11:58 | MHC.CARE ---
CARE team attempted to assess Arline 2x. Arline was somnulent and sedated, often falling asleep, mumbling and gazing around the room. She was unable to engage in an organized and logical discussion. Per RN, they were considering offering patient Narcan this morning, however she quickly aroused when doctor arrived in her room. Unable to assess safety, symptoms, discharge plan, treatment modalities, family/relationships and housing. Kathryn Schulz [facility]
[2025-04-03 16:00] VITALS: BP 122/77; PULSE 80; RESP 12; TEMP 36.3; O2SAT 92
[2025-04-03] MEDS: Amphetamine Mixed Salts 10 MG TABLET 30 MG PO (16:09)
[2025-04-03 19:38] VITALS: BP 143/83; PULSE 64; RESP 16; TEMP 36.1; O2SAT 95
[2025-04-03 23:33] VITALS: BP 115/70; PULSE 69; RESP 16; TEMP 36.1; O2SAT 99
[2025-04-04 04:00] VITALS: BP 118/68; PULSE 70; RESP 18; TEMP 36.1; O2SAT 97
[2025-04-04 06:00] VITALS: BMI 41.4
[2025-04-04 06:51] LABS: Venous Blood Gas Refer to POC result
[2025-04-04 06:58] LABS: VBG HCO3 33 mmol/L (22-26); VBG O2 % Saturation 99.0 %
[2025-04-04 07:33] VITALS: BP 128/79; PULSE 90; RESP 20; TEMP 36.1; O2SAT 95
[2025-04-04] MEDS: Amphetamine Mixed Salts 10 MG TABLET 30 MG PO (08:07)
[2025-04-04] MEDS: Diclofenac Sodium Delayed Rel 50 MG TABLET.DR PO (08:07)
[2025-04-04] MEDS: methADONE HCl 20 MG/2 ML ORAL.CONC 120 MG PO (08:08)
[2025-04-04 08:23] LABS: Hematocrit 35.3 % (37.0-47.0); Hemoglobin 11.4 g/dl (12.0-16.0); Mean Corpuscular HGB Conc 32.3 g/dl (31.0-35.0); Mean Corpuscular Hemoglobin 26.8 pg (27.0-33.0); Mean Corpuscular Volume 82.9 fL (80.0-98.0); NRBC Abs Auto 0.020 X10*3/uL (0.0-0.012); NRBC Pct Auto 0.3 /100WBC (0.0-0.2); Red Blood Count 4.26 X10*6/uL (4.20-5.50); White Blood Count 7.1 X10*3/uL (4.8-10.8)
[2025-04-04 08:24] LABS: Platelet Count 74 X10*3/uL (160-400)
[2025-04-04 08:31] LABS: Anion Gap 16 (12-20); Blood Urea Nitrogen 16 mg/dL (9-16); Calcium 9.3 mg/dL (8.4-10.2); Carbon Dioxide 26 mmol/L (22-29); Chloride 107 mmol/L (96-108); Creatinine Clr Calc Pharmacy 97.9; Estimated Glomerular Filt Rate > 60; Potassium 4.0 mmol/L (3.3-5.1); Sodium 145 mmol/L (135-145)
[2025-04-04 08:42] LABS: HBS Num1 27.58 mIU/mL (0-7.99); HBc Num1 2.73 S/CO (0.00-0.79); HBsAGNum1 0.32 S/CO (0.00-0.99); HIV Num 1 0.07 S/CO (0.00-0.99); Hepatitis B Surface Antigen Negative (Negative); ~HepC Num1 13.16 S/CO (0.00-0.79); ~Hepatitis B Surface Antibody REACTIVE (Nonreactive); ~Hepatitis C Antibody Reactive (Nonreactive)
--- NOTE | 2025-04-04 10:28 | MHC.CM.PN ---
Per MD in [facility], Patient is medically cleared for dc and will need a Care Team Consult to assist with disposition. CM will continue to follow.
[2025-04-04 10:44] VITALS: BP 116/69; PULSE 80; RESP 20; TEMP 36.2; O2SAT 96
[2025-04-04 11:37] LABS: HBc Num2 2.79 S/CO; HBc Num3 2.68 S/CO
--- NOTE | 2025-04-04 12:40 | PC.NURSE ---
Addendum entered by Blanca Serrano RN 04/04/25 14:27: Breathing shallow. Patient on 2L NC, 02 97%. bp: 116/69. MD notified and at bedside for evaluation. No new orders at this time. Sitter at bedside for safety. Original Note: Patient very drowsy, minimally opens eyes with tactile and verbal stimuli. RR 8
[2025-04-04 13:00] LABS: Procalcitonin 0.08 ng/mL
--- NOTE | 2025-04-04 15:00 | P.PNIM_ITS ---
Subjective Subjective Date of Service: 04/04/25 Interval History: Extremely somnolent this a.m. arousing only to loud verbal stimuli. Arouses but falls right back to sleep Review of Systems Unable to obtain Physical Exam 2 Vital Signs: Vital Signs: Last Vital Signs Temp 97.1 F 04/04/25 10:44 Pulse 80 04/04/25 10:44 Resp 20 04/04/25 10:44 BP 116/69 04/04/25 10:44 Pulse Ox 96 04/04/25 10:44 O2 Del Method Nasal Cannula 04/04/25 10:44 O2 Flow Rate 2 04/04/25 10:44 FiO2 35 04/01/25 04:58 BMI result Body Mass Index 41.4 Const: Other: Somnolent but arousable Resp: Other: Clear to auscultation bilaterally no rales rhonchi or wheezes Cardio: Other: No S4; positive S1-S2; no S3 murmurs rubs or gallops GI: Other: Soft nontender nondistended normoactive bowel sounds Extrem: Other: No edema bilaterally Objective Data Active Medications Amoxicillin/Clavulanate Potassium (Amoxicillin/Potassium Clav 875 Mg Tablet) 875 mg PO Q12H [facility] Last Admin: 04/04/25 08:08 Dose: 875 mg Documented By: PRABHAKAR Amphetamine/Dextroamphetamine (Amphetamine Mixed Salts 10 Mg Tablet) 30 mg PO BID@0900,1400 [facility] Last Admin: 04/04/25 14:34 Dose: Not Given Documented By: PRABHAKAR Non-Admin Reason: patient lethargic and drowsy Baclofen (Baclofen 20 Mg Tablet) 20 mg PO BID [facility] Last Admin: 04/04/25 08:06 Dose: 20 mg Documented By: PRABHAKAR Clonazepam (Clonazepam 1 Mg Tablet) 1 mg PO TID [facility] Last Admin: 04/04/25 14:46 Dose: Not Given Documented By: PRABHAKAR Non-Admin Reason: held, patient drowsy Clonidine HCl (Clonidine Hcl 0.2 Mg Tablet) 0.2 mg PO TID [facility]; Protocol Last Admin: 04/04/25 14:47 Dose: Not Given Documented By: PRABHAKAR Non-Admin Reason: held patient drowsy Diclofenac Sodium (Diclofenac Sodium Delayed Rel 50 Mg Tablet.) 50 mg PO DAILY [facility] Last Admin: 04/04/25 08:07 Dose: 50 mg Documented By: PRABHAKAR Docusate Sodium (Docusate Sodium 100 Mg Capsule) 100 mg PO BID PRN PRN Reason: CONSTIPATION, 1ST LINE (HOLD FOR LOOSE STOOL) Last Admin: 04/02/25 09:17 Dose: 100 mg Documented By: WILMER Enoxaparin Sodium (Enoxaparin Sodium 40 Mg/0.4 Ml Syringe) 40 mg SUBCUT Q24H [facility] On Hold: 04/03/25 09:59 Last Admin: 04/02/25 12:12 Dose: 40 mg Documented By: WILMER Furosemide (Furosemide 20 Mg Tablet) 20 mg PO DAILY [facility]; Protocol Last Admin: 04/04/25 08:07 Dose: 20 mg Documented By: PRABHAKAR Guaifenesin (Guaifenesin La 600 Mg Tab.Er.12h) 1,200 mg PO Q12H PRN PRN Reason: Cough Last Admin: 04/03/25 05:12 Dose: 1,200 mg Documented By: JAMES Loratadine (Loratadine 10 Mg Tablet) 10 mg PO DAILY [facility] Last Admin: 04/04/25 08:06 Dose: 10 mg Documented By: PRABHAKAR Methadone HCl (Methadone Hcl 20 Mg/2 Ml Oral.Conc) 120 mg PO DAILY@0800 [facility] Last Admin: 04/04/25 08:08 Dose: 120 mg Documented By: PRABHAKAR Co-signed By: KB Nicotine (Nicotine 21 Mg Patch.Td24) 21 mg TRANSDERMA DAILY PRN PRN Reason: Nicotine Cravings Nicotine Polacrilex (Nicotine Polacrilex 2 Mg Gum) 2 mg BUCCAL Q2H PRN PRN Reason: Nicotine Cravings Last Admin: 04/04/25 08:17 Dose: 2 mg Documented By: PRABHAKAR Pregabalin (Pregabalin 150 Mg Capsule) 150 mg PO BID [facility] Last Admin: 04/04/25 08:07 Dose: 150 mg Documented By: PRABHAKAR Senna (Sennosides 8.6 Mg Tablet) 17.2 mg PO DAILY PRN PRN Reason: Constipation Last Admin: 04/02/25 09:17 Dose: 17.2 mg Documented By: WILMER Topiramate (Topiramate 100 Mg Tablet) 200 mg PO BID [facility] Last Admin: 04/04/25 08:07 Dose: 200 mg Documented By: PRABHAKAR Labs 04/04/25 07:54 04/04/25 07:54 Labs: Laboratory Results - last 24 hr 04/03/25 04/04/25 04/04/25 08:29 06:51 07:54 MCV 85.6 82.9 MCH 27.1 26.8 L MCHC 31.6 32.3 RDW 16.2 H 15.9 Plt Count 56 L 74 L D MPV 11.7 11.0 Absolute Nucleated RBC 0.000 0.020 H Nucleated RBC % (auto) 0.0 0.3 H VBG pH 7.47 H VBG pCO2 45 VBG pO2 145 VBG HCO3 33 H VBG O2 Saturation 99.0 VBG Base Excess 9.0 Anion Gap 9 L 16 Estim Creat Clear Calc 102.3 97.9 Estimated GFR > 60 > 60 Random Glucose 93 82 Calcium 8.9 9.3 Total Bilirubin 0.3 Direct Bilirubin 0.1 AST 28 ALT 27 Alkaline Phosphatase 97 Total Protein 7.0 Albumin 3.3 L Procalcitonin Cancelled Hep Bs Antigen Negative Hep Bs Antibody REACTIVE Hep B Core Total Ab Reactive Hep B Core IgM Ab Cancelled Hepatitis C Ab (EIA) Reactive H HIV 1&2 Ab/P24 Ag 4thGn Nonreactive 04/04/25 12:12 MCV MCH MCHC RDW Plt Count MPV Absolute Nucleated RBC Nucleated RBC % (auto) VBG pH VBG pCO2 VBG pO2 VBG HCO3 VBG O2 Saturation VBG Base Excess Anion Gap Estim Creat Clear Calc Estimated GFR Random Glucose Calcium Total Bilirubin Direct Bilirubin AST ALT Alkaline Phosphatase Total Protein Albumin Procalcitonin 0.08 Hep Bs Antigen Hep Bs Antibody Hep B Core Total Ab Hep B Core IgM Ab Hepatitis C Ab (EIA) HIV 1&2 Ab/P24 Ag 4thGn Assessment and Plan (1) Toxic encephalopathy: Status: Acute (2) Pneumonia: Status: Acute (3) Polysubstance abuse: Status: Acute Plan 44yo F with PTSD, depression, personality disorder, morbid obesity, HCV; hospitalized at [facility] where she had multiple falls and lethargy found to have acute hypercapnea requiring BiPAP support in ICU, weaned off and transferred to telemetry 04/01; CT chest demonstrated concentric tracheal thickening, PNA, and splenomegaly 1.Acute metabolic encephalopathy due to acute hypercarbic resp failure - resolved, suspect due to polypharmacy causing oversedation, Psychiatry consulted pending regarding medication adjustments and halved doses of clonazepam and pregabalin; continue to slowly reduce pregabalin -titrate meds as indicated clinically 2.PNA - amoxicillin-clavulanate(3) -titrate O2 to maintain sats greater than or equal to 92% 3.Concentric tracheal hypertrophy - steroids discontinued, ANCA pending, outpt Pulm eval to consider bronchoscopy 4.Dilation of both the intrahepatic/extrahepatic biliary tree (US) - MRCP: -Motion affected study. -Dilated common bile duct with abrupt cutoff distally suggesting a small stone or lesion. -No evidence for cholelithiasis. -follow daily LFTs and consult as indicated 4.Polysubstance abuse - continue methadone SCDs Full code dispo - CARE Team consultation In my clinical judgment, the patient requires continued inpatient hospitalization for the following reasons: thrombocyopenia/splenomegaly workup, hypercapnea, psychiatric evaluation Quality Stroke Does the patient have a stroke diagnosis?: No VTE Prior VTE?: No VTE Risk Level:: Medical - moderate - high VTE Device Contraindication: Treatment Not Indicated VTE Drug Contraindication: N/A - Med Ordered
[2025-04-04 15:15] VITALS: BP 107/65; PULSE 73; RESP 16; TEMP 36.2; O2SAT 96
--- NOTE | 2025-04-04 18:19 | MHC.CARE ---
Unable to assess patient for level of care disposition due to her level of sedation, she could not participate. Dr. Cameron notified
--- NOTE | 2025-04-04 18:25 | MHC.CARE ---
Unable to assess patient for level of care disposition due to her level of sedation, she could not participate. Dr. Son notified
[2025-04-04 19:49] VITALS: BP 131/74; PULSE 73; RESP 18; TEMP 36.3; O2SAT 93
[2025-04-04 21:54] LABS: Proteinase 3 PR3 Antibodies <1.0 AI
[2025-04-04 23:05] VITALS: BP 127/66; PULSE 72; RESP 18; TEMP 36.2; O2SAT 96
[2025-04-05 03:00] VITALS: BP 125/62; PULSE 59; RESP 18; TEMP 36.6; O2SAT 95
[2025-04-05 06:00] VITALS: BMI 41.4
[2025-04-05 08:00] VITALS: BP 114/78; PULSE 73; RESP 14; TEMP 35.6; O2SAT 94
[2025-04-05] MEDS: methADONE HCl 20 MG/2 ML ORAL.CONC 120 MG PO (08:32)
--- NOTE | 2025-04-05 08:58 | MHC.CARE ---
Pt will be an inpatient psychiatric bedsearch.
--- NOTE | 2025-04-05 09:41 | MHC.CM.PN ---
Per Care Team, Patient is an Inpatient Psych bed search. CM will follow.
[2025-04-05] MEDS: Diclofenac Sodium Delayed Rel 50 MG TABLET.DR PO (09:51)
[2025-04-05] MEDS: Amphetamine Mixed Salts 10 MG TABLET 30 MG PO (10:40)
[2025-04-05 12:00] VITALS: BP 102/58; PULSE 73; RESP 14; TEMP 36; O2SAT 93
--- NOTE | 2025-04-05 15:12 | P.PNIM_ITS ---
Subjective Subjective Date of Service: 04/05/25 Interval History: No acute issues overnight. More awake today with meds split Review of Systems Unable to obtain Physical Exam 2 Vital Signs: Vital Signs: Last Vital Signs Temp 96.8 F 04/05/25 12:00 Pulse 73 04/05/25 12:00 Resp 14 04/05/25 12:00 BP 102/58 L 04/05/25 12:00 Pulse Ox 93 04/05/25 12:00 O2 Del Method Room Air 04/05/25 12:00 O2 Flow Rate 2 04/04/25 23:05 FiO2 35 04/01/25 04:58 BMI result Body Mass Index 41.4 Const: Other: Somnolent but arousable Resp: Other: Clear to auscultation bilaterally no rales rhonchi or wheezes Cardio: Other: No S4; positive S1-S2; no S3 murmurs rubs or gallops GI: Other: Soft nontender nondistended normoactive bowel sounds Extrem: Other: No edema bilaterally Objective Data Active Medications Amoxicillin/Clavulanate Potassium (Amoxicillin/Potassium Clav 875 Mg Tablet) 875 mg PO Q12H [facility] Last Admin: 04/05/25 08:30 Dose: 875 mg Documented By: KEELEY Amphetamine/Dextroamphetamine (Amphetamine Mixed Salts 10 Mg Tablet) 30 mg PO BID@0900,1400 [facility] Last Admin: 04/05/25 10:40 Dose: 30 mg Documented By: KEELEY Baclofen (Baclofen 20 Mg Tablet) 20 mg PO BID [facility] Last Admin: 04/05/25 09:51 Dose: 20 mg Documented By: KEELEY Clonazepam (Clonazepam 1 Mg Tablet) 1 mg PO TID [facility] Last Admin: 04/05/25 08:31 Dose: 1 mg Documented By: KEELEY Clonidine HCl (Clonidine Hcl 0.2 Mg Tablet) 0.2 mg PO TID [facility]; Protocol Last Admin: 04/05/25 09:51 Dose: 0.2 mg Documented By: KEELEY Diclofenac Sodium (Diclofenac Sodium Delayed Rel 50 Mg Tablet.) 50 mg PO DAILY [facility] Last Admin: 04/05/25 09:51 Dose: 50 mg Documented By: KEELEY Docusate Sodium (Docusate Sodium 100 Mg Capsule) 100 mg PO BID PRN PRN Reason: CONSTIPATION, 1ST LINE (HOLD FOR LOOSE STOOL) Last Admin: 04/04/25 21:40 Dose: 100 mg Documented By: AMBAR Enoxaparin Sodium (Enoxaparin Sodium 40 Mg/0.4 Ml Syringe) 40 mg SUBCUT Q24H [facility] On Hold: 04/03/25 09:59 Last Admin: 04/02/25 12:12 Dose: 40 mg Documented By: WILMER Furosemide (Furosemide 20 Mg Tablet) 20 mg PO DAILY [facility]; Protocol Last Admin: 04/05/25 08:30 Dose: 20 mg Documented By: KEELEY Guaifenesin (Guaifenesin La 600 Mg Tab.Er.12h) 1,200 mg PO Q12H PRN PRN Reason: Cough Last Admin: 04/03/25 05:12 Dose: 1,200 mg Documented By: JAMES Loratadine (Loratadine 10 Mg Tablet) 10 mg PO DAILY [facility] Last Admin: 04/05/25 08:30 Dose: 10 mg Documented By: KEELEY Methadone HCl (Methadone Hcl 20 Mg/2 Ml Oral.Conc) 120 mg PO DAILY@0800 [facility] Last Admin: 04/05/25 08:32 Dose: 120 mg Documented By: KEELEY Co-signed By: ALPHONSO Nicotine (Nicotine 21 Mg Patch.Td24) 21 mg TRANSDERMA DAILY PRN PRN Reason: Nicotine Cravings Nicotine Polacrilex (Nicotine Polacrilex 2 Mg Gum) 2 mg BUCCAL Q2H PRN PRN Reason: Nicotine Cravings Last Admin: 04/04/25 21:41 Dose: 2 mg Documented By: AMBAR Pregabalin (Pregabalin 150 Mg Capsule) 150 mg PO BID [facility] Last Admin: 04/05/25 09:51 Dose: 150 mg Documented By: KEELEY Senna (Sennosides 8.6 Mg Tablet) 17.2 mg PO DAILY PRN PRN Reason: Constipation Last Admin: 04/04/25 21:40 Dose: 17.2 mg Documented By: AMBAR Topiramate (Topiramate 100 Mg Tablet) 200 mg PO BID [facility] Last Admin: 04/05/25 09:51 Dose: 200 mg Documented By: KEELEY Labs 04/04/25 07:54 04/04/25 07:54 Labs: Laboratory Results - last 24 hr 03/31/25 16:25 Proteinase 3 (PR3) Ab <1.0 Myeloperoxidase Ab <1.0 Microbiology Microbiology Results: Microbiology 03/31/25 12:16 Blood Culture - Final Blood - Venous No growth after 5 days. 03/31/25 12:10 Blood Culture - Final Blood - Venous No growth after 5 days. Assessment and Plan (1) Acute hypercapnic respiratory failure: Status: Acute (2) Pneumonia: Status: Acute (3) Polysubstance abuse: Status: Acute Plan 44yo F with PTSD, depression, personality disorder, morbid obesity, HCV; hospitalized at [facility] where she had multiple falls and lethargy found to have acute hypercapnea requiring BiPAP support in ICU, weaned off and transferred to telemetry 04/01; CT chest demonstrated concentric tracheal thickening, PNA, and splenomegaly 1.Acute metabolic encephalopathy due to acute hypercarbic resp failure - resolved, suspect due to polypharmacy causing oversedation, Psychiatry consulted pending regarding medication adjustments and halved doses of clonazepam and pregabalin; continue to slowly reduce pregabalin -titrate meds as indicated clinically... Improved with different intervals 2.PNA - amoxicillin-clavulanate(4) -titrate O2 to maintain sats greater than or equal to 92% 3.Concentric tracheal hypertrophy - steroids discontinued, ANCA pending, outpt Pulm eval to consider bronchoscopy 4.Dilation of both the intrahepatic/extrahepatic biliary tree (US) - MRCP: -Motion affected study. -Dilated common bile duct with abrupt cutoff distally suggesting a small stone or lesion. -No evidence for cholelithiasis. -follow daily LFTs and consult as indicated 4.Polysubstance abuse - continue methadone SCDs Full code dispo - CARE Team consultation... Qualifies for inpatient psychiatric bed. Section 12 sign. Bed search underway In my clinical judgment, the patient requires continued inpatient hospitalization for the following reasons: thrombocyopenia/splenomegaly workup, hypercapnea, psychiatric evaluation Quality Stroke Does the patient have a stroke diagnosis?: No VTE Prior VTE?: No VTE Risk Level:: Medical - moderate - high VTE Device Contraindication: Treatment Not Indicated VTE Drug Contraindication: N/A - Med Ordered
[2025-04-05 15:51] VITALS: BP 109/68; PULSE 64; RESP 18; TEMP 35.9; O2SAT 90
[2025-04-05 19:09] LABS: HCV Log PCR 7.33 Log IU/mL (NOT DETECTED); HepC Viral Load 21300000 IU/mL (NOT DETECTED)
[2025-04-05 19:46] VITALS: BP 110/69; PULSE 65; RESP 16; TEMP 36.7; O2SAT 96
[2025-04-05 23:19] VITALS: BP 115/77; PULSE 63; RESP 16; TEMP 36.7; O2SAT 94
[2025-04-06 03:32] VITALS: BP 110/79; PULSE 64; RESP 16; TEMP 36.8; O2SAT 95
[2025-04-06 06:00] VITALS: BMI 41.8
[2025-04-06 08:00] VITALS: BP 118/76; PULSE 60; RESP 16; TEMP 35.8; O2SAT 96
[2025-04-06] MEDS: methADONE HCl 20 MG/2 ML ORAL.CONC 120 MG PO (08:58)
[2025-04-06] MEDS: Diclofenac Sodium Delayed Rel 50 MG TABLET.DR PO (08:58)
--- NOTE | 2025-04-06 10:19 | MHC.CM.PN ---
Per ROUNDS discussion, Care Team is conducting an IPLOC bed search.CM will continue to follow.
[2025-04-06] MEDS: Amphetamine Mixed Salts 10 MG TABLET 30 MG PO ×2 (10:26→15:06)
[2025-04-06 12:00] VITALS: BP 116/82; PULSE 72; RESP 14; O2SAT 94
--- NOTE | 2025-04-06 13:48 | P.DS_ITS ---
DS: Providers Provider Date of Service: 04/06/25 Date of admission: 03/31/25 15:24 Date of discharge: 04/06/25 Primary care physician: Unknown Physician Consults: 04/01/25 10:36 Consult to Psychiatry Routine Consulting Provider: [facility] Psych Covering Reason for consultation: Mira[employer], oversedation leading to BiPAP. polypharmacy 04/03/25 09:12 Inpt CARE Team Crisis Consult Stat Comment: Reason for consultation: came from [facility], sec 21 DS: Diagnosis Discharge Diagnosis (1) Acute hypercapnic respiratory failure: Status: Acute (2) Pneumonia: Status: Acute (3) Polysubstance abuse: Status: Acute DS: Summary Hospital Course Hospital Course: 44-year-old lady with underlying history of PTSD, major depression, personality disorder currently hospitalized at [facility] noted to have several falls in the facility including hitting her forehead transferred to evaluation at [facility] Emergency room for recurrent falls and lethargy. On ER evaluation patient with no acute findings on CT head, but further workup noted for acute hypercapnia with likely CO2 narcosis requiring BiPAP support. Patient admitted to the intensive care unit. Her CT chest demonstrated concentric tracheal thickening. Started on Augmentin. Hospital course Patient is successfully weaned off of BiPAP and transferred to telemetry where monitor failed to demonstrate any acute dysrhythmias. Patient found to be persistently somnolent; meds reviewed and times adjusted. Over the course of the next 24-48 hours mentation improved with the change in medicine administration times. She was seen by care team and deemed appropriate for inpatient psychiatry. At this point she is medically acceptable for same Time Attestation Discharge Coordination Time (in mins): 35 Quality: Safe Use of Opioids Does Pt have an Active Cancer Diagnosis on the Problem List?: No Quality: Stroke Does the patient have a stroke diagnosis?: No Physical Exam Vital Signs: Vital Signs: Last Vital Signs Temp 96.5 F L 04/06/25 08:00 Pulse 72 04/06/25 12:00 Resp 14 04/06/25 12:00 BP 116/82 04/06/25 12:00 Pulse Ox 94 04/06/25 12:00 O2 Del Method Room Air 04/06/25 12:00 O2 Flow Rate 1 04/06/25 03:32 FiO2 35 04/01/25 04:58 BMI result Body Mass Index 41.8 Const: Other: Somnolent but arousable Resp: Other: Clear to auscultation bilaterally no rales rhonchi or wheezes Cardio: Other: No S4; positive S1-S2; no S3 murmurs rubs or gallops GI: Other: Soft nontender nondistended normoactive bowel sounds Extrem: Other: No edema bilaterally DS: Data Data Completed and Pending Labs on day of discharge: Laboratory Results - last 24 hr 04/03/25 08:29 Hep C Viral Load [id number] H Hep C Viral Load Log 7.33 H Discharge Plan Discharge Anticipated Discharge Date/Time: 04/06/25 13:43 Patient Disposition: Xfer Psychiatric Hosp Discharge Diagnosis: Acute hypercapnic respiratory failure Referrals: Physician,Lizbeth J [Primary Care Provider, Medical] - 1 Week Discharge Medications: New methadone [Methadose] 10 mg/mL Concentrate 120 mg PO DAILY@0800 Qty: 360 0RF Rx Instructions: Partial Fill upon patient request. Continued sennosides [senna] 8.6 mg tablet 17.2 mg PO DAILY PRN (Reason: Constipation) Rx Instructions: Hold for loose stool baclofen 20 mg tablet 20 mg PO BID clonidine HCl 0.2 mg tablet 0.2 mg PO TID docusate sodium 100 mg capsule 100 mg PO BID topiramate 200 mg tablet 200 mg PO BID pregabalin 75 mg capsule 300 mg PO BID dextroamphetamine-amphetamine [Adderall] 30 mg tablet 30 mg PO BID Qty: 60 0RF Rx Instructions: administer doses at least 4-6 hours apart; Partial Fill upon patient request. loperamide 2 mg Capsule 2 mg PO Q6H MDD 16mg/24h PRN (Reason: Diarrhea) Rx Instructions: take after each loos stool nicotine (polacrilex) 2 mg Gum 2 mg BUCCAL Q2H PRN (Reason: Nicotine Cravings) methadone 10 mg Tablet 120 mg PO DAILY dextroamphetamine-amphetamine [Adderall] 10 mg Tablet 10 mg PO DAILY hydroxyzine pamoate 50 mg Capsule 50 mg PO Q4H PRN (Reason: Severe anxiety) melatonin 3 mg Tablet 3 mg PO BEDTIME PRN (Reason: Sleep) magnesium hydroxide [Milk of Magnesia] 400 mg/5 mL Suspension 30 ml PO DAILY PRN (Reason: Constipation) Rx Instructions: Hold for loose stools ibuprofen 400 mg Tablet 400 mg PO Q8H PRN (Reason: Pain: body ache, toothache, headache) nicotine 21 mg/24 hr Patch 24 Hour 1 patch TRANSDERMAL DAILY PRN (Reason: Nicotine Cravings) hydroxyzine HCl 25 mg tablet 25 mg PO TID calcium carbonate 500 mg calcium (1,250 mg) Tablet,Chewable 500 mg PO Q4H PRN (Reason: Heartburn) diclofenac sodium 50 mg tablet,delayed release (DR/EC) 50 mg PO DAILY furosemide 20 mg tablet 20 mg PO DAILY alum-mag hydroxide-simeth 200-200-20 mg/5 mL Suspension 30 ml PO QID PRN (Reason: GI upset) Rx Instructions: administer between meals and at bedtime ondansetron 4 mg Tablet,Disintegrating 4 mg PO Q6H PRN (Reason: Nausea And Vomiting) benzocaine-menthol 15-10 mg Lozenge 1 jules PO Q2H PRN (Reason: Sore Throat) guaifenesin 600 mg Tablet Extended Release 12hr 1,200 mg PO Q12H MDD 2400 mg/24 h PRN (Reason: Cough) acetaminophen 325 mg tablet 650 mg PO Q4H PRN (Reason: Fever Or Pain) clonazepam 1 mg tablet 2 mg PO TID cetirizine 10 mg tablet 10 mg PO DAILY docusate sodium 100 mg capsule 100 mg PO BID PRN (Reason: CONSTIPATION, 1ST LINE (HOLD FOR LOOSE STOOL)) Discharge Orders: Discharge Order (Routine); Ordered 04/06/25 Ordered By: Jan Son Diet: Advance to usual diet Activity on Discharge: As tolerated Stand Alone Forms: Patient Portal Discharge page Print Language: Barbadian Care Plan Goals: Continue all meds as listed on transfer sheet. Adjustment as per Psychiatry Health Concerns: Continue methadone at current daily dosing Plan of Treatment: As per receiving facility Assessment: See discharge summary
--- NOTE | 2025-04-06 13:53 | MHC.CM.PN ---
Patient has been medically cleared for dc to [facility] today[place] [facility]
--- NOTE | 2025-04-06 14:08 | MHC.CM.PN ---
Patient is medically cleared for dc [facility] [place] [facility] CM attempted to address IMM with Patient but she was sleeping soundly; original IMM left within Patient's reach and a copy has been placed on the chart.
--- NOTE | 2025-04-06 17:55 | P.CDIM_ITS ---
PROVIDER RESPONSE TEXT: To clarify, the appropriate diagnosis supported by the clinical indicators: Neuropathy: peripheral QUERY TEXT: PHYSICIAN'S DOCUMENTATION REQUEST Date of Query: 04/04/2025 11:20 AM EDT Patient Name: Arline Shetty Admit Date: 03/31/2025 Dear Jan Son DO, A review of the medical record indicates additional documentation may be needed. Please review below and update the documentation accordingly. Clinical Indicators: Progress notes: Neuropathy Continue baclofen and pregabalin LLE?RLE swelling, morbid obesity, multiple falls. Based on the above, could you clarify further specificity to the documented neuropathy for this patient? Neuropathy peripheral, idiopathic, chronic, multiple, alcoholic, ischemic etc. Other specified Other (explain) Clinically unable to determine (explain) Thank you, Mague Vanegas, CCS, CDIS Use of terms such as suspected, likely, concern for, or probable (associated with a specific diagnosis that is being evaluated, monitored, or treated as if it exists) are acceptable and can be coded in the inpatient setting, when documented at the time of discharge. Please use your independent medical judgment in providing your response. THIS QUERY IS PART OF THE PERMANENT MEDICAL RECORD
--- NOTE | 2025-04-12 15:29 | PC.NURSE ---
On March I administered the medication Amphetamine-Dextroamphentamine 10mg to the patient but did not scan the medication.
== END 2025-04-06 15:21 | DRG 193 ==
LOC: HO.ED 13:16 → HO.EDOVER 15:46 → HO.ICU 15:55 → HO.IMC 04-01 12:27
PROVIDERS: Family Medicine; Physician Assistant Medical; Admitting Provider Internal Medicine Pulmonary Disease; Emergency Provider Emergency Medicine; Visit Provider Hospitalist
DX: J18.9 Pneumonia, unspecified organism (principal); G93.41 Metabolic encephalopathy; J96.02 Acute respiratory failure with hypercapnia; F11.20 Opioid dependence, uncomplicated; G62.9 Polyneuropathy, unspecified; F17.210 Nicotine dependence, cigarettes, uncomplicated; Z71.6 Tobacco abuse counseling; F98.8 Other specified behavioral and emotional disorders with onset usually occurring in childhood and adolescence; F32.A Depression, unspecified; D64.9 Anemia, unspecified; B18.2 Chronic viral hepatitis C; F43.10 Post-traumatic stress disorder, unspecified; F19.10 Other psychoactive substance abuse, uncomplicated; G40.909 Epilepsy, unspecified, not intractable, without status epilepticus; R68.0 Hypothermia, not associated with low environmental temperature; R29.6 Repeated falls; Z20.822 Contact with and (suspected) exposure to COVID-19; Z79.899 Other long term (current) drug therapy
CPT/HCPCS: 36415; 70450; 71250; 72125; 73030; 73080; 73130; 73560; 74181; 76700; 80048; 80053; 80076; 80307; 81003; 82607; 82728; 82746; 82803; 83540; 83605; 83615; 83735; 83880; 84100; 84145; 84443; 84484; 85007; 85025; 85027; 85045; 85610; 85652; 86021; 86704; 86706; 86803; 87040; 87340; 87389; 87522; 87637; 93005; 93971; 94660; 99285; J0295; J0696; J1644; J1650; J2312; J2405; J2919; S9485

== ENCOUNTER → 2025-03-31 10:03 | Outpatient (BNV) | payer MEDICARE, MEDICAID, SELFPAY | PROVIDERS: Visit Provider Radiology Diagnostic Radiology | DX: R91.8 Other nonspecific abnormal finding of lung field (principal); R16.1 Splenomegaly, not elsewhere classified; J39.8 Other specified diseases of upper respiratory tract; S09.90XA Unspecified injury of head, initial encounter; R41.82 Altered mental status, unspecified; W19.XXXA Unspecified fall, initial encounter; S49.92XA Unspecified injury of left shoulder and upper arm, initial encounter; M25.512 Pain in left shoulder; S59.902A Unspecified injury of left elbow, initial encounter; M25.522 Pain in left elbow | CPT/HCPCS: 70450; 71250; 73030; 73080 ==

== ENCOUNTER → 2025-03-31 10:03 | Outpatient (BNV) | payer MEDICARE, MEDICAID, SELFPAY | PROVIDERS: Admitting Provider Internal Medicine Pulmonary Disease; Emergency Provider Emergency Medicine; Visit Provider Internal Medicine | DX: I44.0 Atrioventricular block, first degree (principal); I45.10 Unspecified right bundle-branch block | CPT/HCPCS: 93010 ==

== ENCOUNTER → 2025-03-31 10:08 | Outpatient (BNV) | payer MEDICARE, MEDICAID, SELFPAY | PROVIDERS: Emergency Provider Emergency Medicine; Visit Provider Internal Medicine Pulmonary Disease | DX: J96.02 Acute respiratory failure with hypercapnia (principal); G92.9 Unspecified toxic encephalopathy | CPT/HCPCS: 99232; 99291 ==

== ENCOUNTER 2025-03-31 15:24 | Outpatient (BNV) | payer MEDICARE, SELFPAY | END 2025-04-03 16:14 | PROVIDERS: Admitting Provider Internal Medicine Pulmonary Disease; Emergency Provider Emergency Medicine; Visit Provider Radiology Diagnostic Radiology | DX: K83.1 Obstruction of bile duct (principal) | CPT/HCPCS: 74181 ==

== ENCOUNTER 2025-03-31 15:24 | Outpatient (BNV) | payer MEDICARE, SELFPAY | END 2025-04-02 08:19 | PROVIDERS: Admitting Provider Internal Medicine Pulmonary Disease; Emergency Provider Emergency Medicine; Visit Provider Radiology Diagnostic Radiology | DX: R16.1 Splenomegaly, not elsewhere classified (principal); R22.42 Localized swelling, mass and lump, left lower limb | CPT/HCPCS: 76700; 93971 ==

== ENCOUNTER → 2025-03-31 15:24 | Outpatient (BNV) | payer MEDICARE, SELFPAY | PROVIDERS: Admitting Provider Internal Medicine Pulmonary Disease; Emergency Provider Emergency Medicine; Visit Provider Clinical Nurse Specialist Psychiatric/Mental Health, Adult | DX: F33.2 Major depressive disorder, recurrent severe without psychotic features (principal); F19.10 Other psychoactive substance abuse, uncomplicated | CPT/HCPCS: 99232 ==

== ENCOUNTER → 2025-03-31 15:24 | Outpatient (BNV) | payer MEDICARE, SELFPAY | PROVIDERS: Admitting Provider Internal Medicine Pulmonary Disease; Emergency Provider Emergency Medicine; Visit Provider Family Medicine | DX: J96.02 Acute respiratory failure with hypercapnia (principal); J18.9 Pneumonia, unspecified organism; F19.10 Other psychoactive substance abuse, uncomplicated | CPT/HCPCS: 99232; 99233; 99239 ==

== ENCOUNTER 2025-04-06 15:33 | Inpatient (IN) | payer MEDICARE, SELFPAY ==
--- OUTSIDE RECORDS SUMMARY | 2025-04-06 15:48 | XMS_ITS | Patient Health Record ---
Author Organization [facility] Off ice Address [address] [address] Care Team Providers Care Neon Sign Maker Name Role Phone Karlie Blanchard Primary Care Provider Unavailabl e Westley Blanchard Unavailable [phone] Migration, Provider Unavailable Unavailable Allergies Allergen (clinical [...] confirmed Encounters Encounter Location Date Provider Diagnosis [facility] [address] [place] [phone] 09/11/2024 Provider Migration [facility] [address] [id number] 09/12/2024 Provider Migration Plan Of Treatment Pending [...] Government Services [address] [place] [phone] [id number] Arline Shetty Self - patient is the insured Medicaid [address] [place] [address] [id number] Arline Shetty Self - patient is the insured Medical (General) History Medical History History ICD Code Anxiety disorder migraine headaches Knees OA Hep c Polysubstances dependence Surgical History Surgery Date(Month/Year) tubal ligation
--- OUTSIDE RECORDS SUMMARY | 2025-04-06 15:48 | XMS_ITS | Patient Health Record ---
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
--- OUTSIDE RECORDS SUMMARY | 2025-04-06 15:48 | XMS_ITS | Encounter Summary ---
Author Organization [facility] Address [address] [place] [id number] Care Team Providers Care Wood Treating Inspector Name Role Phone Madai Calixto PA-C Primary Care Provider [phone] Reason for Visit * Reason Onset Date Comments Referral 03/17/2023 PT-1 03/17/2023 Encounter Details Date Type Department Care Team (Late st Contact Info) Description 03/17/2023 Telephone [facility] [address] [place] [address] Madai Calixto PA-C [address] [place] [address] Referral; PT-1 Social History Tobacco Use Types [...] on filedocumented in this encounter Care Teams Wood Treating Inspector Relationship Specialty Start Date End Date Madai Calixto PA-C [address] [place] [address] PCP - General Family Medicine 03/14/23 documented as of this encounter
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
[2025-04-06 20:13] VITALS: BP 107/75; PULSE 86; RESP 16; TEMP 36.7; O2SAT 96
[2025-04-06] MEDS: guaiFENesin LA 600 MG TAB.ER.12H 1200 MG PO (21:18)
[2025-04-07 07:29] VITALS: BP 107/68; PULSE 57; RESP 20; TEMP 36.6; O2SAT 94
[2025-04-07] MEDS: methADONE HCl 20 MG/2 ML ORAL.CONC 120 MG PO (08:42)
[2025-04-07] MEDS: Amphetamine Mixed Salts 10 MG TABLET 30 MG PO (08:46)
[2025-04-07] MEDS: Diclofenac Sodium Delayed Rel 50 MG TABLET.DR PO (08:48)
[2025-04-07 08:50] VITALS: BP 107/68
[2025-04-07 08:51] VITALS: BP 107/68
[2025-04-07] MEDS: guaiFENesin LA 600 MG TAB.ER.12H 1200 MG PO ×2 (08:51→21:34)
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
[2025-04-07 13:59] VITALS: BP 109/71
[2025-04-07 21:17] VITALS: BP 113/64; PULSE 75; RESP 16; TEMP 36.5; O2SAT 94
[2025-04-08 08:30] VITALS: BP 121/67; PULSE 71; RESP 14; TEMP 36.5; O2SAT 95
[2025-04-08] MEDS: methADONE HCl 20 MG/2 ML ORAL.CONC 120 MG PO (09:06)
[2025-04-08] MEDS: guaiFENesin LA 600 MG TAB.ER.12H 1200 MG PO (09:10)
[2025-04-08] MEDS: Diclofenac Sodium Delayed Rel 50 MG TABLET.DR PO (09:13)
[2025-04-08 09:15] VITALS: BP 121/67
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
[2025-04-08 14:11] VITALS: BP 118/72
[2025-04-08 20:00] VITALS: BP 102/59; PULSE 78; RESP 18; TEMP 36.6; O2SAT 98
[2025-04-08 20:11] VITALS: BP 102/59
[2025-04-09 08:00] VITALS: BP 113/70; PULSE 71; RESP 18; TEMP 36.4; O2SAT 99
[2025-04-09] MEDS: methADONE HCl 20 MG/2 ML ORAL.CONC 120 MG PO (09:35)
[2025-04-09] MEDS: guaiFENesin LA 600 MG TAB.ER.12H 1200 MG PO ×2 (09:38→21:24)
[2025-04-09 09:40] VITALS: BP 113/70
[2025-04-09] MEDS: Diclofenac Sodium Delayed Rel 50 MG TABLET.DR PO (09:42)
[2025-04-09 09:43] VITALS: BP 113/70
[2025-04-09 14:17] VITALS: BP 128/77; PULSE 92
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
[2025-04-09 20:53] VITALS: BP 149/69; PULSE 70; RESP 18; TEMP 36.4; O2SAT 97
[2025-04-09] MEDS: Throat Lozenge, Medicated LOZENGE 1 LOZENGE MUCOUS MEM (21:05)
[2025-04-10 08:00] VITALS: BP 123/64; PULSE 68; RESP 20; TEMP 36.4; O2SAT 96
[2025-04-10] MEDS: methADONE HCl 20 MG/2 ML ORAL.CONC 120 MG PO (08:37)
[2025-04-10] MEDS: Diclofenac Sodium Delayed Rel 50 MG TABLET.DR PO (08:44)
[2025-04-10] MEDS: guaiFENesin LA 600 MG TAB.ER.12H 1200 MG PO ×2 (08:45→21:33)
[2025-04-10 15:23] VITALS: BP 122/77
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
[2025-04-10 21:31] VITALS: BP 123/67; PULSE 95; RESP 16; TEMP 36.3; O2SAT 97
[2025-04-11 07:44] VITALS: BP 130/84; PULSE 70; RESP 16; TEMP 36.3; O2SAT 97
[2025-04-11] MEDS: methADONE HCl 20 MG/2 ML ORAL.CONC 120 MG PO (08:02)
[2025-04-11] MEDS: Diclofenac Sodium Delayed Rel 50 MG TABLET.DR PO (08:22)
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
[2025-04-11 19:35] VITALS: BP 110/65; PULSE 73; RESP 16; TEMP 36.4; O2SAT 97
[2025-04-12 07:29] VITALS: BP 111/69; PULSE 60; RESP 16; TEMP 36.7; O2SAT 99
[2025-04-12] MEDS: methADONE HCl 20 MG/2 ML ORAL.CONC 120 MG PO (08:20)
[2025-04-12] MEDS: Diclofenac Sodium Delayed Rel 50 MG TABLET.DR PO (08:24)
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
[2025-04-12 23:50] VITALS: BP 110/66; PULSE 79; RESP 16; TEMP 36.4; O2SAT 96
[2025-04-13] MEDS: Diclofenac Sodium Delayed Rel 50 MG TABLET.DR PO (08:23)
[2025-04-13] MEDS: methADONE HCl 20 MG/2 ML ORAL.CONC 120 MG PO (08:23)
[2025-04-13] MEDS: Naloxone HCl Nasal TAKE HOME 4 MG SPRAY 8 MG NOSTRILALT (08:25)
== END 2025-04-13 09:05 | disposition home or self-care (01) | DRG 881 ==
PROVIDERS: Admitting Provider Psychiatry & Neurology Psychiatry; Responsible Provider Registered Nurse; Visit Provider Psychiatry & Neurology Psychiatry
DX: F32.9 Major depressive disorder, single episode, unspecified (principal); Z59.02 Unsheltered homelessness; F41.9 Anxiety disorder, unspecified; Z87.891 Personal history of nicotine dependence; Z79.899 Other long term (current) drug therapy
CPT/HCPCS: 97116; 97161

== ENCOUNTER → 2025-04-06 15:33 | Outpatient (BNV) | payer MEDICARE, SELFPAY | PROVIDERS: Admitting Provider Psychiatry & Neurology Psychiatry; Visit Provider Nurse Practitioner Psychiatric/Mental Health | DX: F32.2 Major depressive disorder, single episode, severe without psychotic features (principal); F19.10 Other psychoactive substance abuse, uncomplicated; F43.11 Post-traumatic stress disorder, acute | CPT/HCPCS: 90792; 99231; 99232 ==